=== PATIENT | female | born 1940 | race Caucasian/White ===

== ENCOUNTER → 2018-07-03 | Outpatient (CLI) | payer MEDICARE ==
[2018-07-03 08:38] LABS: HCT 33.9 % (34.0-46.0); MCH 31.8 pg (25.0-35.0); MCHC 32.6 g/dL (31.0-37.0); MCV 97.7 fL (80.0-100.0); Mean Platelet Volume 8.4; Platelet Count 304 k/uL (150-450); RBC 3.47 m/uL (3.80-5.40); RDW 14.6 % (11.5-15.5)
[2018-07-03 08:48] LABS: Appearance,Urine Clear (Clear); Bilirubin,Urine Negative (Negative); Blood,Urine Negative (Negative); Color,Urine Light Yellow; Glucose,Urine (UA) Negative (Negative); Ketones,Urine Negative (Negative); Leukocyte Esterase,Urine Negative (Negative); Nitrite,Urine Negative (Negative); Protein,Urine Negative (Negative); Specific Gravity,Urine 1.011 (1.001-1.035); Urobilinogen,Urine <2.0 mg/dL (<2.0)
[2018-07-03 15:46] LABS: Albumin 4.5 g/dL (3.80-4.90); Albumin/Globulin Ratio 2.25 (1.20-2.10); Anion Gap 5.6 mmol/L (4.00-12.00); Calcium 9.6 mg/dL (8.7-10.3); Carbon Dioxide 30.4 mmol/L (21.6-31.8); LDL Cholesterol,Calculated 103.6 mg/dL (0.0-131.0); Potassium 5.3 mmol/L (3.5-5.5); Total Bilirubin 0.7 mg/dL (0.3-1.2); Total Protein 6.5 g/dL (6.2-8.2); VLDL Calculation 14.4 mg/dL (5.00-40.00)
== END | disposition home or self-care (01) ==
LOC: LABWHC1 07:13
PROVIDERS: ATTEND Family Medicine
DX: R73.09 Other abnormal glucose (principal); M54.2 Cervicalgia; R31.9 Hematuria, unspecified; E78.5 Hyperlipidemia, unspecified; G47.33 Obstructive sleep apnea (adult) (pediatric)
CPT/HCPCS: 36415; 80053; 80061; 81003; 85027

== ENCOUNTER 2018-12-27 09:06 | Inpatient (IN) | payer MEDICARE ==
[2018-12-27] MEDS ORDERED: ASPIRIN 81 MG PO STA (09:27)
--- NOTE | 2018-12-27 09:36 | ED ---
Chest Pain HPI - General Chief Complaint: Chest Pain Stated Complaint: chest pain Time Seen by Provider: 12/27/18 09:12 Source: patient, RN notes reviewed Mode of arrival: wheelchair Limitations: no limitations - History of Present Illness Initial Comments: This is a 78-year-old female who was a former smoker who quit about 10 years ago who states she's been having chest pain. She states she's had retrosternal chest pain and pressure as severe as 5/10 severity feels like an elephant sitting on her chest and she also describes it as achy. Currently she is pain- free she states she's been noticing more more last 2 days it was very bad this morning but is now resolved. She states she normally does a lot of walking and she has noticed lately that she does not have the energy that she used to have she is fatigued easier short of breath. No personal history of heart disease or is a family history of heart disease however. She denies any history of and diagnosed with lung disease. MD Complaint: chest pain - Related Data Home Medications Medication Instructions Recorded Confirmed Atorvastatin [Lipitor] 40 mg PO DAILY 12/27/18 12/27/18 Calcium Carbonate/Vitamin D3 1 tab PO BID 12/27/18 12/27/18 [Calcium 500-Vit D3 600 Tablet] Cholecalciferol (Vitamin D3) 4,000 unit PO DAILY 12/27/18 12/27/18 [Vitamin D3] Ferrous Sulfate [Iron (65 MG 325 mg PO Q48H 12/27/18 12/27/18 Elemental)] Fluorometholone 0.1% Ophth Amy 1 drop PO HS 12/27/18 12/27/18 [Fml] Folic Acid 1 mg PO DAILY 12/27/18 12/27/18 Gabapentin [Neurontin] 300 mg PO TID 12/27/18 12/27/18 Latanoprost [Xalatan 0.005%] 1 drop BOTH EYES HS 12/27/18 12/27/18 Magnesium Oxide [Mag-Ox] 250 mg PO DAILY 12/27/18 12/27/18 Meloxicam 15 mg PO DAILY 12/27/18 12/27/18 Omeprazole 40 mg PO DAILY 12/27/18 12/27/18 Vit C/E/Zn/Coppr/Lutein/Zeaxan 2 cap PO BID 12/27/18 12/27/18 [Preservision Areds 2 Softgel] Allergies Allergy/AdvReac Type Severity Reaction Status Date / Time pregabalin [From Lyrica] AdvReac Unknown Verified 12/27/18 10:02 Review of Systems ROS Statement: Those systems with pertinent positive or pertinent negative responses have been documented in the HPI. ROS Other: All systems not noted in ROS Statement are negative. EKG Findings - EKG Results: EKG: interpreted by ERICKA, sinus rhythm (Normal sinus rhythm a 76. Interval 182 QRS duration 74 QT since QTC 404/[address]-T wave changes.) Past Medical History Past Medical History: Hyperlipidemia History of Any Multi-Drug Resistant Organisms: None Reported Past Surgical History: Back Surgery Additional Past Surgical History / Comment(s): Bleeding ulcer, splenectomy Past Psychological History: No Psychological Hx Reported Smoking Status: Former smoker Past Alcohol Use History: Occasional Past Drug Use History: None Reported General Exam - General Exam Comments Initial Comments: This is a well-developed well-nourished awake alert oriented 3 female Limitations: no limitations General appearance: alert, in no apparent distress Head exam: Present: atraumatic, normocephalic, normal inspection Eye exam: Present: normal appearance, PERRL, EOMI. Absent: scleral icterus, conjunctival injection, periorbital swelling ENT exam: Present: normal exam, mucous membranes moist Neck exam: Present: normal inspection, full ROM, other. Absent: tenderness, meningismus, lymphadenopathy Respiratory exam: Present: normal lung sounds bilaterally. Absent: respiratory distress, wheezes, rales, rhonchi, stridor Cardiovascular Exam: Present: regular rate, normal rhythm, normal heart sounds. Absent: systolic murmur, diastolic murmur, rubs, gallop, clicks GI/Abdominal exam: Present: soft, normal bowel sounds. Absent: distended, tenderness, guarding, rebound, rigid, bruit, pulsatile mass Extremities exam: Present: normal inspection, full ROM, normal capillary refill. Absent: tenderness, pedal edema, joint swelling, calf tenderness Back exam: Present: normal inspection Neurological exam: Present: alert, oriented X3, CN II-XII intact Psychiatric exam: Present: normal affect, normal mood Skin exam: Present: warm, dry, intact, normal color. Absent: rash Course Vital Signs 04/20/19 04/20/19 09:09 10:17 Temperature 98.4 F Pulse Rate 92 66 Respiratory 18 16 Rate Blood Pressure 150/76 116/78 O2 Sat by Pulse 96 95 Oximetry - Reevaluation(s) Reevaluation #1: 12/27/18 11:16 I did reevaluate patient during her stay she did have recurrence of chest heaviness. During my recurrent examination had resolved Reevaluation #2: 12/27/18 11:18 patient monitor was performed on the patient rule out dysrhythmia. The EKG demonstrated no PACs or PVCs. Heart rate was 63 my evaluation Chest Pain MDM - MDM I did review the imaging and reports no acute findings. Patient will be admitted she does demonstrate evidence of acute coronary syndrome/unstable angina. Critical Care Time Critical Care Time: Yes Critical Care Time: 31 minutes of critical care time which includes initial presentation with history physical labs x-rays several reevaluation the patient response to therapy and for monitoring the patient discussed with the admitting physician admission orders and documentation of the above. Dr. Saldana is being covered this week and by [facility]. Disposition Clinical Impression: Acute coronary syndrome, Unstable angina pectoris Disposition: ADMITTED IP TO THIS [facility] Condition: Stable Referrals: Ramses Saldana MD [Primary Care Provider] - 1-2 days
[2018-12-27 09:50] LABS: HCT 34.3 % (34.0-46.0); HGB 11.3 gm/dL (11.4-16.0); MCH 30.9 pg (25.0-35.0); MCHC 32.9 g/dL (31.0-37.0); MCV 93.7 fL (80.0-100.0); Mean Platelet Volume 8.9; Platelet Count 299 k/uL (150-450); RBC 3.66 m/uL (3.80-5.40); RDW 14.7 % (11.5-15.5); WBC 8.1 k/uL (3.8-10.6)
[2018-12-27 09:58] LABS: D-Dimer 0.41 mg/L FEU (<0.60); Partial Thromboplastin Time 24.2 sec (22.0-30.0); Prothrombin Time 11.1 sec (9.0-12.0)
--- NOTE | 2018-12-27 09:58 | XR ---
EXAMINATION TYPE: XR chest 2V DATE OF EXAM: 12/27/2018 COMPARISON: NONE HISTORY: Shortness of breath TECHNIQUE: Frontal and lateral views of the chest are obtained. FINDINGS: Scattered senescent parenchymal changes noted. Hyperinflation compatible with COPD. No evidence for infiltrate. No evidence for atelectasis. Heart size is stable. Mediastinal structures are stable and grossly unremarkable. No evidence for hilar prominence. Degenerative changes dorsal spine. IMPRESSION: 1. No evidence for acute pulmonary disease.
[2018-12-27 10:01] LABS: Albumin 4.7 g/dL (3.5-5.0); Calcium 10.2 mg/dL (8.4-10.2); Magnesium 1.7 mg/dL (1.6-2.3); Potassium 4.2 mmol/L (3.5-5.1); Total Bilirubin 0.7 mg/dL (0.2-1.3); Total Protein 7.3 g/dL (6.3-8.2)
[2018-12-27] MEDS ORDERED: NITROGLYCERIN OINT 1 INCH/GM PACKET TOPICAL STA (10:18)
[2018-12-27] MEDS ORDERED: HEPARIN SODIUM,PORCINE 5,000 UNIT/ML 1 ML VIAL IV PRN (10:19)
[2018-12-27] MEDS ORDERED: HEPARIN SODIUM,PORCINE 5,000 UNIT/ML 1 ML VIAL IV ONE (10:19)
[2018-12-27 10:31] LABS: Band Neutrophils % 1 %; Eosinophils # (M) 0.49 k/uL (0-0.7); Lymphocytes # (M) 2.51 k/uL (1.0-4.8); Monocytes # (M) 0.57 k/uL (0-1.0); Neutrophils % (M) 55 %; Nucleated Red Blood Cells 0 /100 WBC (0-0); Total Cells Counted 100
[2018-12-27 10:32] LABS: Poikilocytosis (M) Present
[2018-12-27] MEDS: HEPARIN SOD,PORK IN 0.45% NACL 25,000 UNIT in 0.45% NACL 1 250ML.BAG IV SCH (10:50)
[2018-12-27] MEDS: GABAPENTIN 300 MG CAP PO SCH ×2 (16:24→22:31)
[2018-12-27] MEDS: NITROGLYCERIN OINT 1 INCH/GM PACKET TOPICAL SCH (17:28)
[2018-12-27] MEDS: MAGNESIUM OXIDE 400 MG TAB PO SCH (22:28)
[2018-12-27] MEDS: CALCIUM CARB-VIT D 500MG-200UN 1 EACH TAB PO SCH (22:31)
--- NOTE | 2018-12-27 23:02 | P.HPIM ---
History of Present Illness H&P Date: 12/27/18 Chief Complaint: Chest pain Patient is a 78-year-old female with a known history of hyperlipidemia, obstructive sleep apnea and previous history of smoking came to ER with com plaints of intermittent chest pains for the past few weeks. Patient says that she isn't having heaviness in the chest. Today patient did have left retrosternal chest pressure/heaviness and felt like an elephant sitting on her chest and tightness. Patient has been having this chest tightness for the past 2 days and more severe this morning which made her to come to the hospital.. Patient did have sweating and mild shortness of breath. No associated nausea vomiting. No radiation of the pain. Patient also complaining of shortness of breath with walking recently and is also complaining of fatigue. Denied any previous history of NM. Patient says that she has significant family history of coronary artery disease. Troponin 0.017, 0.111 and 0.078 EKG showed normal sinus rhythm Review of Systems Constitutional: Patient denies any fever or chills . No generalized weakness or weight loss. Abdomen: Patient denied nausea vomiting and diarrhea and abdominal pain. Cardiovascular: Chest pain with diaphoresis and mild shortness of breath. No palpitations. No leg swelling.. Respiratory: patient denied any cough is from production. No shortness of breath Neurologic: Patient denied any numbness or tingling headache. Musculoskeletal: Patient denies any complaints of joint swelling or deformity. Skin: Negative Psychiatric: Negative Endocrine: No heat or cold intolerance. No recent weight gain. Genitourinary: No dysuria or hematuria. All other 14 point ROS negative except the above Past Medical History Past Medical History: Hyperlipidemia, Sleep Apnea/CPAP/BIPAP Additional Past Medical History / Comment(s): pt states she has bleeding issues in the past after surgery. History of Any Multi-Drug Resistant Organisms: None Reported Past Surgical History: Back Surgery Additional Past Surgical History / Comment(s): Bleeding ulcer-took 1/4 of stomach, splenectomy, cornea replacement right eye Past Anesthesia/Blood Transfusion Reactions: No Reported Reaction Past Psychological History: No Psychological Hx Reported Smoking Status: Former smoker Past Alcohol Use History: Occasional Past Drug Use History: None Reported Medications and Allergies Home Medications Medication Instructions Recorded Confirmed Type Atorvastatin [Lipitor] 40 mg PO DAILY 12/27/18 12/27/18 History Calcium Carbonate/Vitamin D3 1 tab PO BID 12/27/18 12/27/18 History [Calcium 500-Vit D3 600 Tablet] Cholecalciferol (Vitamin D3) 4,000 unit PO DAILY 12/27/18 12/27/18 History [Vitamin D3] Ferrous Sulfate [Iron (65 MG 325 mg PO Q48H 12/27/18 12/27/18 History Elemental)] Fluorometholone 0.1% Ophth Amy 1 drop PO HS 12/27/18 12/27/18 History [Fml] Folic Acid 1 mg PO DAILY 12/27/18 12/27/18 History Gabapentin [Neurontin] 300 mg PO TID 12/27/18 12/27/18 History Latanoprost [Xalatan 0.005%] 1 drop BOTH EYES HS 12/27/18 12/27/18 History Magnesium Oxide [Mag-Ox] 250 mg PO DAILY 12/27/18 12/27/18 History Meloxicam 15 mg PO DAILY 12/27/18 12/27/18 History Omeprazole 40 mg PO DAILY 12/27/18 12/27/18 History Vit C/E/Zn/Coppr/Lutein/Zeaxan 2 cap PO BID 12/27/18 12/27/18 History [Preservision Areds 2 Softgel] Allergies Allergy/AdvReac Type Severity Reaction Status Date / Time pregabalin [From Lyrica] AdvReac Unknown Verified 12/27/18 10:02 Physical Exam Vitals: Vital Signs Temp Pulse Pulse Resp BP BP Pulse Ox 12/27/18 15:10 64 16 12/27/18 14:34 97.9 F 64 16 157/74 94 L 12/27/18 14:16 65 16 138/73 98 12/27/18 11:49 61 16 147/62 98 12/27/18 10:17 66 16 116/78 95 12/27/18 09:09 98.4 F 92 18 150/76 96 Intake and Output 12/27/18 12/27/18 12/27/18 06:59 14:59 22:59 Other: Voiding Method Toilet Weight 68.039 kg PHYSICAL EXAMINATION: Patient is lying in the bed comfortably, no acute distress, awake alert and oriented.. HEENT: Normocephalic. Neck is supple. Pupils reactive. Nostrils clear. Oral cavity is moist. Ears reveal no drainage. Neck reveals no JVD, carotid bruits, or thyromegaly. CHEST EXAMINATION: Trachea is central. Symmetrical expansion. Lung diallo clear to auscultation and percussion. CARDIAC: Normal S1, S2 with no gallops. No murmurs ABDOMEN: Soft. Bowel sounds normal. No organomegaly. No abdominal bruits. Extremities: reveal no edema. No clubbing or cyanosis Neurologically awake, alert, oriented x3 with well-coordinated movements. No focal deficits noted Skin: No rash or skin lesions. Psychiatric: Coperative. Nonsuicidal Musculoskeletal: No joint swelling or deformity. Normal range of motion. Results CBC & Chem 7: 12/27/18 09:25 12/27/18 09:25 Labs: Abnormal Lab Results - Last 24 Hours (Table) 12/27/18 12/27/18 Range/Units 09:25 09:25 RBC 3.66 L (3.80-5.40) m/uL Hgb 11.3 L (11.4-16.0) gm/dL Glucose 169 H (74-99) mg/dL Thrombosis Risk Factor Assmnt - DVT/VTE Prophylaxis DVT/VTE Prophylaxis: Pharmacologic Prophylaxis ordered - Choose All That Apply Any of the Below Risk Factors Present?: Yes Each Factor Represents 1 point: Obesity (BMI >25) Other Risk Factors: No Thrombosis Risk Factor Assessment Total Risk Factor Score: 1 Thrombosis Risk Factor Assessment Level: Low Risk Assessment and Plan Assessment: Acute non-ST elevated NM with elevated troponin level Anginal chest pain. Hyperlipidemia Obstructive sleep apnea on CPAP at home Family history of coronary disease Previous history of smoking Peripheral neuropathy nondiabetic Plan: Patient will be continued on heparin drip. Serial EKG and troponins. Continue with telemetry monitoring. Cardiology was consulted. We'll continue with aspirin statins and follow up closely. Further recommendations based on the clinical course. Time with Patient: Greater than 30
[2018-12-28] MEDS: LATANOPROST 0.005% OPHTH DROPS 2.5 ML BTL BOTH EYES SCH ×2 (00:43→21:53)
[2018-12-28] MEDS: FLUOROMETHOLONE 0.1% OPHTH DROPS 5 ML BTL BOTH EYES SCH ×2 (00:44→21:53)
[2018-12-28] MEDS: NITROGLYCERIN OINT 1 INCH/GM PACKET TOPICAL SCH ×5 (00:47→23:22)
[2018-12-28 06:49] LABS: Basophils # (A) 0.1 k/uL (0-0.2); Basophils % (A) 1 %; Eosinophils # (A) 0.3 k/uL (0-0.7); Eosinophils % (A) 5 %; HCT 32.1 % (34.0-46.0); HGB 10.7 gm/dL (11.4-16.0); Lymphocytes # (A) 2.2 k/uL (1.0-4.8); Lymphocytes % (A) 32 %; MCH 31.1 pg (25.0-35.0); MCHC 33.2 g/dL (31.0-37.0); MCV 93.7 fL (80.0-100.0); Mean Platelet Volume 9.3; Monocytes # (A) 0.5 k/uL (0-1.0); Monocytes % (A) 7 %; Neutrophils # (A) 3.5 k/uL (1.3-7.7); Neutrophils % (A) 51 %; Platelet Count 282 k/uL (150-450); RBC 3.43 m/uL (3.80-5.40); RDW 14.7 % (11.5-15.5); WBC 6.8 k/uL (3.8-10.6)
[2018-12-28 06:53] LABS: Cholesterol 167 mg/dL (<200); HDL Cholesterol 70 mg/dL (40-60); LDL Cholesterol,Calculated 81 mg/dL (0-99); Triglycerides 82 mg/dL (<150)
[2018-12-28] MEDS: CALCIUM CARB-VIT D 500MG-200UN 1 EACH TAB PO SCH ×2 (08:28→21:54)
[2018-12-28] MEDS: PANTOPRAZOLE 40 MG TABLET PO SCH (08:29)
[2018-12-28] MEDS: FERROUS SULFATE 325 MG TAB PO SCH (08:29)
[2018-12-28] MEDS: GABAPENTIN 300 MG CAP PO SCH ×3 (08:29→21:54)
[2018-12-28] MEDS: VIT A,C & E-LUTEIN-MINERALS 1 EACH TAB PO SCH (08:29)
[2018-12-28] MEDS: CHOLECALCIFEROL 1,000 UNIT TAB PO SCH (08:31)
[2018-12-28] MEDS ORDERED: ATORVASTATIN 40 MG TAB PO SCH (09:00)
[2018-12-28] MEDS ORDERED: ASPIRIN 325 MG TAB PO SCH (09:00)
[2018-12-28] MEDS ORDERED: MELOXICAM 7.5 MG TAB PO SCH (09:00)
[2018-12-28] MEDS ORDERED: SODIUM CHLORIDE 0.9% 1,000 ML in EMPTY BAG 1 BAG IV ONE (09:34)
[2018-12-28] MEDS ORDERED: NITROGLYCERIN SL TABS 0.4 MG TAB SUBLINGUAL PRN (09:34)
[2018-12-28] MEDS ORDERED: ALPRAZolam 0.25 MG TAB PO PRN (09:34)
[2018-12-28] MEDS ORDERED: ALPRAZolam 0.5 MG TAB PO PRN (09:34)
[2018-12-28] MEDS: FOLIC ACID 1 MG TAB PO SCH (12:02)
[2018-12-28] MEDS: HEPARIN SOD,PORK IN 0.45% NACL 25,000 UNIT in 0.45% NACL 1 250ML.BAG IV SCH (12:02)
--- NOTE | 2018-12-28 12:47 | CONS ---
CONSULTATION CHIEF COMPLAINT: Chest pain. HISTORY OF PRESENT ILLNESS: The patient is a 78-year-old lady with history of dyslipidemia, sleep apnea on CPAP, who presented to the hospital with an episode of precordial chest pressure. It came on at rest, moderate intensity, associated with some mild diaphoresis and shortness of breath. She became pain free by the time she came to hospital and has remained pain- free since. An EKG does not reveal acute ischemic changes. She has had 3 sets of troponins that are slightly elevated at 0.1, 0.07 and 0.07. Her LDL cholesterol is normal at 80. She had 1 other episode of chest discomfort last night, but that happened in the context of not having the O2 on. Patient had a non ST-segment elevation WI and I advised her to undergo cardiac catheterization for further evaluation. I will also obtain cardiac catheterization for further evaluation. We will schedule this and do it tomorrow. I have explained risks, benefits and alternatives, understood and accepted. PAST MEDICAL HISTORY: Significant for dyslipidemia. CURRENT MEDICATIONS: Include omeprazole, meloxicam, magnesium, Neurontin, folic acid, iron, and Lipitor. ALLERGIC: LYRICA. FAMILY HISTORY: Negative for premature coronary artery disease. SOCIAL HISTORY: Negative for current smoking, EtOH abuse, or drug abuse. REVIEW OF SYSTEMS: HEENT is unremarkable. Cardiac as described above. Respiratory as described above. GI negative. Genitourinary: Negative. Allergy/Immunology: None. Skin negative. Musculoskeletal significant for arthritis. Psychosocial negative. Endocrine negative. Derm negative. Constitutional negative. Oncological negative. Rest of the system review is not relevant. EXAM: Comfortable at rest. Heart rate is 66 beats per minute. Blood pressure is 130/70, respirations 16. There is no jugular venous distention. Carotid upstroke is normal. There is no bruit. Chest exam reveals good air entry bilaterally. Heart exam reveals first and second heart sounds. No gallop. No murmur. No rub. Abdomen is soft, nontender. Exam of extremities did not reveal any edema. Peripheral pulses are palpable. ASSESSMENT: Non ST-segment elevation myocardial infarction. PLAN: Patient will undergo cardiac catheterization tomorrow. She had been explained of risks, benefits and alternatives, understood and accepted. Will obtain a 2D echo in the morning. MMODL / IJN: [id number] /
[2018-12-28] MEDS: ACETAMINOPHEN TAB 325 MG TAB PO PRN (13:04)
[2018-12-28] MEDS ORDERED: POLYETHYLENE GLYCOL 3350 17 GM POWD.PACK PO STA (15:34)
[2018-12-28] MEDS: NITROGLYCERIN SL TABS 0.4 MG TAB SUBLINGUAL PRN ×2 (20:19→20:24)
[2018-12-28] MEDS: MAGNESIUM OXIDE 400 MG TAB PO SCH (21:54)
[2018-12-28] MEDS ORDERED: NITROGLYCERIN-D5W PMX 50 MG in DEXTROSE/WATER 1 250ML.BAG IV SCH (22:00)
--- NOTE | 2018-12-29 00:10 | P.PN ---
Subjective Progress Note Date: 12/28/18 Principal diagnosis: Chest pressure Patient is a 78-year-old female with a known history of hyperlipidemia, obstructive sleep apnea and previous history of smoking came to ER with complaints of intermittent chest pains for the past few weeks. Patient says that she isn't having heaviness in the chest. Today patient did have left retrosternal chest pressure/heaviness and felt like an elephant sitting on her chest and tightness. Patient has been having this chest tightness for the past 2 days and more severe this morning which made her to come to the hospital.. Patient did have sweating and mild shortness of breath. No associated nausea vomiting. No radiation of the pain. Patient also complaining of shortness of breath with walking recently and is also complaining of fatigue. Denied any previous history of OR. Patient says that she has significant family history of coronary artery disease. Troponin 0.017, 0.111 and 0.078 EKG showed normal sinus rhythm 12/28/2018 Patient denied any complaints of chest pain or pressure today. Patient did have an episode of irregular rhythm. Currently maintaining sinus rhythm. Currently of headache otherwise no complaints of shortness of breath. Cardiology is planning for catheterization tomorrow. LDL 81. Current medications reviewed. Objective - Vital Signs Vital signs: Vital Signs Temp 98 F 12/28/18 15:15 Pulse 69 12/28/18 15:15 Resp 18 12/28/18 15:15 BP 125/64 12/28/18 15:15 Pulse Ox 90 L 12/28/18 15:15 Intake & Output 12/28/18 12/28/18 12/29/18 06:59 18:59 06:59 Intake Total 100 719.758 Balance 100 719.758 Weight 70.1 kg Intake: Intake, IV Titration 100 275.758 Amount Heparin Sod,Pork in 0.45% 100 205.758 NaCl 25,000 unit In 0.45 % NaCl 1 250ml.bag @ 12 UNITS/KG/HR 8.165 mls/hr IV .Q24H [facility] Rx#: [id number] Sodium Chloride 0.9% 1, 70 000 ml In Empty Bag 1 bag @ 1 ML/KG/HR 70.1 mls/hr IV .[id number] ONE Rx#: [id number] Oral 444 Other: # Voids 2 2 - Exam PHYSICAL EXAMINATION: Patient is lying in the bed comfortably, no acute distress, awake alert and oriented.. HEENT: Normocephalic. Neck is supple. Pupils reactive. Nostrils clear. Oral ca vity is moist. Ears reveal no drainage. Neck reveals no JVD, carotid bruits, or thyromegaly. CHEST EXAMINATION: Trachea is central. Symmetrical expansion. Lung diallo clear to auscultation and percussion. CARDIAC: Normal S1, S2 with no gallops. No murmurs ABDOMEN: Soft. Bowel sounds normal. No organomegaly. No abdominal bruits. Extremities: reveal no edema. No clubbing or cyanosis Neurologically awake, alert, oriented x3 with well-coordinated movements. No focal deficits noted Skin: No rash or skin lesions. Psychiatric: Coperative. Nonsuicidal Musculoskeletal: No joint swelling or deformity. Normal range of motion. - Labs CBC & Chem 7: 12/28/18 06:05 12/27/18 09:25 Labs: Abnormal Lab Results - Last 24 Hours (Table) 12/28/18 12/28/18 12/28/18 Range/Units 06:05 06:05 06:05 RBC 3.43 L (3.80-5.40) m/uL Hgb 10.7 L (11.4-16.0) gm/dL Hct 32.1 L (34.0-46.0) % APTT 51.7 H (22.0-30.0) sec Troponin I (0.000-0.034) ng/mL HDL Cholesterol 70 H (40-60) mg/dL 12/28/18 Range/Units 06:05 RBC (3.80-5.40) m/uL Hgb (11.4-16.0) gm/dL Hct (34.0-46.0) % APTT (22.0-30.0) sec Troponin I 0.072 H* (0.000-0.034) ng/mL HDL Cholesterol (40-60) mg/dL Assessment and Plan Assessment: Acute non-ST elevated OR with elevated troponin level Anginal chest pain. Hyperlipidemia Obstructive sleep apnea on CPAP at home Family history of coronary disease Previous history of smoking Peripheral neuropathy nondiabetic Plan: Patient will be continued on heparin drip. Serial EKG and troponins trending down. Continue with telemetry monitoring. Cardiology is planning for catheterization tomorrow.. Will continue with aspirin statins and follow up closely. Further recommendations based on the clinical course. Time with Patient: Greater than 30
[2018-12-29] MEDS: NITROGLYCERIN OINT 1 INCH/GM PACKET TOPICAL SCH (05:24)
[2018-12-29] MEDS ORDERED: ASPIRIN 325 MG TAB PO ONE (06:00)
[2018-12-29] MEDS ORDERED: ATORVASTATIN 80 MG TAB PO ONE (06:00)
[2018-12-29] MEDS: PANTOPRAZOLE 40 MG TABLET PO SCH (06:15)
[2018-12-29] MEDS: GABAPENTIN 300 MG CAP PO SCH ×3 (06:15→20:25)
[2018-12-29] MEDS: VIT A,C & E-LUTEIN-MINERALS 1 EACH TAB PO SCH (06:15)
[2018-12-29] MEDS: CHOLECALCIFEROL 1,000 UNIT TAB PO SCH (06:15)
[2018-12-29] MEDS: CALCIUM CARB-VIT D 500MG-200UN 1 EACH TAB PO SCH ×2 (06:15→20:24)
[2018-12-29 06:38] LABS: Basophils # (A) 0.1 k/uL (0-0.2); Basophils % (A) 1 %; Eosinophils # (A) 0.5 k/uL (0-0.7); Eosinophils % (A) 5 %; HCT 31.2 % (34.0-46.0); HGB 10.3 gm/dL (11.4-16.0); Lymphocytes # (A) 2.8 k/uL (1.0-4.8); Lymphocytes % (A) 30 %; Mean Platelet Volume 9.4; Monocytes # (A) 0.6 k/uL (0-1.0); Monocytes % (A) 7 %; Neutrophils % (A) 53 %; Platelet Count 262 k/uL (150-450); RBC 3.32 m/uL (3.80-5.40); RDW 14.6 % (11.5-15.5); WBC 9.4 k/uL (3.8-10.6)
[2018-12-29] MEDS: ACETAMINOPHEN TAB 325 MG TAB PO PRN ×2 (07:34→23:57)
[2018-12-29] MEDS ORDERED: LIDOCAINE 1% INJ 10MG/ML (20 ML MDV) SQ ONE (08:12)
[2018-12-29] MEDS ORDERED: fentaNYL (PF) 50 MCG/ML 2 ML AMP IV ONE (08:15)
[2018-12-29] MEDS ORDERED: MIDAZOLAM (PF) 2 MG/2 ML VIAL IV ONE (08:16)
[2018-12-29] MEDS ORDERED: IV FLUID CONTINUATION 700 ML IV ONE (08:16)
[2018-12-29] MEDS ORDERED: IOPAMIDOL-370 100ML BTL INJ ONE (08:24)
[2018-12-29] MEDS ORDERED: IOPAMIDOL-370 50ML BTL INJ ONE (08:25)
[2018-12-29] MEDS ORDERED: RX INFO: IV CONTRAST WAS GIVEN 1 EACH MISC MISCELLANE PRN (08:47)
[2018-12-29] MEDS ORDERED: HEPARIN SODIUM,PORCINE 5,000 UNIT/ML 1 ML VIAL IV PRN (08:51)
[2018-12-29] MEDS ORDERED: MD COMMUNICATION TO PHARMACY 1 EACH MISC PO ONE (08:55)
--- NOTE | 2018-12-29 08:58 | CC ---
CARDIAC CATHETERIZATION REPORT INDICATION: [id number] elevation [place]. PROCEDURE NOTE: After obtaining informed consent, left heart catheterization and coronary angiogram were performed via the right femoral artery using standard Nellie catheters. The patient tolerated the procedure well without any obvious immediate complications. A femoral angiogram was performed and Angio-Seal was deployed for hemostasis. The patient received moderate conscious sedation and total sedation time was 19 minutes. FINDINGS: 1. HEMODYNAMICS: Left ventricular end-diastolic pressure is 24 mm. There is no significant gradient across the aortic valve. 2. LEFT VENTRICULOGRAM: Left ventriculogram was performed in REGALADO position and shows normal left ventricular size with mild LV dysfunction with an ejection fraction of 45%. There is mild apical hypokinesis. There is 2+ mitral regurgitation, which seems to be catheter-induced. 3. ANGIOGRAPHIC DATA: Left main coronary artery appears calcified. Distal left main shows an 80% stenosis. It divides into left anterior descending coronary artery and circumflex coronary artery. LAD itself appears heavily calcified, gives off 2 large caliber diagonal branches that are free of significant stenosis. The left main stenosis extends into the proximal LAD where it is stenosed almost 95%. The circumflex coronary artery shows a 40% to 50% stenosis in the proximal part. The right coronary artery is a large dominant vessel, which shows a moderate area of narrowing in its midportion and the ostial portion of the PDA has an 80% to 90% stenosis. The ostial portion of the PLV also has a 40% to 50% stenosis. 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 PLAN: I am going to ask cardiothoracic surgeon to evaluate the patient for bypass surgery. I think we need to do the surgery soon as the patient has had symptoms, twice had episodes of chest pain since admission. I am going to resume heparin 2 hours after the Angio-Seal. I will obtain a 2-D echo. MMODL / IJN: [id number] /
[2018-12-29 09:49] LABS: Partial Thromboplastin Time 32.1 sec (22.0-30.0)
[2018-12-29 09:51] LABS: ALT 28 U/L (9-52); AST 25 U/L (14-36); Alkaline Phosphatase 60 U/L (38-126); Anion Gap 6 mmol/L; Blood Urea Nitrogen 19 mg/dL (7-17); Calcium 9.7 mg/dL (8.4-10.2); Carbon Dioxide 29 mmol/L (22-30); Chloride 105 mmol/L (98-107); Glucose 94 mg/dL (74-99); Magnesium 1.8 mg/dL (1.6-2.3); Potassium 4.4 mmol/L (3.5-5.1); Sodium 140 mmol/L (137-145); Total Bilirubin 0.5 mg/dL (0.2-1.3); Total Protein 6.4 g/dL (6.3-8.2)
[2018-12-29] MEDS ORDERED: SENNOSIDES-DOCUSATE SODIUM 1 EACH TAB PO STA (10:06)
[2018-12-29] MEDS ORDERED: BISACODYL 10 MG SUPP RECTAL PRN (10:06)
--- NOTE | 2018-12-29 10:52 | P.PN ---
Subjective Patient in room back from a cardiac cath. Has severe of left main 3 vessel disease will be scheduled tomorrow for bypass. LAD 95% right coronary 80-90%. Patient resting in bed family at bedside denies any chest pain at this time Objective - Vital Signs Vital signs: Vital Signs Temp 98 F 12/29/18 10:32 Pulse 61 12/29/18 10:32 Resp 18 12/29/18 10:32 BP 142/72 12/29/18 10:32 Pulse Ox 96 12/29/18 10:32 Intake & Output 12/28/18 12/29/18 12/29/18 18:59 06:59 18:59 Intake Total 719.758 560 260.17 Output Total 400 Balance 719.758 560 -139.83 Weight 71.5 kg Intake: IV 100 Intake, IV Titration 275.758 560 160.17 Amount Heparin Sod,Pork in 0.45% 205.758 160.17 NaCl 25,000 unit In 0.45 % NaCl 1 250ml.bag @ 12 UNITS/KG/HR 8.165 mls/hr IV .Q24H [facility] Rx#: [id number] Sodium Chloride 0.9% 1, 70 560 000 ml In Empty Bag 1 bag @ 1 ML/KG/HR 70.1 mls/hr IV .[id number] ONE Rx#: [id number] Oral 444 Output: Urine 400 Other: Voiding Method Bedpan # Voids 2 1 - Constitutional General appearance: Present: mild distress - EENT Eyes: Present: PERRLA Ears: bilateral: normal - Neck Neck: Present: normal ROM - Respiratory Respiratory: bilateral: CTA - Cardiovascular Rhythm: regular - Gastrointestinal General gastrointestinal: Present: soft - Integumentary Integumentary: Present: normal - Neurologic Neurologic: Present: CNII-XII intact - Musculoskeletal Musculoskeletal: Present: gait normal - Psychiatric Psychiatric: Present: A&O x's 3, appropriate affect, intact judgment & insight - Labs CBC & Chem 7: 12/29/18 05:53 12/29/18 05:53 Labs: Abnormal Lab Results - Last 24 Hours (Table) 12/29/18 12/29/18 12/29/18 Range/Units 05:53 05:53 05:53 RBC 3.32 L (3.80-5.40) m/uL Hgb 10.3 L (11.4-16.0) gm/dL Hct 31.2 L (34.0-46.0) % APTT 50.8 H (22.0-30.0) sec BUN 19 H (7-17) mg/dL 12/29/18 Range/Units 09:20 RBC (3.80-5.40) m/uL Hgb (11.4-16.0) gm/dL Hct (34.0-46.0) % APTT 32.1 H (22.0-30.0) sec BUN (7-17) mg/dL - Imaging and Cardiology Chest x-ray: report reviewed Assessment and Plan Plan: Assessment Acute non-ST elevated NV with elevated troponins Angina chest pain Hyperlipidemia Sleep apnea on CPAP Family history of coronary disease Remote smoking history Peripheral neuropathy nondiabetic Plan Continue consultation with cardiology and cardiac surgeon Plans are for bypass surgery in the morning three-vessel
[2018-12-29] MEDS: FOLIC ACID 1 MG TAB PO SCH (10:59)
[2018-12-29] MEDS: METOPROLOL TARTRATE 12.5 MG TAB PO SCH ×2 (10:59→20:24)
[2018-12-29] MEDS ORDERED: HEPARIN SODIUM,PORCINE 5,000 UNIT/ML 1 ML VIAL IV ONE (11:00)
[2018-12-29] MEDS: HEPARIN SOD,PORK IN 0.45% NACL 25,000 UNIT in 0.45% NACL 1 250ML.BAG IV SCH (11:00)
[2018-12-29] MEDS: MUPIROCIN 2% OINT 22 GM TUBE NASAL SCH ×2 (11:00→20:25)
[2018-12-29 11:39] LABS: Appearance,Urine Clear (Clear); Bilirubin,Urine Negative (Negative); Blood,Urine Moderate (Negative); Color,Urine Light Yellow; Glucose,Urine (UA) Negative (Negative); Ketones,Urine Negative (Negative); Leukocyte Esterase,Urine Negative (Negative); Nitrite,Urine Negative (Negative); PH, Urine 6.5 (5.0-8.0); Protein,Urine Negative (Negative); Specific Gravity,Urine 1.027 (1.001-1.035); Squamous Epithelial Cell,Urine <1 /hpf (0-4); Urobilinogen,Urine <2.0 mg/dL (<2.0); WBC,Urine 1 /hpf (0-5)
[2018-12-29] MEDS: SODIUM CHLORIDE 0.9% 1,000 ML IV SCH ×2 (11:52→23:59)
--- NOTE | 2018-12-29 12:16 | ECHOF ---
Referral Reason:chest pain MEASUREMENTS -------- HEIGHT: 152.4 cm WEIGHT: 71.2 kg BP: 123/71 RVIDd: 3.0 cm (< 3.3) IVSd: 1.1 cm (0.6 - 1.1) LVIDd: 3.9 cm (3.9 - 5.3) LVPWd: 1.0 cm (0.6 - 1.1) IVSs: 1.4 cm LVIDs: 3.0 cm LVPWs: 1.4 cm Ao Diam: 3.4 cm (2.0 - 3.7) AV Cusp: 2.0 cm (1.5 - 2.6) LA Diam: 3.9 cm (2.7 - 3.8) MV EXCURSION: 15.965 mm (> 18.000) MV EF SLOPE: 44 mm/s (70 - 150) EPSS: 0.5 cm MV E Faraz: 0.64 m/s MV DecT: 222 ms MV A Faraz: 0.85 m/s MV E/A Ratio: 0.75 AR PHT: 441 ms RAP: 5.00 mmHg RVSP: 23.93 mmHg FINDINGS -------- Sinus rhythm. This was a technically good study. LV size, wall thickness and systolic function are normal, with an EF greater than 55%. The left renetta tricular size is normal. The right ventricle is normal in size. The left atrial size is normal. The right atrial size is normal. There is mild aortic valve sclerosis. There is mcjm-me-uldxdhab aortic regurgitation. Mild mitral annular calcification present. Mild mitral regurgitation is present. Mild tricuspid regurgitation present. There is no evidence of pulmonary hypertension. The right v entricular systolic pressure, as measured by Doppler, is 23.93mmHg. There is no pulmonic regurgitation present. The aortic root size is normal. There is no pericardial effusion. CONCLUSIONS -------- 1. LV size, wall thickness and systolic function are normal, with an EF greater than 55%. 2. The left ventricular size is normal. 3. The right ventricle is normal in size. 4. The left atrial size is normal. 5. The right atrial size is normal. 6. There is mild aortic valve sclerosis. 7. There is obeu-ih-aszamopd aortic regurgitation. 8. Mild mitral annular calcification present. 9. Mild mitral regurgitation is present. 10. Mild tricuspid regurgitation present. 11. There is no evidence of pulmonary hypertension. 12. The right ventricular systolic pressure, as measured by Doppler, is 23.93mmHg. 13. There is no pulmonic regurgitation present. 14. The aortic root size is normal. 15. There is no pericardial effusion. SENIOR CAREGIVER: Terri Howard RDCS
[2018-12-29 13:05] LABS: Glucose,Whole Blood 124 mg/dL (75-99)
--- NOTE | 2018-12-29 13:46 | P.GSCN ---
History of Present Illness Consult date: 12/29/18 Reason for Consult: Triple vessel coronary artery disease with significant left main disease, non- STEMI. Requesting physician: Car Jeff History of present illness: This is a 78-year-old active female patient who recently began following with Dr. Ramses Saldana on an outpatient basis. She has a previous medical history of hyperlipidemia, previous tobacco dependence as she quit 10 years ago but used to smoke approximately half a pack a day for 20 years, obstructive sleep apnea with home CPAP use, gastric ulcer with gastrectomy, splenectomy, and family history of heart disease as all brothers have had heart attacks and one of her brothers of myocardial infarction at 53 years old. She presented to [facility] emergency room on December 27 with complaints of chest pain for the prior 2 weeks. She stated that her symptoms were progressively worse over the previous 2 days prompting her to report to the emergency room. She describes her pain as if an elephant this setting on her chest, associated symptoms include diaphoresis and shortness of breath. Her pain would increase with physical acti vity, and be partially relieved with rest. EMS had applied oxygen and given her nitro and she said this relieved her pain. She does state that she has occasional lower extremity edema, she denies paroxysmal nocturnal dyspnea, dizziness, cough, sick contacts, or any strokelike symptoms. Her initial troponin was negative. Her initial EKG demonstrated no acute ischemic changes. She was admitted for evaluation and treatment. Once she was admitted to the floor, she had 2 episodes of the same type of chest pain with ambulation to the bathroom. Troponins were mildly elevated with Max troponin 0.111. The patient was recommended to undergo heart catheterization which was completed at this [facility] by Dr. Jeff and which demonstrated calcific distal left main stenosis of 80%, heavily calcified left anterior descending artery with proximal LAD stenosis 95%, proximal circumflex stenosis 40-50%, ostial PDA stenosis 80-90%, and ostial PLV stenosis 40-50%. Due to the nature of her coronary artery disease, an urgent consultation was placed for cardiothoracic surgery for revascularization. Review of Systems Review of systems was completed and was negative except as noted. - Cardiovascular Reports as per HPI, Reports chest pain, Reports decreased exercise tolerance, Reports dyspnea on exertion Past Medical History Past Medical History: Hyperlipidemia, Sleep Apnea/CPAP/BIPAP Additional Past Medical History / Comment(s): pt states she has bleeding issues in the past after surgery. History of Any Multi-Drug Resistant Organisms: None Reported Past Surgical History: Back Surgery Additional Past Surgical History / Comment(s): Bleeding ulcer-took 1/4 of stomach, splenectomy, cornea replacement right eye Past Anesthesia/Blood Transfusion Reactions: No Reported Reaction Past Psychological History: No Psychological Hx Reported Smoking Status: Former smoker Past Alcohol Use History: Rare Past Drug Use History: None Reported - Past Family History Brother(s) Family Medical History: Coronary Artery Disease (CAD), Myocardial Infarction (MD) Additional Family Medical History / Comment(s): all brothers with heart disease, one who of MD @ 53 years old Medications and Allergies Home Medications Medication Instructions Recorded Confirmed Type Atorvastatin [Lipitor] 40 mg PO DAILY 12/27/18 12/27/18 History Calcium Carbonate/Vitamin D3 1 tab PO BID 12/27/18 12/27/18 History [Calcium 500-Vit D3 600 Tablet] Cholecalciferol (Vitamin D3) 4,000 unit PO DAILY 12/27/18 12/27/18 History [Vitamin D3] Ferrous Sulfate [Iron (65 MG 325 mg PO Q48H 12/27/18 12/27/18 History Elemental)] Fluorometholone 0.1% Ophth Amy 1 drop PO HS 12/27/18 12/27/18 History [Fml] Folic Acid 1 mg PO DAILY 12/27/18 12/27/18 History Gabapentin [Neurontin] 300 mg PO TID 12/27/18 12/27/18 History Latanoprost [Xalatan 0.005%] 1 drop BOTH EYES HS 12/27/18 12/27/18 History Magnesium Oxide [Mag-Ox] 250 mg PO DAILY 12/27/18 12/27/18 History Meloxicam 15 mg PO DAILY 12/27/18 12/27/18 History Omeprazole 40 mg PO DAILY 12/27/18 12/27/18 History Vit C/E/Zn/Coppr/Lutein/Zeaxan 2 cap PO BID 12/27/18 12/27/18 History [Preservision Areds 2 Softgel] Allergies Allergy/AdvReac Type Severity Reaction Status Date / Time pregabalin [From Lyrica] AdvReac Unknown Verified 12/27/18 10:02 Surgical - Exam Vital Signs Temp Pulse Resp BP Pulse Ox 98.4 F 92 18 150/76 96 12/27/18 09:09 12/27/18 09:09 12/27/18 09:09 12/27/18 09:09 12/27/18 09:09 - General well developed, well nourished, no distress, no pain, obese - Eyes Right eye corneal implant normal ocular movement - ENT no hearing loss - Neck no masses, no bruits, trachea midline - Respiratory Lungs sounds clear bilaterally. Respirations even, nonlabored. Currently on 2 L nasal cannula with oxygen saturation 96%. No chest wall deformities. - Cardiovascular S1, S2 present. Regular rate and rhythm, sinus rhythm on telemetry. Palpable peripheral pulses bilaterally. No edema present. No calf pain or tenderness noted. Positive varicosities to bilateral lower extremities. - Abdomen Abdomen: soft, non tender, bowel sounds - Genitourinary Deferred - Rectum Deferred - Integumentary no rash, no growths - Neurologic normal coordination, normal sensation - Musculoskeletal normal posture - Psychiatric oriented to time, oriented to person, oriented to place, speech is normal, memory intact Results - Labs 12/29/18 05:53 12/29/18 05:53 Abnormal Lab Results - Last 24 Hours (Table) 12/29/18 12/29/18 12/29/18 Range/Units 05:53 05:53 05:53 RBC 3.32 L (3.80-5.40) m/uL Hgb 10.3 L (11.4-16.0) gm/dL Hct 31.2 L (34.0-46.0) % APTT 50.8 H (22.0-30.0) sec BUN 19 H (7-17) mg/dL 12/29/18 Range/Units 09:20 RBC (3.80-5.40) m/uL Hgb (11.4-16.0) gm/dL Hct (34.0-46.0) % APTT 32.1 H (22.0-30.0) sec BUN (7-17) mg/dL Diabetes panel 12/29/18 Range/Units 05:53 Sodium 140 (137-145) mmol/L Potassium 4.4 (3.5-5.1) mmol/L Chloride 105 (98-107) mmol/L Carbon Dioxide 29 (22-30) mmol/L BUN 19 H (7-17) mg/dL Creatinine 0.74 (0.52-1.04) mg/dL Glucose 94 (74-99) mg/dL Calcium 9.7 (8.4-10.2) mg/dL AST 25 (14-36) U/L ALT 28 (9-52) U/L Alkaline Phosphatase 60 (38-126) U/L Total Protein 6.4 (6.3-8.2) g/dL Albumin 4.0 (3.5-5.0) g/dL Thyroid panel 12/29/18 Range/Units 05:53 TSH 1.990 (0.465-4.680) mIU/L Calcium panel 12/29/18 Range/Units 05:53 Calcium 9.7 (8.4-10.2) mg/dL Albumin 4.0 (3.5-5.0) g/dL Pituitary panel 12/29/18 Range/Units 05:53 Sodium 140 (137-145) mmol/L Potassium 4.4 (3.5-5.1) mmol/L Chloride 105 (98-107) mmol/L Carbon Dioxide 29 (22-30) mmol/L BUN 19 H (7-17) mg/dL Creatinine 0.74 (0.52-1.04) mg/dL Glucose 94 (74-99) mg/dL Calcium 9.7 (8.4-10.2) mg/dL TSH 1.990 (0.465-4.680) mIU/L Adrenal panel 12/29/18 Range/Units 05:53 Sodium 140 (137-145) mmol/L Potassium 4.4 (3.5-5.1) mmol/L Chloride 105 (98-107) mmol/L Carbon Dioxide 29 (22-30) mmol/L BUN 19 H (7-17) mg/dL Creatinine 0.74 (0.52-1.04) mg/dL Glucose 94 (74-99) mg/dL Calcium 9.7 (8.4-10.2) mg/dL Total Bilirubin 0.5 (0.2-1.3) mg/dL AST 25 (14-36) U/L ALT 28 (9-52) U/L Alkaline Phosphatase 60 (38-126) U/L Total Protein 6.4 (6.3-8.2) g/dL Albumin 4.0 (3.5-5.0) g/dL - Imaging Chest x-ray: report reviewed, image reviewed EKG: image reviewed Additional studies: Heart catheterization films reviewed Assessment and Plan Assessment: 1. Triple-vessel coronary artery disease with left main stenosis 2. Non-STEMI 3. Hyperlipidemia 4. Previous tobacco dependence, preoperative FEV1 98% of predicted 5. Obstructive sleep apnea with home CPAP use 6. History of gastric ulcer with partial gastrectomy 7. History of splenectomy 8. Family history of premature coronary artery disease Plan: The patient was seen and examined on the cardiac stepdown unit. Chart/diagnostics were reviewed. The patient is currently in no distress, she denies any pain or shortness of breath as she is currently laying in bed. The usual perioperative course for coronary artery bypass graft surgery was discussed in detail with the patient and her son, all risks and benefits were reviewed, and all questions are answered. Preoperative testing was initiated, transthoracic echocardiogram was completed demonstrating normal LV function with EF 55%, mild to moderate aortic insufficiency, mild mitral regurgitation, and mild tricuspid regurgitation with no pulmonary hypertension. We recommend continuing to maximize medical therapy with aspirin and statin, beta bettye was added. Continue IV heparin and nitro. The case was discussed with Dr. Pham. Cardiothoracic surgery will see and evaluate the patient later this afternoon to make recommendations for surgery. If the patient continues to have chest pain we would recommend intra-aortic balloon pump insertion while waiting for mayes rgery. Otherwise, continue medical management per primary care service and cardiology. Thank you Dr. Jeff for this consult. We look forward to working with you in the care of your patient. Time with Patient: Greater than 30
--- NOTE | 2018-12-29 14:50 | US ---
EXAMINATION TYPE: US carotid duplex BILAT DATE OF EXAM: 12/29/2018 COMPARISON: NONE CLINICAL HISTORY: cabg. pre CABG. Previous smoker. EXAM MEASUREMENTS: RIGHT: Peak Systolic Velocity (PSV) cm/sec ----- Right CCA: 84.0 ----- Right ICA: 81.2 ----- Right ECA: 164.7 ICA/CCA ratio: 1.0 RIGHT: End Diastole cm/sec ----- Right CCA: 14.1 ----- Right ICA: 24.1 ----- Right ECA: 0.0 LEFT: Peak Systolic Velocity (PSV) cm/sec ----- Left CCA: 73.2 ----- Left ICA: 71.2 ----- Left ECA: 101.8 ICA/CCA ratio: 1.0 LEFT: End Diastole cm/sec ----- Left CCA: 12.8 ----- Left ICA: 20.6 ----- Left ECA: 1.8 VERTEBRALS (direction of flow): Right Vertebral: Antegrade Left Vertebral: Antegrade Rhythm: Normal Grayscale, color Doppler, spectral Doppler imaging performed of the carotid arteries. Waveform analys is does not show significant stenosis of the proximal internal carotid arteries. Atherosclerotic changes seen bilaterally are mild. Hyperechoic plaque seen left bifurcation. No signi ficant stenosis seen. Elevated ECA velocity obtained with wall changes. IMPRESSION: No hemodynamic significant stenosis of the proximal internal carotid arteries bilaterall y by Doppler criteria, an indirect measurement of carotid stenosis
[2018-12-29] MEDS ORDERED: MAGNESIUM HYDROXIDE 2,400 MG/10 ML CUP PO PRN (17:52)
[2018-12-29 18:02] LABS: Hepatitis A Antibody IgM Non-Reactive (Non-Reactive); Hepatitis B Core IgM Non-Reactive (Non-Reactive)
--- NOTE | 2018-12-29 18:31 | CONS ---
CONSULTATION DATE OF SERVICE: 12/29/2018 This is a consultation December 29, 2018 This is a 78-year-old female who we were asked to see in preop evaluation for potential bypass grafting. The patient apparently had retrosternal chest pain rated at 5/10. She states that the pain felt like an elephant sitting on her chest. She also described it as being achy. It apparently had been going on for a couple days prior to admission. She states that her energy levels are reduced and she fatigues much easier and has some mild shortness of breath. Apparently there is no family history or personal history of heart disease. She apparently was seen in the emergency room for this chest discomfort. She is apparently scheduled to have a bypass grafting tomorrow. We are asked to see the patient in advance. The patient does not appear to have any intrinsic pulmonary disease. She did have a cardiac catheterization which revealed evidence of severe left main stenosis with 3 vessel coronary artery disease. For that reason, she is having bypass grafting tomorrow. Again, the patient denies any pre-existing pulmonary disease. Her smoking history was primarily remote and minimal at best. She denies home use of oxygen or any breathing medications. HOME MEDICATIONS: Included Lipitor, vitamin D3, ferrous sulfate, eye drops, folic acid, Neurontin, Xalatan eyedrops, magnesium oxide, meloxicam, omeprazole, and I vitamins. ALLERGIES: ALLERGIES INCLUDE LYRICA. MEDICAL HISTORY: Positive for hyperlipidemia, arthritis, gastroesophageal reflux disease, and vitamin D deficiency. SURGICAL HISTORY: Includes splenectomy bleeding ulcer and back surgery. SOCIAL HISTORY: Positive for remote tobacco use. Denies any illicit drug use. Occasional alcohol use. FAMILY HISTORY: Noncontributory. REVIEW OF SYSTEMS: CONSTITUTIONAL: Lack of energy, fatigue, decreased exercise capacity. NEUROLOGIC negative. HEENT negative. CARDIOVASCULAR chest discomfort, chest heaviness and PULMONARY: Mild shortness of breath on exertion. GI negative. negative. Rheumatologic negative. Immunologic negative. ENDOCRINOLOGIC negative and dermatologic negative. PHYSICAL EXAMINATION: Current vital signs include a temperature 98, heart rate 56, respiratory rate 18, blood pressure 118/60 with mean is 79. 2 L saturation 96%. Appears in no acute distress. HEENT examination is grossly unremarkable. Mucous membranes are moist. Nasal O2 in place. The patient denies being short of breath. NECK: Supple. Full range of motion. No adenopathy or thyromegaly. Neck veins are flat. Cardiovascular examination reveals regular rhythm rate. S1, S2 normal. No S3, S4, or murmur. LUNGS: Clear breath sounds. No wheezes, rhonchi, crackles. ABDOMEN: Soft. Bowel sounds are heard. No masses or tenderness. Extremities are intact. No cyanosis, clubbing, or edema. Skin without rash. Neurologic examination is brief but nonfocal. LAB DATA: Reviewed. White count 9.4, hemoglobin 10.3, hematocrit 31.2, platelet count normal. PT/INR normal. PTT 32.1. Sodium, potassium, chloride, CO2 all normal. Nion gap normal. BUN and creatinine were 19 and 0.74. Troponin was 0.072. TSH was normal. Total cholesterol is 167. Urine was negative. EKG showed normal sinus rhythm without acute abnormality. ASSESSMENT: 1. Severe coronary artery disease with left main involvement and anticipated bypass grafting in the morning. 2. History of hyperlipidemia. 3. History of sleep apnea syndrome. 4. No history of intrinsic pulmonary disease. 5. Vitamin D deficiency. 6. Gastroesophageal reflux disease. 7. Degenerative joint disease. PLAN: The patient appears to be in good shape for bypass grafting. We mentioned to the patient that we would be attempting to get her off life support as quickly as possible. We will shoot for the less than 6 hour window. We told her that we would recommend that she use her incentive spirometer post extubation every hour while awake. We will also recommend deep breathing coughing and clearing of secretions as well as use of bronchodilators. Additional recommendations and suggestions are forthcoming. Prognosis is thought to be good. MMODL / IJN: [id number] / ALEX
[2018-12-29 19:27] LABS: Hemoglobin A1C 5.7 % (4.0-6.0)
[2018-12-29] MEDS: MAGNESIUM OXIDE 400 MG TAB PO SCH (20:24)
[2018-12-29] MEDS: LATANOPROST 0.005% OPHTH DROPS 2.5 ML BTL BOTH EYES SCH (21:19)
[2018-12-29] MEDS: FLUOROMETHOLONE 0.1% OPHTH DROPS 5 ML BTL BOTH EYES SCH (21:19)
[2018-12-30] MEDS ORDERED: HYDROmorphone 0.5 MG/0.5 ML SYRINGE IVP STA (04:08)
[2018-12-30 04:51] LABS: Basophils # (A) 0.1 k/uL (0-0.2); Basophils % (A) 1 %; Eosinophils # (A) 0.5 k/uL (0-0.7); Eosinophils % (A) 5 %; Lymphocytes # (A) 3.3 k/uL (1.0-4.8); Lymphocytes % (A) 30 %; MCH 30.6 pg (25.0-35.0); MCHC 32.3 g/dL (31.0-37.0); MCV 94.6 fL (80.0-100.0); Mean Platelet Volume 9.4; Monocytes # (A) 0.7 k/uL (0-1.0); Monocytes % (A) 7 %; Neutrophils # (A) 5.9 k/uL (1.3-7.7); Neutrophils % (A) 54 %; Platelet Count 235 k/uL (150-450); RBC 3.28 m/uL (3.80-5.40); RDW 15.1 % (11.5-15.5); WBC 10.9 k/uL (3.8-10.6)
[2018-12-30] MEDS ORDERED: PROTAMINE SULFATE 250 MG in EMPTY BAG 1 BAG IV ONE (05:00)
[2018-12-30] MEDS ORDERED: SODIUM BICARB 8.4% 50 ML SYR (1 MEQ/ML) IV ONE (05:00)
[2018-12-30] MEDS ORDERED: DEXTROSE 5% IN WATER 1,000 ML with POTASSIUM CHLORIDE 110 MEQ, MAGNESIUM SULFATE 16 MEQ... IV SCH ×5 (05:00)
[2018-12-30] MEDS ORDERED: ALBUMIN HUMAN 5% 500 ML in EMPTY BAG 1 BAG IVPB ONE ×6 (05:00)
[2018-12-30] MEDS ORDERED: LACTATED RINGERS 1,000 ML IV SCH (05:00)
[2018-12-30] MEDS ORDERED: TRANEXAMIC ACID 2,000 MG in SODIUM CHLORIDE 0.9% 80 ML IV ONE ×2 (05:00→08:45)
[2018-12-30] MEDS ORDERED: MAGNESIUM SULFATE SYG 4.06 MEQ/ML SYRINGE IV ONE (05:00)
[2018-12-30] MEDS ORDERED: HEPARIN SODIUM 1,000 UN/ML (10ML VL) IV ONE (05:00)
[2018-12-30] MEDS ORDERED: DEXTROSE 5% IN WATER 1,000 ML with POTASSIUM CHLORIDE 25 MEQ, SODIUM CHLORIDE 2.5MEQ/ML... IV SCH ×6 (05:00)
[2018-12-30] MEDS ORDERED: ceFAZolin 2,000 MG in SODIUM CHLORIDE 0.9% 30 ML IVPB ONE (05:00)
[2018-12-30] MEDS ORDERED: ceFAZolin 2 GM in SODIUM CHLORIDE 0.9% 30 ML IVPB ONE (05:00)
[2018-12-30] MEDS ORDERED: PHENYLEPHRINE 40 MG in SODIUM CHLORIDE 0.9% 250 ML IV ONE (05:00)
[2018-12-30] MEDS ORDERED: PROTAMINE SULFATE 10 MG/ML 25 ML VIAL IV ONE ×2 (05:00→07:52)
[2018-12-30] MEDS ORDERED: ASPIRIN 325 MG TAB PO ONE (05:00)
[2018-12-30] MEDS ORDERED: MANNITOL 25% 12.5 GM/50 ML VIAL IV ONE ×2 (05:00)
[2018-12-30] MEDS ORDERED: PAPAVERINE 360 MG in SODIUM CHLORIDE 0.9% 90 ML IV ONE (05:00)
[2018-12-30] MEDS ORDERED: HEPARIN SODIUM,PORCINE 5,000 UNIT in SODIUM CHLORIDE 0.9% 500 ML 500 ML IV ONE (05:00)
[2018-12-30] MEDS ORDERED: CLEVIDIPINE BUTYRATE 25 MG in EMPTY BAG 1 BAG IV SCH (05:00)
[2018-12-30] MEDS ORDERED: ceFAZolin 1,000 MG in SODIUM CHLORIDE 0.9% IRRIGATIO 1,000 ML IRRIGATION ONE (05:00)
[2018-12-30] MEDS ORDERED: CHLORHEXIDINE GLUCONATE 15 ML CUP MUCOUS MEM ONE (05:00)
[2018-12-30] MEDS ORDERED: NITROGLYCERIN-D5W PMX 25 MG/250 ML BTL IV ONE (05:00)
[2018-12-30] MEDS ORDERED: CALCIUM CHLORIDE 100 MG/ML 10 ML SYRINGE IVP ONE (05:00)
[2018-12-30] MEDS ORDERED: PROPOFOL 1,000 MG in EMPTY BAG 1 BAG IV PRN (05:00)
[2018-12-30] MEDS ORDERED: ALBUMIN HUMAN 25% 50 ML in EMPTY BAG 1 BAG IVPB ONE (05:00)
[2018-12-30] MEDS ORDERED: NOREPINEPHRINE 4 MG in SODIUM CHLORIDE 0.9% 250 ML IV SCH (05:00)
[2018-12-30 05:35] LABS: ALT 22 U/L (9-52); AST 23 U/L (14-36); Albumin 3.8 g/dL (3.5-5.0); Alkaline Phosphatase 56 U/L (38-126); Anion Gap 6 mmol/L; Blood Urea Nitrogen 20 mg/dL (7-17); Calcium 8.9 mg/dL (8.4-10.2); Carbon Dioxide 28 mmol/L (22-30); Chloride 105 mmol/L (98-107); Glucose 98 mg/dL (74-99); Magnesium 2.3 mg/dL (1.6-2.3); Sodium 139 mmol/L (137-145); Total Bilirubin 0.5 mg/dL (0.2-1.3); Total Protein 6.2 g/dL (6.3-8.2)
[2018-12-30] MEDS: METOPROLOL TARTRATE 12.5 MG TAB PO ONE ×2 (06:09→06:10)
[2018-12-30] MEDS ORDERED: ceFAZolin 1,000 MG VIAL ONE (07:52)
[2018-12-30] MEDS ORDERED: CALCIUM CHLORIDE 100 MG/ML 10 ML SYRINGE ONE (07:52)
[2018-12-30] MEDS ORDERED: HEPARIN SODIUM,PORCINE 10,000 UNIT/ML 1 ML VIAL ONE (07:52)
[2018-12-30] MEDS ORDERED: SODIUM CHLORIDE 0.9% 250 ML BAG ONE (07:52)
[2018-12-30] MEDS ORDERED: POTASSIUM CHLORIDE OPEN HEART 20 MEQ/50 ML BAG IVPB ONE (07:52)
[2018-12-30] MEDS ORDERED: AMIODARONE 50 MG/ML 9 ML VIAL IV ONE (07:52)
[2018-12-30] MEDS ORDERED: VECURONIUM 10 MG VIAL IV ONE (07:52)
[2018-12-30] MEDS ORDERED: fentaNYL (PF) 50 MCG/ML 50 ML VIAL ONE (07:52)
[2018-12-30] MEDS ORDERED: LIDOCAINE 2% SYG (PF) 100 MG/5 ML ONE (07:52)
[2018-12-30] MEDS ORDERED: TRANEXAMIC ACID 1,000 MG/10 ML VIAL ONE (07:52)
[2018-12-30] MEDS ORDERED: MIDAZOLAM 2 MG/2 ML VIAL ONE (07:52)
[2018-12-30] MEDS ORDERED: PROPOFOL 10 MG/ML 20 ML VIAL IV ONE (07:52)
--- NOTE | 2018-12-30 08:11 | XR ---
EXAMINATION TYPE: XR chest 1V portable DATE OF EXAM: 12/30/2018 COMPARISON: Prior chest x-ray 12/27/2018 HISTORY: Shortness of breath with exertion TECHNIQUE: Single frontal view of the chest is obtained. FINDINGS: Patient is rotated. The aorta is dense. Surgical clips present at the gastroesophageal stefanie ction. Cardiac mediastinal silhouette, pulmonary vascularity and dawson are stable. The aorta is dense. There are overlying cardiac leads. No evident airspace disease, pneumothorax, or pleural effusion. IMPRESSION: No acute process.
[2018-12-30 08:42] LABS: ABG Base Excess 2.6 mmol/L; ABG HCO3 27 mmol/L (21-25); ABG Oxygen Saturation 98.3 % (94-97); ABG PCO2 41 mmHg (35-45); ABG PH 7.43 (7.35-7.45); ABG PO2 229 mmHg (83-108); ABG Sodium Whole Blood 140 mmol/L (135-146); ABG TCO2 29 mmol/L (19-24)
[2018-12-30] MEDS ORDERED: ASPIRIN 325 MG TAB PO SCH (09:00)
[2018-12-30] MEDS ORDERED: ATORVASTATIN 40 MG TAB PO SCH (09:00)
--- NOTE | 2018-12-30 09:32 | PN ---
PROGRESS NOTE DATE OF SERVICE: 12/30/2018 This is a 78-year-old female who I evaluated yesterday in consultation. She is going to the operating room today for a bypass grafting. She has significant coronary artery disease involving the left main coronary artery as well as other coronary arteries. She also has a history of hyperlipidemia, some sleep apnea syndrome, vitamin D deficiency, GERD, and degenerative joint disease. The patient appears not to have any significant intrinsic pulmonary disease. Anyway, the patient should do well. We discussed the situation with her yesterday. We did tell her that she would be coming out of the operating room on the mechanical ventilator and still under the effects of general anesthesia. We will try to get her extubated within the 6 hour window, if possible. We did tell her that it was vital that she do deep breathing, coughing, clearing of secretions and hourly use of incentive spirometer once extubated. Current vital signs good temperature which is normal. Heart rate 62, respiratory rate 15, blood pressure 136/59, mean 84 and 4 L saturation 97%. Appears in no acute distress. Looks comfortable. HEENT PHYSICAL EXAMINATION: HEENT: Grossly unremarkable. Nasal O2 in place. NECK: Supple. Full range of motion. No adenopathy, thyromegaly or neck vein distention. Cardiovascular examination reveals regular rhythm rate. S1, S2 normal. No murmur. LUNGS: Clear breath sounds. ABDOMEN: Soft bowel sounds are heard. Extremities are intact. No cyanosis, clubbing, or edema. Skin without rash. Neurologic examination is brief but nonfocal. LABS: Reviewed. White count 10.9, hemoglobin 10, hematocrit 31, platelet count normal. PTT is 59.5. Sodium 139, potassium 4, chloride 105, CO2 28 anger, anion gap is normal at 6, BUN and creatinine were 20 and 0.71. ASSESSMENT: 1. Severe multivessel coronary artery disease, with anticipated bypass grafting today. 2. History of hyperlipidemia. 3. History of sleep apnea syndrome. 4. No history of intrinsic pulmonary disease. 5. Vitamin D deficiency. 6. Gastroesophageal reflux disease. 7. Degenerative joint disease. PLAN: The patient will be seen again after the operation. Again, our goal will be to get her extubated within 6 hours post leaving the operating room. She will be on updrafts q.4 initially. Once extubated today to be cut back to q.i.d. and p.r.n. Will recommend deep breathing, coughing and clearing of secretions as well as use of the incentive spirometer hourly. Additional recommendations and suggestions are forthcoming. MMODL / IJN: [id number] /
[2018-12-30 10:50] LABS: ABG Base Excess 0.4 mmol/L; ABG HCO3 28 mmol/L (21-25); ABG Oxygen Saturation 99.1 % (94-97); ABG PCO2 58 mmHg (35-45); ABG PH 7.29 (7.35-7.45); ABG PO2 178 mmHg (83-108); ABG Potassium Whole Blood 3.5 mmol/L (3.4-4.5); ABG Sodium Whole Blood 140 mmol/L (135-146); ABG TCO2 29 mmol/L (19-24)
[2018-12-30 11:15] LABS: ABG Base Excess -0.4 mmol/L; ABG HCO3 25 mmol/L (21-25); ABG PCO2 46 mmHg (35-45); ABG PH 7.35 (7.35-7.45); ABG Potassium Whole Blood 3.6 mmol/L (3.4-4.5); ABG Sodium Whole Blood 136 mmol/L (135-146); ABG TCO2 27 mmol/L (19-24)
[2018-12-30 11:21] LABS: Glucose,Whole Blood 123 mg/dL (75-99)
[2018-12-30 11:46] LABS: ABG Base Excess 1.3 mmol/L; ABG HCO3 25 mmol/L (21-25); ABG PCO2 37 mmHg (35-45); ABG PH 7.45 (7.35-7.45); ABG PO2 396 mmHg (83-108); ABG Potassium Whole Blood 4.3 mmol/L (3.4-4.5); ABG Sodium Whole Blood 135 mmol/L (135-146); ABG TCO2 27 mmol/L (19-24)
[2018-12-30 12:14] LABS: ABG Base Excess 0.8 mmol/L; ABG HCO3 25 mmol/L (21-25); ABG PCO2 35 mmHg (35-45); ABG PH 7.46 (7.35-7.45); ABG PO2 323 mmHg (83-108); ABG Potassium Whole Blood 4.9 mmol/L (3.4-4.5); ABG Sodium Whole Blood 135 mmol/L (135-146); ABG TCO2 26 mmol/L (19-24)
[2018-12-30 12:45] LABS: ABG Base Excess -0.7 mmol/L; ABG HCO3 24 mmol/L (21-25); ABG PCO2 37 mmHg (35-45); ABG PH 7.41 (7.35-7.45); ABG PO2 371 mmHg (83-108); ABG Potassium Whole Blood 5.2 mmol/L (3.4-4.5); ABG Sodium Whole Blood 134 mmol/L (135-146); ABG TCO2 25 mmol/L (19-24)
[2018-12-30 13:23] LABS: ABG Base Excess -2.5 mmol/L; ABG HCO3 22 mmol/L (21-25); ABG PCO2 38 mmHg (35-45); ABG PH 7.38 (7.35-7.45); ABG PO2 385 mmHg (83-108); ABG Potassium Whole Blood 4.7 mmol/L (3.4-4.5); ABG Sodium Whole Blood 136 mmol/L (135-146); ABG TCO2 24 mmol/L (19-24)
[2018-12-30 14:57] LABS: ABG HCO3 22 mmol/L (21-25); ABG Oxygen Saturation 94.1 % (94-97); ABG PCO2 41 mmHg (35-45); ABG PH 7.33 (7.35-7.45); ABG PO2 71 mmHg (83-108); ABG Potassium Whole Blood 3.6 mmol/L (3.4-4.5); ABG Sodium Whole Blood 140 mmol/L (135-146); ABG TCO2 23 mmol/L (19-24)
[2018-12-30 15:00] LABS: ABG PO2 >420 mmHg (83-108)
[2018-12-30] MEDS ORDERED: Potassium Replacement Protocol 1 EACH MISC MISCELLANE PRN (15:02)
[2018-12-30] MEDS ORDERED: METOCLOPRAMIDE 5 MG/ML 2 ML VIAL IVP PRN (15:02)
[2018-12-30] MEDS ORDERED: PROPOFOL 1,000 MG in EMPTY BAG 1 BAG IV SCH (15:02)
[2018-12-30] MEDS ORDERED: MORPHINE SULFATE 2 MG/ML SYRINGE IVP PRN (15:02)
[2018-12-30] MEDS ORDERED: BENZOCAINE/MENTHOL LOZENG 1 EACH LOZENGE MUCOUS MEM PRN (15:02)
[2018-12-30] MEDS ORDERED: CALCIUM GLUCONATE 2 GM in SODIUM CHLORIDE 0.9% 100 ML IVPB PRN (15:02)
[2018-12-30] MEDS ORDERED: DEXTROSE 5% IN WATER 100 ML with AMIODARONE 150 MG IV PRN (15:02)
[2018-12-30] MEDS ORDERED: Phosphorus Replacement Protoco 1 EACH MISC MISCELLANE PRN (15:02)
[2018-12-30] MEDS ORDERED: Magnesium Replacement Protocol 1 EACH MISC MISCELLANE PRN (15:02)
[2018-12-30] MEDS ORDERED: IPRATROPIUM-ALBUTEROL 3 ML NEB INHALATION PRN (15:02)
[2018-12-30] MEDS ORDERED: AMIODARONE 300 MG in DEXTROSE 5% IN WATER 250 ML IV PRN ×2 (15:02)
[2018-12-30] MEDS ORDERED: AMIODARONE 360 MG in DEXTROSE 5% IN WATER 200 ML IV PRN ×2 (15:02)
[2018-12-30] MEDS: ALBUMIN HUMAN 5% 250 ML in EMPTY BAG 1 BAG IVPB PRN ×5 (15:35→23:18)
[2018-12-30 15:54] LABS: Glucose,Whole Blood 113 mg/dL (75-99)
[2018-12-30 16:05] LABS: Basophils # (A) 0.1 k/uL (0-0.2); Basophils % (A) 0 %; Eosinophils # (A) 0.1 k/uL (0-0.7); Eosinophils % (A) 1 %; HCT 23.6 % (34.0-46.0); Ionized Calcium 4.8 mg/dL (4.5-5.3); Lymphocytes # (A) 2.3 k/uL (1.0-4.8); Lymphocytes % (A) 11 %; MCH 30.8 pg (25.0-35.0); MCHC 33.5 g/dL (31.0-37.0); Monocytes % (A) 5 %; Neutrophils # (A) 17.3 k/uL (1.3-7.7); Neutrophils % (A) 82 %; RBC 2.57 m/uL (3.80-5.40); RDW 15.8 % (11.5-15.5)
[2018-12-30] MEDS: NITROGLYCERIN-D5W PMX 50 MG in DEXTROSE/WATER 1 250ML.BAG IV SCH (16:07)
[2018-12-30] MEDS: SODIUM CHLORIDE 0.9% 1,000 ML IV SCH (16:08)
[2018-12-30] MEDS: CLEVIDIPINE BUTYRATE 25 MG in EMPTY BAG 1 BAG IV SCH (16:09)
[2018-12-30] MEDS: FOLIC ACID 1 MG TAB PO SCH (16:09)
[2018-12-30] MEDS: LACTATED RINGERS 1,000 ML IV SCH (16:10)
[2018-12-30] MEDS: ceFAZolin IN SWFI 2 GM/20 ML SYRINGE IVP SCH (16:11)
[2018-12-30 16:15] LABS: ALT 18 U/L (9-52); AST 33 U/L (14-36); Albumin 2.7 g/dL (3.5-5.0); Alkaline Phosphatase 23 U/L (38-126); Anion Gap 3 mmol/L; Blood Urea Nitrogen 14 mg/dL (7-17); Calcium 7.3 mg/dL (8.4-10.2); Carbon Dioxide 22 mmol/L (22-30); Chloride 112 mmol/L (98-107); Glucose 100 mg/dL (74-99); INR 1.5 (<1.2); Magnesium 2.7 mg/dL (1.6-2.3); Partial Thromboplastin Time 37.5 sec (22.0-30.0); Potassium 5.8 mmol/L (3.5-5.1); Prothrombin Time 15.1 sec (9.0-12.0); Sodium 137 mmol/L (137-145); Total Bilirubin 0.9 mg/dL (0.2-1.3); Total Protein 4.1 g/dL (6.3-8.2)
--- NOTE | 2018-12-30 16:21 | XR ---
EXAMINATION TYPE: XR chest 1V portable DATE OF EXAM: 12/30/2018 COMPARISON: Prior chest x-ray same dated earlier time HISTORY: Postop cardiac surgery TECHNIQUE: Single frontal view of the chest is obtained. FINDINGS: There is interval median sternotomy. Patient is again rotated. Endotracheal tube is overly ing appropriate position. NG tube is in place. Left-sided chest tube and right jugular central venous catheter are noted, distal tip of the pulmonary artery catheter is overlying the right pulmonary art josee. Median sternal drains are in place. Right lung apex is not included on the exam. No evident pneu mothorax. Retrocardiac density is present. Perihilar vascular indistinctness is noted. Subcutaneous e mphysema is present on the left. Surgical clips noted in the abdomen. IMPRESSION: There may be a component of volume overload, left lower lobe atelectasis and possible as sociated effusion. Limitations as described.
[2018-12-30] MEDS: GABAPENTIN 300 MG CAP PO SCH ×2 (16:22→16:31)
[2018-12-30 16:25] LABS: ABG Base Excess -5.8 mmol/L; ABG HCO3 22 mmol/L (21-25); ABG PCO2 56 mmHg (35-45); ABG PH 7.21 (7.35-7.45); ABG PO2 231 mmHg (83-108); ABG TCO2 24 mmol/L (19-24)
--- NOTE | 2018-12-30 16:28 | P.PN ---
Subjective Patient is postoperative for three-vessel bypass. Patient remains on the ventilator. [place] chest tubes Jacobson catheter. Patient sedated patient on Levophed Objective - Vital Signs Vital signs: Vital Signs Temp 97.8 F 12/30/18 04:00 Pulse 56 L 12/30/18 06:00 Resp 10 L 12/30/18 06:00 BP 89/59 12/30/18 15:00 Pulse Ox 96 12/30/18 06:00 Intake & Output 12/29/18 12/30/18 12/30/18 18:59 06:59 18:59 Intake Total 710.17 965.45 653 Output Total 8531 836 7737 Balance -489.83 765.45 -1447 Weight 74.1 kg Intake: IV 550 825 33 Normal Saline 450 825 Intake, IV Titration 160.17 90.45 Amount Heparin Sod,Pork in 0.45% 160.17 NaCl 25,000 unit In 0.45 % NaCl 1 250ml.bag @ 12 UNITS/KG/HR 8.165 mls/hr IV .Q24H MAR Rx#: [id number] Nitroglycerin-D5w Pmx 50 90.45 mg In Dextrose/Water 1 250ml.bag @ 10 MCG/MIN 3 mls/hr IV .Q24H MAR Rx#: [id number] Oral 50 Blood Product 620 Rc As-3 Unit 310 [id number] Rc Pheresis 2 As3 Unit 310 [id number] Output: Urine 1200 200 700 Estimated Blood Loss 1400 Other: Voiding Method Bedpan # Voids 2 0 # Bowel Movements 1 1 - Constitutional General appearance: Present: no acute distress - EENT Ears: bilateral: normal - Respiratory Details: Patient intubated bilateral chest tubes Respiratory: bilateral: CTA - Cardiovascular Rhythm: regular - Gastrointestinal General gastrointestinal: Present: soft - Genitourinary Genitourinary Comment(s): Jacobson catheter - Integumentary Integumentary: Present: normal - Psychiatric Psychiatric Comment(s): Patient sedated - Labs CBC & Chem 7: 12/30/18 04:29 12/30/18 15:30 Labs: Abnormal Lab Results - Last 24 Hours (Table) 12/29/18 12/29/18 12/30/18 Range/Units 09:20 16:10 04:29 WBC 10.9 H (3.8-10.6) k/uL RBC 3.28 L (3.80-5.40) m/uL Hgb 10.0 L (11.4-16.0) gm/dL Hct 31.0 L (34.0-46.0) % PT (9.0-12.0) sec INR (<1.2) APTT 71.6 H (22.0-30.0) sec ABG pH (7.35-7.45) ABG pCO2 (35-45) mmHg ABG pO2 (83-108) mmHg ABG HCO3 (21-25) mmol/L ABG Total CO2 (19-24) mmol/L ABG O2 Saturation (94-97) % ABG Hematocrit (34.0-46.0) % ABG Sodium (135-146) mmol/L ABG Potassium (3.4-4.5) mmol/L ABG Ionized Calcium (4.5-5.3) mg/dL ABG Glucose (75-99) mg/dL ABG Lactic Acid (0.5-1.6) mmol/L Hemoglobin (11.4-16.0) gm/dL Potassium (3.5-5.1) mmol/L Chloride (98-107) mmol/L BUN (7-17) mg/dL Glucose (74-99) mg/dL POC Glucose (mg/dL) (75-99) mg/dL Calcium (8.4-10.2) mg/dL Magnesium (1.6-2.3) mg/dL Alkaline Phosphatase (38-126) U/L Total Protein (6.3-8.2) g/dL Albumin (3.5-5.0) g/dL Arterial Blood Potassium (3.4-4.5) mmol/L Arterial Blood Glucose (75-99) mg/dL Crossmatch See Detail 12/30/18 12/30/18 12/30/18 Range/Units 04:29 04:29 08:42 WBC (3.8-10.6) k/uL RBC (3.80-5.40) m/uL Hgb (11.4-16.0) gm/dL Hct (34.0-46.0) % PT (9.0-12.0) sec INR (<1.2) APTT 59.5 H (22.0-30.0) sec ABG pH (7.35-7.45) ABG pCO2 (35-45) mmHg ABG pO2 229 H (83-108) mmHg ABG HCO3 27 H (21-25) mmol/L ABG Total CO2 29 H (19-24) mmol/L ABG O2 Saturation 98.3 H (94-97) % ABG Hematocrit 27 L (34.0-46.0) % ABG Sodium (135-146) mmol/L ABG Potassium (3.4-4.5) mmol/L ABG Ionized Calcium (4.5-5.3) mg/dL ABG Glucose (75-99) mg/dL ABG Lactic Acid (0.5-1.6) mmol/L Hemoglobin 8.9 L (11.4-16.0) gm/dL Potassium (3.5-5.1) mmol/L Chloride (98-107) mmol/L BUN 20 H (7-17) mg/dL Glucose (74-99) mg/dL POC Glucose (mg/dL) (75-99) mg/dL Calcium (8.4-10.2) mg/dL Magnesium (1.6-2.3) mg/dL Alkaline Phosphatase (38-126) U/L Total Protein 6.2 L (6.3-8.2) g/dL Albumin (3.5-5.0) g/dL Arterial Blood Potassium (3.4-4.5) mmol/L Arterial Blood Glucose (75-99) mg/dL Crossmatch 12/30/18 12/30/18 12/30/18 Range/Units 10:49 11:15 11:18 WBC (3.8-10.6) k/uL RBC (3.80-5.40) m/uL Hgb (11.4-16.0) gm/dL Hct (34.0-46.0) % PT (9.0-12.0) sec INR (<1.2) APTT (22.0-30.0) sec ABG pH 7.29 L (7.35-7.45) ABG pCO2 58 H 46 H (35-45) mmHg ABG pO2 178 H >420 H (83-108) mmHg ABG HCO3 28 H (21-25) mmol/L ABG Total CO2 29 H 27 H (19-24) mmol/L ABG O2 Saturation 99.1 H 100.0 H (94-97) % ABG Hematocrit 26 L 19 L* (34.0-46.0) % ABG Sodium (135-146) mmol/L ABG Potassium (3.4-4.5) mmol/L ABG Ionized Calcium 4.0 L (4.5-5.3) mg/dL ABG Glucose 119 H 113 H (75-99) mg/dL ABG Lactic Acid 0.4 L (0.5-1.6) mmol/L Hemoglobin 8.5 L 6.3 L* (11.4-16.0) gm/dL Potassium (3.5-5.1) mmol/L Chloride (98-107) mmol/L BUN (7-17) mg/dL Glucose (74-99) mg/dL POC Glucose (mg/dL) 123 H (75-99) mg/dL Calcium (8.4-10.2) mg/dL Magnesium (1.6-2.3) mg/dL Alkaline Phosphatase (38-126) U/L Total Protein (6.3-8.2) g/dL Albumin (3.5-5.0) g/dL Arterial Blood Potassium (3.4-4.5) mmol/L Arterial Blood Glucose 119 H 113 H (75-99) mg/dL Crossmatch 12/30/18 12/30/18 12/30/18 Range/Units 11:46 12:14 12:45 WBC (3.8-10.6) k/uL RBC (3.80-5.40) m/uL Hgb (11.4-16.0) gm/dL Hct (34.0-46.0) % PT (9.0-12.0) sec INR (<1.2) APTT (22.0-30.0) sec ABG pH 7.46 H (7.35-7.45) ABG pCO2 (35-45) mmHg ABG pO2 396 H 323 H 371 H (83-108) mmHg ABG HCO3 (21-25) mmol/L ABG Total CO2 27 H 26 H 25 H (19-24) mmol/L ABG O2 Saturation 100.0 H 100.0 H 100.0 H (94-97) % ABG Hematocrit 18 L* 17 L* 19 L* (34.0-46.0) % ABG Sodium 134 L (135-146) mmol/L ABG Potassium 4.9 H 5.2 H (3.4-4.5) mmol/L ABG Ionized Calcium 3.9 L 3.8 L 3.4 L* (4.5-5.3) mg/dL ABG Glucose 175 H 200 H 223 H (75-99) mg/dL ABG Lactic Acid 1.8 H (0.5-1.6) mmol/L Hemoglobin 5.9 L* 5.4 L* 6.3 L* (11.4-16.0) gm/dL Potassium (3.5-5.1) mmol/L Chloride (98-107) mmol/L BUN (7-17) mg/dL Glucose (74-99) mg/dL POC Glucose (mg/dL) (75-99) mg/dL Calcium (8.4-10.2) mg/dL Magnesium (1.6-2.3) mg/dL Alkaline Phosphatase (38-126) U/L Total Protein (6.3-8.2) g/dL Albumin (3.5-5.0) g/dL Arterial Blood Potassium 4.9 H 5.2 H (3.4-4.5) mmol/L Arterial Blood Glucose 175 H 200 H 223 H (75-99) mg/dL Crossmatch 12/30/18 12/30/18 12/30/18 Range/Units 13:23 14:57 15:30 WBC (3.8-10.6) k/uL RBC (3.80-5.40) m/uL Hgb (11.4-16.0) gm/dL Hct (34.0-46.0) % PT (9.0-12.0) sec INR (<1.2) APTT (22.0-30.0) sec ABG pH 7.33 L (7.35-7.45) ABG pCO2 (35-45) mmHg ABG pO2 385 H 71 L (83-108) mmHg ABG HCO3 (21-25) mmol/L ABG Total CO2 (19-24) mmol/L ABG O2 Saturation 100.0 H (94-97) % ABG Hematocrit 22 L 24 L (34.0-46.0) % ABG Sodium (135-146) mmol/L ABG Potassium 4.7 H (3.4-4.5) mmol/L ABG Ionized Calcium 3.8 L (4.5-5.3) mg/dL ABG Glucose 196 H 103 H (75-99) mg/dL ABG Lactic Acid 3.3 H* 2.5 H* (0.5-1.6) mmol/L Hemoglobin 7.0 L* 7.8 L (11.4-16.0) gm/dL Potassium 5.8 H (3.5-5.1) mmol/L Chloride 112 H (98-107) mmol/L BUN (7-17) mg/dL Glucose 100 H (74-99) mg/dL POC Glucose (mg/dL) (75-99) mg/dL Calcium 7.3 L (8.4-10.2) mg/dL Magnesium 2.7 H (1.6-2.3) mg/dL Alkaline Phosphatase 23 L (38-126) U/L Total Protein 4.1 L (6.3-8.2) g/dL Albumin 2.7 L (3.5-5.0) g/dL Arterial Blood Potassium 4.7 H (3.4-4.5) mmol/L Arterial Blood Glucose 196 H 103 H (75-99) mg/dL Crossmatch 12/30/18 12/30/18 Range/Units 15:30 15:52 WBC (3.8-10.6) k/uL RBC (3.80-5.40) m/uL Hgb (11.4-16.0) gm/dL Hct (34.0-46.0) % PT 15.1 H (9.0-12.0) sec INR 1.5 H (<1.2) APTT 37.5 H (22.0-30.0) sec ABG pH (7.35-7.45) ABG pCO2 (35-45) mmHg ABG pO2 (83-108) mmHg ABG HCO3 (21-25) mmol/L ABG Total CO2 (19-24) mmol/L ABG O2 Saturation (94-97) % ABG Hematocrit (34.0-46.0) % ABG Sodium (135-146) mmol/L ABG Potassium (3.4-4.5) mmol/L ABG Ionized Calcium (4.5-5.3) mg/dL ABG Glucose (75-99) mg/dL ABG Lactic Acid (0.5-1.6) mmol/L Hemoglobin (11.4-16.0) gm/dL Potassium (3.5-5.1) mmol/L Chloride (98-107) mmol/L BUN (7-17) mg/dL Glucose (74-99) mg/dL POC Glucose (mg/dL) 113 H (75-99) mg/dL Calcium (8.4-10.2) mg/dL Magnesium (1.6-2.3) mg/dL Alkaline Phosphatase (38-126) U/L Total Protein (6.3-8.2) g/dL Albumin (3.5-5.0) g/dL Arterial Blood Potassium (3.4-4.5) mmol/L Arterial Blood Glucose (75-99) mg/dL Crossmatch Microbiology - Last 24 Hours (Table) 12/29/18 10:50 Urine Culture - Final Urine,Voided 12/29/18 10:00 Nasal Screen MRSA/MSSA - Preliminary Nasal Swab Assessment and Plan Plan: Assessment Postoperative bypass 3 vessel Ventilatory support Acute non-ST elevated PR with elevated troponins Angina chest pain Hyperlipidemia Sleep apnea CPAP at home Family history of coronary disease Remote history of smoking Peripheral neuropathy nondiabetic Plan Continue support intensive care with commercial insurance underwriter and cardiology Hopeful extubation today
[2018-12-30 16:41] LABS: HGB 7.9 gm/dL (11.4-16.0); Platelet Count 69 k/uL (150-450)
[2018-12-30] MEDS: MILRINONE-D5W PMX 20 MG in DEXTROSE/WATER 1 100ML.BAG IV SCH (16:45)
[2018-12-30 17:13] LABS: Glucose,Whole Blood 138 mg/dL (75-99)
[2018-12-30] MEDS: INSULIN REGULAR 100 UNIT in SODIUM CHLORIDE 0.9% 100 ML IV SCH (17:14)
[2018-12-30] MEDS: NOREPINEPHRINE 4 MG in SODIUM CHLORIDE 0.9% 250 ML IV SCH (17:30)
[2018-12-30 17:44] LABS: ABG Base Excess -4.7 mmol/L; ABG HCO3 22 mmol/L (21-25); ABG Oxygen Saturation 95.2 % (94-97); ABG PCO2 52 mmHg (35-45); ABG PH 7.25 (7.35-7.45); ABG PO2 80 mmHg (83-108)
[2018-12-30 17:59] LABS: Basophils # (A) 0.1 k/uL (0-0.2); Basophils % (A) 0 %; Eosinophils # (A) 0.1 k/uL (0-0.7); Eosinophils % (A) 0 %; Lymphocytes # (A) 1.6 k/uL (1.0-4.8); Lymphocytes % (A) 13 %; MCH 30.6 pg (25.0-35.0); MCHC 33.2 g/dL (31.0-37.0); MCV 92.2 fL (80.0-100.0); Mean Platelet Volume 12.2; Monocytes # (A) 0.6 k/uL (0-1.0); Monocytes % (A) 4 %; Neutrophils # (A) 10.6 k/uL (1.3-7.7); Neutrophils % (A) 81 %; Platelet Count 51 k/uL (150-450); RBC 1.91 m/uL (3.80-5.40); RDW 15.9 % (11.5-15.5); WBC 13.1 k/uL (3.8-10.6)
[2018-12-30 18:01] LABS: Glucose,Whole Blood 136 mg/dL (75-99)
[2018-12-30] MEDS: IPRATROPIUM-ALBUTEROL 3 ML NEB INHALATION SCH ×3 (18:01→19:30)
[2018-12-30 18:07] LABS: ALT 22 U/L (9-52); AST 29 U/L (14-36); Albumin 3.6 g/dL (3.5-5.0); Alkaline Phosphatase <20 U/L (38-126); Anion Gap 10 mmol/L; Blood Urea Nitrogen 14 mg/dL (7-17); Calcium 7.2 mg/dL (8.4-10.2); Carbon Dioxide 19 mmol/L (22-30); Chloride 111 mmol/L (98-107); Glucose 120 mg/dL (74-99); Sodium 140 mmol/L (137-145); Total Bilirubin 0.7 mg/dL (0.2-1.3); Total Protein 4.8 g/dL (6.3-8.2)
[2018-12-30 18:09] LABS: HCT 17.6 % (34.0-46.0); HGB 5.8 gm/dL (11.4-16.0)
[2018-12-30] MEDS ORDERED: SODIUM BICARB 8.4% 50 ML SYR (1 MEQ/ML) ONE (18:19)
[2018-12-30] MEDS: ACETAMINOPHEN IV (For NPO) 1,000 MG in EMPTY BAG 1 BAG IVPB SCH (18:32)
[2018-12-30 19:10] LABS: Glucose,Whole Blood 125 mg/dL (75-99)
[2018-12-30 19:41] LABS: ABG HCO3 23 mmol/L (21-25); ABG PCO2 41 mmHg (35-45); ABG PH 7.36 (7.35-7.45); ABG PO2 84 mmHg (83-108); ABG TCO2 25 mmol/L (19-24)
[2018-12-30 19:42] LABS: ABG Base Excess -2.1 mmol/L
--- NOTE | 2018-12-30 19:56 | OP ---
OPERATIVE REPORT DATE OF THE SURGERY: 12/30/2018. SURGEON: Dr. Leilani Pham. PERSON INVESTIGATOR: Brock Faust, and Camilo Kumari NP. 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 POSTOPERATIVE DIAGNOSES: Triple-vessel coronary artery disease with left main disease and non ST elevation myocardial infarction, mild to moderate aortic valve regurgitation, preserved left ventricular function, hyperlipidemia. PROCEDURE PERFORMED: 1. Triple coronary artery bypass grafting using the left internal mammary artery to the left anterior descending artery across a plaque as a patch angioplasty, reverse saphenous vein graft from the aorta to the 2nd obtuse marginal artery, reverse saphenous vein graft from the aorta to the posterior descending artery. 2. Endoscopic harvesting of bilateral greater saphenous vein. 3. Intraoperative transesophageal echocardiogram and epiaortic scanning. 4. Intraoperative graft flow measurements using the [employer] system. INDICATION FOR SURGERY: The patient is a 78-year-old lady presented with worsening of her recent onset angina. She had positive cardiac enzymes, but no ST elevation. Cardiac catheterization showed severe left main along with significant right coronary artery and diffuse coronary artery disease. The left ventricular function on echo is overall preserved. However, she has [id number] aortic valve regurgitation. The patient is being taken today for an urgent coronary artery revascularization. The SDS risk was discussed with her and her family. They understood it and agreed to proceed. DESCRIPTION OF THE PROCEDURE: The patient in supine position. Right internal jugular [place] catheter and a right radial arterial line were placed. PA pressure was 40/20 and cardiac index was 2.4. Subsequently, she was brought to the operating room where general endotracheal anesthesia was induced uneventfully. Patient received 2 g of cefazolin intravenously. A Jacobson catheter was inserted. The chest, abdomen and both lower extremities as well as the left upper extremity were prepped and draped using ChloraPrep. Ioban was used to cover the skin. Transesophageal echocardiogram confirmed the preoperative finding of overall preserved left ventricular function with some anterior hypokinesia and mild to moderate aortic valve regurgitation. A midline sternotomy was performed and the bone was moderately osteoporotic. The left hemisternum was elevated and the left internal mammary artery was harvested in a somewhat skeletonized fashion. The left pleura was intentionally opened in this process and was drained with a 19-[place] Jose drain. The right pleura remained grossly intact. In the same setting initially, the left greater saphenous vein was harvested endoscopically after administration of 2500 units of heparin from groin to just below knee level where it branched out. We also harvested the right thigh greater saphenous vein and that appeared to be non usable. Both leg incisions were closed over a drain. The vein was prepared and we had a reasonable length with a good quality in a diameter around 4 mm. Mediastinal fat was transected between 2 ties and epiaortic scanning revealed concentric intimal thickening but no protruding atheroma in the ascending aorta. Pericardium was opened in an inverted T-fashion. Pericardial cradle was created. Findings included a short soft aorta and slightly enlarged heart, which was fatty with friable tissues. After systemic heparinization, after placement of respective pledgeted pursestring, aortic cannulation with a 21-[place] soft flow cannula and venous cannulation with a 3- stage 29-[place] cannula was performed. Antegrade cardioplegia catheter were placed. Retrograde cardioplegia catheter also passed easily. However, we realized that it had actually perforated the coronary sinus and we left it in situ. The vein was prepared and the mammary artery was double clipped distally and transected had an excellent pulsatile flow in it and was around 1.5 mm in diameter. Aorta was clamped and myocardial protection was achieved with initial dose of around 800 mL of antegrade cold blood cardioplegia with adequate arrest at around 300 mL. All subsequent doses were given evidently antegrade in view of the coronary sinus injury. I harvested a piece of autologous pericardium for potential use. However, when I looked at the coronary sinus, which was very thin-walled, I decided to put a pledgeted 4-0 around the catheter that was defining the holes. I then pulled the catheter and tied that and that appeared to be hemostatic. I reinforced that with a tachy seal patch. Attention was moved at this point at performing the distal anastomosis. The 1st distal anastomosis was seen a segment of vein and the posterior descending artery which was around 1.5 mm in diameter, thin-walled and I inserted a 1.25 mm shunt using Prolene 7-0 in continuous fashion. The shunt was removed before completing the anastomosis which was well tolerated, which was hemostatic. The 2nd distal anastomosis was between another segment of vein and the lower obtuse marginal branching which was around 1.5 mm in diameter with some wall disease using Prolene 7-0 in continuous fashion. The third and last distal anastomosis was seen. The left internal mammary artery and the left anterior descending artery before it gave the last diagonal artery across a plaque there and able to perfuse proximally and distally using Prolene 7-0 in continuous fashion, so the mammary artery anastomosis was kind of a patch angioplasty to that area. The mammary pedicle was affixed to the epicardium with one 6-0 silk. Rewarming was started as we performed the 2 proximal anastomosis by punching out 2 buttons of 4 mm each from the ascending aorta and the anastomosis was completed using Prolene 6-0 in a continuous fashion. De-airing maneuvers were followed. Hemostasis was reasonable and we gave the patient lidocaine and magnesium and unclamped the aorta. The patient required around 3 defibrillation along with a 300 mg of amiodarone to be able to establish initially a very slow junctional rhythm. She eventually regained spontaneous sinus rhythm. Meanwhile, we placed 2 monopolar atrial pacing wires affixed to the right atrial appendage pursestring as the tissues were very friable and I would not want to anchor them to the free wall of the right atrium. I intentionally did not put a ventricular wire in view of the friability of tissue also. After a period of reperfusion and after loading the patient with Primacor, we were able to wean off cardiac bypass on moderate dose Primacor and low-dose Levophed. The echo showed reasonable function with again anterior hypokinesia. The aortic regurgitation was mild to moderate. With that, test dose and then full dose protamine was given. Decannulation followed. The aortic cannulation site required several reinforcement pledgeted sutures to control it as the tissues again were very friable. A groove was made in the left pleura pericardial fat to accommodate the mammary artery medial to the lung and away from the posterior sternal table. Two Jose drains were placed substernally. After ensuring adequate hemostasis and hemodynamic and after correct sponge, instrument, and needle count, the sternum was closed using 4 [id number] stainless steel wires after interposing fibular between the sternal edges. Thorough irrigation with cefazolin followed. The rest of the closure proceeded in layers. Skin glue was applied. The patient received 2 units of packed red blood cells as well as 500 mL of Cell Saver blood. She was transferred to the ICU with a cardiac index of 2.4, mean artery pressure of 58, PA pressure of 26/9, normal sinus rhythm at 65. MMODL / IJN: [id number] /
[2018-12-30 20:07] LABS: Glucose,Whole Blood 133 mg/dL (75-99)
[2018-12-30 21:12] LABS: Glucose,Whole Blood 147 mg/dL (75-99)
[2018-12-30 21:30] LABS: ABG Base Excess -3.4 mmol/L; ABG HCO3 23 mmol/L (21-25); ABG PCO2 50 mmHg (35-45); ABG PH 7.28 (7.35-7.45); ABG PO2 86 mmHg (83-108); ABG TCO2 25 mmol/L (19-24)
[2018-12-30] MEDS: HEPARIN SODIUM,PORCINE 5,000 UNIT/ML 1 ML VIAL SQ SCH (21:31)
[2018-12-30 21:33] LABS: Anisocytosis Slight; Basophils % (A) 0 %; Eosinophils % (A) 0 %; HCT 24.8 % (34.0-46.0); Lymphocytes # (A) 1.3 k/uL (1.0-4.8); Lymphocytes % (A) 12 %; MCH 28.7 pg (25.0-35.0); MCHC 33.5 g/dL (31.0-37.0); Mean Platelet Volume 10.9; Monocytes # (A) 0.7 k/uL (0-1.0); Monocytes % (A) 6 %; Neutrophils # (A) 8.8 k/uL (1.3-7.7); Neutrophils % (A) 80 %; RBC 2.89 m/uL (3.80-5.40); RDW 17.5 % (11.5-15.5); WBC 11.1 k/uL (3.8-10.6)
[2018-12-30 21:39] LABS: HGB 8.3 gm/dL (11.4-16.0); MCV 85.8 fL (80.0-100.0); Platelet Count 48 k/uL (150-450)
[2018-12-30] MEDS: MUPIROCIN 2% OINT 22 GM TUBE NASAL SCH (21:39)
[2018-12-30 22:36] LABS: Glucose,Whole Blood 139 mg/dL (75-99)
[2018-12-30 23:24] LABS: Glucose,Whole Blood 134 mg/dL (75-99)
[2018-12-31 00:27] LABS: Glucose,Whole Blood 124 mg/dL (75-99)
[2018-12-31] MEDS: ACETAMINOPHEN IV (For NPO) 1,000 MG in EMPTY BAG 1 BAG IVPB SCH (00:30)
[2018-12-31] MEDS: ceFAZolin IN SWFI 2 GM/20 ML SYRINGE IVP SCH ×2 (00:31→09:51)
[2018-12-31] MEDS: GABAPENTIN 300 MG CAP PO SCH ×5 (00:34→21:29)
[2018-12-31] MEDS: ALBUMIN HUMAN 5% 250 ML in EMPTY BAG 1 BAG IVPB PRN ×2 (01:34→23:08)
[2018-12-31 01:42] LABS: Glucose,Whole Blood 129 mg/dL (75-99)
[2018-12-31] MEDS: HYDROcodone/APAP 5-325MG 1 EACH TAB PO PRN ×2 (03:00→09:14)
[2018-12-31 03:09] LABS: Glucose,Whole Blood 134 mg/dL (75-99)
[2018-12-31 05:40] LABS: Glucose,Whole Blood 117 mg/dL (75-99)
[2018-12-31] MEDS: MILRINONE-D5W PMX 20 MG in DEXTROSE/WATER 1 100ML.BAG IV SCH ×2 (05:45→20:14)
[2018-12-31] MEDS: NITROGLYCERIN-D5W PMX 50 MG in DEXTROSE/WATER 1 250ML.BAG IV SCH (05:46)
[2018-12-31] MEDS ORDERED: HYDROcodone/APAP 5-325MG 1 EACH TAB PO PRN (06:00)
[2018-12-31 06:08] LABS: Anisocytosis Slight; MCH 29.2 pg (25.0-35.0); MCHC 34.5 g/dL (31.0-37.0); MCV 84.6 fL (80.0-100.0); Mean Platelet Volume 12.8; Poikilocytosis Slight; RBC 2.11 m/uL (3.80-5.40); RDW 18.4 % (11.5-15.5)
[2018-12-31 06:40] LABS: Ionized Calcium 4.2 mg/dL (4.5-5.3)
[2018-12-31 06:41] LABS: HGB 6.2 gm/dL (11.4-16.0)
[2018-12-31 06:42] LABS: HCT 17.9 % (34.0-46.0); Platelet Count 50 k/uL (150-450)
[2018-12-31 06:49] LABS: ALT 35 U/L (9-52); AST 168 U/L (14-36); Albumin 3.3 g/dL (3.5-5.0); Alkaline Phosphatase <20 U/L (38-126); Anion Gap 6 mmol/L; Blood Urea Nitrogen 17 mg/dL (7-17); Calcium 7.1 mg/dL (8.4-10.2); Carbon Dioxide 24 mmol/L (22-30); Chloride 110 mmol/L (98-107); Glucose 105 mg/dL (74-99); Magnesium 2.3 mg/dL (1.6-2.3); Potassium 4.5 mmol/L (3.5-5.1); Sodium 140 mmol/L (137-145); Total Bilirubin 0.7 mg/dL (0.2-1.3); Total Protein 4.5 g/dL (6.3-8.2)
[2018-12-31] MEDS ORDERED: CALCIUM GLUCONATE 1 GM in SODIUM CHLORIDE 0.9% 100 ML IVPB STA (07:02)
[2018-12-31 07:23] LABS: Glucose,Whole Blood 158 mg/dL (75-99)
[2018-12-31 07:28] LABS: Band Neutrophils % 19 %; Lymphocytes # (M) 0.93 k/uL (1.0-4.8); Monocytes # (M) 0.43 k/uL (0-1.0); Neutrophils % (M) 60 %; Nucleated Red Blood Cells 5 /100 WBC (0-0); Total Cells Counted 200; WBC 6.2 k/uL (3.8-10.6)
[2018-12-31 07:30] LABS: Basophilic Stippling Present; Large Platelets Present
[2018-12-31] MEDS: IPRATROPIUM-ALBUTEROL 3 ML NEB INHALATION SCH ×4 (07:30→20:25)
[2018-12-31] MEDS: HEPARIN SODIUM,PORCINE 5,000 UNIT/ML 1 ML VIAL SQ SCH ×2 (08:00→16:43)
[2018-12-31 08:03] LABS: INR 1.3 (<1.2); Partial Thromboplastin Time 37.6 sec (22.0-30.0); Prothrombin Time 13.6 sec (9.0-12.0)
[2018-12-31 08:36] LABS: Glucose,Whole Blood 136 mg/dL (75-99)
[2018-12-31] MEDS ORDERED: PANTOPRAZOLE 40 MG/10 ML VIAL IVP SCH (09:00)
[2018-12-31] MEDS ORDERED: ASPIRIN 325 MG TAB PO SCH ×2 (09:00)
[2018-12-31] MEDS ORDERED: CLOPIDOGREL 75 MG TAB PO SCH (09:00)
--- NOTE | 2018-12-31 09:14 | XR ---
EXAMINATION TYPE: XR chest 1V portable DATE OF EXAM: 12/31/2018 COMPARISON: Prior chest x-ray 12/30/2018 HISTORY: Postop cardiac surgery TECHNIQUE: Single frontal view of the chest is obtained. FINDINGS: Endotracheal tube and NG tube have been removed. Patient is rotated and left chest tube an d median sternal drains are in place. Lung volumes are low. There are overlying artifacts. Right jugu lar central venous catheter is again noted, distal tip over the pulmonary artery. Patchy bibasilar de nsity is present, the left hemidiaphragm is obscured. Left chest tube remains in place, there is subc utaneous emphysema. No sizable pneumothorax. Heart size likely stable. Aorta is dense. IMPRESSION: Interval extubation. Expiratory rotated exam. Probable basilar atelectasis, possible min imal effusions. Follow-up recommended.
[2018-12-31 09:18] LABS: Glucose,Whole Blood 125 mg/dL (75-99)
--- NOTE | 2018-12-31 09:39 | P.PN ---
Subjective Progress Note Date: 12/31/18 Principal diagnosis: Triple-vessel coronary artery disease, status post port coronary artery bypass grafting 3 utilizing a RIDDLE to the LAD, reverse saphenous vein grafts to the se cond obtuse marginal artery and posterior descending artery. The patient is seen today 12/31/2018 in follow-up in the intensive care unit. She is status post non-ST segment elevation myocardial infarction followed by coronary artery bypass grafting utilizing a RIDDLE to the LAD, reverse saphenous vein grafts to the second obtuse marginal artery and posterior descending artery. This is postoperative day #1. She was successfully extubated within 5 hours and 59 minutes. She is currently sitting up at the bedside. She did have some issues with hypotension upon standing. She is status post total 5 units of packed red blood cells. She will be receiving a unit of platelets as well. Current hemoglobin 6.2. Platelet count 50,000. White count 6.2. AST 168. Creatinine 0.70. Potassium 4.5. Magnesium 2.3. She currently has lactated Ringer's at 50 MLS per hour. Insulin at 1 unit per hour. Primacor at 0.2 mg/kg/m. Maintaining O2 saturations in the 90s on 3 L/m per nasal cannula. Ximena st x-ray reveals minimal basilar atelectasis. She is working with the incentive spirometer. Blood pressure 117/46, PA pressure 39/19, mean 2, CVP 11. Cardiac output 4.2. Cardiac index 2.5. Split mediastinal chest tube output 40 mls, left chest tube 290 ML's. Objective - Vital Signs Vital signs: Vital Signs Temp 99.9 F H 12/31/18 08:16 Pulse 97 12/31/18 08:10 Resp 30 H 12/31/18 08:10 BP 85/31 12/31/18 07:00 Pulse Ox 93 L 12/31/18 08:10 Intake & Output 12/30/18 12/31/18 12/31/18 18:59 06:59 18:59 Intake Total 1914 2509.274 1216.954 Output Total 3102 1678 395 Balance -1188 831.274 821.954 Intake: IV 1294 1356 579 Albumin Human 5% 250 ml 1000 500 500 In Empty Bag 1 bag @ 250 mls/hr IVPB Q1HR PRN Rx#: [id number] CO/CI 60 140 20 Lactated Ringers 1,000 ml 150 600 50 @ 50 mls/hr IV .Q20H [facility] Rx#:[id number] Milrinone-D5w Pmx 20 mg 24 8 In Dextrose/Water 1 100ml .bag @ 0.2 MCG/KG/MIN 4. 446 mls/hr IV .[id number] [facility] Rx#:[id number] Pressure bags 27 108 9 Intake, IV Titration 223.274 17.954 Amount Insulin Regular 100 unit 11.818 2.708 In Sodium Chloride 0.9% 100 ml @ Titrate IV .Q0M [facility] Rx#:[id number] Milrinone-D5w Pmx 20 mg 91.934 In Dextrose/Water 1 100ml .bag @ 0.2 MCG/KG/MIN 4. 446 mls/hr IV .[id number] [facility] Rx#:[id number] Nitroglycerin-D5w Pmx 50 20.475 mg In Dextrose/Water 1 250ml.bag @ 5 MCG/MIN 1.5 mls/hr IV .Q24H [facility] Rx#: [id number] Norepinephrine 4 mg In 99.047 15.246 Sodium Chloride 0.9% 250 ml @ 0.05 MCG/KG/MIN 14. 116 mls/hr IV .Q18H [facility] Rx#:[id number] Blood Product 620 930 620 Rc As-1 Unit 310 [id number] Rc As-1 Unit 0 310 [id number] Rc As-3 Unit 310 [id number] Rc Pheresis 2 As3 Unit 310 [id number] Rc Pheresis 2 As3 Unit 310 [id number] Output: Chest Tube Drainage 830 870 330 Left Pleural 630 720 290 Mediastinal 200 150 40 Drainage 110 30 Left Calf 50 10 Right Calf 60 20 Urine 762 778 65 Estimated Blood Loss 1400 Other: Voiding Method Indwelling Catheter Indwelling Catheter ABP, PAP, CO, CI - Last Documented Arterial Blood Pressure 117/46 Pulmonary Artery Pressure 39/19 Cardiac Output 4.2 Cardiac Index 2.5 - Exam GENERAL EXAM: Pleasant 78-year-old female patient, pale, currently comfortable in no apparent distress. On 3 L nasal cannula. HEAD: Normocephalic. EYES: Normal reaction of pupils, equal size. NOSE: Clear with pink turbinates. THROAT: No erythema or exudates. NECK: No masses, no JVD. Leroy-Mary catheter in place. CHEST: Heart hugger in place. Sternum stable. Dressing intact. LUNGS: Equal air entry with crackles in the bilateral posterior bases. Medias tinal and left chest tubes in place. CVS: S1 and S2 normal with no audible murmur, regular rhythm. ABDOMEN: No hepatosplenomegaly, normal bowel sounds, no guarding or rigidity. SPINE: No scoliosis or deformity SKIN: No rashes CENTRAL NERVOUS SYSTEM: No focal deficits, tone is normal in all 4 extremities. EXTREMITIES: Bilateral HARLEY drains of the lower extremities. There is peripheral edema. No clubbing, no cyanosis. Peripheral pulses are intact. - Labs CBC & Chem 7: 12/31/18 05:52 12/31/18 05:52 Labs: Abnormal Lab Results - Last 24 Hours (Table) 12/29/18 12/30/18 12/30/18 Range/Units 09:20 08:42 10:49 WBC (3.8-10.6) k/uL RBC (3.80-5.40) m/uL Hgb (11.4-16.0) gm/dL Hct (34.0-46.0) % RDW (11.5-15.5) % Plt Count (150-450) k/uL Neutrophils # (1.3-7.7) k/uL Lymphocytes # (Manual) (1.0-4.8) k/uL Nucleated RBCs (0-0) /100 WBC PT (9.0-12.0) sec INR (<1.2) APTT (22.0-30.0) sec ABG pH 7.29 L (7.35-7.45) ABG pCO2 58 H (35-45) mmHg ABG pO2 229 H 178 H (83-108) mmHg ABG HCO3 27 H 28 H (21-25) mmol/L ABG Total CO2 29 H 29 H (19-24) mmol/L ABG O2 Saturation 98.3 H 99.1 H (94-97) % ABG Hematocrit 27 L 26 L (34.0-46.0) % ABG Sodium (135-146) mmol/L ABG Potassium (3.4-4.5) mmol/L ABG Ionized Calcium (4.5-5.3) mg/dL ABG Glucose 119 H (75-99) mg/dL ABG Lactic Acid (0.5-1.6) mmol/L Hemoglobin 8.9 L 8.5 L (11.4-16.0) gm/dL Potassium (3.5-5.1) mmol/L Chloride (98-107) mmol/L Carbon Dioxide (22-30) mmol/L Glucose (74-99) mg/dL POC Glucose (mg/dL) (75-99) mg/dL Calcium (8.4-10.2) mg/dL Ionized Calcium Ever (4.5-5.3) mg/dL Magnesium (1.6-2.3) mg/dL AST (14-36) U/L Alkaline Phosphatase (38-126) U/L Total Protein (6.3-8.2) g/dL Albumin (3.5-5.0) g/dL Arterial Blood Potassium (3.4-4.5) mmol/L Arterial Blood Glucose 119 H (75-99) mg/dL Crossmatch See Detail 12/30/18 12/30/18 12/30/18 Range/Units 11:15 11:18 11:46 WBC (3.8-10.6) k/uL RBC (3.80-5.40) m/uL Hgb (11.4-16.0) gm/dL Hct (34.0-46.0) % RDW (11.5-15.5) % Plt Count (150-450) k/uL Neutrophils # (1.3-7.7) k/uL Lymphocytes # (Manual) (1.0-4.8) k/uL Nucleated RBCs (0-0) /100 WBC PT (9.0-12.0) sec INR (<1.2) APTT (22.0-30.0) sec ABG pH (7.35-7.45) ABG pCO2 46 H (35-45) mmHg ABG pO2 >420 H 396 H (83-108) mmHg ABG HCO3 (21-25) mmol/L ABG Total CO2 27 H 27 H (19-24) mmol/L ABG O2 Saturation 100.0 H 100.0 H (94-97) % ABG Hematocrit 19 L* 18 L* (34.0-46.0) % ABG Sodium (135-146) mmol/L ABG Potassium (3.4-4.5) mmol/L ABG Ionized Calcium 4.0 L 3.9 L (4.5-5.3) mg/dL ABG Glucose 113 H 175 H (75-99) mg/dL ABG Lactic Acid 0.4 L (0.5-1.6) mmol/L Hemoglobin 6.3 L* 5.9 L* (11.4-16.0) gm/dL Potassium (3.5-5.1) mmol/L Chloride (98-107) mmol/L Carbon Dioxide (22-30) mmol/L Glucose (74-99) mg/dL POC Glucose (mg/dL) 123 H (75-99) mg/dL Calcium (8.4-10.2) mg/dL Ionized Calcium Ever (4.5-5.3) mg/dL Magnesium (1.6-2.3) mg/dL AST (14-36) U/L Alkaline Phosphatase (38-126) U/L Total Protein (6.3-8.2) g/dL Albumin (3.5-5.0) g/dL Arterial Blood Potassium (3.4-4.5) mmol/L Arterial Blood Glucose 113 H 175 H (75-99) mg/dL Crossmatch 12/30/18 12/30/18 12/30/18 Range/Units 12:14 12:45 13:23 WBC (3.8-10.6) k/uL RBC (3.80-5.40) m/uL Hgb (11.4-16.0) gm/dL Hct (34.0-46.0) % RDW (11.5-15.5) % Plt Count (150-450) k/uL Neutrophils # (1.3-7.7) k/uL Lymphocytes # (Manual) (1.0-4.8) k/uL Nucleated RBCs (0-0) /100 WBC PT (9.0-12.0) sec INR (<1.2) APTT (22.0-30.0) sec ABG pH 7.46 H (7.35-7.45) ABG pCO2 (35-45) mmHg ABG pO2 323 H 371 H 385 H (83-108) mmHg ABG HCO3 (21-25) mmol/L ABG Total CO2 26 H 25 H (19-24) mmol/L ABG O2 Saturation 100.0 H 100.0 H 100.0 H (94-97) % ABG Hematocrit 17 L* 19 L* 22 L (34.0-46.0) % ABG Sodium 134 L (135-146) mmol/L ABG Potassium 4.9 H 5.2 H 4.7 H (3.4-4.5) mmol/L ABG Ionized Calcium 3.8 L 3.4 L* 3.8 L (4.5-5.3) mg/dL ABG Glucose 200 H 223 H 196 H (75-99) mg/dL ABG Lactic Acid 1.8 H 3.3 H* (0.5-1.6) mmol/L Hemoglobin 5.4 L* 6.3 L* 7.0 L* (11.4-16.0) gm/dL Potassium (3.5-5.1) mmol/L Chloride (98-107) mmol/L Carbon Dioxide (22-30) mmol/L Glucose (74-99) mg/dL POC Glucose (mg/dL) (75-99) mg/dL Calcium (8.4-10.2) mg/dL Ionized Calcium Ever (4.5-5.3) mg/dL Magnesium (1.6-2.3) mg/dL AST (14-36) U/L Alkaline Phosphatase (38-126) U/L Total Protein (6.3-8.2) g/dL Albumin (3.5-5.0) g/dL Arterial Blood Potassium 4.9 H 5.2 H 4.7 H (3.4-4.5) mmol/L Arterial Blood Glucose 200 H 223 H 196 H (75-99) mg/dL Crossmatch 12/30/18 12/30/18 12/30/18 Range/Units 14:57 15:30 15:30 WBC 21.0 H (3.8-10.6) k/uL RBC 2.57 L (3.80-5.40) m/uL Hgb 7.9 L D (11.4-16.0) gm/dL Hct 23.6 L (34.0-46.0) % RDW 15.8 H (11.5-15.5) % Plt Count 69 L D (150-450) k/uL Neutrophils # 17.3 H (1.3-7.7) k/uL Lymphocytes # (Manual) (1.0-4.8) k/uL Nucleated RBCs (0-0) /100 WBC PT (9.0-12.0) sec INR (<1.2) APTT (22.0-30.0) sec ABG pH 7.33 L (7.35-7.45) ABG pCO2 (35-45) mmHg ABG pO2 71 L (83-108) mmHg ABG HCO3 (21-25) mmol/L ABG Total CO2 (19-24) mmol/L ABG O2 Saturation (94-97) % ABG Hematocrit 24 L (34.0-46.0) % ABG Sodium (135-146) mmol/L ABG Potassium (3.4-4.5) mmol/L ABG Ionized Calcium (4.5-5.3) mg/dL ABG Glucose 103 H (75-99) mg/dL ABG Lactic Acid 2.5 H* (0.5-1.6) mmol/L Hemoglobin 7.8 L (11.4-16.0) gm/dL Potassium 5.8 H (3.5-5.1) mmol/L Chloride 112 H (98-107) mmol/L Carbon Dioxide (22-30) mmol/L Glucose 100 H (74-99) mg/dL POC Glucose (mg/dL) (75-99) mg/dL Calcium 7.3 L (8.4-10.2) mg/dL Ionized Calcium Ever (4.5-5.3) mg/dL Magnesium 2.7 H (1.6-2.3) mg/dL AST (14-36) U/L Alkaline Phosphatase 23 L (38-126) U/L Total Protein 4.1 L (6.3-8.2) g/dL Albumin 2.7 L (3.5-5.0) g/dL Arterial Blood Potassium (3.4-4.5) mmol/L Arterial Blood Glucose 103 H (75-99) mg/dL Crossmatch 12/30/18 12/30/18 12/30/18 Range/Units 15:30 15:50 15:52 WBC (3.8-10.6) k/uL RBC (3.80-5.40) m/uL Hgb (11.4-16.0) gm/dL Hct (34.0-46.0) % RDW (11.5-15.5) % Plt Count (150-450) k/uL Neutrophils # (1.3-7.7) k/uL Lymphocytes # (Manual) (1.0-4.8) k/uL Nucleated RBCs (0-0) /100 WBC PT 15.1 H (9.0-12.0) sec INR 1.5 H (<1.2) APTT 37.5 H (22.0-30.0) sec ABG pH 7.21 L (7.35-7.45) ABG pCO2 56 H (35-45) mmHg ABG pO2 231 H (83-108) mmHg ABG HCO3 (21-25) mmol/L ABG Total CO2 (19-24) mmol/L ABG O2 Saturation 99.0 H (94-97) % ABG Hematocrit (34.0-46.0) % ABG Sodium (135-146) mmol/L ABG Potassium (3.4-4.5) mmol/L ABG Ionized Calcium (4.5-5.3) mg/dL ABG Glucose (75-99) mg/dL ABG Lactic Acid (0.5-1.6) mmol/L Hemoglobin (11.4-16.0) gm/dL Potassium (3.5-5.1) mmol/L Chloride (98-107) mmol/L Carbon Dioxide (22-30) mmol/L Glucose (74-99) mg/dL POC Glucose (mg/dL) 113 H (75-99) mg/dL Calcium (8.4-10.2) mg/dL Ionized Calcium Ever (4.5-5.3) mg/dL Magnesium (1.6-2.3) mg/dL AST (14-36) U/L Alkaline Phosphatase (38-126) U/L Total Protein (6.3-8.2) g/dL Albumin (3.5-5.0) g/dL Arterial Blood Potassium (3.4-4.5) mmol/L Arterial Blood Glucose (75-99) mg/dL Crossmatch 12/30/18 12/30/18 12/30/18 Range/Units 17:12 17:33 17:50 WBC 13.1 H (3.8-10.6) k/uL RBC 1.91 L (3.80-5.40) m/uL Hgb 5.8 L* D (11.4-16.0) gm/dL Hct 17.6 L* (34.0-46.0) % RDW 15.9 H (11.5-15.5) % Plt Count 51 L (150-450) k/uL Neutrophils # 10.6 H (1.3-7.7) k/uL Lymphocytes # (Manual) (1.0-4.8) k/uL Nucleated RBCs (0-0) /100 WBC PT (9.0-12.0) sec INR (<1.2) APTT (22.0-30.0) sec ABG pH 7.25 L (7.35-7.45) ABG pCO2 52 H (35-45) mmHg ABG pO2 80 L (83-108) mmHg ABG HCO3 (21-25) mmol/L ABG Total CO2 (19-24) mmol/L ABG O2 Saturation (94-97) % ABG Hematocrit (34.0-46.0) % ABG Sodium (135-146) mmol/L ABG Potassium (3.4-4.5) mmol/L ABG Ionized Calcium (4.5-5.3) mg/dL ABG Glucose (75-99) mg/dL ABG Lactic Acid (0.5-1.6) mmol/L Hemoglobin (11.4-16.0) gm/dL Potassium (3.5-5.1) mmol/L Chloride (98-107) mmol/L Carbon Dioxide (22-30) mmol/L Glucose (74-99) mg/dL POC Glucose (mg/dL) 138 H (75-99) mg/dL Calcium (8.4-10.2) mg/dL Ionized Calcium Ever (4.5-5.3) mg/dL Magnesium (1.6-2.3) mg/dL AST (14-36) U/L Alkaline Phosphatase (38-126) U/L Total Protein (6.3-8.2) g/dL Albumin (3.5-5.0) g/dL Arterial Blood Potassium (3.4-4.5) mmol/L Arterial Blood Glucose (75-99) mg/dL Crossmatch 12/30/18 12/30/18 12/30/18 Range/Units 17:50 18:01 19:04 WBC (3.8-10.6) k/uL RBC (3.80-5.40) m/uL Hgb (11.4-16.0) gm/dL Hct (34.0-46.0) % RDW (11.5-15.5) % Plt Count (150-450) k/uL Neutrophils # (1.3-7.7) k/uL Lymphocytes # (Manual) (1.0-4.8) k/uL Nucleated RBCs (0-0) /100 WBC PT (9.0-12.0) sec INR (<1.2) APTT (22.0-30.0) sec ABG pH (7.35-7.45) ABG pCO2 (35-45) mmHg ABG pO2 (83-108) mmHg ABG HCO3 (21-25) mmol/L ABG Total CO2 (19-24) mmol/L ABG O2 Saturation (94-97) % ABG Hematocrit (34.0-46.0) % ABG Sodium (135-146) mmol/L ABG Potassium (3.4-4.5) mmol/L ABG Ionized Calcium (4.5-5.3) mg/dL ABG Glucose (75-99) mg/dL ABG Lactic Acid (0.5-1.6) mmol/L Hemoglobin (11.4-16.0) gm/dL Potassium (3.5-5.1) mmol/L Chloride 111 H (98-107) mmol/L Carbon Dioxide 19 L (22-30) mmol/L Glucose 120 H (74-99) mg/dL POC Glucose (mg/dL) 136 H 125 H (75-99) mg/dL Calcium 7.2 L (8.4-10.2) mg/dL Ionized Calcium Ever (4.5-5.3) mg/dL Magnesium (1.6-2.3) mg/dL AST (14-36) U/L Alkaline Phosphatase <20 L (38-126) U/L Total Protein 4.8 L (6.3-8.2) g/dL Albumin (3.5-5.0) g/dL Arterial Blood Potassium (3.4-4.5) mmol/L Arterial Blood Glucose (75-99) mg/dL Crossmatch 12/30/18 12/30/18 12/30/18 Range/Units 19:34 20:06 21:11 WBC (3.8-10.6) k/uL RBC (3.80-5.40) m/uL Hgb (11.4-16.0) gm/dL Hct (34.0-46.0) % RDW (11.5-15.5) % Plt Count (150-450) k/uL Neutrophils # (1.3-7.7) k/uL Lymphocytes # (Manual) (1.0-4.8) k/uL Nucleated RBCs (0-0) /100 WBC PT (9.0-12.0) sec INR (<1.2) APTT (22.0-30.0) sec ABG pH (7.35-7.45) ABG pCO2 (35-45) mmHg ABG pO2 (83-108) mmHg ABG HCO3 (21-25) mmol/L ABG Total CO2 25 H (19-24) mmol/L ABG O2 Saturation (94-97) % ABG Hematocrit (34.0-46.0) % ABG Sodium (135-146) mmol/L ABG Potassium (3.4-4.5) mmol/L ABG Ionized Calcium (4.5-5.3) mg/dL ABG Glucose (75-99) mg/dL ABG Lactic Acid (0.5-1.6) mmol/L Hemoglobin (11.4-16.0) gm/dL Potassium (3.5-5.1) mmol/L Chloride (98-107) mmol/L Carbon Dioxide (22-30) mmol/L Glucose (74-99) mg/dL POC Glucose (mg/dL) 133 H 147 H (75-99) mg/dL Calcium (8.4-10.2) mg/dL Ionized Calcium Ever (4.5-5.3) mg/dL Magnesium (1.6-2.3) mg/dL AST (14-36) U/L Alkaline Phosphatase (38-126) U/L Total Protein (6.3-8.2) g/dL Albumin (3.5-5.0) g/dL Arterial Blood Potassium (3.4-4.5) mmol/L Arterial Blood Glucose (75-99) mg/dL Crossmatch 12/30/18 12/30/18 12/30/18 Range/Units 21:25 21:27 22:34 WBC 11.1 H (3.8-10.6) k/uL RBC 2.89 L (3.80-5.40) m/uL Hgb 8.3 L D (11.4-16.0) gm/dL Hct 24.8 L (34.0-46.0) % RDW 17.5 H (11.5-15.5) % Plt Count 48 L (150-450) k/uL Neutrophils # 8.8 H (1.3-7.7) k/uL Lymphocytes # (Manual) (1.0-4.8) k/uL Nucleated RBCs (0-0) /100 WBC PT (9.0-12.0) sec INR (<1.2) APTT (22.0-30.0) sec ABG pH 7.28 L (7.35-7.45) ABG pCO2 50 H (35-45) mmHg ABG pO2 (83-108) mmHg ABG HCO3 (21-25) mmol/L ABG Total CO2 25 H (19-24) mmol/L ABG O2 Saturation (94-97) % ABG Hematocrit (34.0-46.0) % ABG Sodium (135-146) mmol/L ABG Potassium (3.4-4.5) mmol/L ABG Ionized Calcium (4.5-5.3) mg/dL ABG Glucose (75-99) mg/dL ABG Lactic Acid (0.5-1.6) mmol/L Hemoglobin (11.4-16.0) gm/dL Potassium (3.5-5.1) mmol/L Chloride (98-107) mmol/L Carbon Dioxide (22-30) mmol/L Glucose (74-99) mg/dL POC Glucose (mg/dL) 139 H (75-99) mg/dL Calcium (8.4-10.2) mg/dL Ionized Calcium Ever (4.5-5.3) mg/dL Magnesium (1.6-2.3) mg/dL AST (14-36) U/L Alkaline Phosphatase (38-126) U/L Total Protein (6.3-8.2) g/dL Albumin (3.5-5.0) g/dL Arterial Blood Potassium (3.4-4.5) mmol/L Arterial Blood Glucose (75-99) mg/dL Crossmatch 12/30/18 12/31/18 12/31/18 Range/Units 23:22 00:24 01:40 WBC (3.8-10.6) k/uL RBC (3.80-5.40) m/uL Hgb (11.4-16.0) gm/dL Hct (34.0-46.0) % RDW (11.5-15.5) % Plt Count (150-450) k/uL Neutrophils # (1.3-7.7) k/uL Lymphocytes # (Manual) (1.0-4.8) k/uL Nucleated RBCs (0-0) /100 WBC PT (9.0-12.0) sec INR (<1.2) APTT (22.0-30.0) sec ABG pH (7.35-7.45) ABG pCO2 (35-45) mmHg ABG pO2 (83-108) mmHg ABG HCO3 (21-25) mmol/L ABG Total CO2 (19-24) mmol/L ABG O2 Saturation (94-97) % ABG Hematocrit (34.0-46.0) % ABG Sodium (135-146) mmol/L ABG Potassium (3.4-4.5) mmol/L ABG Ionized Calcium (4.5-5.3) mg/dL ABG Glucose (75-99) mg/dL ABG Lactic Acid (0.5-1.6) mmol/L Hemoglobin (11.4-16.0) gm/dL Potassium (3.5-5.1) mmol/L Chloride (98-107) mmol/L Carbon Dioxide (22-30) mmol/L Glucose (74-99) mg/dL POC Glucose (mg/dL) 134 H 124 H 129 H (75-99) mg/dL Calcium (8.4-10.2) mg/dL Ionized Calcium Ever (4.5-5.3) mg/dL Magnesium (1.6-2.3) mg/dL AST (14-36) U/L Alkaline Phosphatase (38-126) U/L Total Protein (6.3-8.2) g/dL Albumin (3.5-5.0) g/dL Arterial Blood Potassium (3.4-4.5) mmol/L Arterial Blood Glucose (75-99) mg/dL Crossmatch 12/31/18 12/31/18 12/31/18 Range/Units 03:07 05:39 05:52 WBC (3.8-10.6) k/uL RBC 2.11 L (3.80-5.40) m/uL Hgb 6.2 L* D (11.4-16.0) gm/dL Hct 17.9 L* (34.0-46.0) % RDW 18.4 H (11.5-15.5) % Plt Count 50 L (150-450) k/uL Neutrophils # (1.3-7.7) k/uL Lymphocytes # (Manual) 0.93 L (1.0-4.8) k/uL Nucleated RBCs 5 H (0-0) /100 WBC PT (9.0-12.0) sec INR (<1.2) APTT (22.0-30.0) sec ABG pH (7.35-7.45) ABG pCO2 (35-45) mmHg ABG pO2 (83-108) mmHg ABG HCO3 (21-25) mmol/L ABG Total CO2 (19-24) mmol/L ABG O2 Saturation (94-97) % ABG Hematocrit (34.0-46.0) % ABG Sodium (135-146) mmol/L ABG Potassium (3.4-4.5) mmol/L ABG Ionized Calcium (4.5-5.3) mg/dL ABG Glucose (75-99) mg/dL ABG Lactic Acid (0.5-1.6) mmol/L Hemoglobin (11.4-16.0) gm/dL Potassium (3.5-5.1) mmol/L Chloride (98-107) mmol/L Carbon Dioxide (22-30) mmol/L Glucose (74-99) mg/dL POC Glucose (mg/dL) 134 H 117 H (75-99) mg/dL Calcium (8.4-10.2) mg/dL Ionized Calcium Ever (4.5-5.3) mg/dL Magnesium (1.6-2.3) mg/dL AST (14-36) U/L Alkaline Phosphatase (38-126) U/L Total Protein (6.3-8.2) g/dL Albumin (3.5-5.0) g/dL Arterial Blood Potassium (3.4-4.5) mmol/L Arterial Blood Glucose (75-99) mg/dL Crossmatch 12/31/18 12/31/18 12/31/18 Range/Units 05:52 05:52 07:21 WBC (3.8-10.6) k/uL RBC (3.80-5.40) m/uL Hgb (11.4-16.0) gm/dL Hct (34.0-46.0) % RDW (11.5-15.5) % Plt Count (150-450) k/uL Neutrophils # (1.3-7.7) k/uL Lymphocytes # (Manual) (1.0-4.8) k/uL Nucleated RBCs (0-0) /100 WBC PT 13.6 H (9.0-12.0) sec INR 1.3 H (<1.2) APTT 37.6 H (22.0-30.0) sec ABG pH (7.35-7.45) ABG pCO2 (35-45) mmHg ABG pO2 (83-108) mmHg ABG HCO3 (21-25) mmol/L ABG Total CO2 (19-24) mmol/L ABG O2 Saturation (94-97) % ABG Hematocrit (34.0-46.0) % ABG Sodium (135-146) mmol/L ABG Potassium (3.4-4.5) mmol/L ABG Ionized Calcium (4.5-5.3) mg/dL ABG Glucose (75-99) mg/dL ABG Lactic Acid (0.5-1.6) mmol/L Hemoglobin (11.4-16.0) gm/dL Potassium (3.5-5.1) mmol/L Chloride 110 H (98-107) mmol/L Carbon Dioxide (22-30) mmol/L Glucose 105 H (74-99) mg/dL POC Glucose (mg/dL) 158 H (75-99) mg/dL Calcium 7.1 L (8.4-10.2) mg/dL Ionized Calcium Ever 4.2 L (4.5-5.3) mg/dL Magnesium (1.6-2.3) mg/dL AST 168 H (14-36) U/L Alkaline Phosphatase <20 L (38-126) U/L Total Protein 4.5 L (6.3-8.2) g/dL Albumin 3.3 L (3.5-5.0) g/dL Arterial Blood Potassium (3.4-4.5) mmol/L Arterial Blood Glucose (75-99) mg/dL Crossmatch 12/31/18 12/31/18 Range/Units 08:35 09:16 WBC (3.8-10.6) k/uL RBC (3.80-5.40) m/uL Hgb (11.4-16.0) gm/dL Hct (34.0-46.0) % RDW (11.5-15.5) % Plt Count (150-450) k/uL Neutrophils # (1.3-7.7) k/uL Lymphocytes # (Manual) (1.0-4.8) k/uL Nucleated RBCs (0-0) /100 WBC PT (9.0-12.0) sec INR (<1.2) APTT (22.0-30.0) sec ABG pH (7.35-7.45) ABG pCO2 (35-45) mmHg ABG pO2 (83-108) mmHg ABG HCO3 (21-25) mmol/L ABG Total CO2 (19-24) mmol/L ABG O2 Saturation (94-97) % ABG Hematocrit (34.0-46.0) % ABG Sodium (135-146) mmol/L ABG Potassium (3.4-4.5) mmol/L ABG Ionized Calcium (4.5-5.3) mg/dL ABG Glucose (75-99) mg/dL ABG Lactic Acid (0.5-1.6) mmol/L Hemoglobin (11.4-16.0) gm/dL Potassium (3.5-5.1) mmol/L Chloride (98-107) mmol/L Carbon Dioxide (22-30) mmol/L Glucose (74-99) mg/dL POC Glucose (mg/dL) 136 H 125 H (75-99) mg/dL Calcium (8.4-10.2) mg/dL Ionized Calcium Ever (4.5-5.3) mg/dL Magnesium (1.6-2.3) mg/dL AST (14-36) U/L Alkaline Phosphatase (38-126) U/L Total Protein (6.3-8.2) g/dL Albumin (3.5-5.0) g/dL Arterial Blood Potassium (3.4-4.5) mmol/L Arterial Blood Glucose (75-99) mg/dL Crossmatch Microbiology - Last 24 Hours (Table) 12/29/18 10:00 Nasal Screen MRSA/MSSA - Final Nasal Swab 12/29/18 10:50 Urine Culture - Final Urine,Voided Assessment and Plan Assessment: Impression: #1 Non-ST segment elevation myocardial infarction with significant triple-vessel disease. Status post coronary artery bypass grafting 3 with a RIDDLE to the LAD, reverse saphenous vein grafts to the OM 2 and PDA. #2 Intubation and mechanical ventilatory support as an expected outcome of surgery, successfully extubated within 6 hours. #3 Hyperlipidemia. #4 Obstructive sleep apnea. #5 Vitamin D deficiency. #6 Gastroesophageal reflux disease. #7 Degenerative joint disease. Plan: The patient was seen and evaluated by Dr. Love. Chest x-ray and labs were reviewed. PRBCs and platelets being replaced. Currently maintaining good O2 saturation on 3 L nasal cannula. Encouraged regarding the increased use the incentive spirometer and cough and deep breathing exercises. Continue with bronchodilators. We'll increase her activity as tolerated. We'll continue to follow make further recommendations based on her clinical status. I, the cosigning physician, performed a history & physical examination of the patient. Lungs sounds with crackles in the bilateral posterior bases. Maintaining good O2 saturations in the 90s on 2 L/m per nasal cannula. I discussed the assessment and plan of care with my nurse practitioner, Cherie Zuniga. I attest to the above note as dictated by her.
[2018-12-31] MEDS: FERROUS SULFATE 325 MG TAB PO SCH ×2 (09:51→16:43)
[2018-12-31] MEDS: ASCORBIC ACID 500 MG TAB PO SCH ×2 (09:51→16:43)
[2018-12-31] MEDS: METOPROLOL TARTRATE 12.5 MG TAB PO SCH ×2 (09:52→21:28)
[2018-12-31] MEDS: ATORVASTATIN 40 MG TAB PO SCH (09:52)
[2018-12-31] MEDS: MUPIROCIN 2% OINT 22 GM TUBE NASAL SCH ×2 (09:52→21:29)
[2018-12-31] MEDS: ASPIRIN 81 MG PO SCH (10:19)
--- NOTE | 2018-12-31 11:00 | P.PN ---
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 Preoperative chronic normocytic, normochromic anemia. POD #1 urgent triple coronary artery bypass grafting using the left internal mammary artery to the left anterior descending artery across a plaque as a patch angioplasty, reverse saphenous vein graft from the aorta to the second obtuse marginal artery, reverse saphenous vein graft from the aorta to the posterior descending artery. Endoscopic harvesting of the bilateral greater saphenous veins, both greater saphenous veins from the groin to just below the knee level. Intraoperative transesophageal echocardiogram and epi-aortic scanning. Intraoperative graft flow measurements using the [employer] system. Intraoperative and postoperative acute blood loss anemia, expected given hemodilution, cardiopulmonary bypass pump, and patient's preoperative anemia. Postoperative thrombocytopenia, expected given cardiopulmonary bypass pump. The patient is currently sitting up in a recliner in no acute distress. She was successfully extubated last night at 21:21 PM. She did vacillate last night with her blood pressure, being mostly hypotensive with anemia requiring blood transfusion, and titration of levo. Currently her hemodynamics are stable on 0.2 mcg/kg/min of Primacor and no levo. She does complain of surgical incisional type soreness, slight shortness of breath. In addition, she does complain of being very tired. She did receive 2 units of packed red blood cells intraoperatively, 2 units of packed red blood cells last night, and 1 unit of packed red blood cells first thing this morning with 1 unit of platelets currently infusing. Family was updated this morning at the bedside. Objective - Vital Signs Vital signs: Vital Signs Temp 99.9 F H 12/31/18 08:16 Pulse 97 12/31/18 08:10 Resp 30 H 12/31/18 08:10 BP 85/31 12/31/18 07:00 Pulse Ox 93 L 12/31/18 08:10 Intake & Output 12/30/18 12/31/18 12/31/18 18:59 06:59 18:59 Intake Total 1914 2509.274 1216.954 Output Total 3102 1678 395 Balance -1188 831.274 821.954 Intake: IV 1294 1356 579 Albumin Human 5% 250 ml 1000 500 500 In Empty Bag 1 bag @ 250 mls/hr IVPB Q1HR PRN Rx#: [id number] CO/CI 60 140 20 Lactated Ringers 1,000 ml 150 600 50 @ 50 mls/hr IV .Q20H MAR Rx#:[id number] Milrinone-D5w Pmx 20 mg 24 8 In Dextrose/Water 1 100ml .bag @ 0.2 MCG/KG/MIN 4. 446 mls/hr IV .[id number] MAR Rx#:[id number] Pressure bags 27 108 9 Intake, IV Titration 223.274 17.954 Amount Insulin Regular 100 unit 11.818 2.708 In Sodium Chloride 0.9% 100 ml @ Titrate IV .Q0M MAR Rx#:[id number] Milrinone-D5w Pmx 20 mg 91.934 In Dextrose/Water 1 100ml .bag @ 0.2 MCG/KG/MIN 4. 446 mls/hr IV .[id number] MAR Rx#:[id number] Nitroglycerin-D5w Pmx 50 20.475 mg In Dextrose/Water 1 250ml.bag @ 5 MCG/MIN 1.5 mls/hr IV .Q24H MAR Rx#: [id number] Norepinephrine 4 mg In 99.047 15.246 Sodium Chloride 0.9% 250 ml @ 0.05 MCG/KG/MIN 14. 116 mls/hr IV .Q18H MAR Rx#:[id number] Blood Product 620 930 620 Rc As-1 Unit 310 [id number] Rc As-1 Unit 0 310 [id number] Rc As-3 Unit 310 [id number] Rc Pheresis 2 As3 Unit 310 [id number] Rc Pheresis 2 As3 Unit 310 [id number] Output: Chest Tube Drainage 830 870 330 Left Pleural 630 720 290 Mediastinal 200 150 40 Drainage 110 30 Left Calf 50 10 Right Calf 60 20 Urine 762 778 65 Estimated Blood Loss 1400 Other: Voiding Method Indwelling Catheter Indwelling Catheter ABP, PAP, CO, CI - Last Documented Arterial Blood Pressure 117/46 Pulmonary Artery Pressure 39/19 Cardiac Output 4.2 Cardiac Index 2.5 - Constitutional General appearance: Present: cooperative, no acute distress, obese - Respiratory Details: Lungs sounds diminished bilaterally. Respirations even, nonlabored. Currently on 3 L nasal cannula with oxygen saturation 98%. Able to achieve 500 mL on her incentive spirometry. Strong cough. Mediastinal chest tube to continuous wall suction, 90 mL serosanguineous drainage overnight, 400 mL since surgery. Left pleural chest tube to continuous wall suction, 500 mL serosanguineous drainage overnight, 1700 mL since surgery. No air leak present. - Cardiovascular Details: S1, S2 present. Regular rate and rhythm, sinus rhythm on telemetry. Sternum stable. Atrial epicardial pacemaker wires present, connected to generator, AAI mode with backup rate 50 bpm. Palpable peripheral pulses bilaterally. No edema present. No calf pain or tenderness noted. Right internal jugular [place], right radial arterial line present. Last CO/CI 4.6/2.7 on 0.2 mcg/kg/min of Primacor. Heart hugger in place with patient attempting appropriate use, surgical bra in place, anti-embolism stockings/SCDs present. - Gastrointestinal Gastrointestinal Comment(s): Abdomen soft, nontender, nondistended. Hypoactive bowel sounds present 4 quadrants. Tolerating clear liquids. Negative flatus. - Genitourinary Genitourinary Comment(s): [place] present draining clear, yellow urine. Output overnight 35-95 mL/h - Integumentary Integumentary Comment(s): Skin is warm and dry with evidence of good perfusion. Anterior chest incision well approximated and covered with dry intact dressing. Bilateral lower extremity EVH sites well approximated, HARLEY drains present with minimal serosanguineous drainage. - Neurologic Neurologic: Present: CNII-XII intact - Musculoskeletal Musculoskeletal: Present: generalized weakness, strength equal bilaterally - Psychiatric Psychiatric: Present: A&O x's 3, appropriate affect, intact judgment & insight - Allied health notes Allied health notes reviewed: nursing - Labs CBC & Chem 7: 12/31/18 05:52 12/31/18 05:52 Labs: Abnormal Lab Results - Last 24 Hours (Table) 12/29/18 12/30/18 12/30/18 Range/Units 09:20 08:42 10:49 WBC (3.8-10.6) k/uL RBC (3.80-5.40) m/uL Hgb (11.4-16.0) gm/dL Hct (34.0-46.0) % RDW (11.5-15.5) % Plt Count (150-450) k/uL Neutrophils # (1.3-7.7) k/uL Lymphocytes # (Manual) (1.0-4.8) k/uL Nucleated RBCs (0-0) /100 WBC PT (9.0-12.0) sec INR (<1.2) APTT (22.0-30.0) sec ABG pH 7.29 L (7.35-7.45) ABG pCO2 58 H (35-45) mmHg ABG pO2 229 H 178 H (83-108) mmHg ABG HCO3 27 H 28 H (21-25) mmol/L ABG Total CO2 29 H 29 H (19-24) mmol/L ABG O2 Saturation 98.3 H 99.1 H (94-97) % ABG Hematocrit 27 L 26 L (34.0-46.0) % ABG Sodium (135-146) mmol/L ABG Potassium (3.4-4.5) mmol/L ABG Ionized Calcium (4.5-5.3) mg/dL ABG Glucose 119 H (75-99) mg/dL ABG Lactic Acid (0.5-1.6) mmol/L Hemoglobin 8.9 L 8.5 L (11.4-16.0) gm/dL Potassium (3.5-5.1) mmol/L Chloride (98-107) mmol/L Carbon Dioxide (22-30) mmol/L Glucose (74-99) mg/dL POC Glucose (mg/dL) (75-99) mg/dL Calcium (8.4-10.2) mg/dL Ionized Calcium Ever (4.5-5.3) mg/dL Magnesium (1.6-2.3) mg/dL AST (14-36) U/L Alkaline Phosphatase (38-126) U/L Total Protein (6.3-8.2) g/dL Albumin (3.5-5.0) g/dL Arterial Blood Potassium (3.4-4.5) mmol/L Arterial Blood Glucose 119 H (75-99) mg/dL Crossmatch See Detail 12/30/18 12/30/18 12/30/18 Range/Units 11:15 11:18 11:46 WBC (3.8-10.6) k/uL RBC (3.80-5.40) m/uL Hgb (11.4-16.0) gm/dL Hct (34.0-46.0) % RDW (11.5-15.5) % Plt Count (150-450) k/uL Neutrophils # (1.3-7.7) k/uL Lymphocytes # (Manual) (1.0-4.8) k/uL Nucleated RBCs (0-0) /100 WBC PT (9.0-12.0) sec INR (<1.2) APTT (22.0-30.0) sec ABG pH (7.35-7.45) ABG pCO2 46 H (35-45) mmHg ABG pO2 >420 H 396 H (83-108) mmHg ABG HCO3 (21-25) mmol/L ABG Total CO2 27 H 27 H (19-24) mmol/L ABG O2 Saturation 100.0 H 100.0 H (94-97) % ABG Hematocrit 19 L* 18 L* (34.0-46.0) % ABG Sodium (135-146) mmol/L ABG Potassium (3.4-4.5) mmol/L ABG Ionized Calcium 4.0 L 3.9 L (4.5-5.3) mg/dL ABG Glucose 113 H 175 H (75-99) mg/dL ABG Lactic Acid 0.4 L (0.5-1.6) mmol/L Hemoglobin 6.3 L* 5.9 L* (11.4-16.0) gm/dL Potassium (3.5-5.1) mmol/L Chloride (98-107) mmol/L Carbon Dioxide (22-30) mmol/L Glucose (74-99) mg/dL POC Glucose (mg/dL) 123 H (75-99) mg/dL Calcium (8.4-10.2) mg/dL Ionized Calcium Ever (4.5-5.3) mg/dL Magnesium (1.6-2.3) mg/dL AST (14-36) U/L Alkaline Phosphatase (38-126) U/L Total Protein (6.3-8.2) g/dL Albumin (3.5-5.0) g/dL Arterial Blood Potassium (3.4-4.5) mmol/L Arterial Blood Glucose 113 H 175 H (75-99) mg/dL Crossmatch 12/30/18 12/30/18 12/30/18 Range/Units 12:14 12:45 13:23 WBC (3.8-10.6) k/uL RBC (3.80-5.40) m/uL Hgb (11.4-16.0) gm/dL Hct (34.0-46.0) % RDW (11.5-15.5) % Plt Count (150-450) k/uL Neutrophils # (1.3-7.7) k/uL Lymphocytes # (Manual) (1.0-4.8) k/uL Nucleated RBCs (0-0) /100 WBC PT (9.0-12.0) sec INR (<1.2) APTT (22.0-30.0) sec ABG pH 7.46 H (7.35-7.45) ABG pCO2 (35-45) mmHg ABG pO2 323 H 371 H 385 H (83-108) mmHg ABG HCO3 (21-25) mmol/L ABG Total CO2 26 H 25 H (19-24) mmol/L ABG O2 Saturation 100.0 H 100.0 H 100.0 H (94-97) % ABG Hematocrit 17 L* 19 L* 22 L (34.0-46.0) % ABG Sodium 134 L (135-146) mmol/L ABG Potassium 4.9 H 5.2 H 4.7 H (3.4-4.5) mmol/L ABG Ionized Calcium 3.8 L 3.4 L* 3.8 L (4.5-5.3) mg/dL ABG Glucose 200 H 223 H 196 H (75-99) mg/dL ABG Lactic Acid 1.8 H 3.3 H* (0.5-1.6) mmol/L Hemoglobin 5.4 L* 6.3 L* 7.0 L* (11.4-16.0) gm/dL Potassium (3.5-5.1) mmol/L Chloride (98-107) mmol/L Carbon Dioxide (22-30) mmol/L Glucose (74-99) mg/dL POC Glucose (mg/dL) (75-99) mg/dL Calcium (8.4-10.2) mg/dL Ionized Calcium Ever (4.5-5.3) mg/dL Magnesium (1.6-2.3) mg/dL AST (14-36) U/L Alkaline Phosphatase (38-126) U/L Total Protein (6.3-8.2) g/dL Albumin (3.5-5.0) g/dL Arterial Blood Potassium 4.9 H 5.2 H 4.7 H (3.4-4.5) mmol/L Arterial Blood Glucose 200 H 223 H 196 H (75-99) mg/dL Crossmatch 12/30/18 12/30/18 12/30/18 Range/Units 14:57 15:30 15:30 WBC 21.0 H (3.8-10.6) k/uL RBC 2.57 L (3.80-5.40) m/uL Hgb 7.9 L D (11.4-16.0) gm/dL Hct 23.6 L (34.0-46.0) % RDW 15.8 H (11.5-15.5) % Plt Count 69 L D (150-450) k/uL Neutrophils # 17.3 H (1.3-7.7) k/uL Lymphocytes # (Manual) (1.0-4.8) k/uL Nucleated RBCs (0-0) /100 WBC PT (9.0-12.0) sec INR (<1.2) APTT (22.0-30.0) sec ABG pH 7.33 L (7.35-7.45) ABG pCO2 (35-45) mmHg ABG pO2 71 L (83-108) mmHg ABG HCO3 (21-25) mmol/L ABG Total CO2 (19-24) mmol/L ABG O2 Saturation (94-97) % ABG Hematocrit 24 L (34.0-46.0) % ABG Sodium (135-146) mmol/L ABG Potassium (3.4-4.5) mmol/L ABG Ionized Calcium (4.5-5.3) mg/dL ABG Glucose 103 H (75-99) mg/dL ABG Lactic Acid 2.5 H* (0.5-1.6) mmol/L Hemoglobin 7.8 L (11.4-16.0) gm/dL Potassium 5.8 H (3.5-5.1) mmol/L Chloride 112 H (98-107) mmol/L Carbon Dioxide (22-30) mmol/L Glucose 100 H (74-99) mg/dL POC Glucose (mg/dL) (75-99) mg/dL Calcium 7.3 L (8.4-10.2) mg/dL Ionized Calcium Ever (4.5-5.3) mg/dL Magnesium 2.7 H (1.6-2.3) mg/dL AST (14-36) U/L Alkaline Phosphatase 23 L (38-126) U/L Total Protein 4.1 L (6.3-8.2) g/dL Albumin 2.7 L (3.5-5.0) g/dL Arterial Blood Potassium (3.4-4.5) mmol/L Arterial Blood Glucose 103 H (75-99) mg/dL Crossmatch 12/30/18 12/30/18 12/30/18 Range/Units 15:30 15:50 15:52 WBC (3.8-10.6) k/uL RBC (3.80-5.40) m/uL Hgb (11.4-16.0) gm/dL Hct (34.0-46.0) % RDW (11.5-15.5) % Plt Count (150-450) k/uL Neutrophils # (1.3-7.7) k/uL Lymphocytes # (Manual) (1.0-4.8) k/uL Nucleated RBCs (0-0) /100 WBC PT 15.1 H (9.0-12.0) sec INR 1.5 H (<1.2) APTT 37.5 H (22.0-30.0) sec ABG pH 7.21 L (7.35-7.45) ABG pCO2 56 H (35-45) mmHg ABG pO2 231 H (83-108) mmHg ABG HCO3 (21-25) mmol/L ABG Total CO2 (19-24) mmol/L ABG O2 Saturation 99.0 H (94-97) % ABG Hematocrit (34.0-46.0) % ABG Sodium (135-146) mmol/L ABG Potassium (3.4-4.5) mmol/L ABG Ionized Calcium (4.5-5.3) mg/dL ABG Glucose (75-99) mg/dL ABG Lactic Acid (0.5-1.6) mmol/L Hemoglobin (11.4-16.0) gm/dL Potassium (3.5-5.1) mmol/L Chloride (98-107) mmol/L Carbon Dioxide (22-30) mmol/L Glucose (74-99) mg/dL POC Glucose (mg/dL) 113 H (75-99) mg/dL Calcium (8.4-10.2) mg/dL Ionized Calcium Ever (4.5-5.3) mg/dL Magnesium (1.6-2.3) mg/dL AST (14-36) U/L Alkaline Phosphatase (38-126) U/L Total Protein (6.3-8.2) g/dL Albumin (3.5-5.0) g/dL Arterial Blood Potassium (3.4-4.5) mmol/L Arterial Blood Glucose (75-99) mg/dL Crossmatch 12/30/18 12/30/18 12/30/18 Range/Units 17:12 17:33 17:50 WBC 13.1 H (3.8-10.6) k/uL RBC 1.91 L (3.80-5.40) m/uL Hgb 5.8 L* D (11.4-16.0) gm/dL Hct 17.6 L* (34.0-46.0) % RDW 15.9 H (11.5-15.5) % Plt Count 51 L (150-450) k/uL Neutrophils # 10.6 H (1.3-7.7) k/uL Lymphocytes # (Manual) (1.0-4.8) k/uL Nucleated RBCs (0-0) /100 WBC PT (9.0-12.0) sec INR (<1.2) APTT (22.0-30.0) sec ABG pH 7.25 L (7.35-7.45) ABG pCO2 52 H (35-45) mmHg ABG pO2 80 L (83-108) mmHg ABG HCO3 (21-25) mmol/L ABG Total CO2 (19-24) mmol/L ABG O2 Saturation (94-97) % ABG Hematocrit (34.0-46.0) % ABG Sodium (135-146) mmol/L ABG Potassium (3.4-4.5) mmol/L ABG Ionized Calcium (4.5-5.3) mg/dL ABG Glucose (75-99) mg/dL ABG Lactic Acid (0.5-1.6) mmol/L Hemoglobin (11.4-16.0) gm/dL Potassium (3.5-5.1) mmol/L Chloride (98-107) mmol/L Carbon Dioxide (22-30) mmol/L Glucose (74-99) mg/dL POC Glucose (mg/dL) 138 H (75-99) mg/dL Calcium (8.4-10.2) mg/dL Ionized Calcium Ever (4.5-5.3) mg/dL Magnesium (1.6-2.3) mg/dL AST (14-36) U/L Alkaline Phosphatase (38-126) U/L Total Protein (6.3-8.2) g/dL Albumin (3.5-5.0) g/dL Arterial Blood Potassium (3.4-4.5) mmol/L Arterial Blood Glucose (75-99) mg/dL Crossmatch 12/30/18 12/30/18 12/30/18 Range/Units 17:50 18:01 19:04 WBC (3.8-10.6) k/uL RBC (3.80-5.40) m/uL Hgb (11.4-16.0) gm/dL Hct (34.0-46.0) % RDW (11.5-15.5) % Plt Count (150-450) k/uL Neutrophils # (1.3-7.7) k/uL Lymphocytes # (Manual) (1.0-4.8) k/uL Nucleated RBCs (0-0) /100 WBC PT (9.0-12.0) sec INR (<1.2) APTT (22.0-30.0) sec ABG pH (7.35-7.45) ABG pCO2 (35-45) mmHg ABG pO2 (83-108) mmHg ABG HCO3 (21-25) mmol/L ABG Total CO2 (19-24) mmol/L ABG O2 Saturation (94-97) % ABG Hematocrit (34.0-46.0) % ABG Sodium (135-146) mmol/L ABG Potassium (3.4-4.5) mmol/L ABG Ionized Calcium (4.5-5.3) mg/dL ABG Glucose (75-99) mg/dL ABG Lactic Acid (0.5-1.6) mmol/L Hemoglobin (11.4-16.0) gm/dL Potassium (3.5-5.1) mmol/L Chloride 111 H (98-107) mmol/L Carbon Dioxide 19 L (22-30) mmol/L Glucose 120 H (74-99) mg/dL POC Glucose (mg/dL) 136 H 125 H (75-99) mg/dL Calcium 7.2 L (8.4-10.2) mg/dL Ionized Calcium Ever (4.5-5.3) mg/dL Magnesium (1.6-2.3) mg/dL AST (14-36) U/L Alkaline Phosphatase <20 L (38-126) U/L Total Protein 4.8 L (6.3-8.2) g/dL Albumin (3.5-5.0) g/dL Arterial Blood Potassium (3.4-4.5) mmol/L Arterial Blood Glucose (75-99) mg/dL Crossmatch 12/30/18 12/30/18 12/30/18 Range/Units 19:34 20:06 21:11 WBC (3.8-10.6) k/uL RBC (3.80-5.40) m/uL Hgb (11.4-16.0) gm/dL Hct (34.0-46.0) % RDW (11.5-15.5) % Plt Count (150-450) k/uL Neutrophils # (1.3-7.7) k/uL Lymphocytes # (Manual) (1.0-4.8) k/uL Nucleated RBCs (0-0) /100 WBC PT (9.0-12.0) sec INR (<1.2) APTT (22.0-30.0) sec ABG pH (7.35-7.45) ABG pCO2 (35-45) mmHg ABG pO2 (83-108) mmHg ABG HCO3 (21-25) mmol/L ABG Total CO2 25 H (19-24) mmol/L ABG O2 Saturation (94-97) % ABG Hematocrit (34.0-46.0) % ABG Sodium (135-146) mmol/L ABG Potassium (3.4-4.5) mmol/L ABG Ionized Calcium (4.5-5.3) mg/dL ABG Glucose (75-99) mg/dL ABG Lactic Acid (0.5-1.6) mmol/L Hemoglobin (11.4-16.0) gm/dL Potassium (3.5-5.1) mmol/L Chloride (98-107) mmol/L Carbon Dioxide (22-30) mmol/L Glucose (74-99) mg/dL POC Glucose (mg/dL) 133 H 147 H (75-99) mg/dL Calcium (8.4-10.2) mg/dL Ionized Calcium Ever (4.5-5.3) mg/dL Magnesium (1.6-2.3) mg/dL AST (14-36) U/L Alkaline Phosphatase (38-126) U/L Total Protein (6.3-8.2) g/dL Albumin (3.5-5.0) g/dL Arterial Blood Potassium (3.4-4.5) mmol/L Arterial Blood Glucose (75-99) mg/dL Crossmatch 12/30/18 12/30/18 12/30/18 Range/Units 21:25 21:27 22:34 WBC 11.1 H (3.8-10.6) k/uL RBC 2.89 L (3.80-5.40) m/uL Hgb 8.3 L D (11.4-16.0) gm/dL Hct 24.8 L (34.0-46.0) % RDW 17.5 H (11.5-15.5) % Plt Count 48 L (150-450) k/uL Neutrophils # 8.8 H (1.3-7.7) k/uL Lymphocytes # (Manual) (1.0-4.8) k/uL Nucleated RBCs (0-0) /100 WBC PT (9.0-12.0) sec INR (<1.2) APTT (22.0-30.0) sec ABG pH 7.28 L (7.35-7.45) ABG pCO2 50 H (35-45) mmHg ABG pO2 (83-108) mmHg ABG HCO3 (21-25) mmol/L ABG Total CO2 25 H (19-24) mmol/L ABG O2 Saturation (94-97) % ABG Hematocrit (34.0-46.0) % ABG Sodium (135-146) mmol/L ABG Potassium (3.4-4.5) mmol/L ABG Ionized Calcium (4.5-5.3) mg/dL ABG Glucose (75-99) mg/dL ABG Lactic Acid (0.5-1.6) mmol/L Hemoglobin (11.4-16.0) gm/dL Potassium (3.5-5.1) mmol/L Chloride (98-107) mmol/L Carbon Dioxide (22-30) mmol/L Glucose (74-99) mg/dL POC Glucose (mg/dL) 139 H (75-99) mg/dL Calcium (8.4-10.2) mg/dL Ionized Calcium Ever (4.5-5.3) mg/dL Magnesium (1.6-2.3) mg/dL AST (14-36) U/L Alkaline Phosphatase (38-126) U/L Total Protein (6.3-8.2) g/dL Albumin (3.5-5.0) g/dL Arterial Blood Potassium (3.4-4.5) mmol/L Arterial Blood Glucose (75-99) mg/dL Crossmatch 12/30/18 12/31/18 12/31/18 Range/Units 23:22 00:24 01:40 WBC (3.8-10.6) k/uL RBC (3.80-5.40) m/uL Hgb (11.4-16.0) gm/dL Hct (34.0-46.0) % RDW (11.5-15.5) % Plt Count (150-450) k/uL Neutrophils # (1.3-7.7) k/uL Lymphocytes # (Manual) (1.0-4.8) k/uL Nucleated RBCs (0-0) /100 WBC PT (9.0-12.0) sec INR (<1.2) APTT (22.0-30.0) sec ABG pH (7.35-7.45) ABG pCO2 (35-45) mmHg ABG pO2 (83-108) mmHg ABG HCO3 (21-25) mmol/L ABG Total CO2 (19-24) mmol/L ABG O2 Saturation (94-97) % ABG Hematocrit (34.0-46.0) % ABG Sodium (135-146) mmol/L ABG Potassium (3.4-4.5) mmol/L ABG Ionized Calcium (4.5-5.3) mg/dL ABG Glucose (75-99) mg/dL ABG Lactic Acid (0.5-1.6) mmol/L Hemoglobin (11.4-16.0) gm/dL Potassium (3.5-5.1) mmol/L Chloride (98-107) mmol/L Carbon Dioxide (22-30) mmol/L Glucose (74-99) mg/dL POC Glucose (mg/dL) 134 H 124 H 129 H (75-99) mg/dL Calcium (8.4-10.2) mg/dL Ionized Calcium Ever (4.5-5.3) mg/dL Magnesium (1.6-2.3) mg/dL AST (14-36) U/L Alkaline Phosphatase (38-126) U/L Total Protein (6.3-8.2) g/dL Albumin (3.5-5.0) g/dL Arterial Blood Potassium (3.4-4.5) mmol/L Arterial Blood Glucose (75-99) mg/dL Crossmatch 12/31/18 12/31/18 12/31/18 Range/Units 03:07 05:39 05:52 WBC (3.8-10.6) k/uL RBC 2.11 L (3.80-5.40) m/uL Hgb 6.2 L* D (11.4-16.0) gm/dL Hct 17.9 L* (34.0-46.0) % RDW 18.4 H (11.5-15.5) % Plt Count 50 L (150-450) k/uL Neutrophils # (1.3-7.7) k/uL Lymphocytes # (Manual) 0.93 L (1.0-4.8) k/uL Nucleated RBCs 5 H (0-0) /100 WBC PT (9.0-12.0) sec INR (<1.2) APTT (22.0-30.0) sec ABG pH (7.35-7.45) ABG pCO2 (35-45) mmHg ABG pO2 (83-108) mmHg ABG HCO3 (21-25) mmol/L ABG Total CO2 (19-24) mmol/L ABG O2 Saturation (94-97) % ABG Hematocrit (34.0-46.0) % ABG Sodium (135-146) mmol/L ABG Potassium (3.4-4.5) mmol/L ABG Ionized Calcium (4.5-5.3) mg/dL ABG Glucose (75-99) mg/dL ABG Lactic Acid (0.5-1.6) mmol/L Hemoglobin (11.4-16.0) gm/dL Potassium (3.5-5.1) mmol/L Chloride (98-107) mmol/L Carbon Dioxide (22-30) mmol/L Glucose (74-99) mg/dL POC Glucose (mg/dL) 134 H 117 H (75-99) mg/dL Calcium (8.4-10.2) mg/dL Ionized Calcium Ever (4.5-5.3) mg/dL Magnesium (1.6-2.3) mg/dL AST (14-36) U/L Alkaline Phosphatase (38-126) U/L Total Protein (6.3-8.2) g/dL Albumin (3.5-5.0) g/dL Arterial Blood Potassium (3.4-4.5) mmol/L Arterial Blood Glucose (75-99) mg/dL Crossmatch 12/31/18 12/31/18 12/31/18 Range/Units 05:52 05:52 07:21 WBC (3.8-10.6) k/uL RBC (3.80-5.40) m/uL Hgb (11.4-16.0) gm/dL Hct (34.0-46.0) % RDW (11.5-15.5) % Plt Count (150-450) k/uL Neutrophils # (1.3-7.7) k/uL Lymphocytes # (Manual) (1.0-4.8) k/uL Nucleated RBCs (0-0) /100 WBC PT 13.6 H (9.0-12.0) sec INR 1.3 H (<1.2) APTT 37.6 H (22.0-30.0) sec ABG pH (7.35-7.45) ABG pCO2 (35-45) mmHg ABG pO2 (83-108) mmHg ABG HCO3 (21-25) mmol/L ABG Total CO2 (19-24) mmol/L ABG O2 Saturation (94-97) % ABG Hematocrit (34.0-46.0) % ABG Sodium (135-146) mmol/L ABG Potassium (3.4-4.5) mmol/L ABG Ionized Calcium (4.5-5.3) mg/dL ABG Glucose (75-99) mg/dL ABG Lactic Acid (0.5-1.6) mmol/L Hemoglobin (11.4-16.0) gm/dL Potassium (3.5-5.1) mmol/L Chloride 110 H (98-107) mmol/L Carbon Dioxide (22-30) mmol/L Glucose 105 H (74-99) mg/dL POC Glucose (mg/dL) 158 H (75-99) mg/dL Calcium 7.1 L (8.4-10.2) mg/dL Ionized Calcium Ever 4.2 L (4.5-5.3) mg/dL Magnesium (1.6-2.3) mg/dL AST 168 H (14-36) U/L Alkaline Phosphatase <20 L (38-126) U/L Total Protein 4.5 L (6.3-8.2) g/dL Albumin 3.3 L (3.5-5.0) g/dL Arterial Blood Potassium (3.4-4.5) mmol/L Arterial Blood Glucose (75-99) mg/dL Crossmatch 12/31/18 12/31/18 Range/Units 08:35 09:16 WBC (3.8-10.6) k/uL RBC (3.80-5.40) m/uL Hgb (11.4-16.0) gm/dL Hct (34.0-46.0) % RDW (11.5-15.5) % Plt Count (150-450) k/uL Neutrophils # (1.3-7.7) k/uL Lymphocytes # (Manual) (1.0-4.8) k/uL Nucleated RBCs (0-0) /100 WBC PT (9.0-12.0) sec INR (<1.2) APTT (22.0-30.0) sec ABG pH (7.35-7.45) ABG pCO2 (35-45) mmHg ABG pO2 (83-108) mmHg ABG HCO3 (21-25) mmol/L ABG Total CO2 (19-24) mmol/L ABG O2 Saturation (94-97) % ABG Hematocrit (34.0-46.0) % ABG Sodium (135-146) mmol/L ABG Potassium (3.4-4.5) mmol/L ABG Ionized Calcium (4.5-5.3) mg/dL ABG Glucose (75-99) mg/dL ABG Lactic Acid (0.5-1.6) mmol/L Hemoglobin (11.4-16.0) gm/dL Potassium (3.5-5.1) mmol/L Chloride (98-107) mmol/L Carbon Dioxide (22-30) mmol/L Glucose (74-99) mg/dL POC Glucose (mg/dL) 136 H 125 H (75-99) mg/dL Calcium (8.4-10.2) mg/dL Ionized Calcium Ever (4.5-5.3) mg/dL Magnesium (1.6-2.3) mg/dL AST (14-36) U/L Alkaline Phosphatase (38-126) U/L Total Protein (6.3-8.2) g/dL Albumin (3.5-5.0) g/dL Arterial Blood Potassium (3.4-4.5) mmol/L Arterial Blood Glucose (75-99) mg/dL Crossmatch Microbiology - Last 24 Hours (Table) 12/29/18 10:00 Nasal Screen MRSA/MSSA - Final Nasal Swab 12/29/18 10:50 Urine Culture - Final Urine,Voided - Imaging and Cardiology Chest x-ray: report reviewed, image reviewed Assessment and Plan Assessment: 1. Triple-vessel coronary artery disease with left main stenosis, status post coronary artery bypass surgery 2. Non-STEMI 3. Mild to moderate aortic valve regurgitation 4. Preserved left ventricular function 5. Hyperlipidemia 6. Previous tobacco dependence, preoperative FEV1 98% of predicted 7. Obstructive sleep apnea with home CPAP use 8. History of gastric ulcer with partial gastrectomy 9. History of splenectomy 10. Arthritis 11. Family history of premature coronary artery disease 12. Preoperative chronic normocytic, normochromic anemia 13. Intraoperative and postoperative acute blood loss anemia, expected 14. Postoperative thrombocytopenia Plan: 1. Continue low-dose aspirin, statin, beta bettye therapy. Will hold statin Plavix for now secondary to thrombocytopenia. Will increase beta bettye therapy as tolerated. 2. Will wean Primacor as able. 3. Wean O2 as tolerated. Encourage incentive spirometry use 10 times every hour while awake. 4. Increase activity, ambulate when able. PT/OT/cardiac rehab following. 5. Will monitor daily labs and chest x-rays. Electrolyte replacement per protocol. Will monitor for further transfusion needs. 6. Bronchodilators, CPAP per pulmonology. 7. Pain control with current medication regimen. No Toradol secondary to thrombocytopenia. 8. Insulin management per primary care service. 9. Will keep chest tubes, [place], arterial line, [place] catheter for now. 10. GI/DVT prophylaxis. 11. More recommendations to follow based on patient's clinical course. Time with Patient: Greater than 30
[2018-12-31 11:02] LABS: Glucose,Whole Blood 115 mg/dL (75-99)
--- NOTE | 2018-12-31 11:32 | PN ---
PROGRESS NOTE Oanh is a 78-year-old lady who underwent bypass surgery yesterday. This morning, she is doing better, remains in sinus rhythm, extubated. Blood pressures have been normal. She lost quite a bit of blood and required blood transfusion. Her preop hemoglobin was around 11. She dropped all the way to 5.8, transfused, and again she dropped to 6.2 and has received blood transfusion. Currently on aspirin, Lipitor. On exam, comfortable at rest. Vital signs are stable. Chest exam reveals diminished air entry at the bases. Heart exam reveals first and second heart sounds. No gallop. Examination of extremities did not reveal any edema. Peripheral pulses are felt. Labs show a potassium of 4.5, creatinine of 0.7, hemoglobin is 6.2. ASSESSMENT: 1. Coronary artery disease, status post coronary artery bypass grafting, postoperative day #1. 2. Postoperative anemia secondary to blood loss. PLAN: We will continue with blood transfusion. Continue with the current medications. MMODL / IJN: [id number] /
--- NOTE | 2018-12-31 11:40 | P.PN ---
Subjective Patient is postop day 1 from three-vessel bypass. Patient sitting in chair at bedside Levophed has been weaned off. Patient has been transfuse for postop anemia Objective - Vital Signs Vital signs: Vital Signs Temp 98.6 F 12/31/18 11:00 Pulse 80 12/31/18 11:15 Resp 20 12/31/18 11:15 BP 85/41 12/31/18 11:15 Pulse Ox 96 12/31/18 11:15 Intake & Output 12/30/18 12/31/18 12/31/18 18:59 06:59 18:59 Intake Total 1914 2509.274 1813.114 Output Total 3102 1678 839 Balance -1188 831.274 974.114 Weight 74.1 kg Intake: IV 1294 1356 855 Albumin Human 5% 250 ml 1000 500 500 In Empty Bag 1 bag @ 250 mls/hr IVPB Q1HR PRN Rx#: [id number] CO/CI 60 140 60 Lactated Ringers 1,000 ml 150 600 250 @ 50 mls/hr IV .Q20H MAR Rx#:[id number] Milrinone-D5w Pmx 20 mg 24 8 In Dextrose/Water 1 100ml .bag @ 0.2 MCG/KG/MIN 4. 446 mls/hr IV .[id number] MAR Rx#:[id number] Pressure bags 27 108 45 Intake, IV Titration 223.274 38.114 Amount Insulin Regular 100 unit 11.818 5.108 In Sodium Chloride 0.9% 100 ml @ Titrate IV .Q0M MAR Rx#:[id number] Milrinone-D5w Pmx 20 mg 91.934 17.76 In Dextrose/Water 1 100ml .bag @ 0.2 MCG/KG/MIN 4. 446 mls/hr IV .[id number] MAR Rx#:[id number] Nitroglycerin-D5w Pmx 50 20.475 mg In Dextrose/Water 1 250ml.bag @ 5 MCG/MIN 1.5 mls/hr IV .Q24H MAR Rx#: [id number] Norepinephrine 4 mg In 99.047 15.246 Sodium Chloride 0.9% 250 ml @ 0.05 MCG/KG/MIN 14. 116 mls/hr IV .Q18H MAR Rx#:[id number] Oral 300 Blood Product 620 930 620 Platelet Irr Pheresis 0 Acda1 Unit [id number] Rc As-1 Unit 310 [id number] Rc As-1 Unit 0 310 [id number] Rc As-3 Unit 310 [id number] Rc Pheresis 2 As3 Unit 310 [id number] Rc Pheresis 2 As3 Unit 310 [id number] Output: Chest Tube Drainage 830 870 600 Left Pleural 630 720 500 Mediastinal 200 150 100 Drainage 110 30 15 Left Calf 50 10 0 Right Calf 60 20 15 Urine 762 778 224 Estimated Blood Loss 1400 Other: Voiding Method Indwelling Catheter Indwelling Catheter ABP, PAP, CO, CI - Last Documented Arterial Blood Pressure 103/38 Pulmonary Artery Pressure 31/15 Cardiac Output 3.9 Cardiac Index 2.3 - Constitutional General appearance: Present: mild distress - EENT Eyes: Present: PERRLA Ears: bilateral: normal - Neck Neck: Present: normal ROM - Respiratory Respiratory: bilateral: CTA - Cardiovascular Rhythm: regular - Gastrointestinal General gastrointestinal: Present: soft - Integumentary Integumentary: Present: normal - Neurologic Neurologic: Present: CNII-XII intact - Musculoskeletal Musculoskeletal: Present: generalized weakness - Psychiatric Psychiatric: Present: A&O x's 3, appropriate affect, intact judgment & insight - Labs CBC & Chem 7: 12/31/18 05:52 12/31/18 05:52 Labs: Abnormal Lab Results - Last 24 Hours (Table) 12/29/18 12/30/18 12/30/18 Range/Units 09:20 08:42 10:49 WBC (3.8-10.6) k/uL RBC (3.80-5.40) m/uL Hgb (11.4-16.0) gm/dL Hct (34.0-46.0) % RDW (11.5-15.5) % Plt Count (150-450) k/uL Neutrophils # (1.3-7.7) k/uL Lymphocytes # (Manual) (1.0-4.8) k/uL Nucleated RBCs (0-0) /100 WBC PT (9.0-12.0) sec INR (<1.2) APTT (22.0-30.0) sec ABG pH 7.29 L (7.35-7.45) ABG pCO2 58 H (35-45) mmHg ABG pO2 229 H 178 H (83-108) mmHg ABG HCO3 27 H 28 H (21-25) mmol/L ABG Total CO2 29 H 29 H (19-24) mmol/L ABG O2 Saturation 98.3 H 99.1 H (94-97) % ABG Hematocrit 27 L 26 L (34.0-46.0) % ABG Sodium (135-146) mmol/L ABG Potassium (3.4-4.5) mmol/L ABG Ionized Calcium (4.5-5.3) mg/dL ABG Glucose 119 H (75-99) mg/dL ABG Lactic Acid (0.5-1.6) mmol/L Hemoglobin 8.9 L 8.5 L (11.4-16.0) gm/dL Potassium (3.5-5.1) mmol/L Chloride (98-107) mmol/L Carbon Dioxide (22-30) mmol/L Glucose (74-99) mg/dL POC Glucose (mg/dL) (75-99) mg/dL Calcium (8.4-10.2) mg/dL Ionized Calcium Ever (4.5-5.3) mg/dL Magnesium (1.6-2.3) mg/dL AST (14-36) U/L Alkaline Phosphatase (38-126) U/L Total Protein (6.3-8.2) g/dL Albumin (3.5-5.0) g/dL Arterial Blood Potassium (3.4-4.5) mmol/L Arterial Blood Glucose 119 H (75-99) mg/dL Crossmatch See Detail 12/30/18 12/30/18 12/30/18 Range/Units 11:15 11:46 12:14 WBC (3.8-10.6) k/uL RBC (3.80-5.40) m/uL Hgb (11.4-16.0) gm/dL Hct (34.0-46.0) % RDW (11.5-15.5) % Plt Count (150-450) k/uL Neutrophils # (1.3-7.7) k/uL Lymphocytes # (Manual) (1.0-4.8) k/uL Nucleated RBCs (0-0) /100 WBC PT (9.0-12.0) sec INR (<1.2) APTT (22.0-30.0) sec ABG pH 7.46 H (7.35-7.45) ABG pCO2 46 H (35-45) mmHg ABG pO2 >420 H 396 H 323 H (83-108) mmHg ABG HCO3 (21-25) mmol/L ABG Total CO2 27 H 27 H 26 H (19-24) mmol/L ABG O2 Saturation 100.0 H 100.0 H 100.0 H (94-97) % ABG Hematocrit 19 L* 18 L* 17 L* (34.0-46.0) % ABG Sodium (135-146) mmol/L ABG Potassium 4.9 H (3.4-4.5) mmol/L ABG Ionized Calcium 4.0 L 3.9 L 3.8 L (4.5-5.3) mg/dL ABG Glucose 113 H 175 H 200 H (75-99) mg/dL ABG Lactic Acid 0.4 L (0.5-1.6) mmol/L Hemoglobin 6.3 L* 5.9 L* 5.4 L* (11.4-16.0) gm/dL Potassium (3.5-5.1) mmol/L Chloride (98-107) mmol/L Carbon Dioxide (22-30) mmol/L Glucose (74-99) mg/dL POC Glucose (mg/dL) (75-99) mg/dL Calcium (8.4-10.2) mg/dL Ionized Calcium Ever (4.5-5.3) mg/dL Magnesium (1.6-2.3) mg/dL AST (14-36) U/L Alkaline Phosphatase (38-126) U/L Total Protein (6.3-8.2) g/dL Albumin (3.5-5.0) g/dL Arterial Blood Potassium 4.9 H (3.4-4.5) mmol/L Arterial Blood Glucose 113 H 175 H 200 H (75-99) mg/dL Crossmatch 12/30/18 12/30/18 12/30/18 Range/Units 12:45 13:23 14:57 WBC (3.8-10.6) k/uL RBC (3.80-5.40) m/uL Hgb (11.4-16.0) gm/dL Hct (34.0-46.0) % RDW (11.5-15.5) % Plt Count (150-450) k/uL Neutrophils # (1.3-7.7) k/uL Lymphocytes # (Manual) (1.0-4.8) k/uL Nucleated RBCs (0-0) /100 WBC PT (9.0-12.0) sec INR (<1.2) APTT (22.0-30.0) sec ABG pH 7.33 L (7.35-7.45) ABG pCO2 (35-45) mmHg ABG pO2 371 H 385 H 71 L (83-108) mmHg ABG HCO3 (21-25) mmol/L ABG Total CO2 25 H (19-24) mmol/L ABG O2 Saturation 100.0 H 100.0 H (94-97) % ABG Hematocrit 19 L* 22 L 24 L (34.0-46.0) % ABG Sodium 134 L (135-146) mmol/L ABG Potassium 5.2 H 4.7 H (3.4-4.5) mmol/L ABG Ionized Calcium 3.4 L* 3.8 L (4.5-5.3) mg/dL ABG Glucose 223 H 196 H 103 H (75-99) mg/dL ABG Lactic Acid 1.8 H 3.3 H* 2.5 H* (0.5-1.6) mmol/L Hemoglobin 6.3 L* 7.0 L* 7.8 L (11.4-16.0) gm/dL Potassium (3.5-5.1) mmol/L Chloride (98-107) mmol/L Carbon Dioxide (22-30) mmol/L Glucose (74-99) mg/dL POC Glucose (mg/dL) (75-99) mg/dL Calcium (8.4-10.2) mg/dL Ionized Calcium Ever (4.5-5.3) mg/dL Magnesium (1.6-2.3) mg/dL AST (14-36) U/L Alkaline Phosphatase (38-126) U/L Total Protein (6.3-8.2) g/dL Albumin (3.5-5.0) g/dL Arterial Blood Potassium 5.2 H 4.7 H (3.4-4.5) mmol/L Arterial Blood Glucose 223 H 196 H 103 H (75-99) mg/dL Crossmatch 12/30/18 12/30/18 12/30/18 Range/Units 15:30 15:30 15:30 WBC 21.0 H (3.8-10.6) k/uL RBC 2.57 L (3.80-5.40) m/uL Hgb 7.9 L D (11.4-16.0) gm/dL Hct 23.6 L (34.0-46.0) % RDW 15.8 H (11.5-15.5) % Plt Count 69 L D (150-450) k/uL Neutrophils # 17.3 H (1.3-7.7) k/uL Lymphocytes # (Manual) (1.0-4.8) k/uL Nucleated RBCs (0-0) /100 WBC PT 15.1 H (9.0-12.0) sec INR 1.5 H (<1.2) APTT 37.5 H (22.0-30.0) sec ABG pH (7.35-7.45) ABG pCO2 (35-45) mmHg ABG pO2 (83-108) mmHg ABG HCO3 (21-25) mmol/L ABG Total CO2 (19-24) mmol/L ABG O2 Saturation (94-97) % ABG Hematocrit (34.0-46.0) % ABG Sodium (135-146) mmol/L ABG Potassium (3.4-4.5) mmol/L ABG Ionized Calcium (4.5-5.3) mg/dL ABG Glucose (75-99) mg/dL ABG Lactic Acid (0.5-1.6) mmol/L Hemoglobin (11.4-16.0) gm/dL Potassium 5.8 H (3.5-5.1) mmol/L Chloride 112 H (98-107) mmol/L Carbon Dioxide (22-30) mmol/L Glucose 100 H (74-99) mg/dL POC Glucose (mg/dL) (75-99) mg/dL Calcium 7.3 L (8.4-10.2) mg/dL Ionized Calcium Ever (4.5-5.3) mg/dL Magnesium 2.7 H (1.6-2.3) mg/dL AST (14-36) U/L Alkaline Phosphatase 23 L (38-126) U/L Total Protein 4.1 L (6.3-8.2) g/dL Albumin 2.7 L (3.5-5.0) g/dL Arterial Blood Potassium (3.4-4.5) mmol/L Arterial Blood Glucose (75-99) mg/dL Crossmatch 12/30/18 12/30/18 12/30/18 Range/Units 15:50 15:52 17:12 WBC (3.8-10.6) k/uL RBC (3.80-5.40) m/uL Hgb (11.4-16.0) gm/dL Hct (34.0-46.0) % RDW (11.5-15.5) % Plt Count (150-450) k/uL Neutrophils # (1.3-7.7) k/uL Lymphocytes # (Manual) (1.0-4.8) k/uL Nucleated RBCs (0-0) /100 WBC PT (9.0-12.0) sec INR (<1.2) APTT (22.0-30.0) sec ABG pH 7.21 L (7.35-7.45) ABG pCO2 56 H (35-45) mmHg ABG pO2 231 H (83-108) mmHg ABG HCO3 (21-25) mmol/L ABG Total CO2 (19-24) mmol/L ABG O2 Saturation 99.0 H (94-97) % ABG Hematocrit (34.0-46.0) % ABG Sodium (135-146) mmol/L ABG Potassium (3.4-4.5) mmol/L ABG Ionized Calcium (4.5-5.3) mg/dL ABG Glucose (75-99) mg/dL ABG Lactic Acid (0.5-1.6) mmol/L Hemoglobin (11.4-16.0) gm/dL Potassium (3.5-5.1) mmol/L Chloride (98-107) mmol/L Carbon Dioxide (22-30) mmol/L Glucose (74-99) mg/dL POC Glucose (mg/dL) 113 H 138 H (75-99) mg/dL Calcium (8.4-10.2) mg/dL Ionized Calcium Ever (4.5-5.3) mg/dL Magnesium (1.6-2.3) mg/dL AST (14-36) U/L Alkaline Phosphatase (38-126) U/L Total Protein (6.3-8.2) g/dL Albumin (3.5-5.0) g/dL Arterial Blood Potassium (3.4-4.5) mmol/L Arterial Blood Glucose (75-99) mg/dL Crossmatch 12/30/18 12/30/18 12/30/18 Range/Units 17:33 17:50 17:50 WBC 13.1 H (3.8-10.6) k/uL RBC 1.91 L (3.80-5.40) m/uL Hgb 5.8 L* D (11.4-16.0) gm/dL Hct 17.6 L* (34.0-46.0) % RDW 15.9 H (11.5-15.5) % Plt Count 51 L (150-450) k/uL Neutrophils # 10.6 H (1.3-7.7) k/uL Lymphocytes # (Manual) (1.0-4.8) k/uL Nucleated RBCs (0-0) /100 WBC PT (9.0-12.0) sec INR (<1.2) APTT (22.0-30.0) sec ABG pH 7.25 L (7.35-7.45) ABG pCO2 52 H (35-45) mmHg ABG pO2 80 L (83-108) mmHg ABG HCO3 (21-25) mmol/L ABG Total CO2 (19-24) mmol/L ABG O2 Saturation (94-97) % ABG Hematocrit (34.0-46.0) % ABG Sodium (135-146) mmol/L ABG Potassium (3.4-4.5) mmol/L ABG Ionized Calcium (4.5-5.3) mg/dL ABG Glucose (75-99) mg/dL ABG Lactic Acid (0.5-1.6) mmol/L Hemoglobin (11.4-16.0) gm/dL Potassium (3.5-5.1) mmol/L Chloride 111 H (98-107) mmol/L Carbon Dioxide 19 L (22-30) mmol/L Glucose 120 H (74-99) mg/dL POC Glucose (mg/dL) (75-99) mg/dL Calcium 7.2 L (8.4-10.2) mg/dL Ionized Calcium Ever (4.5-5.3) mg/dL Magnesium (1.6-2.3) mg/dL AST (14-36) U/L Alkaline Phosphatase <20 L (38-126) U/L Total Protein 4.8 L (6.3-8.2) g/dL Albumin (3.5-5.0) g/dL Arterial Blood Potassium (3.4-4.5) mmol/L Arterial Blood Glucose (75-99) mg/dL Crossmatch 12/30/18 12/30/18 12/30/18 Range/Units 18:01 19:04 19:34 WBC (3.8-10.6) k/uL RBC (3.80-5.40) m/uL Hgb (11.4-16.0) gm/dL Hct (34.0-46.0) % RDW (11.5-15.5) % Plt Count (150-450) k/uL Neutrophils # (1.3-7.7) k/uL Lymphocytes # (Manual) (1.0-4.8) k/uL Nucleated RBCs (0-0) /100 WBC PT (9.0-12.0) sec INR (<1.2) APTT (22.0-30.0) sec ABG pH (7.35-7.45) ABG pCO2 (35-45) mmHg ABG pO2 (83-108) mmHg ABG HCO3 (21-25) mmol/L ABG Total CO2 25 H (19-24) mmol/L ABG O2 Saturation (94-97) % ABG Hematocrit (34.0-46.0) % ABG Sodium (135-146) mmol/L ABG Potassium (3.4-4.5) mmol/L ABG Ionized Calcium (4.5-5.3) mg/dL ABG Glucose (75-99) mg/dL ABG Lactic Acid (0.5-1.6) mmol/L Hemoglobin (11.4-16.0) gm/dL Potassium (3.5-5.1) mmol/L Chloride (98-107) mmol/L Carbon Dioxide (22-30) mmol/L Glucose (74-99) mg/dL POC Glucose (mg/dL) 136 H 125 H (75-99) mg/dL Calcium (8.4-10.2) mg/dL Ionized Calcium Ever (4.5-5.3) mg/dL Magnesium (1.6-2.3) mg/dL AST (14-36) U/L Alkaline Phosphatase (38-126) U/L Total Protein (6.3-8.2) g/dL Albumin (3.5-5.0) g/dL Arterial Blood Potassium (3.4-4.5) mmol/L Arterial Blood Glucose (75-99) mg/dL Crossmatch 12/30/18 12/30/18 12/30/18 Range/Units 20:06 21:11 21:25 WBC 11.1 H (3.8-10.6) k/uL RBC 2.89 L (3.80-5.40) m/uL Hgb 8.3 L D (11.4-16.0) gm/dL Hct 24.8 L (34.0-46.0) % RDW 17.5 H (11.5-15.5) % Plt Count 48 L (150-450) k/uL Neutrophils # 8.8 H (1.3-7.7) k/uL Lymphocytes # (Manual) (1.0-4.8) k/uL Nucleated RBCs (0-0) /100 WBC PT (9.0-12.0) sec INR (<1.2) APTT (22.0-30.0) sec ABG pH (7.35-7.45) ABG pCO2 (35-45) mmHg ABG pO2 (83-108) mmHg ABG HCO3 (21-25) mmol/L ABG Total CO2 (19-24) mmol/L ABG O2 Saturation (94-97) % ABG Hematocrit (34.0-46.0) % ABG Sodium (135-146) mmol/L ABG Potassium (3.4-4.5) mmol/L ABG Ionized Calcium (4.5-5.3) mg/dL ABG Glucose (75-99) mg/dL ABG Lactic Acid (0.5-1.6) mmol/L Hemoglobin (11.4-16.0) gm/dL Potassium (3.5-5.1) mmol/L Chloride (98-107) mmol/L Carbon Dioxide (22-30) mmol/L Glucose (74-99) mg/dL POC Glucose (mg/dL) 133 H 147 H (75-99) mg/dL Calcium (8.4-10.2) mg/dL Ionized Calcium Ever (4.5-5.3) mg/dL Magnesium (1.6-2.3) mg/dL AST (14-36) U/L Alkaline Phosphatase (38-126) U/L Total Protein (6.3-8.2) g/dL Albumin (3.5-5.0) g/dL Arterial Blood Potassium (3.4-4.5) mmol/L Arterial Blood Glucose (75-99) mg/dL Crossmatch 12/30/18 12/30/18 12/30/18 Range/Units 21:27 22:34 23:22 WBC (3.8-10.6) k/uL RBC (3.80-5.40) m/uL Hgb (11.4-16.0) gm/dL Hct (34.0-46.0) % RDW (11.5-15.5) % Plt Count (150-450) k/uL Neutrophils # (1.3-7.7) k/uL Lymphocytes # (Manual) (1.0-4.8) k/uL Nucleated RBCs (0-0) /100 WBC PT (9.0-12.0) sec INR (<1.2) APTT (22.0-30.0) sec ABG pH 7.28 L (7.35-7.45) ABG pCO2 50 H (35-45) mmHg ABG pO2 (83-108) mmHg ABG HCO3 (21-25) mmol/L ABG Total CO2 25 H (19-24) mmol/L ABG O2 Saturation (94-97) % ABG Hematocrit (34.0-46.0) % ABG Sodium (135-146) mmol/L ABG Potassium (3.4-4.5) mmol/L ABG Ionized Calcium (4.5-5.3) mg/dL ABG Glucose (75-99) mg/dL ABG Lactic Acid (0.5-1.6) mmol/L Hemoglobin (11.4-16.0) gm/dL Potassium (3.5-5.1) mmol/L Chloride (98-107) mmol/L Carbon Dioxide (22-30) mmol/L Glucose (74-99) mg/dL POC Glucose (mg/dL) 139 H 134 H (75-99) mg/dL Calcium (8.4-10.2) mg/dL Ionized Calcium Ever (4.5-5.3) mg/dL Magnesium (1.6-2.3) mg/dL AST (14-36) U/L Alkaline Phosphatase (38-126) U/L Total Protein (6.3-8.2) g/dL Albumin (3.5-5.0) g/dL Arterial Blood Potassium (3.4-4.5) mmol/L Arterial Blood Glucose (75-99) mg/dL Crossmatch 12/31/18 12/31/18 12/31/18 Range/Units 00:24 01:40 03:07 WBC (3.8-10.6) k/uL RBC (3.80-5.40) m/uL Hgb (11.4-16.0) gm/dL Hct (34.0-46.0) % RDW (11.5-15.5) % Plt Count (150-450) k/uL Neutrophils # (1.3-7.7) k/uL Lymphocytes # (Manual) (1.0-4.8) k/uL Nucleated RBCs (0-0) /100 WBC PT (9.0-12.0) sec INR (<1.2) APTT (22.0-30.0) sec ABG pH (7.35-7.45) ABG pCO2 (35-45) mmHg ABG pO2 (83-108) mmHg ABG HCO3 (21-25) mmol/L ABG Total CO2 (19-24) mmol/L ABG O2 Saturation (94-97) % ABG Hematocrit (34.0-46.0) % ABG Sodium (135-146) mmol/L ABG Potassium (3.4-4.5) mmol/L ABG Ionized Calcium (4.5-5.3) mg/dL ABG Glucose (75-99) mg/dL ABG Lactic Acid (0.5-1.6) mmol/L Hemoglobin (11.4-16.0) gm/dL Potassium (3.5-5.1) mmol/L Chloride (98-107) mmol/L Carbon Dioxide (22-30) mmol/L Glucose (74-99) mg/dL POC Glucose (mg/dL) 124 H 129 H 134 H (75-99) mg/dL Calcium (8.4-10.2) mg/dL Ionized Calcium Ever (4.5-5.3) mg/dL Magnesium (1.6-2.3) mg/dL AST (14-36) U/L Alkaline Phosphatase (38-126) U/L Total Protein (6.3-8.2) g/dL Albumin (3.5-5.0) g/dL Arterial Blood Potassium (3.4-4.5) mmol/L Arterial Blood Glucose (75-99) mg/dL Crossmatch 12/31/18 12/31/18 12/31/18 Range/Units 05:39 05:52 05:52 WBC (3.8-10.6) k/uL RBC 2.11 L (3.80-5.40) m/uL Hgb 6.2 L* D (11.4-16.0) gm/dL Hct 17.9 L* (34.0-46.0) % RDW 18.4 H (11.5-15.5) % Plt Count 50 L (150-450) k/uL Neutrophils # (1.3-7.7) k/uL Lymphocytes # (Manual) 0.93 L (1.0-4.8) k/uL Nucleated RBCs 5 H (0-0) /100 WBC PT (9.0-12.0) sec INR (<1.2) APTT (22.0-30.0) sec ABG pH (7.35-7.45) ABG pCO2 (35-45) mmHg ABG pO2 (83-108) mmHg ABG HCO3 (21-25) mmol/L ABG Total CO2 (19-24) mmol/L ABG O2 Saturation (94-97) % ABG Hematocrit (34.0-46.0) % ABG Sodium (135-146) mmol/L ABG Potassium (3.4-4.5) mmol/L ABG Ionized Calcium (4.5-5.3) mg/dL ABG Glucose (75-99) mg/dL ABG Lactic Acid (0.5-1.6) mmol/L Hemoglobin (11.4-16.0) gm/dL Potassium (3.5-5.1) mmol/L Chloride 110 H (98-107) mmol/L Carbon Dioxide (22-30) mmol/L Glucose 105 H (74-99) mg/dL POC Glucose (mg/dL) 117 H (75-99) mg/dL Calcium 7.1 L (8.4-10.2) mg/dL Ionized Calcium Ever 4.2 L (4.5-5.3) mg/dL Magnesium (1.6-2.3) mg/dL AST 168 H (14-36) U/L Alkaline Phosphatase <20 L (38-126) U/L Total Protein 4.5 L (6.3-8.2) g/dL Albumin 3.3 L (3.5-5.0) g/dL Arterial Blood Potassium (3.4-4.5) mmol/L Arterial Blood Glucose (75-99) mg/dL Crossmatch 12/31/18 12/31/18 12/31/18 Range/Units 05:52 07:21 08:35 WBC (3.8-10.6) k/uL RBC (3.80-5.40) m/uL Hgb (11.4-16.0) gm/dL Hct (34.0-46.0) % RDW (11.5-15.5) % Plt Count (150-450) k/uL Neutrophils # (1.3-7.7) k/uL Lymphocytes # (Manual) (1.0-4.8) k/uL Nucleated RBCs (0-0) /100 WBC PT 13.6 H (9.0-12.0) sec INR 1.3 H (<1.2) APTT 37.6 H (22.0-30.0) sec ABG pH (7.35-7.45) ABG pCO2 (35-45) mmHg ABG pO2 (83-108) mmHg ABG HCO3 (21-25) mmol/L ABG Total CO2 (19-24) mmol/L ABG O2 Saturation (94-97) % ABG Hematocrit (34.0-46.0) % ABG Sodium (135-146) mmol/L ABG Potassium (3.4-4.5) mmol/L ABG Ionized Calcium (4.5-5.3) mg/dL ABG Glucose (75-99) mg/dL ABG Lactic Acid (0.5-1.6) mmol/L Hemoglobin (11.4-16.0) gm/dL Potassium (3.5-5.1) mmol/L Chloride (98-107) mmol/L Carbon Dioxide (22-30) mmol/L Glucose (74-99) mg/dL POC Glucose (mg/dL) 158 H 136 H (75-99) mg/dL Calcium (8.4-10.2) mg/dL Ionized Calcium Ever (4.5-5.3) mg/dL Magnesium (1.6-2.3) mg/dL AST (14-36) U/L Alkaline Phosphatase (38-126) U/L Total Protein (6.3-8.2) g/dL Albumin (3.5-5.0) g/dL Arterial Blood Potassium (3.4-4.5) mmol/L Arterial Blood Glucose (75-99) mg/dL Crossmatch 12/31/18 12/31/18 Range/Units 09:16 11:00 WBC (3.8-10.6) k/uL RBC (3.80-5.40) m/uL Hgb (11.4-16.0) gm/dL Hct (34.0-46.0) % RDW (11.5-15.5) % Plt Count (150-450) k/uL Neutrophils # (1.3-7.7) k/uL Lymphocytes # (Manual) (1.0-4.8) k/uL Nucleated RBCs (0-0) /100 WBC PT (9.0-12.0) sec INR (<1.2) APTT (22.0-30.0) sec ABG pH (7.35-7.45) ABG pCO2 (35-45) mmHg ABG pO2 (83-108) mmHg ABG HCO3 (21-25) mmol/L ABG Total CO2 (19-24) mmol/L ABG O2 Saturation (94-97) % ABG Hematocrit (34.0-46.0) % ABG Sodium (135-146) mmol/L ABG Potassium (3.4-4.5) mmol/L ABG Ionized Calcium (4.5-5.3) mg/dL ABG Glucose (75-99) mg/dL ABG Lactic Acid (0.5-1.6) mmol/L Hemoglobin (11.4-16.0) gm/dL Potassium (3.5-5.1) mmol/L Chloride (98-107) mmol/L Carbon Dioxide (22-30) mmol/L Glucose (74-99) mg/dL POC Glucose (mg/dL) 125 H 115 H (75-99) mg/dL Calcium (8.4-10.2) mg/dL Ionized Calcium Ever (4.5-5.3) mg/dL Magnesium (1.6-2.3) mg/dL AST (14-36) U/L Alkaline Phosphatase (38-126) U/L Total Protein (6.3-8.2) g/dL Albumin (3.5-5.0) g/dL Arterial Blood Potassium (3.4-4.5) mmol/L Arterial Blood Glucose (75-99) mg/dL Crossmatch Microbiology - Last 24 Hours (Table) 12/29/18 10:00 Nasal Screen MRSA/MSSA - Final Nasal Swab 12/29/18 10:50 Urine Culture - Final Urine,Voided - Imaging and Cardiology Chest x-ray: report reviewed Assessment and Plan Plan: Assessment Postop coronary bypass 3 vessel Postop anemia blood loss Acute non-ST elevated [place] with elevated troponins Chest pain angina Hyperlipidemia Sleep apnea on CPAP at home Family history of coronary disease Remote smoking Peripheral neuropathy nondiabetic Plan Continue ICU Consultation with clay preparation supervisor Dr. Love and cardiology and cardiac surgeon
[2018-12-31 12:15] LABS: Glucose,Whole Blood 141 mg/dL (75-99)
[2018-12-31] MEDS: ONDANSETRON 4 MG/2 ML VIAL IVP PRN (12:38)
[2018-12-31 13:12] LABS: Glucose,Whole Blood 158 mg/dL (75-99)
[2018-12-31] MEDS: NOREPINEPHRINE 4 MG in SODIUM CHLORIDE 0.9% 250 ML IV SCH ×2 (14:00→20:37)
[2018-12-31 14:07] LABS: Glucose,Whole Blood 151 mg/dL (75-99)
[2018-12-31] MEDS: FOLIC ACID 1 MG TAB PO SCH (14:07)
[2018-12-31] MEDS: LACTATED RINGERS 1,000 ML IV SCH (14:08)
[2018-12-31] MEDS ORDERED: MAGNESIUM HYDROXIDE 2,400 MG/10 ML CUP PO PRN (14:17)
[2018-12-31] MEDS ORDERED: BISACODYL 10 MG SUPP RECTAL PRN (14:17)
[2018-12-31 14:19] LABS: Anisocytosis Slight; MCH 29.7 pg (25.0-35.0); MCHC 35.1 g/dL (31.0-37.0); MCV 84.6 fL (80.0-100.0); Mean Platelet Volume 10.5; Poikilocytosis Slight; RBC 2.22 m/uL (3.80-5.40); RDW 17.8 % (11.5-15.5); WBC 9.1 k/uL (3.8-10.6)
[2018-12-31 14:22] LABS: HCT 18.7 % (34.0-46.0); HGB 6.6 gm/dL (11.4-16.0)
[2018-12-31 14:23] LABS: Platelet Count 139 k/uL (150-450)
[2018-12-31 15:10] LABS: Glucose,Whole Blood 120 mg/dL (75-99)
[2018-12-31 16:28] LABS: Glucose,Whole Blood 115 mg/dL (75-99)
[2018-12-31] MEDS: CLEVIDIPINE BUTYRATE 25 MG in EMPTY BAG 1 BAG IV SCH (16:43)
[2018-12-31 18:13] LABS: Glucose,Whole Blood 129 mg/dL (75-99)
[2018-12-31 19:16] LABS: Glucose,Whole Blood 144 mg/dL (75-99)
[2018-12-31 20:23] LABS: Glucose,Whole Blood 127 mg/dL (75-99)
[2018-12-31] MEDS: SENNOSIDES-DOCUSATE SODIUM 1 EACH TAB PO SCH (21:28)
[2018-12-31 21:38] LABS: Glucose,Whole Blood 122 mg/dL (75-99)
[2018-12-31 22:18] LABS: Glucose,Whole Blood 121 mg/dL (75-99)
[2018-12-31 22:26] LABS: Anisocytosis Slight; HCT 23.4 % (34.0-46.0); MCH 29.8 pg (25.0-35.0); MCHC 34.9 g/dL (31.0-37.0); MCV 85.4 fL (80.0-100.0); Mean Platelet Volume 11.4; Platelet Count 117 k/uL (150-450); Poikilocytosis Slight; RBC 2.75 m/uL (3.80-5.40); WBC 9.4 k/uL (3.8-10.6)
[2018-12-31 22:32] LABS: HGB 8.2 gm/dL (11.4-16.0); Ionized Calcium 4.5 mg/dL (4.5-5.3)
[2018-12-31 22:41] LABS: Anion Gap 6 mmol/L; Blood Urea Nitrogen 20 mg/dL (7-17); Calcium 7.5 mg/dL (8.4-10.2); Carbon Dioxide 22 mmol/L (22-30); Chloride 108 mmol/L (98-107); Glucose 105 mg/dL (74-99); Potassium 4.3 mmol/L (3.5-5.1); Sodium 136 mmol/L (137-145)
[2018-12-31 23:28] LABS: Glucose,Whole Blood 112 mg/dL (75-99)
[2019-01-01] MEDS: HEPARIN SODIUM,PORCINE 5,000 UNIT/ML 1 ML VIAL SQ SCH ×4 (00:14→23:05)
[2019-01-01 01:11] LABS: Glucose,Whole Blood 137 mg/dL (75-99)
[2019-01-01 02:17] LABS: Glucose,Whole Blood 143 mg/dL (75-99)
[2019-01-01 05:01] LABS: Glucose,Whole Blood 118 mg/dL (75-99)
[2019-01-01 05:07] LABS: Anisocytosis Slight; Basophils % (A) 0 %; Eosinophils % (A) 0 %; HCT 24.1 % (34.0-46.0); Lymphocytes # (A) 1.9 k/uL (1.0-4.8); Lymphocytes % (A) 17 %; MCHC 33.3 g/dL (31.0-37.0); MCV 86.9 fL (80.0-100.0); Mean Platelet Volume 11.6; Monocytes # (A) 0.9 k/uL (0-1.0); Monocytes % (A) 8 %; Neutrophils # (A) 8.2 k/uL (1.3-7.7); Neutrophils % (A) 73 %; Platelet Count 113 k/uL (150-450); RBC 2.77 m/uL (3.80-5.40); RDW 16.8 % (11.5-15.5); WBC 11.2 k/uL (3.8-10.6)
[2019-01-01 05:13] LABS: Ionized Calcium 4.5 mg/dL (4.5-5.3)
[2019-01-01 05:19] LABS: ALT 192 U/L (9-52); AST 397 U/L (14-36); Albumin 3.4 g/dL (3.5-5.0); Alkaline Phosphatase 33 U/L (38-126); Anion Gap 7 mmol/L; Blood Urea Nitrogen 21 mg/dL (7-17); Calcium 7.6 mg/dL (8.4-10.2); Carbon Dioxide 22 mmol/L (22-30); Chloride 110 mmol/L (98-107); Glucose 108 mg/dL (74-99); Potassium 4.6 mmol/L (3.5-5.1); Sodium 139 mmol/L (137-145); Total Bilirubin 0.9 mg/dL (0.2-1.3); Total Protein 4.9 g/dL (6.3-8.2)
[2019-01-01] MEDS: ALBUMIN HUMAN 5% 250 ML in EMPTY BAG 1 BAG IVPB PRN ×4 (05:52→14:00)
[2019-01-01] MEDS: HYDROcodone/APAP 5-325MG 1 EACH TAB PO PRN (06:00)
[2019-01-01 06:11] LABS: Glucose,Whole Blood 118 mg/dL (75-99)
[2019-01-01] MEDS: MILRINONE-D5W PMX 20 MG in DEXTROSE/WATER 1 100ML.BAG IV SCH (06:12)
[2019-01-01] MEDS: INSULIN REGULAR 100 UNIT in SODIUM CHLORIDE 0.9% 100 ML IV SCH (06:13)
[2019-01-01] MEDS: IPRATROPIUM-ALBUTEROL 3 ML NEB INHALATION SCH ×4 (07:11→20:15)
[2019-01-01] MEDS: FERROUS SULFATE 325 MG TAB PO SCH ×2 (07:12→18:36)
[2019-01-01] MEDS: ASCORBIC ACID 500 MG TAB PO SCH ×2 (07:12→18:36)
[2019-01-01] MEDS: PANTOPRAZOLE 40 MG TABLET PO SCH (07:12)
[2019-01-01 07:13] LABS: Glucose,Whole Blood 131 mg/dL (75-99)
[2019-01-01] MEDS: LACTATED RINGERS 1,000 ML IV SCH (07:16)
--- NOTE | 2019-01-01 07:20 | XR ---
EXAMINATION TYPE: XR chest 1V portable DATE OF EXAM: 01/01/2019 COMPARISON: Prior chest x-ray 12/31/2018 HISTORY: Postop cardiac surgery, chest tube TECHNIQUE: Single frontal view of the chest is obtained. FINDINGS: Left chest tube remains in place. Central venous catheter is stable. No pneumothorax. Bila teral airspace disease is present. Patient is again rotated and there are overlying leads and artifac ts. Heart size is stable, patient is post median sternotomy. Interstitium may be increased, lung volu mes are low. Postop changes noted in the upper abdomen. Median sternal drains remain in place. IMPRESSION: Correlate for pulmonary edema, pneumonia, atelectasis and possible associated effusions.
[2019-01-01] MEDS ORDERED: CALCIUM GLUCONATE 1 GM in SODIUM CHLORIDE 0.9% 100 ML IVPB ONE (08:00)
[2019-01-01 08:16] LABS: Glucose,Whole Blood 129 mg/dL (75-99)
--- NOTE | 2019-01-01 08:46 | P.PN ---
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 Preoperative chronic normocytic, normochromic anemia. POD #2 urgent triple coronary artery bypass grafting using the left internal mammary artery to the left anterior descending artery across a plaque as a patch angioplasty, reverse saphenous vein graft from the aorta to the second obtuse marginal artery, reverse saphenous vein graft from the aorta to the posterior descending artery. Endoscopic harvesting of the bilateral greater saphenous veins, both greater saphenous veins from the groin to just below the knee level. Intraoperative transesophageal echocardiogram and epi-aortic scanning. Intraoperative graft flow measurements using the [employer] system. Intraoperative and postoperative acute blood loss anemia, expected given hemodilution, cardiopulmonary bypass pump, and patient's preoperative anemia. Postoperative thrombocytopenia, expected given cardiopulmonary bypass pump. The patient is currently sitting up in bed in the intensive care unit in no acute distress. She did vacillate last night with her blood pressure, she was off levo for a while but needed to have it put back on after metoprolol administration. She did receive 2 units packed red blood cells and 1 unit of platelets yesterday with improvement in her lab work. Her Primacor has been weaned down, levo was just turned off. Complains of incisional type soreness, slight shortness of breath. She is oriented this morning but a bit forgetful. Objective - Vital Signs Vital signs: Vital Signs Temp 97.5 F L 01/01/19 04:00 Pulse 87 01/01/19 07:45 Resp 15 01/01/19 07:45 BP 109/60 01/01/19 06:15 Pulse Ox 89 L 01/01/19 07:45 Intake & Output 12/31/18 01/01/19 01/01/19 18:59 06:59 18:59 Intake Total 3149.706 1715.118 47.281 Output Total 1200 519 50 Balance 0297.243 5320.118 -2.719 Weight 74.1 kg 78.7 kg Intake: IV 1288 798 29 Albumin Human 5% 250 ml 500 In Empty Bag 1 bag @ 250 mls/hr IVPB Q1HR PRN Rx#: [id number] CO/CI 80 90 Lactated Ringers 1,000 ml 600 600 20 @ 20 mls/hr IV .Q24H MAR Rx#:[id number] Pressure bags 108 108 9 Intake, IV Titration 82.706 257.118 18.281 Amount Insulin Regular 100 unit 9.475 14.275 0.542 In Sodium Chloride 0.9% 100 ml @ Titrate IV .Q0M MAR Rx#:[id number] Milrinone-D5w Pmx 20 mg 45.986 39.903 In Dextrose/Water 1 100ml .bag @ 0.2 MCG/KG/MIN 4. 446 mls/hr IV .[id number] MAR Rx#:[id number] Norepinephrine 4 mg In 27.245 202.940 17.739 Sodium Chloride 0.9% 250 ml @ 0.05 MCG/KG/MIN 14. 116 mls/hr IV .Q18H MAR Rx#:[id number] Oral 300 Tube Feeding 200 200 Blood Product 1239 310 Platelet Irr Pheresis 309 Acda1 Unit [id number] Rc As-1 Unit 310 [id number] Rc As-1 Unit 0 310 [id number] Other 40 150 Platelet Irr Pheresis 40 Acda1 Unit [id number] Rc As-1 Unit 150 [id number] Output: Chest Tube Drainage 820 218 30 Left Pleural 650 198 30 Mediastinal 170 20 0 Drainage 15 Left Calf 0 Right Calf 15 Urine 365 301 20 Other: Voiding Method Indwelling Catheter Indwelling Catheter ABP, PAP, CO, CI - Last Documented Arterial Blood Pressure 105/61 Pulmonary Artery Pressure 49/30 Cardiac Output 3.8 Cardiac Index 2.1 - Constitutional General appearance: Present: cooperative, no acute distress, obese - Respiratory Details: Lungs sounds diminished bilaterally. Respirations even, nonlabored. Currently on 3 L nasal cannula with oxygen saturation 93%. Able to achieve 500 mL on her incentive spirometry. Strong cough. Mediastinal chest tube to continuous wall suction, no drainage overnight, 150 mL serosanguineous drainage in the last 24 hours. Left pleural chest tube to continuous wall suction, 100 mL serosanguineous drainage overnight, 550 mL in the last 24 hours. No air leak present. - Cardiovascular Details: S1, S2 present. Regular rate and rhythm, sinus rhythm on telemetry. Sternum stable. Atrial epicardial pacemaker wires present, grounded Palpable peripheral pulses bilaterally. No edema present. No calf pain or tenderness noted. Right internal jugular [place]/Cordis, right radial arterial line present. Last CO/CI 4.6/2.6 on 0.1 mcg/kg/min of Primacor after levo turned off. Heart hugger in place with patient attempting appropriate use, surgical bra in place, anti- embolism stockings/SCDs present. - Gastrointestinal Gastrointestinal Comment(s): Abdomen soft, nontender, nondistended. Hypoactive bowel sounds present 4 quadrants. Tolerating clear liquids. Negative flatus. - Genitourinary Genitourinary Comment(s): Jacobson present draining clear, yellow urine. Output overnight 20-35 mL/h - Integumentary Integumentary Comment(s): Skin is warm and dry with evidence of good perfusion. Anterior chest incision well approximated and covered with dry intact dressing. Bilateral lower extremity EVH sites well approximated, HARLEY drains present with minimal serosanguineous drainage. - Neurologic Neurologic: Present: CNII-XII intact - Musculoskeletal Musculoskeletal: Present: generalized weakness, strength equal bilaterally - Psychiatric Psychiatric: Present: A&O x's 3, appropriate affect, intact judgment & insight - Allied health notes Allied health notes reviewed: nursing - Labs CBC & Chem 7: 01/01/19 04:58 01/01/19 04:58 Labs: Abnormal Lab Results - Last 24 Hours (Table) 12/29/18 12/31/18 12/31/18 Range/Units 09:20 05:52 08:35 WBC (3.8-10.6) k/uL RBC (3.80-5.40) m/uL Hgb (11.4-16.0) gm/dL Hct (34.0-46.0) % RDW (11.5-15.5) % Plt Count (150-450) k/uL Neutrophils # (1.3-7.7) k/uL PT 13.6 H (9.0-12.0) sec INR 1.3 H (<1.2) APTT 37.6 H (22.0-30.0) sec Sodium (137-145) mmol/L Chloride (98-107) mmol/L BUN (7-17) mg/dL Glucose (74-99) mg/dL POC Glucose (mg/dL) 136 H (75-99) mg/dL Calcium (8.4-10.2) mg/dL AST (14-36) U/L ALT (9-52) U/L Alkaline Phosphatase (38-126) U/L Total Protein (6.3-8.2) g/dL Albumin (3.5-5.0) g/dL Crossmatch See Detail 12/31/18 12/31/18 12/31/18 Range/Units 09:16 11:00 12:14 WBC (3.8-10.6) k/uL RBC (3.80-5.40) m/uL Hgb (11.4-16.0) gm/dL Hct (34.0-46.0) % RDW (11.5-15.5) % Plt Count (150-450) k/uL Neutrophils # (1.3-7.7) k/uL PT (9.0-12.0) sec INR (<1.2) APTT (22.0-30.0) sec Sodium (137-145) mmol/L Chloride (98-107) mmol/L BUN (7-17) mg/dL Glucose (74-99) mg/dL POC Glucose (mg/dL) 125 H 115 H 141 H (75-99) mg/dL Calcium (8.4-10.2) mg/dL AST (14-36) U/L ALT (9-52) U/L Alkaline Phosphatase (38-126) U/L Total Protein (6.3-8.2) g/dL Albumin (3.5-5.0) g/dL Crossmatch 12/31/18 12/31/18 12/31/18 Range/Units 13:10 14:00 14:04 WBC (3.8-10.6) k/uL RBC 2.22 L (3.80-5.40) m/uL Hgb 6.6 L* (11.4-16.0) gm/dL Hct 18.7 L* (34.0-46.0) % RDW 17.8 H (11.5-15.5) % Plt Count 139 L D (150-450) k/uL Neutrophils # (1.3-7.7) k/uL PT (9.0-12.0) sec INR (<1.2) APTT (22.0-30.0) sec Sodium (137-145) mmol/L Chloride (98-107) mmol/L BUN (7-17) mg/dL Glucose (74-99) mg/dL POC Glucose (mg/dL) 158 H 151 H (75-99) mg/dL Calcium (8.4-10.2) mg/dL AST (14-36) U/L ALT (9-52) U/L Alkaline Phosphatase (38-126) U/L Total Protein (6.3-8.2) g/dL Albumin (3.5-5.0) g/dL Crossmatch 12/31/18 12/31/18 12/31/18 Range/Units 15:08 16:25 18:10 WBC (3.8-10.6) k/uL RBC (3.80-5.40) m/uL Hgb (11.4-16.0) gm/dL Hct (34.0-46.0) % RDW (11.5-15.5) % Plt Count (150-450) k/uL Neutrophils # (1.3-7.7) k/uL PT (9.0-12.0) sec INR (<1.2) APTT (22.0-30.0) sec Sodium (137-145) mmol/L Chloride (98-107) mmol/L BUN (7-17) mg/dL Glucose (74-99) mg/dL POC Glucose (mg/dL) 120 H 115 H 129 H (75-99) mg/dL Calcium (8.4-10.2) mg/dL AST (14-36) U/L ALT (9-52) U/L Alkaline Phosphatase (38-126) U/L Total Protein (6.3-8.2) g/dL Albumin (3.5-5.0) g/dL Crossmatch 12/31/18 12/31/18 12/31/18 Range/Units 19:13 20:19 21:36 WBC (3.8-10.6) k/uL RBC (3.80-5.40) m/uL Hgb (11.4-16.0) gm/dL Hct (34.0-46.0) % RDW (11.5-15.5) % Plt Count (150-450) k/uL Neutrophils # (1.3-7.7) k/uL PT (9.0-12.0) sec INR (<1.2) APTT (22.0-30.0) sec Sodium (137-145) mmol/L Chloride (98-107) mmol/L BUN (7-17) mg/dL Glucose (74-99) mg/dL POC Glucose (mg/dL) 144 H 127 H 122 H (75-99) mg/dL Calcium (8.4-10.2) mg/dL AST (14-36) U/L ALT (9-52) U/L Alkaline Phosphatase (38-126) U/L Total Protein (6.3-8.2) g/dL Albumin (3.5-5.0) g/dL Crossmatch 12/31/18 12/31/18 12/31/18 Range/Units 22:00 22:00 22:14 WBC (3.8-10.6) k/uL RBC 2.75 L (3.80-5.40) m/uL Hgb 8.2 L D (11.4-16.0) gm/dL Hct 23.4 L (34.0-46.0) % RDW 17.0 H (11.5-15.5) % Plt Count 117 L (150-450) k/uL Neutrophils # (1.3-7.7) k/uL PT (9.0-12.0) sec INR (<1.2) APTT (22.0-30.0) sec Sodium 136 L (137-145) mmol/L Chloride 108 H (98-107) mmol/L BUN 20 H (7-17) mg/dL Glucose 105 H (74-99) mg/dL POC Glucose (mg/dL) 121 H (75-99) mg/dL Calcium 7.5 L (8.4-10.2) mg/dL AST (14-36) U/L ALT (9-52) U/L Alkaline Phosphatase (38-126) U/L Total Protein (6.3-8.2) g/dL Albumin (3.5-5.0) g/dL Crossmatch 12/31/18 01/01/19 01/01/19 Range/Units 23:27 01:09 02:15 WBC (3.8-10.6) k/uL RBC (3.80-5.40) m/uL Hgb (11.4-16.0) gm/dL Hct (34.0-46.0) % RDW (11.5-15.5) % Plt Count (150-450) k/uL Neutrophils # (1.3-7.7) k/uL PT (9.0-12.0) sec INR (<1.2) APTT (22.0-30.0) sec Sodium (137-145) mmol/L Chloride (98-107) mmol/L BUN (7-17) mg/dL Glucose (74-99) mg/dL POC Glucose (mg/dL) 112 H 137 H 143 H (75-99) mg/dL Calcium (8.4-10.2) mg/dL AST (14-36) U/L ALT (9-52) U/L Alkaline Phosphatase (38-126) U/L Total Protein (6.3-8.2) g/dL Albumin (3.5-5.0) g/dL Crossmatch 01/01/19 01/01/19 01/01/19 Range/Units 04:57 04:58 04:58 WBC 11.2 H (3.8-10.6) k/uL RBC 2.77 L (3.80-5.40) m/uL Hgb 8.0 L (11.4-16.0) gm/dL Hct 24.1 L (34.0-46.0) % RDW 16.8 H (11.5-15.5) % Plt Count 113 L (150-450) k/uL Neutrophils # 8.2 H (1.3-7.7) k/uL PT (9.0-12.0) sec INR (<1.2) APTT (22.0-30.0) sec Sodium (137-145) mmol/L Chloride 110 H (98-107) mmol/L BUN 21 H (7-17) mg/dL Glucose 108 H (74-99) mg/dL POC Glucose (mg/dL) 118 H (75-99) mg/dL Calcium 7.6 L (8.4-10.2) mg/dL AST 397 H (14-36) U/L ALT 192 H (9-52) U/L Alkaline Phosphatase 33 L (38-126) U/L Total Protein 4.9 L (6.3-8.2) g/dL Albumin 3.4 L (3.5-5.0) g/dL Crossmatch 01/01/19 01/01/19 Range/Units 06:10 07:11 WBC (3.8-10.6) k/uL RBC (3.80-5.40) m/uL Hgb (11.4-16.0) gm/dL Hct (34.0-46.0) % RDW (11.5-15.5) % Plt Count (150-450) k/uL Neutrophils # (1.3-7.7) k/uL PT (9.0-12.0) sec INR (<1.2) APTT (22.0-30.0) sec Sodium (137-145) mmol/L Chloride (98-107) mmol/L BUN (7-17) mg/dL Glucose (74-99) mg/dL POC Glucose (mg/dL) 118 H 131 H (75-99) mg/dL Calcium (8.4-10.2) mg/dL AST (14-36) U/L ALT (9-52) U/L Alkaline Phosphatase (38-126) U/L Total Protein (6.3-8.2) g/dL Albumin (3.5-5.0) g/dL Crossmatch - Imaging and Cardiology Chest x-ray: report reviewed, image reviewed Assessment and Plan Assessment: 1. Triple-vessel coronary artery disease with left main stenosis, status post coronary artery bypass surgery 2. Non-STEMI 3. Mild to moderate aortic valve regurgitation 4. Preserved left ventricular function 5. Hyperlipidemia 6. Previous tobacco dependence, preoperative FEV1 98% of predicted 7. Obstructive sleep apnea with home CPAP use 8. History of gastric ulcer with partial gastrectomy 9. History of splenectomy 10. Arthritis 11. Family history of premature coronary artery disease 12. Preoperative chronic normocytic, normochromic anemia 13. Intraoperative and postoperative acute blood loss anemia, expected 14. Postoperative thrombocytopenia Plan: 1. Continue low-dose aspirin, statin, beta bettye therapy. Plavix restarted. Will increase beta bettye therapy as tolerated. 2. Discontinue levo, Primacor. 3. Wean O2 as tolerated. Encourage incentive spirometry use 10 times every hour while awake. 4. Increase activity, ambulate when able. PT/OT/cardiac rehab following. 5. Will monitor daily labs and chest x-rays. Electrolyte replacement per protocol. No transfusion at this point in time. Continue iron/vitamin C. 6. Bronchodilators, CPAP per pulmonology. 7. Pain control with current medication regimen. Limit narcotics. Will add in Toradol. 8. Insulin management per primary care service. 9. Will discontinue mediastinal chest tube, keep left pleural chest tube, Cordis, arterial line. Likely will discontinue Altamont later today. Keep Jacobson for strict accurate intake and output. 10. GI/DVT prophylaxis. 11. More recommendations to follow based on patient's clinical course. Time with Patient: Greater than 30
[2019-01-01] MEDS: ATORVASTATIN 40 MG TAB PO SCH (08:50)
[2019-01-01] MEDS: ASPIRIN 81 MG PO SCH (08:50)
[2019-01-01] MEDS: CLOPIDOGREL 75 MG TAB PO SCH (08:51)
[2019-01-01] MEDS: KETOROLAC 30 MG/ML 1 ML VIAL IVP SCH ×3 (08:55→18:28)
--- NOTE | 2019-01-01 09:03 | P.PN ---
Subjective Progress Note Date: 01/01/19 Principal diagnosis: Triple-vessel coronary artery disease, status post coronary artery bypass grafting 3, with RIDDLE to LAD, reverse SVG to the OM 2 and PDA The patient is seen today 12/31/2018 in follow-up in the intensive care unit. She is status post non-ST segment elevation myocardial infarction followed by coronary artery bypass grafting utilizing a RIDDLE to the LAD, reverse saphenous vein grafts to the second obtuse marginal artery and posterior descending artery. This is postoperative day #1. She was successfully extubated within 5 hours and 59 minutes. She is currently sitting up at the bedside. She did have some issues with hypotension upon standing. She is status post total 5 units of packed red blood cells. She will be receiving a unit of platelets as well. Current hemoglobin 6.2. Platelet count 50,000. White count 6.2. AST 168. Creatinine 0.70. Potassium 4.5. Magnesium 2.3. She currently has lactated Ringer's at 50 MLS per hour. Insulin at 1 unit per hour. Primacor at 0.2 mg/kg/m. Maintaining O2 saturations in the 90s on 3 L/m per nasal cannula. Chest x-ray reveals minimal basilar atelectasis. She is working with the incentive spirometer. Blood pressure 117/46, PA pressure 39/19, mean 2, CVP 11. Cardiac output 4.2. Cardiac index 2.5. Split mediastinal chest tube output 40 mls, left chest tube 290 ML's. On 01/01/2019 patient seen in follow-up in the intensive care unit, she is resting comfortably in bed, remains complaint today is being very fatigued. Denies any dyspnea, she does have incisional pain. Incentive spirometer effort is 500 mL. Lung sounds are diminished. She is on 4 L of oxygen, pulse ox of 92%, blood pressure is 127/57, PA pressures 43/26, with a CVP of 22, CO/CRI is 3.8 and 2.1 respectively, sinus rhythm on the monitor with a controlled rate. IVs include lactated Ringer's at a rate of 20 ML per hour, Primacor is 0.1 mics per kilo per minute, insulin is at 1 unit per hour, and Levaquin that has been off. Today's chest x-ray has been reviewed, and shows bilateral airspace disease, increased interstitium, low lung volumes, changes most likely related to fluid volume overload, hypoventilatory lungs, bilateral pleural effusions, and associated atelectasis. Today's labs have been reviewed, and showed white blood cell count of 11.2, hemoglobin of 8.0, sodium is 139, potassium is 4.6, chloride is 110, B1 is 21, creatinine 0.67. LFT have trended up since yesterday, with AST up to 397, ALT is 192, and alkaline phosphatase is a 33. Patient is tolerating oral diet. Urine output is low, ranging from 20-25 ML per hour, mediastinal and left pleural chest tubes remain in place and there has been afebrile and a 40 mL out of the left pleural and 190 out of the mediastinal chest tube in last 24 hours of serosanguineous output. Objective - Vital Signs Vital signs: Vital Signs Temp 97.5 F L 01/01/19 04:00 Pulse 86 01/01/19 08:00 Resp 28 H 01/01/19 08:00 BP 109/60 01/01/19 08:00 Pulse Ox 92 L 01/01/19 08:00 Intake & Output 12/31/18 01/01/19 01/01/19 18:59 06:59 18:59 Intake Total 3149.706 1715.118 95.029 Output Total 1200 519 150 Balance 3076.190 9950.118 -54.971 Weight 74.1 kg 78.7 kg Intake: IV 1288 798 68 Albumin Human 5% 250 ml 500 In Empty Bag 1 bag @ 250 mls/hr IVPB Q1HR PRN Rx#: [id number] CO/CI 80 90 10 Lactated Ringers 1,000 ml 600 600 40 @ 20 mls/hr IV .Q24H MAR Rx#:[id number] Pressure bags 108 108 18 Intake, IV Titration 82.706 257.118 27.029 Amount Insulin Regular 100 unit 9.475 14.275 0.542 In Sodium Chloride 0.9% 100 ml @ Titrate IV .Q0M MAR Rx#:[id number] Milrinone-D5w Pmx 20 mg 45.986 39.903 4.372 In Dextrose/Water 1 100ml .bag @ 0.2 MCG/KG/MIN 4. 446 mls/hr IV .[id number] MAR Rx#:[id number] Norepinephrine 4 mg In 27.245 202.940 22.115 Sodium Chloride 0.9% 250 ml @ 0.05 MCG/KG/MIN 14. 116 mls/hr IV .Q18H MAR Rx#:[id number] Oral 300 Tube Feeding 200 200 Blood Product 1239 310 Platelet Irr Pheresis 309 Acda1 Unit [id number] Rc As-1 Unit 310 [id number] Rc As-1 Unit 0 310 [id number] Other 40 150 Platelet Irr Pheresis 40 Acda1 Unit [id number] Rc As-1 Unit 150 [id number] Output: Chest Tube Drainage 820 218 110 Left Pleural 650 198 80 Mediastinal 170 20 30 Drainage 15 Left Calf 0 Right Calf 15 Urine 365 301 40 Other: Voiding Method Indwelling Catheter Indwelling Catheter ABP, PAP, CO, CI - Last Documented Arterial Blood Pressure 127/57 Pulmonary Artery Pressure 43/26 Cardiac Output 4.6 Cardiac Index 2.6 - Exam GENERAL EXAM: Alert, pleasant, 78-year-old female, on 4 L of oxygen, fatigued but comfortable in no apparent distress. HEAD: Normocephalic/atraumatic. EYES: Normal reaction of pupils, equal size. Conjunctiva pink, sclera white. NOSE: Clear with pink turbinates. THROAT: No erythema or exudates. NECK: No masses, no JVD, no thyroid enlargement, no adenopathy. CHEST: No chest wall deformity. Symmetrical expansion. Mid sternal incision is clean dry and intact, covered with surgical dressing, mediastinal and left pleural chest tubes with serosanguineous output in the Pleur-evac, to wall suction. She complains of chest wall soreness LUNGS: Equal air entry with diminished breath sounds CVS: Regular rate and rhythm, normal S1 and S2, no gallops, no murmurs, no rubs ABDOMEN: Soft, nontender. No hepatosplenomegaly, normal bowel sounds, no guarding or rigidity. EXTREMITIES: No clubbing, no edema, no cyanosis, 2+ pulses and upper and lower extremities. MUSCULOSKELETAL: Muscle strength and tone normal. SPINE: No scoliosis or deformity SKIN: No rashes CENTRAL NERVOUS SYSTEM: Alert and oriented -3. No focal deficits, tone is normal in all 4 extremities. PSYCHIATRIC: Alert and oriented -3. Appropriate affect. Intact judgment and insight. - Labs CBC & Chem 7: 01/01/19 04:58 01/01/19 04:58 Labs: Abnormal Lab Results - Last 24 Hours (Table) 12/29/18 12/31/18 12/31/18 Range/Units 09:20 09:16 11:00 WBC (3.8-10.6) k/uL RBC (3.80-5.40) m/uL Hgb (11.4-16.0) gm/dL Hct (34.0-46.0) % RDW (11.5-15.5) % Plt Count (150-450) k/uL Neutrophils # (1.3-7.7) k/uL Sodium (137-145) mmol/L Chloride (98-107) mmol/L BUN (7-17) mg/dL Glucose (74-99) mg/dL POC Glucose (mg/dL) 125 H 115 H (75-99) mg/dL Calcium (8.4-10.2) mg/dL AST (14-36) U/L ALT (9-52) U/L Alkaline Phosphatase (38-126) U/L Total Protein (6.3-8.2) g/dL Albumin (3.5-5.0) g/dL Crossmatch See Detail 12/31/18 12/31/18 12/31/18 Range/Units 12:14 13:10 14:00 WBC (3.8-10.6) k/uL RBC 2.22 L (3.80-5.40) m/uL Hgb 6.6 L* (11.4-16.0) gm/dL Hct 18.7 L* (34.0-46.0) % RDW 17.8 H (11.5-15.5) % Plt Count 139 L D (150-450) k/uL Neutrophils # (1.3-7.7) k/uL Sodium (137-145) mmol/L Chloride (98-107) mmol/L BUN (7-17) mg/dL Glucose (74-99) mg/dL POC Glucose (mg/dL) 141 H 158 H (75-99) mg/dL Calcium (8.4-10.2) mg/dL AST (14-36) U/L ALT (9-52) U/L Alkaline Phosphatase (38-126) U/L Total Protein (6.3-8.2) g/dL Albumin (3.5-5.0) g/dL Crossmatch 12/31/18 12/31/18 12/31/18 Range/Units 14:04 15:08 16:25 WBC (3.8-10.6) k/uL RBC (3.80-5.40) m/uL Hgb (11.4-16.0) gm/dL Hct (34.0-46.0) % RDW (11.5-15.5) % Plt Count (150-450) k/uL Neutrophils # (1.3-7.7) k/uL Sodium (137-145) mmol/L Chloride (98-107) mmol/L BUN (7-17) mg/dL Glucose (74-99) mg/dL POC Glucose (mg/dL) 151 H 120 H 115 H (75-99) mg/dL Calcium (8.4-10.2) mg/dL AST (14-36) U/L ALT (9-52) U/L Alkaline Phosphatase (38-126) U/L Total Protein (6.3-8.2) g/dL Albumin (3.5-5.0) g/dL Crossmatch 12/31/18 12/31/18 12/31/18 Range/Units 18:10 19:13 20:19 WBC (3.8-10.6) k/uL RBC (3.80-5.40) m/uL Hgb (11.4-16.0) gm/dL Hct (34.0-46.0) % RDW (11.5-15.5) % Plt Count (150-450) k/uL Neutrophils # (1.3-7.7) k/uL Sodium (137-145) mmol/L Chloride (98-107) mmol/L BUN (7-17) mg/dL Glucose (74-99) mg/dL POC Glucose (mg/dL) 129 H 144 H 127 H (75-99) mg/dL Calcium (8.4-10.2) mg/dL AST (14-36) U/L ALT (9-52) U/L Alkaline Phosphatase (38-126) U/L Total Protein (6.3-8.2) g/dL Albumin (3.5-5.0) g/dL Crossmatch 12/31/18 12/31/18 12/31/18 Range/Units 21:36 22:00 22:00 WBC (3.8-10.6) k/uL RBC 2.75 L (3.80-5.40) m/uL Hgb 8.2 L D (11.4-16.0) gm/dL Hct 23.4 L (34.0-46.0) % RDW 17.0 H (11.5-15.5) % Plt Count 117 L (150-450) k/uL Neutrophils # (1.3-7.7) k/uL Sodium 136 L (137-145) mmol/L Chloride 108 H (98-107) mmol/L BUN 20 H (7-17) mg/dL Glucose 105 H (74-99) mg/dL POC Glucose (mg/dL) 122 H (75-99) mg/dL Calcium 7.5 L (8.4-10.2) mg/dL AST (14-36) U/L ALT (9-52) U/L Alkaline Phosphatase (38-126) U/L Total Protein (6.3-8.2) g/dL Albumin (3.5-5.0) g/dL Crossmatch 12/31/18 12/31/18 01/01/19 Range/Units 22:14 23:27 01:09 WBC (3.8-10.6) k/uL RBC (3.80-5.40) m/uL Hgb (11.4-16.0) gm/dL Hct (34.0-46.0) % RDW (11.5-15.5) % Plt Count (150-450) k/uL Neutrophils # (1.3-7.7) k/uL Sodium (137-145) mmol/L Chloride (98-107) mmol/L BUN (7-17) mg/dL Glucose (74-99) mg/dL POC Glucose (mg/dL) 121 H 112 H 137 H (75-99) mg/dL Calcium (8.4-10.2) mg/dL AST (14-36) U/L ALT (9-52) U/L Alkaline Phosphatase (38-126) U/L Total Protein (6.3-8.2) g/dL Albumin (3.5-5.0) g/dL Crossmatch 01/01/19 01/01/19 01/01/19 Range/Units 02:15 04:57 04:58 WBC 11.2 H (3.8-10.6) k/uL RBC 2.77 L (3.80-5.40) m/uL Hgb 8.0 L (11.4-16.0) gm/dL Hct 24.1 L (34.0-46.0) % RDW 16.8 H (11.5-15.5) % Plt Count 113 L (150-450) k/uL Neutrophils # 8.2 H (1.3-7.7) k/uL Sodium (137-145) mmol/L Chloride (98-107) mmol/L BUN (7-17) mg/dL Glucose (74-99) mg/dL POC Glucose (mg/dL) 143 H 118 H (75-99) mg/dL Calcium (8.4-10.2) mg/dL AST (14-36) U/L ALT (9-52) U/L Alkaline Phosphatase (38-126) U/L Total Protein (6.3-8.2) g/dL Albumin (3.5-5.0) g/dL Crossmatch 01/01/19 01/01/19 01/01/19 Range/Units 04:58 06:10 07:11 WBC (3.8-10.6) k/uL RBC (3.80-5.40) m/uL Hgb (11.4-16.0) gm/dL Hct (34.0-46.0) % RDW (11.5-15.5) % Plt Count (150-450) k/uL Neutrophils # (1.3-7.7) k/uL Sodium (137-145) mmol/L Chloride 110 H (98-107) mmol/L BUN 21 H (7-17) mg/dL Glucose 108 H (74-99) mg/dL POC Glucose (mg/dL) 118 H 131 H (75-99) mg/dL Calcium 7.6 L (8.4-10.2) mg/dL AST 397 H (14-36) U/L ALT 192 H (9-52) U/L Alkaline Phosphatase 33 L (38-126) U/L Total Protein 4.9 L (6.3-8.2) g/dL Albumin 3.4 L (3.5-5.0) g/dL Crossmatch 01/01/19 Range/Units 08:14 WBC (3.8-10.6) k/uL RBC (3.80-5.40) m/uL Hgb (11.4-16.0) gm/dL Hct (34.0-46.0) % RDW (11.5-15.5) % Plt Count (150-450) k/uL Neutrophils # (1.3-7.7) k/uL Sodium (137-145) mmol/L Chloride (98-107) mmol/L BUN (7-17) mg/dL Glucose (74-99) mg/dL POC Glucose (mg/dL) 129 H (75-99) mg/dL Calcium (8.4-10.2) mg/dL AST (14-36) U/L ALT (9-52) U/L Alkaline Phosphatase (38-126) U/L Total Protein (6.3-8.2) g/dL Albumin (3.5-5.0) g/dL Crossmatch Assessment and Plan Plan: Assessment: #1 Non-ST segment elevation myocardial infarction with significant triple-vessel disease. Status post coronary artery bypass grafting 3 with a RIDDLE to the LAD, reverse saphenous vein grafts to the OM 2 and PDA, post op day 2 #2 Intubation and mechanical ventilatory support as an expected outcome of surgery, successfully extubated within 6 hours. #3 Hyperlipidemia. #4 Obstructive sleep apnea. #5 Vitamin D deficiency. #6 Gastroesophageal reflux disease. #7 Degenerative joint disease. #8 postop blood loss anemia, an expected outcome of coronary bypass grafting surgery Plan: Continue encouraging deep breathing coughing, chest x-ray has been reviewed, and showed low lung volumes, changes consistent the fluid volume overload, pleural effusions and atelectasis. She remains on a small amount of Primacor, urine output is low, renal profile remains within normal limits. We'll defer to the CT surgery for decision on the diuretics. Encourage ambulation, maintain pain control. We'll continue to closely follow I performed a history & physical examination of the patient and discussed their management with my nurse practitioner, Margaret Miranda. I reviewed the nurse practitioner's note and agree with the documented findings and plan of care. Lung sounds are positive for diminished breath sounds. The findings and the impression was discussed with the patient. I attest to the documentation by the nurse practitioner. Time with Patient: Less than 30
[2019-01-01] MEDS: MUPIROCIN 2% OINT 22 GM TUBE NASAL SCH ×2 (09:04→23:04)
[2019-01-01 09:58] LABS: Glucose,Whole Blood 122 mg/dL (75-99)
[2019-01-01] MEDS: ACETAMINOPHEN TAB 325 MG TAB PO PRN (10:26)
[2019-01-01] MEDS: METOPROLOL TARTRATE 12.5 MG TAB PO SCH ×2 (10:28→23:05)
--- NOTE | 2019-01-01 11:47 | P.PN ---
Subjective Second postop day coronary bypass three-vessel. Patient up in chair progressing well pressers discontinued patient's been extubated hemoglobin 8.0 after transfusion. States pain controlled Objective - Vital Signs Vital signs: Vital Signs Temp 97.5 F L 01/01/19 04:00 Pulse 88 01/01/19 11:24 Resp 25 H 01/01/19 11:00 BP 109/60 01/01/19 08:00 Pulse Ox 92 L 01/01/19 11:00 Intake & Output 12/31/18 01/01/19 01/01/19 18:59 06:59 18:59 Intake Total 3149.706 1715.118 432.029 Output Total 1200 519 300 Balance 5654.719 3573.118 132.029 Weight 74.1 kg 78.7 kg Intake: IV 1288 798 405 Albumin Human 5% 250 ml 500 250 In Empty Bag 1 bag @ 250 mls/hr IVPB Q1HR PRN Rx#: [id number] CO/CI 80 90 10 Lactated Ringers 1,000 ml 600 600 100 @ 20 mls/hr IV .Q24H [facility] Rx#:[id number] Pressure bags 108 108 45 Intake, IV Titration 82.706 257.118 27.029 Amount Insulin Regular 100 unit 9.475 14.275 0.542 In Sodium Chloride 0.9% 100 ml @ Titrate IV .Q0M MAR Rx#:[id number] Milrinone-D5w Pmx 20 mg 45.986 39.903 4.372 In Dextrose/Water 1 100ml .bag @ 0.2 MCG/KG/MIN 4. 446 mls/hr IV .[id number] MAR Rx#:[id number] Norepinephrine 4 mg In 27.245 202.940 22.115 Sodium Chloride 0.9% 250 ml @ 0.05 MCG/KG/MIN 14. 116 mls/hr IV .Q18H MAR Rx#:[id number] Oral 300 Tube Feeding 200 200 Blood Product 1239 310 Platelet Irr Pheresis 309 Acda1 Unit [id number] Rc As-1 Unit 310 [id number] Rc As-1 Unit 0 310 [id number] Other 40 150 Platelet Irr Pheresis 40 Acda1 Unit [id number] Rc As-1 Unit 150 [id number] Output: Chest Tube Drainage 820 218 170 Left Pleural 650 198 140 Mediastinal 170 20 30 Drainage 15 Left Calf 0 Right Calf 15 Urine 365 301 130 Other: Voiding Method Indwelling Catheter Indwelling Catheter Indwelling Catheter ABP, PAP, CO, CI - Last Documented Arterial Blood Pressure 103/43 Pulmonary Artery Pressure 29/11 Cardiac Output 4.6 Cardiac Index 2.6 - Constitutional General appearance: Present: mild distress - EENT Eyes: Present: PERRLA Ears: bilateral: normal - Neck Neck: Present: normal ROM - Respiratory Respiratory: bilateral: CTA - Cardiovascular Rhythm: regular - Gastrointestinal General gastrointestinal: Present: soft - Integumentary Integumentary: Present: normal - Neurologic Neurologic: Present: CNII-XII intact - Musculoskeletal Musculoskeletal: Present: generalized weakness - Psychiatric Psychiatric: Present: A&O x's 3, appropriate affect, intact judgment & insight - Labs CBC & Chem 7: 01/01/19 04:58 01/01/19 04:58 Labs: Abnormal Lab Results - Last 24 Hours (Table) 12/29/18 12/31/18 12/31/18 Range/Units 09:20 12:14 13:10 WBC (3.8-10.6) k/uL RBC (3.80-5.40) m/uL Hgb (11.4-16.0) gm/dL Hct (34.0-46.0) % RDW (11.5-15.5) % Plt Count (150-450) k/uL Neutrophils # (1.3-7.7) k/uL Sodium (137-145) mmol/L Chloride (98-107) mmol/L BUN (7-17) mg/dL Glucose (74-99) mg/dL POC Glucose (mg/dL) 141 H 158 H (75-99) mg/dL Calcium (8.4-10.2) mg/dL AST (14-36) U/L ALT (9-52) U/L Alkaline Phosphatase (38-126) U/L Total Protein (6.3-8.2) g/dL Albumin (3.5-5.0) g/dL Crossmatch See Detail 12/31/18 12/31/18 12/31/18 Range/Units 14:00 14:04 15:08 WBC (3.8-10.6) k/uL RBC 2.22 L (3.80-5.40) m/uL Hgb 6.6 L* (11.4-16.0) gm/dL Hct 18.7 L* (34.0-46.0) % RDW 17.8 H (11.5-15.5) % Plt Count 139 L D (150-450) k/uL Neutrophils # (1.3-7.7) k/uL Sodium (137-145) mmol/L Chloride (98-107) mmol/L BUN (7-17) mg/dL Glucose (74-99) mg/dL POC Glucose (mg/dL) 151 H 120 H (75-99) mg/dL Calcium (8.4-10.2) mg/dL AST (14-36) U/L ALT (9-52) U/L Alkaline Phosphatase (38-126) U/L Total Protein (6.3-8.2) g/dL Albumin (3.5-5.0) g/dL Crossmatch 12/31/18 12/31/18 12/31/18 Range/Units 16:25 18:10 19:13 WBC (3.8-10.6) k/uL RBC (3.80-5.40) m/uL Hgb (11.4-16.0) gm/dL Hct (34.0-46.0) % RDW (11.5-15.5) % Plt Count (150-450) k/uL Neutrophils # (1.3-7.7) k/uL Sodium (137-145) mmol/L Chloride (98-107) mmol/L BUN (7-17) mg/dL Glucose (74-99) mg/dL POC Glucose (mg/dL) 115 H 129 H 144 H (75-99) mg/dL Calcium (8.4-10.2) mg/dL AST (14-36) U/L ALT (9-52) U/L Alkaline Phosphatase (38-126) U/L Total Protein (6.3-8.2) g/dL Albumin (3.5-5.0) g/dL Crossmatch 12/31/18 12/31/18 12/31/18 Range/Units 20:19 21:36 22:00 WBC (3.8-10.6) k/uL RBC (3.80-5.40) m/uL Hgb (11.4-16.0) gm/dL Hct (34.0-46.0) % RDW (11.5-15.5) % Plt Count (150-450) k/uL Neutrophils # (1.3-7.7) k/uL Sodium 136 L (137-145) mmol/L Chloride 108 H (98-107) mmol/L BUN 20 H (7-17) mg/dL Glucose 105 H (74-99) mg/dL POC Glucose (mg/dL) 127 H 122 H (75-99) mg/dL Calcium 7.5 L (8.4-10.2) mg/dL AST (14-36) U/L ALT (9-52) U/L Alkaline Phosphatase (38-126) U/L Total Protein (6.3-8.2) g/dL Albumin (3.5-5.0) g/dL Crossmatch 12/31/18 12/31/18 12/31/18 Range/Units 22:00 22:14 23:27 WBC (3.8-10.6) k/uL RBC 2.75 L (3.80-5.40) m/uL Hgb 8.2 L D (11.4-16.0) gm/dL Hct 23.4 L (34.0-46.0) % RDW 17.0 H (11.5-15.5) % Plt Count 117 L (150-450) k/uL Neutrophils # (1.3-7.7) k/uL Sodium (137-145) mmol/L Chloride (98-107) mmol/L BUN (7-17) mg/dL Glucose (74-99) mg/dL POC Glucose (mg/dL) 121 H 112 H (75-99) mg/dL Calcium (8.4-10.2) mg/dL AST (14-36) U/L ALT (9-52) U/L Alkaline Phosphatase (38-126) U/L Total Protein (6.3-8.2) g/dL Albumin (3.5-5.0) g/dL Crossmatch 01/01/19 01/01/19 01/01/19 Range/Units 01:09 02:15 04:57 WBC (3.8-10.6) k/uL RBC (3.80-5.40) m/uL Hgb (11.4-16.0) gm/dL Hct (34.0-46.0) % RDW (11.5-15.5) % Plt Count (150-450) k/uL Neutrophils # (1.3-7.7) k/uL Sodium (137-145) mmol/L Chloride (98-107) mmol/L BUN (7-17) mg/dL Glucose (74-99) mg/dL POC Glucose (mg/dL) 137 H 143 H 118 H (75-99) mg/dL Calcium (8.4-10.2) mg/dL AST (14-36) U/L ALT (9-52) U/L Alkaline Phosphatase (38-126) U/L Total Protein (6.3-8.2) g/dL Albumin (3.5-5.0) g/dL Crossmatch 01/01/19 01/01/19 01/01/19 Range/Units 04:58 04:58 06:10 WBC 11.2 H (3.8-10.6) k/uL RBC 2.77 L (3.80-5.40) m/uL Hgb 8.0 L (11.4-16.0) gm/dL Hct 24.1 L (34.0-46.0) % RDW 16.8 H (11.5-15.5) % Plt Count 113 L (150-450) k/uL Neutrophils # 8.2 H (1.3-7.7) k/uL Sodium (137-145) mmol/L Chloride 110 H (98-107) mmol/L BUN 21 H (7-17) mg/dL Glucose 108 H (74-99) mg/dL POC Glucose (mg/dL) 118 H (75-99) mg/dL Calcium 7.6 L (8.4-10.2) mg/dL AST 397 H (14-36) U/L ALT 192 H (9-52) U/L Alkaline Phosphatase 33 L (38-126) U/L Total Protein 4.9 L (6.3-8.2) g/dL Albumin 3.4 L (3.5-5.0) g/dL Crossmatch 01/01/19 01/01/19 01/01/19 Range/Units 07:11 08:14 09:56 WBC (3.8-10.6) k/uL RBC (3.80-5.40) m/uL Hgb (11.4-16.0) gm/dL Hct (34.0-46.0) % RDW (11.5-15.5) % Plt Count (150-450) k/uL Neutrophils # (1.3-7.7) k/uL Sodium (137-145) mmol/L Chloride (98-107) mmol/L BUN (7-17) mg/dL Glucose (74-99) mg/dL POC Glucose (mg/dL) 131 H 129 H 122 H (75-99) mg/dL Calcium (8.4-10.2) mg/dL AST (14-36) U/L ALT (9-52) U/L Alkaline Phosphatase (38-126) U/L Total Protein (6.3-8.2) g/dL Albumin (3.5-5.0) g/dL Crossmatch - Imaging and Cardiology Chest x-ray: report reviewed Assessment and Plan Plan: Assessment Acute non-ST elevated MS with elevated troponins Postop three-vessel bypass Postop anemia hemoglobin 8.0 Chest pain angina Hyperlipidemia Sleep apnea on CPAP at home Family history of coronary disease Peripheral neuropathy nondiabetic Plan Continue observation ICU with support from cardiology and extracorporeal circulation specialist
[2019-01-01 12:20] LABS: Glucose,Whole Blood 114 mg/dL (75-99)
[2019-01-01] MEDS: FOLIC ACID 1 MG TAB PO SCH (12:21)
[2019-01-01] MEDS: INSULIN ASPART (NovoLOG) 100 UNIT/ML VIAL SQ SCH ×3 (13:02→23:04)
[2019-01-01] MEDS: ONDANSETRON 4 MG/2 ML VIAL IVP PRN ×2 (13:18→18:28)
[2019-01-01] MEDS: NOREPINEPHRINE 4 MG in SODIUM CHLORIDE 0.9% 250 ML IV SCH (15:10)
[2019-01-01 17:22] LABS: Glucose,Whole Blood 135 mg/dL (75-99)
[2019-01-01] MEDS: GABAPENTIN 300 MG CAP PO SCH ×2 (17:39→23:05)
[2019-01-01 22:56] LABS: Glucose,Whole Blood 133 mg/dL (75-99)
[2019-01-01] MEDS: SENNOSIDES-DOCUSATE SODIUM 1 EACH TAB PO SCH (23:05)
[2019-01-02] MEDS: KETOROLAC 30 MG/ML 1 ML VIAL IVP SCH ×4 (00:12→20:43)
[2019-01-02] MEDS: HYDROcodone/APAP 5-325MG 1 EACH TAB PO PRN ×3 (02:05→22:10)
[2019-01-02 05:29] LABS: Albumin 3.7 g/dL (3.5-5.0); Calcium 7.8 mg/dL (8.4-10.2); Potassium 4.8 mmol/L (3.5-5.1); Total Bilirubin 1.2 mg/dL (0.2-1.3)
[2019-01-02] MEDS: LACTATED RINGERS 1,000 ML IV SCH (06:25)
[2019-01-02 06:34] LABS: Anisocytosis Slight; HGB 7.8 gm/dL (11.4-16.0); MCH 30.1 pg (25.0-35.0); MCV 88.4 fL (80.0-100.0); Platelet Count 95 k/uL (150-450); RDW 18.6 % (11.5-15.5)
[2019-01-02 06:52] LABS: Glucose,Whole Blood 129 mg/dL (75-99)
[2019-01-02] MEDS: FERROUS SULFATE 325 MG TAB PO SCH ×2 (06:58→20:42)
[2019-01-02] MEDS: PANTOPRAZOLE 40 MG TABLET PO SCH (06:58)
[2019-01-02] MEDS: INSULIN ASPART (NovoLOG) 100 UNIT/ML VIAL SQ SCH ×4 (06:59→20:55)
[2019-01-02] MEDS: ASCORBIC ACID 500 MG TAB PO SCH ×2 (06:59→20:42)
[2019-01-02 07:04] LABS: Band Neutrophils % 4 %; Lymphocytes # (M) 1.38 k/uL (1.0-4.8); Monocytes # (M) 1.13 k/uL (0-1.0); Neutrophils % (M) 78 %; Nucleated Red Blood Cells 9 /100 WBC (0-0); Total Cells Counted 200; WBC 12.5 k/uL (3.8-10.6)
[2019-01-02 07:05] LABS: Basophilic Stippling Present; Polychromasia Present
[2019-01-02] MEDS: IPRATROPIUM-ALBUTEROL 3 ML NEB INHALATION SCH ×4 (07:45→20:00)
--- NOTE | 2019-01-02 08:14 | XR ---
EXAMINATION TYPE: XR chest 1V portable DATE OF EXAM: 01/02/2019 COMPARISON: Prior chest x-ray 01/01/2019 HISTORY: Status post coronary artery bypass graft TECHNIQUE: Single frontal view of the chest is obtained. FINDINGS: Patient is post median sternotomy. Right jugular central venous sheath and coaxial [place] nz catheter are stable. There are overlying artifacts, cardiac leads. Patient is rotated and exam is expiratory. Heart remains enlarged. Perihilar and bibasilar increased density persists. Left-sided ch est tube is in place. No sizable pneumothorax is evident. Postop changes are noted in the upper abdom en. Epicardial pacing leads not seen with certainty. Median sternal drains no longer evident. IMPRESSION: Essentially stable findings, correlate for volume overload, basilar atelectasis versus e angelic, possible associated effusions.
[2019-01-02] MEDS: ASPIRIN 81 MG PO SCH (08:27)
[2019-01-02] MEDS: CLOPIDOGREL 75 MG TAB PO SCH (08:27)
[2019-01-02] MEDS: HEPARIN SODIUM,PORCINE 5,000 UNIT/ML 1 ML VIAL SQ SCH ×2 (08:27→16:20)
[2019-01-02] MEDS: GABAPENTIN 300 MG CAP PO SCH ×3 (08:27→20:42)
[2019-01-02] MEDS: ATORVASTATIN 40 MG TAB PO SCH ×2 (08:27→20:43)
[2019-01-02] MEDS: METOPROLOL TARTRATE 12.5 MG TAB PO SCH ×3 (08:29→20:42)
[2019-01-02] MEDS ORDERED: FUROSEMIDE 10 MG/ML 2 ML VIAL IV STA (08:51)
--- NOTE | 2019-01-02 09:02 | P.PN ---
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 POD #3 urgent triple vessel coronary artery bypass grafting using the left internal mammary artery to the left anterior descending artery across a plaque as a patch angioplasty, a reverse greater saphenous vein graft from the aorta to the second obtuse marginal artery, a reverse greater saphenous vein graft from the aorta to the posterior descending artery. Endoscopic harvesting of the bilateral greater saphenous veins, both greater saphenous veins from the groin to just below the knee level. Intraoperative transesophageal echocardiogram and epi-aortic scanning. Intraoperative graft flow measurements using the [employer]ist[employer] system. Intraoperative and postoperative acute blood loss anemia, an expected outcome given hemodilution, cardiopulmonary bypass pump and patient's preoperative anemia. Postoperative thrombocytopenia, an expected outcome given cardiopulmonary bypass pump. Postoperative elevation of her AST and ALT, an unexpected outcome. The patient is currently sitting up in bed chair in the intensive care unit. She is in no acute distress. Currently she is complaining of pain to her left shoulder rating her pain 5 out of 10 on the pain scale. Denies any complaints of shortness of breath and remains on 15 L high flow oxygen with oxygen saturations 96%. She is achieving 500 mL on her incentive spirometry with encouragement. Remains hemodynamically stable and is on no inotropic or pressor support. She did receive 750 mL of 5% albumin yesterday for some hypotension and decreased urine output. Objective - Vital Signs Vital signs: Vital Signs Temp 99.5 F 01/02/19 08:00 Pulse 75 01/02/19 08:00 Resp 24 01/02/19 08:00 BP 101/48 01/02/19 08:00 Pulse Ox 100 01/02/19 08:00 Intake & Output 01/01/19 01/02/19 01/02/19 18:59 06:59 18:59 Intake Total 1190.676 625 56 Output Total 560 405 10 Balance 630.676 220 46 Intake: IV 1155 535 56 Albumin Human 5% 250 ml 750 In Empty Bag 1 bag @ 250 mls/hr IVPB Q1HR PRN Rx#: [id number] CO/CI 70 70 20 Lactated Ringers 1,000 ml 230 360 30 @ 20 mls/hr IV .Q24H MAR Rx#:[id number] Pressure bags 105 105 6 Intake, IV Titration 35.676 Amount Insulin Regular 100 unit 0.542 In Sodium Chloride 0.9% 100 ml @ Titrate IV .Q0M MAR Rx#:[id number] Milrinone-D5w Pmx 20 mg 4.372 In Dextrose/Water 1 100ml .bag @ 0.2 MCG/KG/MIN 4. 446 mls/hr IV .[id number] MAR Rx#:[id number] Norepinephrine 4 mg In 8.647 Sodium Chloride 0.9% 250 ml @ 0.02 MCG/KG/MIN 5. 997 mls/hr IV .Q24H MAR Rx#:[id number] Norepinephrine 4 mg In 22.115 Sodium Chloride 0.9% 250 ml @ 0.05 MCG/KG/MIN 14. 116 mls/hr IV .Q18H MAR Rx#:[id number] Oral 90 Output: Chest Tube Drainage 280 170 Left Pleural 250 170 Mediastinal 30 Drainage 35 Left Calf 10 Right Calf 25 Urine 245 235 10 Other: Voiding Method Indwelling Catheter Indwelling Catheter ABP, PAP, CO, CI - Last Documented Arterial Blood Pressure 126/51 Pulmonary Artery Pressure 38/21 Cardiac Output 2.8 Cardiac Index 1.6 - Constitutional General appearance: Present: cooperative, no acute distress, obese - Respiratory Details: Lung sounds with few scattered crackles throughout, diminished bilateral bases. Respirations are symmetrical and nonlabored. Oxygen saturation are 96% on 15 L high flow nasal cannula. Achieving 500 mL on her incentive spirometry. Left pleural chest tube remains to low continuous wall suction at -20 cm H2O. No air leak is present. Draining thin serosanguineous drainage. 170 mL output last 8 hours, 350 mL output in the last 24 hours. - Cardiovascular Details: Regular rhythm and rate. S1 and S2 present, negative for S3, gallop or murmur. Bedside telemetry showing normal sinus rhythm heart rate 77. Sternum is stable. Atrial and ventricular epicardial pacemaker wires in place and grounded. No edema is present. Heart hugger is in place and she is demonstrating appropriate use. Surgical support bra in place. Right IJ Cordis with [place] catheter in place and functioning. Current cardiac output 2.7, cardiac index 1.5, PA pressures 39/22, CVP 16. Knee-high DENNY hose and sequential compression devices in place to her bilateral lower extremities. - Gastrointestinal Gastrointestinal Comment(s): Abdomen soft, nontender and nondistended. Hypoactive bowel sounds present in all 4 abdominal quadrants. No guarding or rigidity. No organomegaly. Tolerating oral intake. - Genitourinary Genitourinary Comment(s): Jacobson catheter for accurate I&O. Marginal urine output within the last 8 hours, 160 mL output. - Integumentary Integumentary Comment(s): Skin is warm and dry. No clear cyanosis is present. Midline sternal incision is clean, dry and approximated. No drainage or redness is present. Gauze dressing is clean, dry and intact. Bilateral lower extremity EVH site clean, dry and approximated. No drainage or redness is present. HARLEY drains in place to bilateral lower extremities. Draining thin serosanguineous drainage. 25 mL o utput from the left leg. HARLEY drain in the last 24 hours. 10 mL output from the right leg HARLEY drain in the last 24 hours. - Neurologic Neurologic: Present: CNII-XII intact - Musculoskeletal Musculoskeletal: Present: gait normal, generalized weakness, strength equal bilaterally - Psychiatric Psychiatric: Present: A&O x's 3, appropriate affect, intact judgment & insight - Allied health notes Allied health notes reviewed: nursing - Labs CBC & Chem 7: 01/02/19 06:10 01/02/19 05:10 Labs: Abnormal Lab Results - Last 24 Hours (Table) 01/01/19 01/01/19 01/01/19 Range/Units 09:56 12:06 17:17 WBC (3.8-10.6) k/uL RBC (3.80-5.40) m/uL Hgb (11.4-16.0) gm/dL Hct (34.0-46.0) % RDW (11.5-15.5) % Plt Count (150-450) k/uL Neutrophils # (Manual) (1.3-7.7) k/uL Monocytes # (Manual) (0-1.0) k/uL Nucleated RBCs (0-0) /100 WBC Chloride (98-107) mmol/L Carbon Dioxide (22-30) mmol/L BUN (7-17) mg/dL POC Glucose (mg/dL) 122 H 114 H 135 H (75-99) mg/dL Calcium (8.4-10.2) mg/dL AST (14-36) U/L ALT (9-52) U/L Total Protein (6.3-8.2) g/dL 01/01/19 01/02/19 01/02/19 Range/Units 22:55 05:10 06:10 WBC 12.5 H (3.8-10.6) k/uL RBC 2.60 L (3.80-5.40) m/uL Hgb 7.8 L (11.4-16.0) gm/dL Hct 23.0 L (34.0-46.0) % RDW 18.6 H (11.5-15.5) % Plt Count 95 L (150-450) k/uL Neutrophils # (Manual) 10.20 H (1.3-7.7) k/uL Monocytes # (Manual) 1.13 H (0-1.0) k/uL Nucleated RBCs 9 H (0-0) /100 WBC Chloride 108 H (98-107) mmol/L Carbon Dioxide 21 L (22-30) mmol/L BUN 25 H (7-17) mg/dL POC Glucose (mg/dL) 133 H (75-99) mg/dL Calcium 7.8 L (8.4-10.2) mg/dL AST 325 H (14-36) U/L ALT 207 H (9-52) U/L Total Protein 5.0 L (6.3-8.2) g/dL 01/02/19 Range/Units 06:51 WBC (3.8-10.6) k/uL RBC (3.80-5.40) m/uL Hgb (11.4-16.0) gm/dL Hct (34.0-46.0) % RDW (11.5-15.5) % Plt Count (150-450) k/uL Neutrophils # (Manual) (1.3-7.7) k/uL Monocytes # (Manual) (0-1.0) k/uL Nucleated RBCs (0-0) /100 WBC Chloride (98-107) mmol/L Carbon Dioxide (22-30) mmol/L BUN (7-17) mg/dL POC Glucose (mg/dL) 129 H (75-99) mg/dL Calcium (8.4-10.2) mg/dL AST (14-36) U/L ALT (9-52) U/L Total Protein (6.3-8.2) g/dL - Imaging and Cardiology Chest x-ray: report reviewed, image reviewed Assessment and Plan Assessment: 1. Triple-vessel coronary artery disease with left main stenosis, status post urgent triple-vessel coronary artery bypass surgery 2. Non-STEMI 3. Mild to moderate aortic valve regurgitation 4. Preserved left ventricular function with an ejection fraction of 55% 5. Hyperlipidemia 6. Previous tobacco dependence, preoperative FEV1 98% of predicted 7. Obstructive sleep apnea with home CPAP use 8. History of gastric ulcer with partial gastrectomy 9. History of splenectomy 10. Arthritis 11. Family history of premature coronary artery disease 12. Preoperative chronic normocytic, normochromic anemia 13. Intraoperative and postoperative acute blood loss anemia, expected 14. Postoperative thrombocytopenia 15. History of peripheral neuropathy Plan: 1. Continue low-dose aspirin, Plavix, and beta bettye. Will increase beta bettye therapy as tolerated. 2. Lasix 20 mg IV 1 now. 3. Wean O2 as tolerated. Encourage incentive spirometry use 10 times every hour while awake. 4. Increase activity as tolerated. Out of bed for all meals PT/OT/cardiac rehab following. 5. Will monitor daily labs and chest x-rays. Electrolyte replacement per protocol. Continue iron/vitamin C. 6. Bronchodilators, CPAP per pulmonology management. 7. Pain control with current medication regimen. Limit narcotics. Continue Toradol. 8. Insulin management per primary care service. 9. Keep left pleural chest tube, Cordis, arterial line. Likely will di woody [place] later today. Keep Jacobson for strict accurate intake and output. 10. GI/DVT prophylaxis in place. 11. Remove bilateral lower extremity HARLEY drains. 12. Hold Lipitor, will monitor liver enzymes. Recheck liver enzymes in the a.m. 13. We will start Primacor 0.2 mcg/kg/m for cardiac index of 1.5. 14. More recommendations to follow based on patient's clinical course. Time with Patient: Greater than 30
[2019-01-02] MEDS: MUPIROCIN 2% OINT 22 GM TUBE NASAL SCH ×2 (09:58→20:53)
--- NOTE | 2019-01-02 09:58 | P.PN ---
Subjective Progress Note Date: 01/02/19 Principal diagnosis: Triple-vessel coronary artery disease, status post coronary artery bypass grafting 3, with RIDDLE to LAD, reverse SVG to the OM 2 and PDA The patient is seen today 12/31/2018 in follow-up in the intensive care unit. She is status post non-ST segment elevation myocardial infarction followed by coronary artery bypass grafting utilizing a RIDDLE to the LAD, reverse saphenous vein grafts to the second obtuse marginal artery and posterior descending artery. This is postoperative day #1. She was successfully extubated within 5 hours and 59 minutes. She is currently sitting up at the bedside. She did have some issues with hypotension upon standing. She is status post total 5 units of packed red blood cells. She will be receiving a unit of platelets as well. Current hemoglobin 6.2. Platelet count 50,000. White count 6.2. AST 168. Creatinine 0.70. Potassium 4.5. Magnesium 2.3. She currently has lactated Ringer's at 50 MLS per hour. Insulin at 1 unit per hour. Primacor at 0.2 mg/kg/m. Maintaining O2 saturations in the 90s on 3 L/m per nasal cannula. Chest x-ray reveals minimal basilar atelectasis. She is working with the incentive spirometer. Blood pressure 117/46, PA pressure 39/19, mean 2, CVP 11. Cardiac output 4.2. Cardiac index 2.5. Split mediastinal chest tube output 40 mls, left chest tube 290 ML's. On 01/01/2019 patient seen in follow-up in the intensive care unit, she is resting comfortably in bed, remains complaint today is being very fatigued. Denies any dyspnea, she does have incisional pain. Incentive spirometer effort is 500 mL. Lung sounds are diminished. She is on 4 L of oxygen, pulse ox of 92%, blood pressure is 127/57, PA pressures 43/26, with a CVP of 22, CO/CRI is 3.8 and 2.1 respectively, sinus rhythm on the monitor with a controlled rate. IVs include lactated Ringer's at a rate of 20 ML per hour, Primacor is 0.1 mics per kilo per minute, insulin is at 1 unit per hour, and Levaquin that has been off. Today's chest x-ray has been reviewed, and shows bilateral airspace disease, increased interstitium, low lung volumes, changes most likely related to fluid volume overload, hypoventilatory lungs, bilateral pleural effusions, and associated atelectasis. Today's labs have been reviewed, and showed white blood cell count of 11.2, hemoglobin of 8.0, sodium is 139, potassium is 4.6, chloride is 110, B1 is 21, creatinine 0.67. LFT have trended up since yesterday, with AST up to 397, ALT is 192, and alkaline phosphatase is a 33. Patient is tolerating oral diet. Urine output is low, ranging from 20-25 ML per hour, mediastinal and left pleural chest tubes remain in place and there has been afebrile and a 40 mL out of the left pleural and 190 out of the mediastinal chest tube in last 24 hours of serosanguineous output. On 01/02/2090 patient seen in follow-up in the intensive care unit, she is resting in bed, she remains on high flow oxygen, currently at 9 L, her incentive spirometry effort is very suboptimal, she is pulling only 500 mL. Patient seems down, depressed. She is trying to keep up her oral intake, but appetite is poor, her pulse ox on 9 L is 96%, she is afebrile, she has been off Primacor and levofloxacin since yesterday, her PA pressures at 37/20, with CVP of 16, and cardiac output and index are 3.8 and 1.6 respectively. Urine output remains low, and patient has been in several liters positive fluid balance over the last 48 hours. She is up at least 10 kg since admission. Mediastinal chest tube has been discontinued, and left pleural chest tube remains in place, and there has been 420 mL of out of it in the last 24 hours of thin serosanguineous output. No IV fluids, no drips. Patient will be given a dose of IV Lasix today, her chest x-ray has been reviewed with Dr. Love and showed changes compatible with volume fluid overload, basilar atelectasis Objective - Vital Signs Vital signs: Vital Signs Temp 99.5 F 01/02/19 08:00 Pulse 74 01/02/19 09:00 Resp 16 01/02/19 09:00 BP 91/60 01/02/19 09:00 Pulse Ox 96 01/02/19 09:00 Intake & Output 01/01/19 01/02/19 01/02/19 18:59 06:59 18:59 Intake Total 1190.676 625 82 Output Total 560 405 60 Balance 630.676 220 22 Intake: IV 1155 535 82 Albumin Human 5% 250 ml 750 In Empty Bag 1 bag @ 250 mls/hr IVPB Q1HR PRN Rx#: [id number] CO/CI 70 70 40 Lactated Ringers 1,000 ml 230 360 30 @ 20 mls/hr IV .Q24H MAR Rx#:[id number] Pressure bags 105 105 12 Intake, IV Titration 35.676 Amount Insulin Regular 100 unit 0.542 In Sodium Chloride 0.9% 100 ml @ Titrate IV .Q0M MAR Rx#:[id number] Milrinone-D5w Pmx 20 mg 4.372 In Dextrose/Water 1 100ml .bag @ 0.2 MCG/KG/MIN 4. 446 mls/hr IV .[id number] MAR Rx#:[id number] Norepinephrine 4 mg In 8.647 Sodium Chloride 0.9% 250 ml @ 0.02 MCG/KG/MIN 5. 997 mls/hr IV .Q24H MAR Rx#:[id number] Norepinephrine 4 mg In 22.115 Sodium Chloride 0.9% 250 ml @ 0.05 MCG/KG/MIN 14. 116 mls/hr IV .Q18H MAR Rx#:[id number] Oral 90 Output: Chest Tube Drainage 280 170 40 Left Pleural 250 170 40 Mediastinal 30 Drainage 35 Left Calf 10 Right Calf 25 Urine 245 235 20 Other: Voiding Method Indwelling Catheter Indwelling Catheter ABP, PAP, CO, CI - Last Documented Arterial Blood Pressure 126/51 Pulmonary Artery Pressure 37/20 Cardiac Output 2.7 Cardiac Index 1.6 - Exam GENERAL EXAM: Alert, pleasant, 78-year-old female, on 9 L of oxygen, fatigued but comfortable in no apparent distress. HEAD: Normocephalic/atraumatic. EYES: Normal reaction of pupils, equal size. Conjunctiva pink, sclera white. NOSE: Clear with pink turbinates. THROAT: No erythema or exudates. NECK: No masses, no JVD, no thyroid enlargement, no adenopathy. CHEST: No chest wall deformity. Symmetrical expansion. Mid sternal incision is clean dry and intact, covered with surgical dressing, interval removal of the mediastinal chest tube, left pleural chest tube remains in place with thin serosanguineous output, no air leak. LUNGS: Equal air entry with diminished breath sounds CVS: Regular rate and rhythm, normal S1 and S2, no gallops, no murmurs, no rubs ABDOMEN: Soft, nontender. No hepatosplenomegaly, normal bowel sounds, no guarding or rigidity. EXTREMITIES: No clubbing, no edema, no cyanosis, 2+ pulses and upper and lower extremities. MUSCULOSKELETAL: Muscle strength and tone normal. SPINE: No scoliosis or deformity SKIN: No rashes CENTRAL NERVOUS SYSTEM: Alert and oriented -3. No focal deficits, tone is normal in all 4 extremities. PSYCHIATRIC: Alert and oriented -3. Appropriate affect. Intact judgment and insight. - Labs CBC & Chem 7: 01/02/19 06:10 01/02/19 05:10 Labs: Abnormal Lab Results - Last 24 Hours (Table) 01/01/19 01/01/19 01/01/19 Range/Units 09:56 12:06 17:17 WBC (3.8-10.6) k/uL RBC (3.80-5.40) m/uL Hgb (11.4-16.0) gm/dL Hct (34.0-46.0) % RDW (11.5-15.5) % Plt Count (150-450) k/uL Neutrophils # (Manual) (1.3-7.7) k/uL Monocytes # (Manual) (0-1.0) k/uL Nucleated RBCs (0-0) /100 WBC Chloride (98-107) mmol/L Carbon Dioxide (22-30) mmol/L BUN (7-17) mg/dL POC Glucose (mg/dL) 122 H 114 H 135 H (75-99) mg/dL Calcium (8.4-10.2) mg/dL AST (14-36) U/L ALT (9-52) U/L Total Protein (6.3-8.2) g/dL 01/01/19 01/02/19 01/02/19 Range/Units 22:55 05:10 06:10 WBC 12.5 H (3.8-10.6) k/uL RBC 2.60 L (3.80-5.40) m/uL Hgb 7.8 L (11.4-16.0) gm/dL Hct 23.0 L (34.0-46.0) % RDW 18.6 H (11.5-15.5) % Plt Count 95 L (150-450) k/uL Neutrophils # (Manual) 10.20 H (1.3-7.7) k/uL Monocytes # (Manual) 1.13 H (0-1.0) k/uL Nucleated RBCs 9 H (0-0) /100 WBC Chloride 108 H (98-107) mmol/L Carbon Dioxide 21 L (22-30) mmol/L BUN 25 H (7-17) mg/dL POC Glucose (mg/dL) 133 H (75-99) mg/dL Calcium 7.8 L (8.4-10.2) mg/dL AST 325 H (14-36) U/L ALT 207 H (9-52) U/L Total Protein 5.0 L (6.3-8.2) g/dL 01/02/19 Range/Units 06:51 WBC (3.8-10.6) k/uL RBC (3.80-5.40) m/uL Hgb (11.4-16.0) gm/dL Hct (34.0-46.0) % RDW (11.5-15.5) % Plt Count (150-450) k/uL Neutrophils # (Manual) (1.3-7.7) k/uL Monocytes # (Manual) (0-1.0) k/uL Nucleated RBCs (0-0) /100 WBC Chloride (98-107) mmol/L Carbon Dioxide (22-30) mmol/L BUN (7-17) mg/dL POC Glucose (mg/dL) 129 H (75-99) mg/dL Calcium (8.4-10.2) mg/dL AST (14-36) U/L ALT (9-52) U/L Total Protein (6.3-8.2) g/dL Assessment and Plan Plan: Assessment: #1 Non-ST segment elevation myocardial infarction with significant triple-vessel disease. Status post coronary artery bypass grafting 3 with a RIDDLE to the LAD, reverse saphenous vein grafts to the OM 2 and PDA, post op day 3 #2. Acute hypoxemic respiratory failure related to fluid volume overload, basilar atelectasis, and pleural effusions #3 Intubation and mechanical ventilatory support as an expected outcome of surgery, successfully extubated within 6 hours. #4 Hyperlipidemia. #5 Obstructive sleep apnea. #6 Vitamin D deficiency. #7 Gastroesophageal reflux disease. #8 Degenerative joint disease. #9 postop blood loss anemia, an expected outcome of coronary bypass grafting surgery Plan: Continue encouraging deep breathing and coughing, recommend a dose of IV Lasix, we'll leave that up to the CT. Chest x-ray has been reviewed with Dr. Barnett and is compatible with changes of fluid volume overload, patient has been in the several liters positive fluid balance over the last 2 days. Pain control, encourage sitting up in the chair, deep breathing and cough. We'll continue to follow with CT surgery. I performed a history & physical examination of the patient and discussed their management with my nurse practitioner, Margaret Miranda. I reviewed the nurse practitioner's note and agree with the documented findings and plan of care. Lung sounds are positive for diminished breath sounds. The findings and the impression was discussed with the patient. I attest to the documentation by the nurse practitioner. Time with Patient: Less than 30
[2019-01-02 10:52] LABS: ABG Base Excess -1.3 mmol/L; ABG HCO3 24 mmol/L (21-25); ABG Oxygen Saturation 40.7 % (94-97); ABG PCO2 41 mmHg (35-45); ABG PH 7.37 (7.35-7.45); ABG TCO2 25 mmol/L (19-24)
[2019-01-02 10:58] LABS: ABG PO2 25 mmHg (83-108)
[2019-01-02] MEDS: MILRINONE-D5W PMX 20 MG in DEXTROSE/WATER 1 100ML.BAG IV SCH (11:30)
[2019-01-02] MEDS: FOLIC ACID 1 MG TAB PO SCH (12:57)
[2019-01-02 13:28] LABS: Glucose,Whole Blood 114 mg/dL (75-99)
--- NOTE | 2019-01-02 13:41 | PN ---
PROGRESS NOTE This is a 78-year-old lady with history of coronary artery disease, status post CABG, postop day #3. Doing well and is free of symptoms. Remains in sinus rhythm. Had problems with postop anemia and required blood transfusion. Still has chest tubes in with significant amount of drainage. PHYSICAL EXAMINATION: On exam, heart rate is 80 beats per minute, blood pressure 96/50, respiratory rate is 18. Chest exam reveals diminished air entry at the bases. Heart exam reveals first and second heart sounds. No gallop. No murmur. No rub. Examination of extremities did not reveal any edema. ASSESSMENT: 1. Coronary artery disease, status post coronary artery bypass grafting. 2. Anemia secondary to blood loss. PLAN: Will continue the patient on aspirin, Plavix, metoprolol and the nebulizers along with statin. MMODL / IJN: [id number] /
[2019-01-02 15:32] LABS: ABG Base Excess -2.1 mmol/L; ABG HCO3 23 mmol/L (21-25); ABG PCO2 39 mmHg (35-45); ABG PH 7.38 (7.35-7.45); ABG TCO2 24 mmol/L (19-24)
[2019-01-02 15:40] LABS: ABG PO2 29 mmHg (83-108)
--- NOTE | 2019-01-02 16:58 | P.PN ---
Subjective On-call hospitalist covering Dr. Saldana over the weekend This is a pleasant 78 years old female with past medical history of hyperlipidemia and sleep apnea, she presents with acute non-ST elevation myocardial infarction with elevated troponins. Patient was found to have significant left main coronary artery disease, she underwent coronary artery bypass grafting by cardiothoracic surgery team. Patient is seen today in the intensive care unit, she was comfortable not in chest pain, no dyspnea. No change in urine or bowel habits. She is hemodynamically stable. Objective - Vital Signs Vital signs: Vital Signs Temp 99.3 F 01/02/19 16:00 Pulse 90 01/02/19 16:00 Resp 30 H 01/02/19 16:00 BP 109/55 01/02/19 16:00 Pulse Ox 90 L 01/02/19 16:00 Intake & Output 01/01/19 01/02/19 01/02/19 18:59 06:59 18:59 Intake Total 1190.676 625 500 Output Total 560 405 660 Balance 630.676 220 -160 Intake: IV 1155 535 500 Albumin Human 5% 250 ml 750 In Empty Bag 1 bag @ 250 mls/hr IVPB Q1HR PRN Rx#: [id number] CO/CI 70 70 200 Lactated Ringers 1,000 ml 230 360 240 @ 20 mls/hr IV .Q24H [facility] Rx#:[id number] Pressure bags 105 105 60 Intake, IV Titration 35.676 Amount Insulin Regular 100 unit 0.542 In Sodium Chloride 0.9% 100 ml @ Titrate IV .Q0M [facility] Rx#:[id number] Milrinone-D5w Pmx 20 mg 4.372 In Dextrose/Water 1 100ml .bag @ 0.2 MCG/KG/MIN 4. 446 mls/hr IV .[id number] [facility] Rx#:[id number] Norepinephrine 4 mg In 8.647 Sodium Chloride 0.9% 250 ml @ 0.02 MCG/KG/MIN 5. 997 mls/hr IV .Q24H [facility] Rx#:[id number] Norepinephrine 4 mg In 22.115 Sodium Chloride 0.9% 250 ml @ 0.05 MCG/KG/MIN 14. 116 mls/hr IV .Q18H [facility] Rx#:[id number] Oral 90 Output: Chest Tube Drainage 280 170 150 Left Pleural 250 170 150 Mediastinal 30 Drainage 35 Left Calf 10 Right Calf 25 Urine 245 235 510 Other: Voiding Method Indwelling Catheter Indwelling Catheter Indwelling Catheter ABP, PAP, CO, CI - Last Documented Arterial Blood Pressure 126/51 Pulmonary Artery Pressure 41/25 Cardiac Output 4.5 Cardiac Index 2.6 - Exam GENERAL: The patient is alert and oriented x3, not in any acute distress. Well developed, well nourished. HEENT: Pupils are round and equally reacting to light. EOMI. No scleral icterus. No conjunctival pallor. Normocephalic, atraumatic. No pharyngeal erythema. No thyromegaly. CARDIOVASCULAR: S1 and S2 present. No murmurs, rubs, or gallops. PULMONARY: Chest is clear to auscultation, no wheezing or crackles. ABDOMEN: Soft, nontender, nondistended, normoactive bowel sounds. No palpable organomegaly. MUSCULOSKELETAL: No joint swelling or deformity. EXTREMITIES: No cyanosis, clubbing, or pedal edema. NEUROLOGICAL: Gross neurological examination did not reveal any focal deficits. SKIN: No rashes. - Labs CBC & Chem 7: 01/02/19 06:10 01/02/19 05:10 Labs: Abnormal Lab Results - Last 24 Hours (Table) 01/01/19 01/01/19 01/02/19 Range/Units 17:17 22:55 05:10 WBC (3.8-10.6) k/uL RBC (3.80-5.40) m/uL Hgb (11.4-16.0) gm/dL Hct (34.0-46.0) % RDW (11.5-15.5) % Plt Count (150-450) k/uL Neutrophils # (Manual) (1.3-7.7) k/uL Monocytes # (Manual) (0-1.0) k/uL Nucleated RBCs (0-0) /100 WBC ABG pO2 (83-108) mmHg ABG Total CO2 (19-24) mmol/L ABG O2 Saturation (94-97) % Chloride 108 H (98-107) mmol/L Carbon Dioxide 21 L (22-30) mmol/L BUN 25 H (7-17) mg/dL POC Glucose (mg/dL) 135 H 133 H (75-99) mg/dL Calcium 7.8 L (8.4-10.2) mg/dL AST 325 H (14-36) U/L ALT 207 H (9-52) U/L Total Protein 5.0 L (6.3-8.2) g/dL 01/02/19 01/02/19 01/02/19 Range/Units 06:10 06:51 10:50 WBC 12.5 H (3.8-10.6) k/uL RBC 2.60 L (3.80-5.40) m/uL Hgb 7.8 L (11.4-16.0) gm/dL Hct 23.0 L (34.0-46.0) % RDW 18.6 H (11.5-15.5) % Plt Count 95 L (150-450) k/uL Neutrophils # (Manual) 10.20 H (1.3-7.7) k/uL Monocytes # (Manual) 1.13 H (0-1.0) k/uL Nucleated RBCs 9 H (0-0) /100 WBC ABG pO2 25 L* (83-108) mmHg ABG Total CO2 25 H (19-24) mmol/L ABG O2 Saturation 40.7 L (94-97) % Chloride (98-107) mmol/L Carbon Dioxide (22-30) mmol/L BUN (7-17) mg/dL POC Glucose (mg/dL) 129 H (75-99) mg/dL Calcium (8.4-10.2) mg/dL AST (14-36) U/L ALT (9-52) U/L Total Protein (6.3-8.2) g/dL 01/02/19 01/02/19 Range/Units 13:26 15:30 WBC (3.8-10.6) k/uL RBC (3.80-5.40) m/uL Hgb (11.4-16.0) gm/dL Hct (34.0-46.0) % RDW (11.5-15.5) % Plt Count (150-450) k/uL Neutrophils # (Manual) (1.3-7.7) k/uL Monocytes # (Manual) (0-1.0) k/uL Nucleated RBCs (0-0) /100 WBC ABG pO2 29 L* (83-108) mmHg ABG Total CO2 (19-24) mmol/L ABG O2 Saturation (94-97) % Chloride (98-107) mmol/L Carbon Dioxide (22-30) mmol/L BUN (7-17) mg/dL POC Glucose (mg/dL) 114 H (75-99) mg/dL Calcium (8.4-10.2) mg/dL AST (14-36) U/L ALT (9-52) U/L Total Protein (6.3-8.2) g/dL Assessment and Plan Assessment: Acute non-ST elevated AR with elevated troponin level. Status post CABG Hyperlipidemia Obstructive sleep apnea on CPAP at home Family history of coronary disease Previous history of smoking Peripheral neuropathy nondiabetic history of splenectomy Plan: This is a pleasant 78 years old female who presents for coronary artery disease, she status post CABG. She will continue with amiodarone as per recommendation, she is on aspirin and Plavix. Continue on heparin for DVT prophylaxis. Pain ma nagement. Several consultants R following the case including pulmonary, cardiology and cardiothoracic surgey.Labs and medication were reviewed.. Continue same treatment. Continue with symptomatic treatment. Resume home medication. Monitor lytes and vitals. DVT and GI prophylaxis. Further jax mmendations of the clinical course of the patient DVT prophylaxis: Subcutaneous heparin GI Prophylaxis: Ppi Prognosis is guarded
[2019-01-02 17:15] LABS: Glucose,Whole Blood 107 mg/dL (75-99)
[2019-01-02] MEDS: NOREPINEPHRINE 4 MG in SODIUM CHLORIDE 0.9% 250 ML IV SCH (20:41)
[2019-01-02] MEDS: SENNOSIDES-DOCUSATE SODIUM 1 EACH TAB PO SCH (20:42)
[2019-01-02 20:56] LABS: Glucose,Whole Blood 100 mg/dL (75-99)
[2019-01-03] MEDS: HEPARIN SODIUM,PORCINE 5,000 UNIT/ML 1 ML VIAL SQ SCH ×3 (03:08→16:54)
[2019-01-03] MEDS: KETOROLAC 30 MG/ML 1 ML VIAL IVP SCH ×4 (03:15→18:36)
[2019-01-03] MEDS: LACTATED RINGERS 1,000 ML IV SCH (04:07)
[2019-01-03 05:30] LABS: Anisocytosis Slight; HCT 23.6 % (34.0-46.0); HGB 7.8 gm/dL (11.4-16.0); Hypochromasia Slight; MCH 30.1 pg (25.0-35.0); MCV 91.3 fL (80.0-100.0); Mean Platelet Volume 12.4; Platelet Count 126 k/uL (150-450); RBC 2.59 m/uL (3.80-5.40); RDW 18.2 % (11.5-15.5); WBC 15.3 k/uL (3.8-10.6)
[2019-01-03 05:42] LABS: Albumin 3.3 g/dL (3.5-5.0); Calcium 8.1 mg/dL (8.4-10.2); Potassium 4.3 mmol/L (3.5-5.1); Total Protein 5.1 g/dL (6.3-8.2)
--- NOTE | 2019-01-03 06:31 | XR ---
EXAMINATION TYPE: XR chest 1V portable DATE OF EXAM: 01/03/2019 HISTORY: Postoperative cardiac surgery.. REFERENCE: Previous study dated 01/02/2019. FINDINGS: There has been a midline sternotomy. A left pleural drain remains in place. The heart is enlarged. There is bibasilar airspace disease. There are bilateral effusions. IMPRESSION: NO SIGNIFICANT INTERVAL CHANGE IN THE APPEARANCE OF THE CHEST.
[2019-01-03 07:05] LABS: Glucose,Whole Blood 92 mg/dL (75-99)
[2019-01-03] MEDS: IPRATROPIUM-ALBUTEROL 3 ML NEB INHALATION SCH ×4 (08:13→19:56)
[2019-01-03] MEDS: PANTOPRAZOLE 40 MG TABLET PO SCH (08:38)
[2019-01-03] MEDS: FERROUS SULFATE 325 MG TAB PO SCH ×2 (08:38→16:53)
[2019-01-03] MEDS: INSULIN ASPART (NovoLOG) 100 UNIT/ML VIAL SQ SCH ×4 (08:38→20:28)
[2019-01-03] MEDS: ASCORBIC ACID 500 MG TAB PO SCH ×2 (08:38→16:53)
[2019-01-03] MEDS: METOPROLOL TARTRATE 12.5 MG TAB PO SCH ×2 (08:39→20:27)
[2019-01-03] MEDS: ASPIRIN 81 MG PO SCH (08:39)
[2019-01-03] MEDS: GABAPENTIN 300 MG CAP PO SCH ×3 (08:39→20:28)
[2019-01-03] MEDS: CLOPIDOGREL 75 MG TAB PO SCH (08:39)
[2019-01-03] MEDS: MILRINONE-D5W PMX 20 MG in DEXTROSE/WATER 1 100ML.BAG IV SCH (08:39)
[2019-01-03] MEDS ORDERED: FUROSEMIDE 10 MG/ML 2 ML VIAL IV STA (08:57)
--- NOTE | 2019-01-03 09:29 | P.PN ---
Subjective Progress Note Date: 01/03/19 Principal diagnosis: Triple-vessel coronary artery disease with left main disease, non-ST elevation myocardial infarction, mild to moderate aortic valve regurgitation, preserved le ft ventricular function, hyperlipidemia, previous tobacco dependence with preoperative FEV1 98% of predicted, obstructive sleep apnea with home CPAP use, history of gastric ulcer with partial gastrectomy followed by splenectomy, arthritis, family history of premature coronary artery disease and preoperative chronic normocytic, normochromic anemia. POD #4 urgent triple vessel coronary artery bypass grafting using the left internal mammary artery to the left anterior descending artery across a plaque as a patch angioplasty, a reverse greater saphenous vein graft from the aorta to the second obtuse marginal artery, a reverse greater saphenous vein graft from the aorta to the posterior descending artery. Endoscopic harvesting of the bilateral greater saphenous veins, both greater saphenous veins from the groin to just below the knee level. Intraoperative transesophageal echocardiogram and epi-aortic scanning. Intraoperative graft flow measurements using the Medistim system. Intraoperative and postoperative acute blood loss anemia, an expected outcome given hemodilution, cardiopulmonary bypass pump and patient's preoperative anemia. Postoperative thrombocytopenia, an expected outcome given cardiopulmonary bypass pump. Postoperative elevation of her AST and ALT, an unexpected outcome. The patient is currently sitting up in bed chair in the intensive care unit. She is in no acute distress. Denies any complaints of pain or shortness of breath at this time. Remains on 10 L high flow oxygen with oxygen saturations 92%. Demonstrating a poor effort on her incentive spirometry and achieving 500 mL.. Remains hemodynamically stable and remains on Primacor at 0.2 mcg/kg/m. Lasix 20 mg IV 1 was given yesterday and she diuresed 450 mL. Objective - Vital Signs Vital signs: Vital Signs Temp 99.3 F 01/03/19 08:00 Pulse 83 01/03/19 09:00 Resp 17 01/03/19 09:00 BP 120/63 01/03/19 09:00 Pulse Ox 98 01/03/19 09:00 Intake & Output 01/02/19 01/03/19 01/03/19 18:59 06:59 18:59 Intake Total 492 522 452.57 Output Total 715 727 205 Balance -223 -205 247.57 Weight 81.4 kg Intake: IV 492 522 108 CO/CI 120 90 20 Lactated Ringers 1,000 ml 300 360 70 @ 20 mls/hr IV .Q24H [facility] Rx#:[id number] Pressure bags 72 72 18 Intake, IV Titration 104.57 Amount Milrinone-D5w Pmx 20 mg 104.57 In Dextrose/Water 1 100ml .bag @ 0.2 MCG/KG/MIN 4. 722 mls/hr IV .[id number] [facility] Rx#:[id number] Oral 240 Output: Chest Tube Drainage 160 250 60 Left Pleural 160 250 60 Drainage 70 Right Calf 70 Urine 555 407 145 Other: Voiding Method Indwelling Catheter Indwelling Catheter ABP, PAP, CO, CI - Last Documented Arterial Blood Pressure 126/51 Pulmonary Artery Pressure 30/13 Cardiac Output 3.7 Cardiac Index 2.3 - Constitutional General appearance: Present: cooperative, no acute distress, obese - Respiratory Details: Lung sounds with few scattered crackles throughout, diminished bilateral bases. Respirations are symmetrical and nonlabored. Oxygen saturation are 92% on 10 L high flow nasal cannula. Achieving 500 mL on her incentive spirometry. Left pleural chest tube remains in place to low continuous wall suction -20 cm H2O. No air leak is present. Draining thin serosanguineous drainage. 450 mL output in the last 24 hours, 240 mL output in the last 8 hours. - Cardiovascular Details: Regular rhythm and rate. S1 and S2 present, negative for S3, gallop or murmur. Sternum is stable. Bedside telemetry showing normal sinus rhythm heart rate 82. Primacor drip at 0.2 mcg/kg/m. Right IJ Cordis with [place]-Mary catheter in place and functioning. Cardiac output 4.1, cardiac index 2.3, PA pressures 34/12, CVP 7 mmHg. Heart hugger is in place with surgical support, and she is demonstrating appropriate use. Knee-high DENNY hose and sequential compression devices in place to bilateral lower extremities. Atrial and ventricular epicardial pacemaker wires in place and grounded. - Gastrointestinal Gastrointestinal Comment(s): Abdomen is soft, nontender and nondistended. Active bowel sounds all 4 abdominal quadrants. Passing flatus. No guarding or rigidity. Tolerating oral intake. - Genitourinary Genitourinary Comment(s): Jacobson catheter for accurate I&O. Draining clear yellow urine. 375 mL output in the last 8 hours. - Integumentary Integumentary Comment(s): Skin is warm and dry. No clubbing or cyanosis is present. Midline sternal incision is clean, dry and approximated. No drainage or redness is present. Exofin dressing is clean, dry and intact. Bilateral lower extremity EVH harvest sites clean, dry and approximated. No drainage or redness is present. - Neurologic Neurologic: Present: CNII-XII intact - Musculoskeletal Musculoskeletal: Present: gait normal, generalized weakness, strength equal bilaterally - Psychiatric Psychiatric: Present: A&O x's 3, appropriate affect, intact judgment & insight - Allied health notes Allied health notes reviewed: nursing - Labs CBC & Chem 7: 01/03/19 04:54 01/03/19 04:54 Labs: Abnormal Lab Results - Last 24 Hours (Table) 01/02/19 01/02/19 01/02/19 Range/Units 10:50 13:26 15:30 WBC (3.8-10.6) k/uL RBC (3.80-5.40) m/uL Hgb (11.4-16.0) gm/dL Hct (34.0-46.0) % RDW (11.5-15.5) % Plt Count (150-450) k/uL ABG pO2 25 L* 29 L* (83-108) mmHg ABG Total CO2 25 H (19-24) mmol/L ABG O2 Saturation 40.7 L (94-97) % Sodium (137-145) mmol/L BUN (7-17) mg/dL POC Glucose (mg/dL) 114 H (75-99) mg/dL Calcium (8.4-10.2) mg/dL AST (14-36) U/L ALT (9-52) U/L Total Protein (6.3-8.2) g/dL Albumin (3.5-5.0) g/dL 01/02/19 01/02/19 01/03/19 Range/Units 17:14 20:54 04:54 WBC 15.3 H (3.8-10.6) k/uL RBC 2.59 L (3.80-5.40) m/uL Hgb 7.8 L (11.4-16.0) gm/dL Hct 23.6 L (34.0-46.0) % RDW 18.2 H (11.5-15.5) % Plt Count 126 L (150-450) k/uL ABG pO2 (83-108) mmHg ABG Total CO2 (19-24) mmol/L ABG O2 Saturation (94-97) % Sodium (137-145) mmol/L BUN (7-17) mg/dL POC Glucose (mg/dL) 107 H 100 H (75-99) mg/dL Calcium (8.4-10.2) mg/dL AST (14-36) U/L ALT (9-52) U/L Total Protein (6.3-8.2) g/dL Albumin (3.5-5.0) g/dL 01/03/19 Range/Units 04:54 WBC (3.8-10.6) k/uL RBC (3.80-5.40) m/uL Hgb (11.4-16.0) gm/dL Hct (34.0-46.0) % RDW (11.5-15.5) % Plt Count (150-450) k/uL ABG pO2 (83-108) mmHg ABG Total CO2 (19-24) mmol/L ABG O2 Saturation (94-97) % Sodium 136 L (137-145) mmol/L BUN 28 H (7-17) mg/dL POC Glucose (mg/dL) (75-99) mg/dL Calcium 8.1 L (8.4-10.2) mg/dL AST 235 H (14-36) U/L ALT 275 H (9-52) U/L Total Protein 5.1 L (6.3-8.2) g/dL Albumin 3.3 L (3.5-5.0) g/dL - Imaging and Cardiology Chest x-ray: report reviewed, image reviewed Assessment and Plan Assessment: 1. Triple-vessel coronary artery disease with left main stenosis, status post urgent triple-vessel coronary artery bypass surgery 2. Non-STEMI 3. Mild to moderate aortic valve regurgitation 4. Preserved left ventricular function with an ejection fraction of 55% 5. Hyperlipidemia 6. Previous tobacco dependence, preoperative FEV1 98% of predicted 7. Obstructive sleep apnea with home CPAP use 8. History of gastric ulcer with partial gastrectomy 9. History of splenectomy 10. Arthritis 11. Family history of premature coronary artery disease 12. Preoperative chronic normocytic, normochromic anemia 13. Intraoperative and postoperative acute blood loss anemia, expected 14. Postoperative thrombocytopenia 15. History of peripheral neuropathy Plan: 1. Continue low-dose aspirin, Plavix, and beta bettye. Will increase beta bettye therapy as tolerated. 2. Lasix 20 mg IV 1 now. 3. Wean O2 as tolerated. Encourage incentive spirometry use 10 times every hour while awake. 4. Increase activity as tolerated. Out of bed for all meals PT/OT/cardiac rehab following. 5. Will monitor daily labs and chest x-rays. Electrolyte replacement per prot ocol. Continue iron/vitamin C. 6. Bronchodilators, CPAP per pulmonology management. 7. Pain control with current medication regimen. Limit narcotics. Continue Toradol. 8. Insulin management per primary care service. 9. Keep left pleural chest tube, Cordis, Scipio Mary catheter in place. Keep Fo adilia for strict accurate intake and output. 10. GI/DVT prophylaxis in place. 11. Keep atrial and ventricular epicardial pacemaker wires in place and grounded. 12. Continue to hold Lipitor, will monitor liver enzymes. Recheck liver enzymes in the a.m. 13. Continue Primacor 0.2 mcg/kg/m. 14. The importance of continued smoking cessation has been discussed with the patient. 15. More recommendations to follow based on patient's clinical course. Time with Patient: Greater than 30
--- NOTE | 2019-01-03 10:25 | PN ---
PROGRESS NOTE Mrs. Neal is a 78-year-old female who presented with a non ST-segment elevation myocardial infarction, underwent cardiac catheterization, subsequent coronary artery bypass grafting. She is doing well this morning. Her breathing is stable. She is denying any chest pain. She denies any dizziness or palpitation. She denies any nausea. She continues to be in sinus mechanism. She continues to be at this time on aspirin once a day, Lipitor 40 mg daily, Plavix 75 mg daily, Milrinone, metoprolol tartrate 12.5 mg twice a day. PHYSICAL EXAMINATION: Blood pressure running in the 100s with a heart rate in the 80s. LUNGS: A few crackles at the bases. HEART: Regular rate and rhythm. S1, S2. No S3. No rub appreciated. ABDOMEN: Soft, nontender. EXTREMITIES: No significant edema. LAB DATA: Revealed a hemoglobin of 7.8, which is similar to yesterday. BUN and creatinine 28 and 0.7. Her AST 235, ALT of 275. IMPRESSION: 1. Status post coronary artery bypass grafting. 2. Hyperlipidemia. 3. Anemia. 4. History of obstructive sleep apnea. RECOMMENDATION: From the cardiac standpoint, she is stable. Will continue present therapy, probably wean Milrinone to off, follow her hemoglobin. Increase her level of activity and depending on her progress, further recommendation will be made. MMODL / IJN: [id number] /
--- NOTE | 2019-01-03 10:27 | P.PN ---
Subjective Progress Note Date: 01/03/19 Principal diagnosis: Triple-vessel coronary artery disease, status post port coronary artery bypass grafting 3 utilizing a RIDDLE to the LAD, reverse saphenous vein grafts to the se cond obtuse marginal artery and posterior descending artery. The patient is seen today 01/03/2019 in follow-up on the intensive care unit. She is currently awake and alert in no acute distress. She is sitting up in a chair at the bedside. She is currently on 8 L high flow nasal cannula to mainta in O2 saturations in the 90s. PA pressure 36/12 CVP 5. Chest x-ray continues to show by basilar airspace disease and I lateral pleural effusions. Chest tubes remain in place. She will receive additional Lasix today. White count 15.3. Hemoglobin 7.8. Creatinine 0.75. AST 235. ALT 275. She remains on milrinone at 0.2 mcg/kg/m. Lactated Ringer's at 20 ML's per hour. Continued on DuoNeb's. Continues to work with the incentive spirometer. Pulling approximate 500 ML's. Objective - Vital Signs Vital signs: Vital Signs Temp 99.3 F 01/03/19 08:00 Pulse 87 01/03/19 10:00 Resp 20 01/03/19 10:00 BP 115/62 01/03/19 10:00 Pulse Ox 95 01/03/19 10:00 Intake & Output 01/02/19 01/03/19 01/03/19 18:59 06:59 18:59 Intake Total 492 522 478.57 Output Total 715 727 280 Balance -223 -205 198.57 Weight 81.4 kg Intake: IV 492 522 134 CO/CI 120 90 20 Lactated Ringers 1,000 ml 300 360 90 @ 20 mls/hr IV .Q24H [facility] Rx#:[id number] Pressure bags 72 72 24 Intake, IV Titration 104.57 Amount Milrinone-D5w Pmx 20 mg 104.57 In Dextrose/Water 1 100ml .bag @ 0.2 MCG/KG/MIN 4. 722 mls/hr IV .[id number] [facility] Rx#:[id number] Oral 240 Output: Chest Tube Drainage 160 250 60 Left Pleural 160 250 60 Drainage 70 Right Calf 70 Urine 555 407 220 Other: Voiding Method Indwelling Catheter Indwelling Catheter Indwelling Catheter ABP, PAP, CO, CI - Last Documented Arterial Blood Pressure 126/51 Pulmonary Artery Pressure 36/12 Cardiac Output 3.7 Cardiac Index 2.1 - Exam GENERAL EXAM: Pleasant 78-year-old female patient, pale, currently comfortable in no apparent distress. On 8 L high flow nasal cannula EYES: Normal reaction of pupils, equal size. NOSE: Clear with pink turbinates. THROAT: No erythema or exudates. NECK: No masses, no JVD. CHEST: Heart hugger in place. Sternum stable. Dressing intact. LUNGS: Equal air entry with crackles in the bilateral posterior bases. Mediastinal and left chest tubes in place. CVS: S1 and S2 normal with no audible murmur, regular rhythm. ABDOMEN: No hepatosplenomegaly, normal bowel sounds, no guarding or rigidity. SPINE: No scoliosis or deformity SKIN: No rashes CENTRAL NERVOUS SYSTEM: No focal deficits, tone is normal in all 4 extremities. EXTREMITIES: Left HARLEY drain remains in place. There is peripheral edema. No clubbing, no cyanosis. Peripheral pulses are intact. - Labs CBC & Chem 7: 01/03/19 04:54 01/03/19 04:54 Labs: Abnormal Lab Results - Last 24 Hours (Table) 01/02/19 01/02/19 01/02/19 Range/Units 10:50 13:26 15:30 WBC (3.8-10.6) k/uL RBC (3.80-5.40) m/uL Hgb (11.4-16.0) gm/dL Hct (34.0-46.0) % RDW (11.5-15.5) % Plt Count (150-450) k/uL ABG pO2 25 L* 29 L* (83-108) mmHg ABG Total CO2 25 H (19-24) mmol/L ABG O2 Saturation 40.7 L (94-97) % Sodium (137-145) mmol/L BUN (7-17) mg/dL POC Glucose (mg/dL) 114 H (75-99) mg/dL Calcium (8.4-10.2) mg/dL AST (14-36) U/L ALT (9-52) U/L Total Protein (6.3-8.2) g/dL Albumin (3.5-5.0) g/dL 0401/02/19 01/03/19 Range/Units 17:14 20:54 04:54 WBC 15.3 H (3.8-10.6) k/uL RBC 2.59 L (3.80-5.40) m/uL Hgb 7.8 L (11.4-16.0) gm/dL Hct 23.6 L (34.0-46.0) % RDW 18.2 H (11.5-15.5) % Plt Count 126 L (150-450) k/uL ABG pO2 (83-108) mmHg ABG Total CO2 (19-24) mmol/L ABG O2 Saturation (94-97) % Sodium (137-145) mmol/L BUN (7-17) mg/dL POC Glucose (mg/dL) 107 H 100 H (75-99) mg/dL Calcium (8.4-10.2) mg/dL AST (14-36) U/L ALT (9-52) U/L Total Protein (6.3-8.2) g/dL Albumin (3.5-5.0) g/dL 01/03/19 Range/Units 04:54 WBC (3.8-10.6) k/uL RBC (3.80-5.40) m/uL Hgb (11.4-16.0) gm/dL Hct (34.0-46.0) % RDW (11.5-15.5) % Plt Count (150-450) k/uL ABG pO2 (83-108) mmHg ABG Total CO2 (19-24) mmol/L ABG O2 Saturation (94-97) % Sodium 136 L (137-145) mmol/L BUN 28 H (7-17) mg/dL POC Glucose (mg/dL) (75-99) mg/dL Calcium 8.1 L (8.4-10.2) mg/dL AST 235 H (14-36) U/L ALT 275 H (9-52) U/L Total Protein 5.1 L (6.3-8.2) g/dL Albumin 3.3 L (3.5-5.0) g/dL Assessment and Plan Assessment: Impression: #1 Non-ST segment elevation myocardial infarction with significant triple-vessel disease. Status post coronary artery bypass grafting 3 with a RIDDLE to the LAD, reverse saphenous vein grafts to the OM 2 and PDA. #2 Intubation and mechanical ventilatory support as an expected outcome of surgery, successfully extubated within 6 hours. #3 Hyperlipidemia. #4 Obstructive sleep apnea. #5 Vitamin D deficiency. #6 Gastroesophageal reflux disease. #7 Degenerative joint disease. Plan: The patient was seen and evaluated by Dr. Love. Chest x-ray and labs were reviewed. Currently maintaining good O2 saturation on 8 L high flow nasal cannula. Encouraged regarding the increased use the incentive spirometer and cough and deep breathing exercises. Continue with bronchodilators. We'll increase her activity as tolerated. We'll continue to follow make further recommendations based on her clinical status. I, the cosigning physician, performed a history & physical examination of the patient. Lungs sounds with crackles in the bilateral posterior bases. Maintaining good O2 saturations in the 90s on 8 L/m per nasal cannula. I discussed the assessment and plan of care with my nurse practitioner, Cherie Zuniga. I attest to the above note as dictated by her.
[2019-01-03 11:48] LABS: Glucose,Whole Blood 114 mg/dL (75-99)
[2019-01-03] MEDS: LISINOPRIL 5 MG TAB PO SCH (12:19)
[2019-01-03] MEDS: FOLIC ACID 1 MG TAB PO SCH (12:20)
[2019-01-03 16:34] LABS: Glucose,Whole Blood 129 mg/dL (75-99)
--- NOTE | 2019-01-03 17:24 | P.PN ---
Subjective On-call hospitalist covering Dr. Saldana over the weekend This is a pleasant 78 years old female with past medical history of hyperlipidemia and sleep apnea, she presents with acute non-ST elevation myocardial infarction with elevated troponins. Patient was found to have significant left main coronary artery disease, she underwent coronary artery bypass grafting by cardiothoracic surgery team. Patient is seen today in the intensive care unit, she was comfortable not in chest pain, no dyspnea. No change in urine or bowel habits. She is hemodynamically stable. 01/03/2019 Patient remains in the ICU. She is with no chest pain or dyspnea. Vitals are stable. Patient has been afebrile over 48 hours. showing leukocytosis of 15.3. Hemoglobin 7.8. Platelets 126. INR 1.3 creatinine is normal. Liver enzymes mildly elevated. Patient is being followed by several consultants including pulmonary/critical care, cardiothoracic and cardiology team. Patient remains on aspirin and Plavix Objective - Vital Signs Vital signs: Vital Signs Temp 98.8 F 01/03/19 16:00 Pulse 92 01/03/19 17:00 Resp 20 01/03/19 17:00 BP 101/57 01/03/19 17:00 Pulse Ox 96 01/03/19 17:00 Intake & Output 01/02/19 01/03/19 01/03/19 18:59 06:59 18:59 Intake Total 084 210 9888.57 Output Total 104 067 8722 Balance -223 205 -960.43 Weight 81.4 kg Intake: IV 492 522 350 CO/CI 120 90 60 Lactated Ringers 1,000 ml 300 360 230 @ 20 mls/hr IV .Q24H [facility] Rx#:[id number] Pressure bags 72 72 60 Intake, IV Titration 104.57 Amount Milrinone-D5w Pmx 20 mg 104.57 In Dextrose/Water 1 100ml .bag @ 0.2 MCG/KG/MIN 4. 722 mls/hr IV .[id number] [facility] Rx#:[id number] Oral 720 Output: Chest Tube Drainage 160 250 190 Left Pleural 160 250 190 Drainage 70 Right Calf 70 Urine 058 318 6027 Other: Voiding Method Indwelling Catheter Indwelling Catheter Indwelling Catheter ABP, PAP, CO, CI - Last Documented Arterial Blood Pressure 126/51 Pulmonary Artery Pressure 40/20 Cardiac Output 4.1 Cardiac Index 2.3 - Exam GENERAL: The patient is alert and oriented x3, not in any acute distress. Well developed, well nourished. HEENT: Pupils are round and equally reacting to light. EOMI. No scleral icterus. No conjunctival pallor. Normocephalic, atraumatic. No pharyngeal erythema. No t hyromegaly. CARDIOVASCULAR: S1 and S2 present. No murmurs, rubs, or gallops. PULMONARY: Chest is clear to auscultation, no wheezing or crackles. ABDOMEN: Soft, nontender, nondistended, normoactive bowel sounds. No palpable organomegaly. MUSCULOSKELETAL: No joint swelling or deformity. EXTREMITIES: No cyanosis, clubbing, or pedal edema. NEUROLOGICAL: Gross neurological examination did not reveal any focal deficits. SKIN: No rashes. - Labs CBC & Chem 7: 01/03/19 04:54 01/03/19 04:54 Labs: Abnormal Lab Results - Last 24 Hours (Table) 01/02/19 01/03/19 01/03/19 Range/Units 20:54 04:54 04:54 WBC 15.3 H (3.8-10.6) k/uL RBC 2.59 L (3.80-5.40) m/uL Hgb 7.8 L (11.4-16.0) gm/dL Hct 23.6 L (34.0-46.0) % RDW 18.2 H (11.5-15.5) % Plt Count 126 L (150-450) k/uL Sodium 136 L (137-145) mmol/L BUN 28 H (7-17) mg/dL POC Glucose (mg/dL) 100 H (75-99) mg/dL Calcium 8.1 L (8.4-10.2) mg/dL AST 235 H (14-36) U/L ALT 275 H (9-52) U/L Total Protein 5.1 L (6.3-8.2) g/dL Albumin 3.3 L (3.5-5.0) g/dL 01/03/19 01/03/19 Range/Units 11:45 16:31 WBC (3.8-10.6) k/uL RBC (3.80-5.40) m/uL Hgb (11.4-16.0) gm/dL Hct (34.0-46.0) % RDW (11.5-15.5) % Plt Count (150-450) k/uL Sodium (137-145) mmol/L BUN (7-17) mg/dL POC Glucose (mg/dL) 114 H 129 H (75-99) mg/dL Calcium (8.4-10.2) mg/dL AST (14-36) U/L ALT (9-52) U/L Total Protein (6.3-8.2) g/dL Albumin (3.5-5.0) g/dL Assessment and Plan Assessment: Acute non-ST elevated [place] with elevated troponin level. Status post CABG Hyperlipidemia Obstructive sleep apnea on CPAP at home Family history of coronary disease Previous history of smoking Peripheral neuropathy nondiabetic history of splenectomy Plan: This is a pleasant 78 years old female who presents for coronary artery disease, she status post CABG. She will continue with amiodarone as per recommendation, she is on aspirin and Plavix. Continue on heparin for DVT prophylaxis. Pain management. Several consultants R following the case including pulmonary, cardiology and cardiothoracic surgey.Labs and medication were reviewed.. Continue same treatment. Continue with symptomatic treatment. Resume home medication. Monitor lytes and vitals. DVT and GI prophylaxis. Further recommendations of the clinical course of the patient DVT prophylaxis: Subcutaneous heparin GI Prophylaxis: Ppi Prognosis is guarded
[2019-01-03 20:02] LABS: Glucose,Whole Blood 142 mg/dL (75-99)
[2019-01-03] MEDS: SENNOSIDES-DOCUSATE SODIUM 1 EACH TAB PO SCH (20:27)
[2019-01-03] MEDS: ATORVASTATIN 40 MG TAB PO SCH (20:28)
[2019-01-04] MEDS: HEPARIN SODIUM,PORCINE 5,000 UNIT/ML 1 ML VIAL SQ SCH ×3 (01:47→16:55)
[2019-01-04] MEDS: KETOROLAC 30 MG/ML 1 ML VIAL IVP SCH ×4 (01:47→17:35)
[2019-01-04 05:43] LABS: Anisocytosis Slight; HCT 23.4 % (34.0-46.0); HGB 7.4 gm/dL (11.4-16.0); MCH 29.3 pg (25.0-35.0); MCHC 31.7 g/dL (31.0-37.0); MCV 92.2 fL (80.0-100.0); Mean Platelet Volume 11.5; Platelet Count 156 k/uL (150-450); RBC 2.54 m/uL (3.80-5.40); RDW 17.9 % (11.5-15.5); WBC 12.9 k/uL (3.8-10.6)
[2019-01-04 06:05] LABS: ALT 248 U/L (9-52); AST 164 U/L (14-36); Albumin 2.7 g/dL (3.5-5.0); Alkaline Phosphatase 79 U/L (38-126); Anion Gap 3 mmol/L; Blood Urea Nitrogen 22 mg/dL (7-17); Calcium 7.8 mg/dL (8.4-10.2); Carbon Dioxide 26 mmol/L (22-30); Chloride 109 mmol/L (98-107); Glucose 96 mg/dL (74-99); Potassium 4.1 mmol/L (3.5-5.1); Sodium 138 mmol/L (137-145); Total Bilirubin 0.9 mg/dL (0.2-1.3); Total Protein 4.5 g/dL (6.3-8.2)
--- NOTE | 2019-01-04 06:41 | XR ---
EXAMINATION TYPE: XR chest 1V portable DATE OF EXAM: 01/04/2019 HISTORY: Postoperative cardiac surgery.. REFERENCE: Previous study dated 01/03/2019. FINDINGS: There has been a midline sternotomy. There is a [place] catheter in place via a right int ernal jugular approach. Its tip is in the right interlobar artery. A left pleural drain is in place. The heart is mildly enlarged. Bibasilar airspace disease. There are bilateral effusions. There is mil d vascular congestion. IMPRESSION: CONTINUING POSTOPERATIVE CHANGE.
[2019-01-04 06:56] LABS: Glucose,Whole Blood 117 mg/dL (75-99)
[2019-01-04] MEDS: LACTATED RINGERS 1,000 ML IV SCH (06:56)
[2019-01-04] MEDS: INSULIN ASPART (NovoLOG) 100 UNIT/ML VIAL SQ SCH ×4 (06:56→21:08)
[2019-01-04] MEDS: MILRINONE-D5W PMX 20 MG in DEXTROSE/WATER 1 100ML.BAG IV SCH (06:57)
[2019-01-04] MEDS: FERROUS SULFATE 325 MG TAB PO SCH ×2 (07:11→17:30)
[2019-01-04] MEDS: PANTOPRAZOLE 40 MG TABLET PO SCH (07:11)
[2019-01-04] MEDS: ASCORBIC ACID 500 MG TAB PO SCH ×2 (07:11→17:30)
[2019-01-04] MEDS: IPRATROPIUM-ALBUTEROL 3 ML NEB INHALATION SCH ×4 (07:46→19:14)
--- NOTE | 2019-01-04 08:13 | P.PN ---
Subjective On-call hospitalist covering Dr. Saldana over the weekend This is a pleasant 78 years old female with past medical history of hyperlipidemia and sleep apnea, she presents with acute non-ST elevation myocardial infarction with elevated troponins. Patient was found to have significant left main coronary artery disease, she underwent coronary artery bypass grafting by cardiothoracic surgery team. Patient is seen today in the intensive care unit, she was comfortable not in chest pain, no dyspnea. No change in urine or bowel habits. She is hemodynamically stable. 01/03/2019 Patient remains in the ICU. She is with no chest pain or dyspnea. Vitals are stable. Patient has been afebrile over 48 hours. showing leukocytosis of 15.3. Hemoglobin 7.8. Platelets 126. INR 1.3 creatinine is normal. Liver enzymes mildly elevated. Patient is being followed by several consultants including pulmonary/critical care, cardiothoracic and cardiology team. Patient remains on aspirin and Plavix 01/04/2019. Patient remains in the ICU. She denies any complaint, denies chest pain or dyspnea. She still has chest tube in place. She is getting a breathing treatment. Her white cell count is improving down to 12.9 K. [place] is down elevated to 7.4., BMP is unremarkable. Still mildly elevated liver enzymes with normal bilirubin. Chest x-ray from this morning are reviewed showing postoperative changes. Dr. Saldana team will resume the care of the patient tomorrow Objective - Vital Signs Vital signs: Vital Signs Temp 99.0 F 01/04/19 04:00 Pulse 88 01/04/19 08:07 Resp 23 01/04/19 07:00 BP 115/60 01/04/19 07:00 Pulse Ox 96 01/04/19 07:50 Intake & Output 01/03/19 01/04/19 01/04/19 18:59 06:59 18:59 Intake Total 1200.57 508 Output Total 2225 600 Balance -1024.43 -92 Weight 81.7 kg Intake: IV 376 408 CO/CI 60 70 Lactated Ringers 1,000 ml 250 260 @ 20 mls/hr IV .Q24H [facility] Rx#:[id number] Pressure bags 66 78 Intake, IV Titration 104.57 100 Amount Milrinone-D5w Pmx 20 mg 104.57 100 In Dextrose/Water 1 100ml .bag @ 0.2 MCG/KG/MIN 4. 722 mls/hr IV .[id number] [facility] Rx#:[id number] Oral 720 Output: Chest Tube Drainage 230 100 Left Pleural 230 100 Urine 1995 500 Other: Voiding Method Indwelling Catheter Indwelling Catheter # Bowel Movements 1 ABP, PAP, CO, CI - Last Documented Arterial Blood Pressure 126/51 Pulmonary Artery Pressure 31/24 Cardiac Output 4.2 Cardiac Index 2.4 - Exam GENERAL: The patient is alert and oriented x3, not in any acute distress. Well developed, well nourished. HEENT: Pupils are round and equally reacting to light. EOMI. No scleral icterus. No conjunctival pallor. Normocephalic, atraumatic. No pharyngeal erythema. No thyromegaly. CARDIOVASCULAR: S1 and S2 present. No murmurs, rubs, or gallops. PULMONARY: Chest is clear to auscultation, no wheezing or crackles. ABDOMEN: Soft, nontender, nondistended, normoactive bowel sounds. No palpable organomegaly. MUSCULOSKELETAL: No joint swelling or deformity. EXTREMITIES: No cyanosis, clubbing, or pedal edema. NEUROLOGICAL: Gross neurological examination did not reveal any focal deficits. SKIN: No rashes. - Labs CBC & Chem 7: 01/04/19 04:51 01/04/19 04:51 Labs: Abnormal Lab Results - Last 24 Hours (Table) 01/03/19 01/03/19 01/03/19 Range/Units 11:45 16:31 20:00 WBC (3.8-10.6) k/uL RBC (3.80-5.40) m/uL Hgb (11.4-16.0) gm/dL Hct (34.0-46.0) % RDW (11.5-15.5) % Chloride (98-107) mmol/L BUN (7-17) mg/dL POC Glucose (mg/dL) 114 H 129 H 142 H (75-99) mg/dL Calcium (8.4-10.2) mg/dL AST (14-36) U/L ALT (9-52) U/L Total Protein (6.3-8.2) g/dL Albumin (3.5-5.0) g/dL 01/04/19 01/04/19 01/04/19 Range/Units 04:51 04:51 06:55 WBC 12.9 H (3.8-10.6) k/uL RBC 2.54 L (3.80-5.40) m/uL Hgb 7.4 L (11.4-16.0) gm/dL Hct 23.4 L (34.0-46.0) % RDW 17.9 H (11.5-15.5) % Chloride 109 H (98-107) mmol/L BUN 22 H (7-17) mg/dL POC Glucose (mg/dL) 117 H (75-99) mg/dL Calcium 7.8 L (8.4-10.2) mg/dL AST 164 H (14-36) U/L ALT 248 H (9-52) U/L Total Protein 4.5 L (6.3-8.2) g/dL Albumin 2.7 L (3.5-5.0) g/dL Assessment and Plan Assessment: Acute non-ST elevated CT with elevated troponin level. Status post CABG Hyperlipidemia Obstructive sleep apnea on CPAP at home Family history of coronary disease Previous history of smoking Peripheral neuropathy nondiabetic history of splenectomy Plan: This is a pleasant 78 years old female who presents for coronary artery disease, she status post CABG. She will continue with amiodarone as per recommendation, she is on aspirin and Plavix. Continue on heparin for DVT prophylaxis. Pain management. Several consultants R following the case including pulmonary, cardiology and cardiothoracic surgey.Labs and medication were reviewed.. Continue same treatment. Continue with symptomatic treatment. Resume home medication. Monitor lytes and vitals. DVT and GI prophylaxis. Further recommendations of the clinical course of the patient DVT prophylaxis: Subcutaneous heparin GI Prophylaxis: Ppi Prognosis is guarded
[2019-01-04] MEDS: METOPROLOL TARTRATE 12.5 MG TAB PO SCH ×2 (08:47→21:17)
[2019-01-04] MEDS: CLOPIDOGREL 75 MG TAB PO SCH (08:48)
[2019-01-04] MEDS: GABAPENTIN 300 MG CAP PO SCH ×3 (08:48→21:19)
[2019-01-04] MEDS: ASPIRIN 81 MG PO SCH (08:49)
--- NOTE | 2019-01-04 09:43 | P.PN ---
Subjective Progress Note Date: 01/04/19 Principal diagnosis: Triple-vessel coronary artery disease, status post coronary artery bypass grafting 3, with RIDDLE to LAD, reverse SVG to the OM 2 and PDA The patient is seen today 12/31/2018 in follow-up in the intensive care unit. She is status post non-ST segment elevation myocardial infarction followed by coronary artery bypass grafting utilizing a RIDDLE to the LAD, reverse saphenous vein grafts to the second obtuse marginal artery and posterior descending artery. This is postoperative day #1. She was successfully extubated within 5 hours and 59 minutes. She is currently sitting up at the bedside. She did have some issues with hypotension upon standing. She is status post total 5 units of packed red blood cells. She will be receiving a unit of platelets as well. Current hemoglobin 6.2. Platelet count 50,000. White count 6.2. AST 168. Creatinine 0.70. Potassium 4.5. Magnesium 2.3. She currently has lactated Ringer's at 50 MLS per hour. Insulin at 1 unit per hour. Primacor at 0.2 mg/kg/m. Maintaining O2 saturations in the 90s on 3 L/m per nasal cannula. Chest x-ray reveals minimal basilar atelectasis. She is working with the incentive spirometer. Blood pressure 117/46, PA pressure 39/19, mean 2, CVP 11. Cardiac output 4.2. Cardiac index 2.5. Split mediastinal chest tube output 40 mls, left chest tube 290 ML's. On 01/01/2019 patient seen in follow-up in the intensive care unit, she is resting comfortably in bed, remains complaint today is being very fatigued. Denies any dyspnea, she does have incisional pain. Incentive spirometer effort is 500 mL. Lung sounds are diminished. She is on 4 L of oxygen, pulse ox of 92%, blood pressure is 127/57, PA pressures 43/26, with a CVP of 22, CO/CRI is 3.8 and 2.1 respectively, sinus rhythm on the monitor with a controlled rate. IVs include lactated Ringer's at a rate of 20 ML per hour, Primacor is 0.1 mics per kilo per minute, insulin is at 1 unit per hour, and Levaquin that has been off. Today's chest x-ray has been reviewed, and shows bilateral airspace disease, increased interstitium, low lung volumes, changes most likely related to fluid volume overload, hypoventilatory lungs, bilateral pleural effusions, and associated atelectasis. Today's labs have been reviewed, and showed white blood cell count of 11.2, hemoglobin of 8.0, sodium is 139, potassium is 4.6, chloride is 110, B1 is 21, creatinine 0.67. LFT have trended up since yesterday, with AST up to 397, ALT is 192, and alkaline phosphatase is a 33. Patient is tolerating oral diet. Urine output is low, ranging from 20-25 ML per hour, mediastinal and left pleural chest tubes remain in place and there has been afebrile and a 40 mL out of the left pleural and 190 out of the mediastinal chest tube in last 24 hours of serosanguineous output. On 01/02/2090 patient seen in follow-up in the intensive care unit, she is resting in bed, she remains on high flow oxygen, currently at 9 L, her incentive spirometry effort is very suboptimal, she is pulling only 500 mL. Patient seems down, depressed. She is trying to keep up her oral intake, but appetite is poor, her pulse ox on 9 L is 96%, she is afebrile, she has been off Primacor and levofloxacin since yesterday, her PA pressures at 37/20, with CVP of 16, and cardiac output and index are 3.8 and 1.6 respectively. Urine output remains low, and patient has been in several liters positive fluid balance over the last 48 hours. She is up at least 10 kg since admission. Mediastinal chest tube has been discontinued, and left pleural chest tube remains in place, and there has been 420 mL of out of it in the last 24 hours of thin serosanguineous output. No IV fluids, no drips. Patient will be given a dose of IV Lasix today, her chest x-ray has been reviewed with Dr. Love and showed changes compatible with volume fluid overload, basilar atelectasis On 01/04/2019 patient seen in follow-up in the intensive care unit, she is much more awake and interactive today, in better spirits. FiO2 is on 3 L per nasal cannula with a pulse ox of 93%, IV LR and a rate of 30 ML per hour, and milrinone at 0.2 mics per kilo per minute. Blood pressure is 107/80, PA pressure of 26/18, with CVP of 9, and cardiac output and cardiac index 4.2 and 2.4 respectively. She is in sinus mechanism with a controlled rate, today's chest x-ray has been reviewed by Dr. Love, and still show some changes consistent with fluid volume overload and atelectasis. Clinically patient is feeling and sounding better. Diminished breath sounds at the bases, with scattered crackles. Working on her incentive spirometry. Left pleural chest tube remains in place, and there has been 160 mL of serosanguineous output in the last 24 hours, mediastinal chest tube has been discontinued at 48 hours ago. [place] catheter remains in place, and patient is nonoliguric. Already oral diet, today's labs have been reviewed, and showed a white blood cell, 12.9, hemoglobin of 7.4, sodium of 138, potassium is 4.1, chloride is 109, B1 is 22, creatinine 0.70, LFTs are improving, with AST down to 164, ALT is 248, and alkaline phosphatase is 79. Objective - Vital Signs Vital signs: Vital Signs Temp 99.1 F 01/04/19 08:00 Pulse 98 01/04/19 09:00 Resp 20 01/04/19 09:00 BP 107/80 01/04/19 09:00 Pulse Ox 93 L 01/04/19 09:00 Intake & Output 01/03/19 01/04/19 01/04/19 18:59 06:59 18:59 Intake Total 1200.57 508 312 Output Total 2225 600 220 Balance -1024.43 -92 92 Weight 81.7 kg Intake: IV 376 408 72 CO/CI 60 70 20 Lactated Ringers 1,000 ml 250 260 40 @ 20 mls/hr IV .Q24H [facility] Rx#:[id number] Pressure bags 66 78 12 Intake, IV Titration 104.57 100 Amount Milrinone-D5w Pmx 20 mg 104.57 100 In Dextrose/Water 1 100ml .bag @ 0.2 MCG/KG/MIN 4. 722 mls/hr IV .[id number] [facility] Rx#:[id number] Oral 720 240 Output: Chest Tube Drainage 230 100 160 Left Pleural 230 100 160 Urine 1995 500 60 Other: Voiding Method Indwelling Catheter Indwelling Catheter # Bowel Movements 1 ABP, PAP, CO, CI - Last Documented Arterial Blood Pressure 126/51 Pulmonary Artery Pressure 26/18 Cardiac Output 5.5 Cardiac Index 3.1 - Exam GENERAL EXAM: Alert, pleasant, 78-year-old female, on 3 L of oxygen, fatigued b ut comfortable in no apparent distress. HEAD: Normocephalic/atraumatic. EYES: Normal reaction of pupils, equal size. Conjunctiva pink, sclera white. NOSE: Clear with pink turbinates. THROAT: No erythema or exudates. NECK: No masses, no JVD, no thyroid enlargement, no adenopathy. CHEST: No chest wall deformity. Symmetrical expansion. Mid sternal incision is clean dry and intact, covered with surgical dressing, interval removal of the mediastinal chest tube, left pleural chest tube remains in place with thin serosanguineous output, no air leak. LUNGS: Equal air entry with diminished breath sounds CVS: Regular rate and rhythm, normal S1 and S2, no gallops, no murmurs, no rubs ABDOMEN: Soft, nontender. No hepatosplenomegaly, normal bowel sounds, no guarding or rigidity. EXTREMITIES: No clubbing, no edema, no cyanosis, 2+ pulses and upper and lower extremities. MUSCULOSKELETAL: Muscle strength and tone normal. SPINE: No scoliosis or deformity SKIN: No rashes CENTRAL NERVOUS SYSTEM: Alert and oriented -3. No focal deficits, tone is normal in all 4 extremities. PSYCHIATRIC: Alert and oriented -3. Appropriate affect. Intact judgment and insight. - Labs CBC & Chem 7: 01/04/19 04:51 01/04/19 04:51 Labs: Abnormal Lab Results - Last 24 Hours (Table) 01/03/19 01/03/19 01/03/19 Range/Units 11:45 16:31 20:00 WBC (3.8-10.6) k/uL RBC (3.80-5.40) m/uL Hgb (11.4-16.0) gm/dL Hct (34.0-46.0) % RDW (11.5-15.5) % Chloride (98-107) mmol/L BUN (7-17) mg/dL POC Glucose (mg/dL) 114 H 129 H 142 H (75-99) mg/dL Calcium (8.4-10.2) mg/dL Magnesium (1.6-2.3) mg/dL AST (14-36) U/L ALT (9-52) U/L Total Protein (6.3-8.2) g/dL Albumin (3.5-5.0) g/dL 01/04/19 01/04/19 01/04/19 Range/Units 04:51 04:51 04:51 WBC 12.9 H (3.8-10.6) k/uL RBC 2.54 L (3.80-5.40) m/uL Hgb 7.4 L (11.4-16.0) gm/dL Hct 23.4 L (34.0-46.0) % RDW 17.9 H (11.5-15.5) % Chloride 109 H (98-107) mmol/L BUN 22 H (7-17) mg/dL POC Glucose (mg/dL) (75-99) mg/dL Calcium 7.8 L (8.4-10.2) mg/dL Magnesium 2.4 H (1.6-2.3) mg/dL AST 164 H (14-36) U/L ALT 248 H (9-52) U/L Total Protein 4.5 L (6.3-8.2) g/dL Albumin 2.7 L (3.5-5.0) g/dL 01/04/19 Range/Units 06:55 WBC (3.8-10.6) k/uL RBC (3.80-5.40) m/uL Hgb (11.4-16.0) gm/dL Hct (34.0-46.0) % RDW (11.5-15.5) % Chloride (98-107) mmol/L BUN (7-17) mg/dL POC Glucose (mg/dL) 117 H (75-99) mg/dL Calcium (8.4-10.2) mg/dL Magnesium (1.6-2.3) mg/dL AST (14-36) U/L ALT (9-52) U/L Total Protein (6.3-8.2) g/dL Albumin (3.5-5.0) g/dL Assessment and Plan Plan: Assessment: #1 Non-ST segment elevation myocardial infarction with significant triple-vessel disease. Status post coronary artery bypass grafting 3 with a RIDDLE to the LAD, reverse saphenous vein grafts to the OM 2 and PDA, post op day 5 #2. Acute hypoxemic respiratory failure related to fluid volume overload, basil ar atelectasis, and pleural effusions #3 Intubation and mechanical ventilatory support as an expected outcome of surgery, successfully extubated within 6 hours. #4 Hyperlipidemia. #5 Obstructive sleep apnea. #6 Vitamin D deficiency. #7 Gastroesophageal reflux disease. #8 Degenerative joint disease. #9 postop blood loss anemia, an expected outcome of coronary bypass grafting surgery Plan: Continue with current medical treatment, chest x-ray still shows changes consistent with fluid volume overload, CT surgery has been dosing the diuretics. He received a dose yesterday, and diuresed. FiO2 is down to 3 L. encourage deep breathing and coughing, ambulation. Patient clinically is looking is sounding better. Continue to follow. I performed a history & physical examination of the patient and discussed their management with my nurse practitioner, Margaret Miranda. I reviewed the nurse practitioner's note and agree with the documented findings and plan of care. Lung sounds are positive for diminished breath sounds. The findings and the impression was discussed with the patient. I attest to the documentation by the nurse practitioner. Time with Patient: Less than 30
[2019-01-04] MEDS ORDERED: FUROSEMIDE 10 MG/ML 2 ML VIAL IV STA (09:50)
--- NOTE | 2019-01-04 09:55 | PN ---
PROGRESS NOTE Mrs. Neal is a 78-year-old female who has underwent coronary artery bypass grafting. She is doing well this morning, sitting up in the chair, denying any chest pain. She is in sinus mechanism. She is on low-dose Milrinone. She denies any dizziness or palpitations. She denies any nausea. She continues to be on aspirin once a day Plavix 75 mg daily, Lipitor 40 mg daily, lisinopril 5 mg daily and metoprolol tartrate 12.5 mg twice a day. PHYSICAL EXAMINATION: Blood pressure 111/70 with a heart rate in the 80s. LUNGS: No wheezes or rales. HEART: Regular rate and rhythm S1, S2. No S3. No rub. ABDOMEN: Soft, nontender. EXTREMITIES: Mild edema bilaterally. LAB DATA: Revealed BUN and creatinine of 22 and 0.7. AST of 164, ALT of 248, hemoglobin of 7.4. IMPRESSION: 1. Status post coronary artery bypass grafting stable, improving. 2. Hyperlipidemia. 3. Anemia. 4. History of obstructive sleep apnea. RECOMMENDATIONS: From the cardiac standpoint, I would expect we should be able to stop the Milrinone today. Continue rest of medical regimen. Increase her physical activity. Depending on her blood pressure and heart rate, the dose of her beta bettye will be further adjusted. MMODL / IJN: [id number] /
[2019-01-04] MEDS: LISINOPRIL 5 MG TAB PO SCH (09:58)
--- NOTE | 2019-01-04 10:15 | P.PN ---
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 POD #5 urgent triple vessel coronary artery bypass grafting using the left internal mammary artery to the left anterior descending artery across a plaque as a patch angioplasty, a reverse greater saphenous vein graft from the aorta to the second obtuse marginal artery, a reverse greater saphenous vein graft from the aorta to the posterior descending artery. Endoscopic harvesting of the bilateral greater saphenous veins, both greater saphenous veins from the groin to just below the knee level. Intraoperative transesophageal echocardiogram and epi-aortic scanning. Intraoperative graft flow measurements using the Medistim system. Intraoperative and postoperative acute blood loss anemia, an expected outcome given hemodilution, cardiopulmonary bypass pump and patient's preoperative anemia. Postoperative thrombocytopenia, an expected outcome given cardiopulmonary bypass pump. Postoperative elevation of her AST and ALT, an unexpected outcome. The patient is currently sitting up in bed chair in the intensive care unit. She is in no acute distress. Denies any complaints of pain or shortness of breath at this time. She is on 4 L oxygen with oxygen saturations 97%. Demonstrating 750 mL on her incentive spirometry. Remains hemodynamically stable and remains on Primacor at 0.2 mcg/kg/m. Lasix 20 mg IV 1 was given yesterday with good diuresis. Left pleural chest tube remains in place to low continuous wall suction -20 cm H2O. Draining thin serosanguineous drainage. No air leak is present. Objective - Vital Signs Vital signs: Vital Signs Temp 99.1 F 01/04/19 08:00 Pulse 98 01/04/19 09:00 Resp 20 01/04/19 09:00 BP 107/80 01/04/19 09:00 Pulse Ox 93 L 01/04/19 09:00 Intake & Output 01/03/19 01/04/19 01/04/19 18:59 06:59 18:59 Intake Total 1200.57 508 312 Output Total 2225 600 220 Balance -1024.43 -92 92 Weight 81.7 kg Intake: IV 376 408 72 CO/CI 60 70 20 Lactated Ringers 1,000 ml 250 260 40 @ 20 mls/hr IV .Q24H [facility] Rx#:[id number] Pressure bags 66 78 12 Intake, IV Titration 104.57 100 Amount Milrinone-D5w Pmx 20 mg 104.57 100 In Dextrose/Water 1 100ml .bag @ 0.2 MCG/KG/MIN 4. 722 mls/hr IV .[id number] [facility] Rx#:[id number] Oral 720 240 Output: Chest Tube Drainage 230 100 160 Left Pleural 230 100 160 Urine 1995 500 60 Other: Voiding Method Indwelling Catheter Indwelling Catheter # Bowel Movements 1 ABP, PAP, CO, CI - Last Documented Arterial Blood Pressure 126/51 Pulmonary Artery Pressure 26/18 Cardiac Output 5.5 Cardiac Index 3.1 - Constitutional General appearance: Present: cooperative, no acute distress, obese - Respiratory Details: Lung sounds with few scattered crackles to her bilateral bases. Respirations are symmetrical and nonlabored. Oxygen saturation are 97% on 4 L nasal cannula. Achieving 750 mL on her incentive spirometry. Left pleural chest tube remains in place to low continuous wall suction -20 cm H2O. No air leak is present. Draining thin serosanguineous drainage. 400 mL output in the last 24 hours, 280 mL output in the last 8 hours. - Cardiovascular Details: Regular rhythm and rate. S1 and S2 present, negative for S3, gallop or murmur. Sternum is stable. Bedside telemetry showing normal sinus rhythm heart rate 96. +1 edema to her bilateral lower extremities. Atrial and ventricular epicardial pacemaker wires in place and grounded. Heart hugger and surgical support bra and place and she is demonstrating straining appropriate use. Knee-high DENNY hose and sequential compression devices in place to her bilateral lower extremities. Right IJ Cordis with Morrison-Mary catheter in place and functioning. Current cardiac output 4.2, cardiac index 2.4, PA pressures 27/19, CVP 10 mmHg. - Gastrointestinal Gastrointestinal Comment(s): Abdomen is soft, nontender and nondistended. Active bowel sounds all 4 abdominal quadrants. Bowel movement this a.m. No guarding or rigidity. No organomegaly. - Genitourinary Genitourinary Comment(s): Jacobson catheter for accurate I&O. Draining clear yellow urine. 300 mL output in the last 8 hours. - Integumentary Integumentary Comment(s): Skin is warm and dry. No clubbing or cyanosis is present. Midline sternal incision is clean, dry and approximated. No drainage or redness is present. Exofin dressing is clean and intact. Bilateral lower extremity EVH harvest sites clean, dry and approximated. No drainage or redness present. - Neurologic Neurologic: Present: CNII-XII intact - Musculoskeletal Musculoskeletal: Present: gait normal, strength equal bilaterally - Psychiatric Psychiatric: Present: A&O x's 3, appropriate affect, intact judgment & insight - Allied health notes Allied health notes reviewed: nursing - Labs CBC & Chem 7: 01/04/19 04:51 01/04/19 04:51 Labs: Abnormal Lab Results - Last 24 Hours (Table) 01/03/19 01/03/19 01/03/19 Range/Units 11:45 16:31 20:00 WBC (3.8-10.6) k/uL RBC (3.80-5.40) m/uL Hgb (11.4-16.0) gm/dL Hct (34.0-46.0) % RDW (11.5-15.5) % Chloride (98-107) mmol/L BUN (7-17) mg/dL POC Glucose (mg/dL) 114 H 129 H 142 H (75-99) mg/dL Calcium (8.4-10.2) mg/dL Magnesium (1.6-2.3) mg/dL AST (14-36) U/L ALT (9-52) U/L Total Protein (6.3-8.2) g/dL Albumin (3.5-5.0) g/dL 01/04/19 01/04/19 01/04/19 Range/Units 04:51 04:51 04:51 WBC 12.9 H (3.8-10.6) k/uL RBC 2.54 L (3.80-5.40) m/uL Hgb 7.4 L (11.4-16.0) gm/dL Hct 23.4 L (34.0-46.0) % RDW 17.9 H (11.5-15.5) % Chloride 109 H (98-107) mmol/L BUN 22 H (7-17) mg/dL POC Glucose (mg/dL) (75-99) mg/dL Calcium 7.8 L (8.4-10.2) mg/dL Magnesium 2.4 H (1.6-2.3) mg/dL AST 164 H (14-36) U/L ALT 248 H (9-52) U/L Total Protein 4.5 L (6.3-8.2) g/dL Albumin 2.7 L (3.5-5.0) g/dL 01/04/19 Range/Units 06:55 WBC (3.8-10.6) k/uL RBC (3.80-5.40) m/uL Hgb (11.4-16.0) gm/dL Hct (34.0-46.0) % RDW (11.5-15.5) % Chloride (98-107) mmol/L BUN (7-17) mg/dL POC Glucose (mg/dL) 117 H (75-99) mg/dL Calcium (8.4-10.2) mg/dL Magnesium (1.6-2.3) mg/dL AST (14-36) U/L ALT (9-52) U/L Total Protein (6.3-8.2) g/dL Albumin (3.5-5.0) g/dL - Imaging and Cardiology Chest x-ray: report reviewed, image reviewed Assessment and Plan Assessment: 1. Triple-vessel coronary artery disease with left main stenosis, status post urgent triple-vessel coronary artery bypass surgery 2. Non-STEMI 3. Mild to moderate aortic valve regurgitation 4. Preserved left ventricular function with an ejection fraction of 55% 5. Hyperlipidemia 6. Previous tobacco dependence, preoperative FEV1 98% of predicted 7. Obstructive sleep apnea with home CPAP use 8. History of gastric ulcer with partial gastrectomy 9. History of splenectomy 10. Arthritis 11. Family history of premature coronary artery disease 12. Preoperative chronic normocytic, normochromic anemia 13. Intraoperative and postoperative acute blood loss anemia, expected 14. Postoperative thrombocytopenia 15. History of peripheral neuropathy Plan: 1. Continue low-dose aspirin, Plavix, and beta bettye. Will increase beta bettye therapy as tolerated. 2. Lasix 20 mg IV 1 now. 3. Wean O2 as tolerated. Encourage incentive spirometry use 10 times every hour while awake. 4. Increase activity as tolerated. Out of bed for all meals PT/OT/cardiac rehab following. 5. Will monitor daily labs and chest x-rays. Electrolyte replacement per protocol. Continue iron/vitamin C. 6. Bronchodilators, CPAP per pulmonology management. 7. Pain control with current medication regimen. Continue Toradol. 8. Insulin management per primary care service. 9. Keep left pleural chest tube, Cordis, Morrison Mary catheter in place. 10. GI/DVT prophylaxis in place. 11. Keep atrial and ventricular epicardial pacemaker wires in place and grounded. 12. Continue to hold Lipitor, will monitor liver enzymes. Recheck liver enzymes in the a.m. 13. Decrease Primacor to 0.1 mcg/kg/m. 14. The importance of continued smoking cessation has been discussed with the patient. 15. Discontinue Jacobson catheter today. 16. More recommendations to follow based on patient's clinical course. Time with Patient: Greater than 30
[2019-01-04 12:01] LABS: Glucose,Whole Blood 109 mg/dL (75-99)
[2019-01-04] MEDS: FOLIC ACID 1 MG TAB PO SCH (12:18)
[2019-01-04 17:00] LABS: Glucose,Whole Blood 106 mg/dL (75-99)
[2019-01-04 20:58] LABS: Glucose,Whole Blood 121 mg/dL (75-99)
[2019-01-04] MEDS: SENNOSIDES-DOCUSATE SODIUM 1 EACH TAB PO SCH (21:17)
[2019-01-04] MEDS: ATORVASTATIN 40 MG TAB PO SCH (21:17)
[2019-01-04] MEDS: ACETAMINOPHEN TAB 325 MG TAB PO PRN (21:17)
[2019-01-05] MEDS: HEPARIN SODIUM,PORCINE 5,000 UNIT/ML 1 ML VIAL SQ SCH ×3 (00:03→15:59)
[2019-01-05] MEDS: KETOROLAC 30 MG/ML 1 ML VIAL IVP SCH ×4 (00:03→18:05)
[2019-01-05 05:12] LABS: Anisocytosis Slight; HCT 23.8 % (34.0-46.0); HGB 7.7 gm/dL (11.4-16.0); MCH 29.3 pg (25.0-35.0); MCHC 32.2 g/dL (31.0-37.0); Mean Platelet Volume 11.3; Platelet Count 194 k/uL (150-450); RBC 2.62 m/uL (3.80-5.40); RDW 18.6 % (11.5-15.5); WBC 12.9 k/uL (3.8-10.6)
[2019-01-05 05:19] LABS: Anion Gap 6 mmol/L; Blood Urea Nitrogen 18 mg/dL (7-17); Calcium 8.2 mg/dL (8.4-10.2); Carbon Dioxide 27 mmol/L (22-30); Chloride 105 mmol/L (98-107); Glucose 95 mg/dL (74-99); Magnesium 2.2 mg/dL (1.6-2.3); Potassium 4.1 mmol/L (3.5-5.1); Sodium 138 mmol/L (137-145)
[2019-01-05] MEDS: INSULIN ASPART (NovoLOG) 100 UNIT/ML VIAL SQ SCH ×4 (05:53→20:33)
[2019-01-05] MEDS: LACTATED RINGERS 1,000 ML IV SCH (05:54)
[2019-01-05] MEDS: ACETAMINOPHEN TAB 325 MG TAB PO PRN (07:03)
[2019-01-05] MEDS: PANTOPRAZOLE 40 MG TABLET PO SCH (07:03)
[2019-01-05] MEDS: ASCORBIC ACID 500 MG TAB PO SCH ×2 (07:05→17:07)
[2019-01-05] MEDS: FERROUS SULFATE 325 MG TAB PO SCH ×2 (07:05→17:08)
--- NOTE | 2019-01-05 07:20 | P.PN ---
Subjective Progress Note Date: 01/05/19 Principal diagnosis: Coronary artery bypass grafting This is a pleasant 78-year-old female patient who is status post coronary arteriogram is grafting. On follow-up with her today, 01/05/2019, she is doing good overall. She is not on any drips at this point. She has been maintaining normal sinus mechanism. She seems to be asymptomatic. She is on dual antiplatelet therapy along with statin, lisinopril, and metoprolol. The expectation that the patient can be transferred out of the unit later on today. She still have the chest acute N. I will follow-up on the chest x-ray. Objective - Vital Signs Vital signs: Vital Signs Temp 98.1 F 01/05/19 04:00 Pulse 88 01/05/19 07:00 Resp 18 01/05/19 07:00 BP 104/62 01/05/19 07:00 Pulse Ox 92 L 01/05/19 07:00 Intake & Output 01/04/19 01/05/19 01/05/19 18:59 06:59 18:59 Intake Total 1054 240 20 Output Total 1994 470 0 Balance -941 -230 20 Weight 80.9 kg Intake: IV 334 240 20 CO/CI 60 Lactated Ringers 1,000 ml 220 240 20 @ 20 mls/hr IV .Q24H [facility] Rx#:[id number] Pressure bags 54 Oral 720 Output: Chest Tube Drainage 220 320 Left Pleural 220 320 Urine 1775 150 0 Other: Voiding Method Indwelling Catheter # Voids 0 0 # Bowel Movements 1 ABP, PAP, CO, CI - Last Documented Arterial Blood Pressure 126/51 Pulmonary Artery Pressure 26/19 Cardiac Output 4.6 Cardiac Index 2.6 - Constitutional General appearance: Present: no acute distress - Respiratory Respiratory: bilateral: CTA - Cardiovascular Rhythm: regular Heart sounds: normal: S1, S2 - Labs CBC & Chem 7: 01/05/19 05:00 01/05/19 05:00 Labs: Abnormal Lab Results - Last 24 Hours (Table) 01/04/19 01/04/19 01/04/19 Range/Units 04:51 11:59 16:58 WBC (3.8-10.6) k/uL RBC (3.80-5.40) m/uL Hgb (11.4-16.0) gm/dL Hct (34.0-46.0) % RDW (11.5-15.5) % BUN (7-17) mg/dL POC Glucose (mg/dL) 109 H 106 H (75-99) mg/dL Calcium (8.4-10.2) mg/dL Magnesium 2.4 H (1.6-2.3) mg/dL 01/04/19 01/05/19 01/05/19 Range/Units 20:56 05:00 05:00 WBC 12.9 H (3.8-10.6) k/uL RBC 2.62 L (3.80-5.40) m/uL Hgb 7.7 L (11.4-16.0) gm/dL Hct 23.8 L (34.0-46.0) % RDW 18.6 H (11.5-15.5) % BUN 18 H (7-17) mg/dL POC Glucose (mg/dL) 121 H (75-99) mg/dL Calcium 8.2 L (8.4-10.2) mg/dL Magnesium (1.6-2.3) mg/dL Assessment and Plan Assessment: Assessment #1 status post coronary artery bypass grafting #2 dyslipidemia #3 hypertension Plan #1 the patient can be transferred out of the unit #2 continue the current medical regimen #3 follow-up with the patient
[2019-01-05] MEDS: IPRATROPIUM-ALBUTEROL 3 ML NEB INHALATION SCH ×4 (07:43→19:48)
[2019-01-05] MEDS: METOPROLOL TARTRATE 12.5 MG TAB PO SCH ×2 (08:11→21:30)
[2019-01-05] MEDS: CLOPIDOGREL 75 MG TAB PO SCH (08:12)
[2019-01-05] MEDS: GABAPENTIN 300 MG CAP PO SCH ×3 (08:12→21:31)
[2019-01-05] MEDS: ASPIRIN 81 MG PO SCH (08:12)
[2019-01-05 08:22] LABS: ALT 238 U/L (9-52); AST 118 U/L (14-36)
--- NOTE | 2019-01-05 08:35 | XR ---
EXAMINATION TYPE: XR chest 1V portable DATE OF EXAM: 01/05/2019 COMPARISON: 01/04/2019 HISTORY: Postop TECHNIQUE: Single frontal view of the chest is obtained. FINDINGS: Left-sided chest tube seen and there is postsurgical changes. Bilateral consolidation and pleural effusion. No pneumothorax. Heart is enlarged. Atherosclerotic change aorta. Desha-Mary cathete r has been removed. IMPRESSION: Bilateral consolidation and pleural effusion correlate for CHF.
[2019-01-05] MEDS: HYDROcodone/APAP 5-325MG 1 EACH TAB PO PRN ×3 (09:19→22:46)
[2019-01-05] MEDS: LISINOPRIL 5 MG TAB PO SCH (09:23)
[2019-01-05] MEDS ORDERED: FUROSEMIDE 10 MG/ML 2 ML VIAL IV STA (09:32)
--- NOTE | 2019-01-05 10:02 | P.PN ---
Subjective Progress Note Date: 01/05/19 Principal diagnosis: Triple-vessel coronary artery disease with left main disease, non-ST elevation myocardial infarction, mild to moderate aortic valve regurgitation, preserved le ft ventricular function, hyperlipidemia, previous tobacco dependence with preoperative FEV1 98% of predicted, obstructive sleep apnea with home CPAP use, history of gastric ulcer with partial gastrectomy followed by splenectomy, arthritis, family history of premature coronary artery disease and preoperative chronic normocytic, normochromic anemia. POD #6 urgent triple vessel coronary artery bypass grafting using the left internal mammary artery to the left anterior descending artery across a plaque as a patch angioplasty, a reverse greater saphenous vein graft from the aorta to the second obtuse marginal artery, a reverse greater saphenous vein graft from the aorta to the posterior descending artery. Endoscopic harvesting of the bilateral greater saphenous veins, both greater saphenous veins from the groin to just below the knee level. Intraoperative transesophageal echocardiogram and epi-aortic scanning. Intraoperative graft flow measurements using the Medistim system. Intraoperative and postoperative acute blood loss anemia, an expected outcome given hemodilution, cardiopulmonary bypass pump and patient's preoperative anemia. Postoperative thrombocytopenia, an expected outcome given cardiopulmonary bypass pump. Postoperative elevation of her AST and ALT, an unexpected outcome. The patient is sitting up in bed chair in the intensive care unit. She is in no acute distress. She is complaining of pain to her chest tube insertion site 5 out of 10 on the pain scale and denies any complaints of shortness of breath. She reports that she ambulated in the intensive care unit following this morning but only ambulated around 50 feet due to some pain to her chest tube site. Demonstrating 750 mL on her incentive spirometry with encouragement. Remains hemodynamically stable and afebrile. Lasix 20 mg IV 1 was given yesterday with good diuresis. Left pleural chest tube remains in place to low continuous wall suction -20 cm H2O. Draining thin serosanguineous drainage. No air leak is present. Primacor drip has been discontinued. Objective - Vital Signs Vital signs: Vital Signs Temp 97.7 F 01/05/19 08:00 Pulse 85 01/05/19 09:00 Resp 18 01/05/19 09:00 BP 101/53 01/05/19 09:00 Pulse Ox 96 01/05/19 09:00 Intake & Output 04/28/19 04/29/19 04/29/19 18:59 06:59 18:59 Intake Total 1054 240 300 Output Total 1994 470 50 Balance -941 -230 250 Weight 80.9 kg Intake: IV 334 240 60 CO/CI 60 Lactated Ringers 1,000 ml 220 240 60 @ 20 mls/hr IV .Q24H [facility] Rx#:[id number] Pressure bags 54 Oral 720 240 Output: Chest Tube Drainage 220 320 50 Left Pleural 220 320 50 Urine 1775 150 0 Other: Voiding Method Indwelling Catheter Indwelling Catheter # Voids 0 0 # Bowel Movements 1 ABP, PAP, CO, CI - Last Documented Arterial Blood Pressure 126/51 Pulmonary Artery Pressure 26/19 Cardiac Output 4.6 Cardiac Index 2.6 - Constitutional General appearance: Present: cooperative, no acute distress, obese - Respiratory Details: Lungs sounds essentially clear to her bilateral upper lobes, few scattered crackles to bilateral bases. Respirations are symmetrical and nonlabored. Oxygen saturation are 95% on 2 L nasal cannula. Achieving 750 mL on her incentive spirometry. Left pleural chest tube remains in place to low continuous wall suction -20 cm H2O. No air leak is present. Draining thin serosanguineous drainage. 260 mL output in the last 8 hours, 400 mL output in the last 24 hours. - Cardiovascular Details: Regular rhythm and rate. S1 and S2 present, negative for S3, gallop or murmur. Sternum is stable. Bedside telemetry showing normal sinus rhythm heart rate 89. Right IJ Cordis in place to continue CVP monitoring. Current CVP pressure 10 mmHg. Atrial and ventricular epicardial pacemaker wires in place and rounded. Surgical support bra and heart hugger device in place and demonstrating appropriate use. Knee-high DENNY hose and sequential compression devices in place to bilateral lower extremities. +1 edema to her bilateral lower extremities. - Gastrointestinal Gastrointestinal Comment(s): Abdomen is soft, nontender and nondistended. Active bowel sounds all 4 abdominal quadrants. No guarding or rigidity. No organomegaly. Bowel movement yesterday 01/04/2019. Tolerating oral intake. - Genitourinary Genitourinary Comment(s): Voiding clear yellow urine. - Integumentary Integumentary Comment(s): Skin is warm and dry. No clubbing or cyanosis is present. Midline sternal incision is clean, dry and approximated. No drainage or redness is present. Exofin dressing is in place, dry and intact. Bilateral lower extremity EVH sites clean, dry and approximated. No drainage or redness is present. - Neurologic Neurologic: Present: CNII-XII intact - Musculoskeletal Musculoskeletal: Present: gait normal, generalized weakness, strength equal bilaterally - Psychiatric Psychiatric: Present: A&O x's 3, appropriate affect, intact judgment & insight - Allied health notes Allied health notes reviewed: nursing - Labs CBC & Chem 7: 01/05/19 05:00 01/05/19 05:00 Labs: Abnormal Lab Results - Last 24 Hours (Table) 01/04/19 01/04/19 01/04/19 Range/Units 11:59 16:58 20:56 WBC (3.8-10.6) k/uL RBC (3.80-5.40) m/uL Hgb (11.4-16.0) gm/dL Hct (34.0-46.0) % RDW (11.5-15.5) % BUN (7-17) mg/dL POC Glucose (mg/dL) 109 H 106 H 121 H (75-99) mg/dL Calcium (8.4-10.2) mg/dL AST (14-36) U/L ALT (9-52) U/L 01/05/19 01/05/19 01/05/19 Range/Units 05:00 05:00 07:21 WBC 12.9 H (3.8-10.6) k/uL RBC 2.62 L (3.80-5.40) m/uL Hgb 7.7 L (11.4-16.0) gm/dL Hct 23.8 L (34.0-46.0) % RDW 18.6 H (11.5-15.5) % BUN 18 H (7-17) mg/dL POC Glucose (mg/dL) (75-99) mg/dL Calcium 8.2 L (8.4-10.2) mg/dL AST 118 H (14-36) U/L ALT 238 H (9-52) U/L - Imaging and Cardiology Chest x-ray: report reviewed, image reviewed Assessment and Plan Assessment: 1. Triple-vessel coronary artery disease with left main stenosis, status post urgent triple-vessel coronary artery bypass surgery 2. Non-STEMI 3. Mild to moderate aortic valve regurgitation 4. Preserved left ventricular function with an ejection fraction of 55% 5. Hyperlipidemia 6. Previous tobacco dependence, preoperative FEV1 98% of predicted 7. Obstructive sleep apnea with home CPAP use 8. History of gastric ulcer with partial gastrectomy 9. History of splenectomy 10. Arthritis 11. Family history of premature coronary artery disease 12. Preoperative chronic normocytic, normochromic anemia 13. Intraoperative and postoperative acute blood loss anemia, expected 14. Postoperative thrombocytopenia 15. History of peripheral neuropathy Plan: 1. Continue low-dose aspirin, Plavix, KELVIN inhibitor and beta bettye. Will increase beta bettye therapy as tolerated. 2. Lasix 20 mg IV 1 now. 3. Wean O2 as tolerated. Encourage incentive spirometry use 10 times every hour while awake. 4. Increase activity as tolerated. Out of bed for all meals PT/OT/cardiac rehab following. 5. Will monitor daily labs and chest x-rays. Electrolyte replacement per protocol. 6. Bronchodilators, CPAP per pulmonology management. 7. Pain control with current medication regimen. Continue Toradol. 8. Insulin management per primary care service. 9. Keep left pleural chest tube in place. Continue to monitor left pleural chest tube drainage. 10. GI/DVT prophylaxis in place. 11. Keep atrial and ventricular epicardial pacemaker wires in place and grounded. 12. Continue to hold Lipitor, will monitor liver enzymes. Recheck liver enzymes in the a.m. 13. Continue iron/vitamin C. 14. The importance of continued smoking cessation has been discussed with the patient. 15. Discontinue right IJ Cordis. 16. Consult Dr. Veronica for inpatient rehab placement. The patient has generalized weakness postoperatively. 17. Transferred to 3 [facility] cardiac stepdown unit for further rehabilitation needs. 18. More recommendations to follow based on patient's clinical course. Time with Patient: Greater than 30
[2019-01-05 12:02] LABS: Glucose,Whole Blood 115 mg/dL (75-99)
[2019-01-05] MEDS: FOLIC ACID 1 MG TAB PO SCH (12:31)
--- NOTE | 2019-01-05 12:41 | P.PN ---
Subjective Principal diagnosis: Patient resting in bed without complaint. Noted elevated liver enzymes repeated in the morning. Patient stabilizing order given for transfer to stepdown per surgeon. Plans being made with Dr. Veronica for rehab Objective - Vital Signs Vital signs: Vital Signs Temp 98 F 01/05/19 12:00 Pulse 83 01/05/19 12:00 Resp 18 01/05/19 12:00 BP 115/68 01/05/19 12:00 Pulse Ox 96 01/05/19 12:00 Intake & Output 01/04/19 01/05/19 01/05/19 18:59 06:59 18:59 Intake Total 1054 240 320 Output Total 1105 532 9797 Balance -941 -230 -760 Weight 80.9 kg Intake: IV 334 240 80 CO/CI 60 Lactated Ringers 1,000 ml 220 240 80 @ 20 mls/hr IV .Q24H [facility] Rx#:[id number] Pressure bags 54 Oral 720 240 Output: Chest Tube Drainage 220 320 130 Left Pleural 220 320 130 Urine 1775 150 950 Other: Voiding Method Indwelling Catheter Indwelling Catheter # Voids 0 1 # Bowel Movements 1 1 ABP, PAP, CO, CI - Last Documented Arterial Blood Pressure 126/51 Pulmonary Artery Pressure 26/19 Cardiac Output 4.6 Cardiac Index 2.6 - Constitutional General appearance: Present: mild distress - EENT Eyes: Present: PERRLA Ears: bilateral: normal - Neck Neck: Present: normal ROM - Respiratory Respiratory: bilateral: CTA - Cardiovascular Rhythm: regular - Gastrointestinal General gastrointestinal: Present: soft - Neurologic Neurologic: Present: CNII-XII intact - Musculoskeletal Musculoskeletal: Present: generalized weakness - Psychiatric Psychiatric: Present: A&O x's 3, appropriate affect, intact judgment & insight - Labs CBC & Chem 7: 01/05/19 05:00 01/05/19 05:00 Labs: Abnormal Lab Results - Last 24 Hours (Table) 01/04/19 01/04/19 01/05/19 Range/Units 16:58 20:56 05:00 WBC 12.9 H (3.8-10.6) k/uL RBC 2.62 L (3.80-5.40) m/uL Hgb 7.7 L (11.4-16.0) gm/dL Hct 23.8 L (34.0-46.0) % RDW 18.6 H (11.5-15.5) % BUN (7-17) mg/dL POC Glucose (mg/dL) 106 H 121 H (75-99) mg/dL Calcium (8.4-10.2) mg/dL AST (14-36) U/L ALT (9-52) U/L 01/05/19 01/05/19 01/05/19 Range/Units 05:00 07:21 12:00 WBC (3.8-10.6) k/uL RBC (3.80-5.40) m/uL Hgb (11.4-16.0) gm/dL Hct (34.0-46.0) % RDW (11.5-15.5) % BUN 18 H (7-17) mg/dL POC Glucose (mg/dL) 115 H (75-99) mg/dL Calcium 8.2 L (8.4-10.2) mg/dL AST 118 H (14-36) U/L ALT 238 H (9-52) U/L Assessment and Plan Plan: Assessment Postop three-vessel bypass Acute non-ST elevated [place] with elevated troponins Postop anemia and thrombocytopenia expected Elevated liver enzymes Hyperlipidemia Sleep apnea on CPAP at home Family history coronary disease Peripheral neuropathy nondiabetic \ Plan Repeat liver studies in a.m. May be transferred to stepdown unit per cardiac surgeon Continue consultation with cardiology pulmonology Hopeful discharge plan to rehab with Dr. Veronica
--- NOTE | 2019-01-05 13:38 | P.CONS ---
History of Present Illness - Chief Complaint Cardiac debility - History of Present Illness I had the opportunity to see patient for inpatient rehab consultation with regard to cardiac debility. She was admitted to [facility] December 29 with chest pain. Workup revealed non-STEMI. On 424 underwent three-vessel coronary bypass. Seen in consultation by Drs. Pham and Ivan. Chest x-rays followed for consolidation and effusion. PT reports general strengthening exercises on January 04. OT reports maximal assistance for upper dressing and two-person assistance for lower dressing and bathing. Unable to assess toileting or transfer. Previous functional history as elicited from patient: 78-year-old right-handed white female who is lives in one floor home alone. Retired. Describes independent with own cooking, laundry, driving, standing shower and gait without device. History smoking but doesn't smoke currently. Rare drink. Dr. Dora Saldana is regular doctor. Family history both parents with cardiac disease. Review of Systems Review of systems: ENT: Denies sneezes or discharge. Eyes: Denies discharge or photophobia. Cardiac: Mild chest and sternal discomfort. Pulmonary: Mild shortness of breath. Breast: Denies discharge or lumps. Gastrointestinal: Denies nausea, emesis, constipation, diarrhea. Genitourinary: Denies discharge or frequency. Musculoskeletal: Denies muscle or bone aches. Neurologic: Denies motor or sensory change. Endocrine: Denies shakes or sweats. Oncology: Denies cancers. Dermatologic: Denies rash, itching, pruritus. ALLERGY/immunology: Denies sneezes, rashes. Past Medical History Past Medical History: Hyperlipidemia, Sleep Apnea/CPAP/BIPAP Additional Past Medical History / Comment(s): pt states she has bleeding issues in the past after surgery. History of Any Multi-Drug Resistant Organisms: None Reported Past Surgical History: Back Surgery Additional Past Surgical History / Comment(s): Bleeding ulcer-took 1/4 of stomach, splenectomy, cornea replacement right eye Past Anesthesia/Blood Transfusion Reactions: No Reported Reaction Past Psychological History: No Psychological Hx Reported Smoking Status: Former smoker Past Alcohol Use History: Rare Past Drug Use History: None Reported - Past Family History Brother(s) Family Medical History: Coronary Artery Disease (CAD), Myocardial Infarction (AK) Additional Family Medical History / Comment(s): all brothers with heart disease, one who of AK @ 53 years old Medications and Allergies Home Medications Medication Instructions Recorded Confirmed Type Atorvastatin [Lipitor] 40 mg PO DAILY 12/27/18 12/27/18 History Calcium Carbonate/Vitamin D3 1 tab PO BID 12/27/18 12/27/18 History [Calcium 500-Vit D3 600 Tablet] Cholecalciferol (Vitamin D3) 4,000 unit PO DAILY 12/27/18 12/27/18 History [Vitamin D3] Ferrous Sulfate [Iron (65 MG 325 mg PO Q48H 12/27/18 12/27/18 History Elemental)] Fluorometholone 0.1% Ophth Amy 1 drop PO HS 12/27/18 12/27/18 History [Fml] Folic Acid 1 mg PO DAILY 12/27/18 12/27/18 History Gabapentin [Neurontin] 300 mg PO TID 12/27/18 12/27/18 History Latanoprost [Xalatan 0.005%] 1 drop BOTH EYES HS 12/27/18 12/27/18 History Magnesium Oxide [Mag-Ox] 250 mg PO DAILY 12/27/18 12/27/18 History Meloxicam 15 mg PO DAILY 12/27/18 12/27/18 History Omeprazole 40 mg PO DAILY 12/27/18 12/27/18 History Vit C/E/Zn/Coppr/Lutein/Zeaxan 2 cap PO BID 12/27/18 12/27/18 History [Preservision Areds 2 Softgel] Allergies Allergy/AdvReac Type Severity Reaction Status Date / Time pregabalin [From Lyrica] AdvReac Unknown Verified 12/27/18 10:02 Physical Exam Vitals: Vital Signs Temp Pulse Resp BP Pulse Ox 01/05/19 12:00 98 F 83 18 115/68 96 01/05/19 11:33 89 01/05/19 11:22 87 01/05/19 11:00 82 18 111/73 97 01/05/19 10:00 85 16 113/63 96 01/05/19 09:00 85 18 101/53 96 01/05/19 08:00 97.7 F 89 20 104/70 95 01/05/19 07:56 86 01/05/19 07:43 95 01/05/19 07:00 88 18 104/62 92 L 01/05/19 06:00 91 18 104/62 94 L 04/29/19 05:00 83 26 H 108/67 94 L 01/05/19 04:00 98.1 F 79 26 H 102/63 94 L 01/05/19 03:00 80 18 93/62 93 L 01/05/19 02:00 80 18 104/63 93 L 01/05/19 01:00 80 19 98/67 93 L 01/05/19 00:00 98.1 F 80 20 91/65 93 L 01/04/19 23:00 89 23 102/65 92 L 01/04/19 22:00 98.1 F 90 21 125/73 95 01/04/19 21:00 90 18 100/78 96 01/04/19 20:00 98.6 F 86 23 107/73 94 L 01/04/19 19:49 20 01/04/19 19:30 84 01/04/19 19:15 82 01/04/19 19:00 87 23 104/57 96 01/04/19 18:00 89 12 116/80 95 01/04/19 17:00 91 20 116/66 94 L 01/04/19 16:00 99.7 F H 87 23 108/58 96 01/04/19 15:47 88 01/04/19 15:32 85 01/04/19 15:00 88 23 101/69 97 01/04/19 14:00 88 20 111/61 96 Intake and Output 01/04/19 01/05/19 01/05/19 22:59 06:59 14:59 Intake Total 432 160 320 Output Total 560 541 8699 Balance 47 200 -760 Intake: IV 192 160 80 CO/CI 20 Lactated Ringers 1,000 ml 160 160 80 @ 20 mls/hr IV .Q24H [facility] Rx#:[id number] Pressure bags 12 Oral 240 240 Output: Chest Tube Drainage 60 260 130 Left Pleural 60 260 130 Urine 325 100 950 Other: Voiding Method Indwelling Catheter Indwelling Catheter # Voids 1 0 1 # Bowel Movements 1 Weight 80.9 kg Skin: Good color, texture, turgor. General: Overweight build and comfortable appearance. Head: Normocephalic, atraumatic. Eyes: Symmetric. Pupils equal round. Ears: Symmetric. Hearing within normal limits. Mouth: Clear. Neck: Supple. Carotid without bruit. Cardiac: Regular rate and rhythm. Lungs: Clear anteriorly and posteriorly. Abdomen: Soft active nontender. Extremities: Normal tone. Neurological: Mental status: Alert, cooperative, pleasant. Cranial nerves: Symmetric facial tone and trapezius. Motor: Can actively elevate all 4 limbs. Distal movement noted as well. Sensation: Intact throughout. DTRs: Symmetric and equal throughout. Mobility: Requires assistance for bed mobility. Results CBC & Chem 7: 01/05/19 05:00 01/05/19 05:00 Labs: Abnormal Lab Results - Last 24 Hours (Table) 01/04/19 01/04/19 01/05/19 Range/Units 16:58 20:56 05:00 WBC 12.9 H (3.8-10.6) k/uL RBC 2.62 L (3.80-5.40) m/uL Hgb 7.7 L (11.4-16.0) gm/dL Hct 23.8 L (34.0-46.0) % RDW 18.6 H (11.5-15.5) % BUN (7-17) mg/dL POC Glucose (mg/dL) 106 H 121 H (75-99) mg/dL Calcium (8.4-10.2) mg/dL AST (14-36) U/L ALT (9-52) U/L 01/05/19 01/05/19 01/05/19 Range/Units 05:00 07:21 12:00 WBC (3.8-10.6) k/uL RBC (3.80-5.40) m/uL Hgb (11.4-16.0) gm/dL Hct (34.0-46.0) % RDW (11.5-15.5) % BUN 18 H (7-17) mg/dL POC Glucose (mg/dL) 115 H (75-99) mg/dL Calcium 8.2 L (8.4-10.2) mg/dL AST 118 H (14-36) U/L ALT 238 H (9-52) U/L Assessment and Plan (1) Acute coronary syndrome Current Visit: Yes Status: Acute Code(s): I24.9 - ACUTE ISCHEMIC HEART DISEASE, UNSPECIFIED SNOMED Code(s): 708996255 (2) Unstable angina pectoris Current Visit: Yes Status: Acute Code(s): I20.0 - UNSTABLE ANGINA SNOMED Code(s): 3357984 Plan: Impression: 1. Cardiac debility. 2. Coronary artery disease with non-STEMI and unstable angina and status post three-vessel coronary bypass. 3. Sleep apnea with CPAP. 4. Hyperlipidemia. Constant plan: At this time PT and OT are ongoing. We'll require functional therapy notes from PT prior to consideration of inpatient rehab. Patient informs me that that they are investigating available bed for, acute rehab or subacute rehab.
--- NOTE | 2019-01-05 15:50 | P.PN ---
Subjective Progress Note Date: 01/05/19 On today's evaluation of 01/05/2019, the patient is postop day #6. The patient is doing well. The patient is currently off inotropes. She is maintaining her on blood pressure. She is producing adequate amount of urine output. Her fluid balance is negative as the patient is producing good urine. They chest tube is still in place and this is a left pleural chest tube. Output remains considerably high in the order of the apices over the past 8 hours and with a stat chest tube in place for another 24 hours. There is no evidence of any air leak. A chest x-ray showing adequate expansion of both lungs. Note that the patient received another dose of Lasix 20 mg IV push earlier today. No nausea. No vomiting. No chest pain. Sternum stable clean and intact. No other significant events overnight. The cardiac rhythm is sinus. She underwent a three-vessel bypass surgery. Her surgical wound sites are all dry clean and intact. Hemoglobin today is at 7.7. Objective - Vital Signs Vital signs: Vital Signs Temp 98 F 01/05/19 12:00 Pulse 88 01/05/19 15:32 Resp 18 01/05/19 12:00 BP 115/68 01/05/19 12:00 Pulse Ox 96 01/05/19 12:00 Intake & Output 01/04/19 01/05/19 01/05/19 18:59 06:59 18:59 Intake Total 1054 240 560 Output Total 2159 416 5052 Balance -941 -230 -920 Weight 80.9 kg Intake: IV 334 240 80 CO/CI 60 Lactated Ringers 1,000 ml 220 240 80 @ 20 mls/hr IV .Q24H [facility] Rx#:[id number] Pressure bags 54 Oral 720 480 Output: Chest Tube Drainage 220 320 180 Left Pleural 220 320 180 Urine 6070 073 1724 Other: Voiding Method Indwelling Catheter Indwelling Catheter # Voids 0 1 # Bowel Movements 1 1 ABP, PAP, CO, CI - Last Documented Arterial Blood Pressure 126/51 Pulmonary Artery Pressure 26/19 Cardiac Output 4.6 Cardiac Index 2.6 - Exam - Constitutional General appearance: Present: cooperative, no acute distress, obese - Respiratory Details: Lungs sounds essentially clear to her bilateral upper lobes, few scattered crackles to bilateral bases. Respirations are symmetrical and nonlabored. Oxygen saturation are 95% on 2 L nasal cannula. Achieving 750 mL on her incentive spirometry. Left pleural chest tube remains in place to low ester nuous wall suction -20 cm H2O. No air leak is present. Draining thin serosanguineous drainage. 260 mL output in the last 8 hours, 400 mL output in the last 24 hours. - Cardiovascular Details: Regular rhythm and rate. S1 and S2 present, negative for S3, gallop or murmur. Sternum is stable. Bedside telemetry showing normal sinus rhythm heart rate 89. Right IJ Cordis in place to continue CVP monitoring. Current CVP pressure 10 mmHg. Atrial and ventricular epicardial pacemaker wires in place and rounded. Surgical support bra and heart hugger device in place and demonstrating appropriate use. Knee-high DENNY hose and sequential compression devices in place to bilateral lower extremities. +1 edema to her bilateral lower extremities. - Gastrointestinal Gastrointestinal Comment(s): Abdomen is soft, nontender and nondistended. Active bowel sounds all 4 abdominal quadrants. No guarding or rigidity. No organomegaly. Bowel movement yesterday 01/04/2019. Tolerating oral intake. - Genitourinary Genitourinary Comment(s): Voiding clear yellow urine. - Integumentary Integumentary Comment(s): Skin is warm and dry. No clubbing or cyanosis is present. Midline sternal incision is clean, dry and approximated. No drainage or redness is present. Exofin dressing is in place, dry and intact. Bilateral lower extremity EVH sites clean, dry and approximated. No drainage or redness is present. - Neurologic Neurologic: Present: CNII-XII intact - Musculoskeletal Musculoskeletal: Present: gait normal, generalized weakness, strength equal bilaterally - Psychiatric Psychiatric: Present: A&O x's 3, appropriate affect, intact judgment & insight - Labs CBC & Chem 7: 01/05/19 05:00 01/05/19 05:00 Labs: Abnormal Lab Results - Last 24 Hours (Table) 01/04/19 01/04/19 01/05/19 Range/Units 16:58 20:56 05:00 WBC 12.9 H (3.8-10.6) k/uL RBC 2.62 L (3.80-5.40) m/uL Hgb 7.7 L (11.4-16.0) gm/dL Hct 23.8 L (34.0-46.0) % RDW 18.6 H (11.5-15.5) % BUN (7-17) mg/dL POC Glucose (mg/dL) 106 H 121 H (75-99) mg/dL Calcium (8.4-10.2) mg/dL AST (14-36) U/L ALT (9-52) U/L 01/05/19 01/05/19 01/05/19 Range/Units 05:00 07:21 12:00 WBC (3.8-10.6) k/uL RBC (3.80-5.40) m/uL Hgb (11.4-16.0) gm/dL Hct (34.0-46.0) % RDW (11.5-15.5) % BUN 18 H (7-17) mg/dL POC Glucose (mg/dL) 115 H (75-99) mg/dL Calcium 8.2 L (8.4-10.2) mg/dL AST 118 H (14-36) U/L ALT 238 H (9-52) U/L Assessment and Plan Plan: 1 coronary artery disease post three-vessel bypass surgery and the patient is postop day #6 2 status post non-ST segment elevation myocardial infarction 3 preserved LV function preoperatively with an EF of around 55% 4 left pleural chest tube, kept in place. Due to increased output from the left pleural space without evidence of any air leak and pneumothorax on today's chest x-ray 5 obstructive sleep apnea maintained on CPAP therapy 6 previous history of peptic ulcer disease post partial gastrectomy 7 previous history of splenectomy Plan Continue aspirin and Plavix combination addition to a combination of horacio inhibitors and beta blockers. Monitor the urine output. Keep the left-sided chest tube in place and encourage using incentive spirometer. Continue the bronchodilators to therapy and CPAP therapy which she hasn't from home. Enco urage increasing level of activity as tolerated. The patient is in sinus rhythm and the patient is hemodynamically stable. She was receiving another dose of Lasix 20 mg IV push and the patient will be transferred to selective telemetry unit today. Her pain is under good control. She has no active issues for now.
[2019-01-05 17:01] LABS: Glucose,Whole Blood 108 mg/dL (75-99)
[2019-01-05 20:26] LABS: Glucose,Whole Blood 124 mg/dL (75-99)
[2019-01-05] MEDS: ATORVASTATIN 40 MG TAB PO SCH (21:30)
[2019-01-05] MEDS: SENNOSIDES-DOCUSATE SODIUM 1 EACH TAB PO SCH (21:31)
[2019-01-06] MEDS: HEPARIN SODIUM,PORCINE 5,000 UNIT/ML 1 ML VIAL SQ SCH ×3 (00:26→17:50)
[2019-01-06] MEDS: KETOROLAC 30 MG/ML 1 ML VIAL IVP SCH ×2 (00:26→05:59)
[2019-01-06] MEDS: HYDROcodone/APAP 5-325MG 1 EACH TAB PO PRN ×3 (03:28→17:49)
[2019-01-06 04:41] LABS: Anisocytosis Moderate; HCT 25.7 % (34.0-46.0); HGB 8.1 gm/dL (11.4-16.0); Hypochromasia Slight; MCH 29.3 pg (25.0-35.0); MCHC 31.4 g/dL (31.0-37.0); MCV 93.4 fL (80.0-100.0); Macrocytosis Slight; Mean Platelet Volume 10.4; Platelet Count 263 k/uL (150-450); Poikilocytosis Slight; RBC 2.76 m/uL (3.80-5.40); RDW 20.2 % (11.5-15.5); WBC 13.8 k/uL (3.8-10.6)
[2019-01-06 04:59] LABS: ALT 156 U/L (9-52); AST 82 U/L (14-36); Anion Gap 5 mmol/L; Blood Urea Nitrogen 18 mg/dL (7-17); Calcium 8.3 mg/dL (8.4-10.2); Carbon Dioxide 27 mmol/L (22-30); Chloride 103 mmol/L (98-107); Glucose 98 mg/dL (74-99); Potassium 4.2 mmol/L (3.5-5.1); Sodium 135 mmol/L (137-145)
[2019-01-06 06:48] LABS: Glucose,Whole Blood 106 mg/dL (75-99)
[2019-01-06] MEDS: INSULIN ASPART (NovoLOG) 100 UNIT/ML VIAL SQ SCH ×4 (06:54→21:02)
--- NOTE | 2019-01-06 07:22 | P.PN ---
Subjective Progress Note Date: 01/06/19 Principal diagnosis: Coronary artery bypass grafting This is a pleasant 78-year-old female patient who is status post CABG On follow-up with the patient today, she seems to be asymptomatic. She is hemodynamically stable. She has been maintaining normal sinus mechanism. She c ontinues to be on dual antiplatelet therapy as well as metoprolol, lisinopril, and statin. Possibly the patient can be discharged out of the unit later on today. Objective - Vital Signs Vital signs: Vital Signs Temp 97.9 F 01/06/19 04:00 Pulse 85 01/06/19 04:00 Resp 21 01/06/19 04:00 BP 106/61 01/06/19 04:00 Pulse Ox 95 01/06/19 04:00 Intake & Output 01/05/19 01/06/19 01/06/19 18:59 06:59 18:59 Intake Total 560 480 Output Total 1490 350 Balance -930 130 Weight 80.2 kg Intake: IV 80 Lactated Ringers 1,000 ml 80 @ 20 mls/hr IV .Q24H [facility] Rx#:[id number] Oral 480 480 Output: Chest Tube Drainage 190 100 Left Pleural 190 100 Urine 1300 250 Other: Voiding Method Indwelling Catheter Bedside Commode # Voids 1 # Bowel Movements 1 ABP, PAP, CO, CI - Last Documented Arterial Blood Pressure 126/51 Pulmonary Artery Pressure 26/19 Cardiac Output 4.6 Cardiac Index 2.6 - Constitutional General appearance: Present: no acute distress - Respiratory Respiratory: bilateral: CTA - Cardiovascular Rhythm: regular Heart sounds: normal: S1, S2 - Labs CBC & Chem 7: 01/06/19 04:30 01/06/19 04:30 Labs: Abnormal Lab Results - Last 24 Hours (Table) 01/05/19 01/05/19 01/05/19 Range/Units 07:21 12:00 17:00 WBC (3.8-10.6) k/uL RBC (3.80-5.40) m/uL Hgb (11.4-16.0) gm/dL Hct (34.0-46.0) % RDW (11.5-15.5) % Sodium (137-145) mmol/L BUN (7-17) mg/dL POC Glucose (mg/dL) 115 H 108 H (75-99) mg/dL Calcium (8.4-10.2) mg/dL AST 118 H (14-36) U/L ALT 238 H (9-52) U/L 01/05/19 01/06/19 01/06/19 Range/Units 20:23 04:30 04:30 WBC 13.8 H (3.8-10.6) k/uL RBC 2.76 L (3.80-5.40) m/uL Hgb 8.1 L (11.4-16.0) gm/dL Hct 25.7 L (34.0-46.0) % RDW 20.2 H (11.5-15.5) % Sodium 135 L (137-145) mmol/L BUN 18 H (7-17) mg/dL POC Glucose (mg/dL) 124 H (75-99) mg/dL Calcium 8.3 L (8.4-10.2) mg/dL AST 82 H (14-36) U/L ALT 156 H (9-52) U/L 01/06/19 Range/Units 06:46 WBC (3.8-10.6) k/uL RBC (3.80-5.40) m/uL Hgb (11.4-16.0) gm/dL Hct (34.0-46.0) % RDW (11.5-15.5) % Sodium (137-145) mmol/L BUN (7-17) mg/dL POC Glucose (mg/dL) 106 H (75-99) mg/dL Calcium (8.4-10.2) mg/dL AST (14-36) U/L ALT (9-52) U/L Assessment and Plan Assessment: Assessment #1 status post coronary artery bypass grafting #2 dyslipidemia #3 hypertension Plan #1 the patient can be transferred out of the unit #2 continue the current medical regimen #3 follow-up with the patient
[2019-01-06] MEDS: IPRATROPIUM-ALBUTEROL 3 ML NEB INHALATION SCH ×4 (08:07→20:12)
[2019-01-06] MEDS: CLOPIDOGREL 75 MG TAB PO SCH (08:36)
[2019-01-06] MEDS: METOPROLOL TARTRATE 12.5 MG TAB PO SCH ×2 (08:36→21:02)
[2019-01-06] MEDS: GABAPENTIN 300 MG CAP PO SCH ×3 (08:36→21:02)
[2019-01-06] MEDS: FERROUS SULFATE 325 MG TAB PO SCH ×2 (08:36→17:50)
[2019-01-06] MEDS: PANTOPRAZOLE 40 MG TABLET PO SCH (08:36)
[2019-01-06] MEDS: ASCORBIC ACID 500 MG TAB PO SCH ×2 (08:36→17:50)
[2019-01-06] MEDS: LISINOPRIL 5 MG TAB PO SCH (08:36)
[2019-01-06] MEDS: ASPIRIN 81 MG PO SCH (08:37)
--- NOTE | 2019-01-06 09:06 | XR ---
EXAMINATION TYPE: XR chest 1V portable DATE OF EXAM: 01/06/2019 COMPARISON: 01/05/2019 HISTORY: Postop CABG FINDINGS: There are bilateral pleural effusions with cardiomegaly and bibasilar infiltrate. There is a diffuse interstitial pattern. Postsurgical changes are seen. Curvature the spine with degenerative disc dise ase. Arthropathy of the shoulders. No pneumothorax. Left-sided chest tube noted. IMPRESSION: 1. Findings most suggestive of CHF with pulmonary edema. Underlying pneumonia not excluded. Findings are mildly progressed.
--- NOTE | 2019-01-06 11:24 | P.PN ---
Subjective Progress Note Date: 01/06/19 Principal diagnosis: Triple-vessel coronary artery disease with left main disease and non-ST elevation myocardial infarction, mild to moderate aortic valve regurgitation, preserved left ventricular function, hyperlipidemia, previous tobacco dependence with preoperative FEV1 98% of predicted, obstructive sleep apnea with home CPAP use, history of gastric ulcer with partial gastrectomy followed by splenectomy, arthritis, and family history of premature coronary artery disease. Preoperative chronic normocytic, normochromic anemia. POD #7 urgent triple coronary artery bypass grafting using the left internal mammary artery to the left anterior descending artery across a plaque as a patch angioplasty, reverse saphenous vein graft from the aorta to the second obtuse marginal artery, reverse saphenous vein graft from the aorta to the posterior descending artery. Endoscopic harvesting of the bilateral greater saphenous veins, both greater saphenous veins from the groin to just below the knee level. Intraoperative transesophageal echocardiogram and epi-aortic scanning. Intraoperative graft flow measurements using the [employer] system. Intraoperative and postoperative acute blood loss anemia, expected given hemodilution, cardiopulmonary bypass pump, and patient's preoperative anemia. Postoperative thrombocytopenia, expected given cardiopulmonary bypass pump. Postoperative transaminitis, unexpected, resolving. Patient's currently sitting up in bed in no acute distress. Was up in the chair this morning. Has ambulated twice in the hallway already. Does complain of incisional type pain, denies shortness of breath. States she is feeling somewhat better every day. Left chest tube remains in place, all other lines have been discontinued. Remains in normal sinus rhythm. Currently hemodynamically stable on no inotropes or pressors. No new complaints. Objective - Vital Signs Vital signs: Vital Signs Temp 97.5 F L 01/06/19 08:00 Pulse 85 01/06/19 08:25 Resp 20 01/06/19 08:00 BP 106/61 01/06/19 08:00 Pulse Ox 93 L 01/06/19 08:00 Intake & Output 01/05/19 01/06/19 01/06/19 18:59 06:59 18:59 Intake Total 560 480 Output Total 1490 350 20 Balance -930 130 -20 Weight 80.2 kg Intake: IV 80 Lactated Ringers 1,000 ml 80 @ 20 mls/hr IV .Q24H [facility] Rx#:[id number] Oral 480 480 Output: Chest Tube Drainage 190 100 20 Left Pleural 190 100 20 Urine 1300 250 Other: Voiding Method Indwelling Catheter Bedside Commode Bedside Commode # Voids 1 # Bowel Movements 1 ABP, PAP, CO, CI - Last Documented Arterial Blood Pressure 126/51 Pulmonary Artery Pressure 26/19 Cardiac Output 4.6 Cardiac Index 2.6 - Constitutional General appearance: Present: cooperative, no acute distress, obese - Respiratory Details: Lungs sounds diminished bilaterally. Respirations even, nonlabored. Currently on 2 L nasal cannula with oxygen saturation 95%. Able to achieve 500 mL on her incentive spirometry. Strong cough. Left pleural chest tube to continuous wall suction, no drainage overnight, 450 mL in the last 24 hours. No air leak present. - Cardiovascular Details: S1, S2 present. Regular rate and rhythm, sinus rhythm on telemetry. Sternum stable. Atrial epicardial pacemaker wires present, grounded. Palpable peripheral pulses bilaterally. No edema present. No calf pain or tenderness noted. Heart hugger in place with patient attempting appropriate use, surgical bra in place, anti-embolism stockings/SCDs present. - Gastrointestinal Gastrointestinal Comment(s): Abdomen soft, nontender, nondistended. Active bowel sounds present 4 quadrants. Tolerating diet. Positive bowel movement. - Genitourinary Genitourinary Comment(s): Continues to void clear, yellow urine. Output 250 mL last night. - Integumentary Integumentary Comment(s): Skin is warm and dry with evidence of good perfusion. Anterior chest incision well approximated and covered with dry intact dressing. Bilateral lower extremity EVH sites well approximated. - Neurologic Neurologic: Present: CNII-XII intact - Musculoskeletal Musculoskeletal: Present: gait normal, strength equal bilaterally - Psychiatric Psychiatric: Present: A&O x's 3, appropriate affect, intact judgment & insight - Allied health notes Allied health notes reviewed: nursing - Labs CBC & Chem 7: 01/06/19 04:30 01/06/19 04:30 Labs: Abnormal Lab Results - Last 24 Hours (Table) 01/05/19 01/05/19 01/05/19 Range/Units 12:00 17:00 20:23 WBC (3.8-10.6) k/uL RBC (3.80-5.40) m/uL Hgb (11.4-16.0) gm/dL Hct (34.0-46.0) % RDW (11.5-15.5) % Sodium (137-145) mmol/L BUN (7-17) mg/dL POC Glucose (mg/dL) 115 H 108 H 124 H (75-99) mg/dL Calcium (8.4-10.2) mg/dL AST (14-36) U/L ALT (9-52) U/L 01/06/19 01/06/19 01/06/19 Range/Units 04:30 04:30 06:46 WBC 13.8 H (3.8-10.6) k/uL RBC 2.76 L (3.80-5.40) m/uL Hgb 8.1 L (11.4-16.0) gm/dL Hct 25.7 L (34.0-46.0) % RDW 20.2 H (11.5-15.5) % Sodium 135 L (137-145) mmol/L BUN 18 H (7-17) mg/dL POC Glucose (mg/dL) 106 H (75-99) mg/dL Calcium 8.3 L (8.4-10.2) mg/dL AST 82 H (14-36) U/L ALT 156 H (9-52) U/L - Imaging and Cardiology Chest x-ray: report reviewed, image reviewed Assessment and Plan Assessment: 1. Triple-vessel coronary artery disease with left main stenosis, status post coronary artery bypass surgery 2. Non-STEMI 3. Mild to moderate aortic valve regurgitation 4. Preserved left ventricular function 5. Hyperlipidemia 6. Previous tobacco dependence, preoperative FEV1 98% of predicted 7. Obstructive sleep apnea with home CPAP use 8. History of gastric ulcer with partial gastrectomy 9. History of splenectomy 10. Arthritis 11. Family history of premature coronary artery disease 12. Preoperative chronic normocytic, normochromic anemia 13. Intraoperative and postoperative acute blood loss anemia 14. Postoperative thrombocytopenia 15. Postoperative transaminitis, resolving Plan: 1. Continue low-dose aspirin, Plavix, statin, KELVIN inhibitor, beta bettye therapy. Will increase beta bettye therapy as tolerated. Lisinopril increased today. 2. Will start Lasix 20 mg IV push twice daily. 3. Atrial epicardial wires discontinued without incident. Patient to remain on bedrest for 1 hour. 4. Wean O2 as tolerated. Encourage incentive spirometry use 10 times every hour while awake. 5. Increase activity, ambulate when able. PT/OT/cardiac rehab following. 6. Will monitor daily labs and chest x-rays. Electrolyte replacement per protocol. We'll continue to monitor liver enzymes. No further transfusion. Continue iron/vitamin C. 7. Bronchodilators, CPAP per pulmonology. 8. Pain control with current medication regimen. Limit narcotics. 9. Insulin management per primary care service. 10. Continue left pleural chest tube secondary to high output. 11. GI/DVT prophylaxis. 12. Transfer orders were placed yesterday for 3 S. cardiac stepdown. May transfer 1 bed available. 13. Discharge planning in progress. Anticipate discharge to inpatient rehab soon. Dr. Veronica was consulted. 14. More recommendations to follow based on patient's clinical course. Time with Patient: Greater than 30
[2019-01-06 11:44] LABS: Glucose,Whole Blood 115 mg/dL (75-99)
--- NOTE | 2019-01-06 11:48 | P.PN ---
Subjective Patient up ambulating in thorne today. Continues with left chest tube. Appears improved. Continues in sinus rhythm. Stable for transferred to selective care. Hopeful discharge soon to extended care facility with Dr. Veronica for rehab Objective - Vital Signs Vital signs: Vital Signs Temp 97.5 F L 01/06/19 08:00 Pulse 85 01/06/19 08:25 Resp 20 01/06/19 08:00 BP 106/61 01/06/19 08:00 Pulse Ox 93 L 01/06/19 08:00 Intake & Output 01/05/19 01/06/19 01/06/19 18:59 06:59 18:59 Intake Total 560 480 Output Total 1490 350 20 Balance -930 130 -20 Weight 80.2 kg Intake: IV 80 Lactated Ringers 1,000 ml 80 @ 20 mls/hr IV .Q24H [facility] Rx#:[id number] Oral 480 480 Output: Chest Tube Drainage 190 100 20 Left Pleural 190 100 20 Urine 1300 250 Other: Voiding Method Indwelling Catheter Bedside Commode Bedside Commode # Voids 1 # Bowel Movements 1 ABP, PAP, CO, CI - Last Documented Arterial Blood Pressure 126/51 Pulmonary Artery Pressure 26/19 Cardiac Output 4.6 Cardiac Index 2.6 - Constitutional General appearance: Present: mild distress - EENT Eyes: Present: PERRLA Ears: bilateral: normal - Neck Neck: Present: normal ROM - Respiratory Respiratory: bilateral: CTA - Cardiovascular Rhythm: regular - Gastrointestinal General gastrointestinal: Present: soft - Integumentary Integumentary: Present: normal - Neurologic Neurologic: Present: CNII-XII intact - Musculoskeletal Musculoskeletal: Present: generalized weakness - Psychiatric Psychiatric: Present: A&O x's 3, appropriate affect, intact judgment & insight - Labs CBC & Chem 7: 01/06/19 04:30 01/06/19 04:30 Labs: Abnormal Lab Results - Last 24 Hours (Table) 01/05/19 01/05/19 01/05/19 Range/Units 12:00 17:00 20:23 WBC (3.8-10.6) k/uL RBC (3.80-5.40) m/uL Hgb (11.4-16.0) gm/dL Hct (34.0-46.0) % RDW (11.5-15.5) % Sodium (137-145) mmol/L BUN (7-17) mg/dL POC Glucose (mg/dL) 115 H 108 H 124 H (75-99) mg/dL Calcium (8.4-10.2) mg/dL AST (14-36) U/L ALT (9-52) U/L 01/06/19 01/06/19 01/06/19 Range/Units 04:30 04:30 06:46 WBC 13.8 H (3.8-10.6) k/uL RBC 2.76 L (3.80-5.40) m/uL Hgb 8.1 L (11.4-16.0) gm/dL Hct 25.7 L (34.0-46.0) % RDW 20.2 H (11.5-15.5) % Sodium 135 L (137-145) mmol/L BUN 18 H (7-17) mg/dL POC Glucose (mg/dL) 106 H (75-99) mg/dL Calcium 8.3 L (8.4-10.2) mg/dL AST 82 H (14-36) U/L ALT 156 H (9-52) U/L - Imaging and Cardiology Chest x-ray: report reviewed Assessment and Plan Plan: Assessment Post coronary bypass 3 vessel Acute non-ST elevated ME with elevated troponins Postop anemia blood loss expected Hyperlipidemia Sleep apnea CPAP at home Family history of coronary disease Peripheral neuropathy nondiabetic Thrombocytopenia expected from surgery Elevated liver enzymes improving Plan Continue consultation with cardiology for rehab Transferred to [facility]
[2019-01-06] MEDS: LISINOPRIL 10 MG TAB PO SCH (12:06)
[2019-01-06] MEDS: FOLIC ACID 1 MG TAB PO SCH (12:06)
[2019-01-06] MEDS: FUROSEMIDE 10 MG/ML 2 ML VIAL IV SCH ×2 (12:06→21:02)
--- NOTE | 2019-01-06 12:33 | P.PN ---
Subjective Progress Note Date: 01/06/19 On today's evaluation of 01/05/2019, the patient is postop day #6. The patient is doing well. The patient is currently off inotropes. She is maintaining her on blood pressure. She is producing adequate amount of urine output. Her fluid balance is negative as the patient is producing good urine. They chest tube is still in place and this is a left pleural chest tube. Output remains considerably high in the order of the apices over the past 8 hours and with a stat chest tube in place for another 24 hours. There is no evidence of any air leak. A chest x-ray showing adequate expansion of both lungs. Note that the patient received another dose of Lasix 20 mg IV push earlier today. No nausea. No vomiting. No chest pain. Sternum stable clean and intact. No other significant events overnight. The cardiac rhythm is sinus. She underwent a three-vessel bypass surgery. Her surgical wound sites are all dry clean and intact. Hemoglobin today is at 7.7. On today's evaluation of 01/06/2019 the patient is postop day #7. The chest x- ray from today still showing pulmonary vessel congestion/edema and the patient is currently on Lasix 20 mg IV push every 12 hours. Her edema is improving. She is less swollen and her upper and lower extremity. She is producing adequate amount of urine output. No cardiac arrhythmias pH is having occasional PVCs of her cardiac rhythm is essentially sinus. The patient is afebrile. Hemodynamics is also stable with a pulse ox of 90% while being on 3 L of oxygen by nasal cannula. No nausea. No vomiting. No abdominal pain. Left-sided chest tube remains in place and the rest of the lines of been all discontinued and the patient using incentive spirometer and she is pulling approximately a thousand on that IS. She is undergone a vessel bypass surgery. Objective - Vital Signs Vital signs: Vital Signs Temp 97.5 F L 01/06/19 08:00 Pulse 85 01/06/19 08:25 Resp 20 01/06/19 08:00 BP 106/61 01/06/19 08:00 Pulse Ox 93 L 01/06/19 08:00 Intake & Output 01/05/19 01/06/19 01/06/19 18:59 06:59 18:59 Intake Total 560 480 Output Total 1490 350 20 Balance -930 130 -20 Weight 80.2 kg Intake: IV 80 Lactated Ringers 1,000 ml 80 @ 20 mls/hr IV .Q24H [facility] Rx#:[id number] Oral 480 480 Output: Chest Tube Drainage 190 100 20 Left Pleural 190 100 20 Urine 1300 250 Other: Voiding Method Indwelling Catheter Bedside Commode Bedside Commode # Voids 1 # Bowel Movements 1 ABP, PAP, CO, CI - Last Documented Arterial Blood Pressure 126/51 Pulmonary Artery Pressure 26/19 Cardiac Output 4.6 Cardiac Index 2.6 - Exam Constitutional General appearance: Present: cooperative, no acute distress, obese - Respiratory Details: Lungs sounds diminished bilaterally. Respirations even, nonlabored. Currently on 2 L nasal cannula with oxygen saturation 95%. Able to achieve 500 mL on her incentive spirometry. Strong cough. Left pleural chest tube to continuous wall suction, no drainage overnight, 450 mL in the last 24 hours. No air leak present. - Cardiovascular Details: S1, S2 present. Regular rate and rhythm, sinus rhythm on telemetry. Sternum stable. Atrial epicardial pacemaker wires present, grounded. Palpable peripheral pulses bilaterally. No edema present. No calf pain or tenderness noted. Heart hugger in place with patient attempting appropriate use, surgical bra in place, anti-embolism stockings/SCDs present. - Gastrointestinal Gastrointestinal Comment(s): Abdomen soft, nontender, nondistended. Active bowel sounds present 4 shagufta drants. Tolerating diet. Positive bowel movement. - Genitourinary Genitourinary Comment(s): Continues to void clear, yellow urine. Output 250 mL last night. - Integumentary Integumentary Comment(s): Skin is warm and dry with evidence of good perfusion. Anterior chest incision well approximated and covered with dry intact dressing. Bilateral lower extremity EVH sites well approximated. - Neurologic Neurologic: Present: CNII-XII intact - Musculoskeletal Musculoskeletal: Present: gait normal, strength equal bilaterally - Psychiatric Psychiatric: Present: A&O x's 3, appropriate affect, intact judgment & insight - Allied health notes Allied health notes reviewed: nursing - Labs CBC & Chem 7: 01/06/19 04:30 01/06/19 04:30 Labs: Abnormal Lab Results - Last 24 Hours (Table) 01/05/19 01/05/19 01/06/19 Range/Units 17:00 20:23 04:30 WBC 13.8 H (3.8-10.6) k/uL RBC 2.76 L (3.80-5.40) m/uL Hgb 8.1 L (11.4-16.0) gm/dL Hct 25.7 L (34.0-46.0) % RDW 20.2 H (11.5-15.5) % Sodium (137-145) mmol/L BUN (7-17) mg/dL POC Glucose (mg/dL) 108 H 124 H (75-99) mg/dL Calcium (8.4-10.2) mg/dL AST (14-36) U/L ALT (9-52) U/L 01/06/19 01/06/19 01/06/19 Range/Units 04:30 06:46 11:43 WBC (3.8-10.6) k/uL RBC (3.80-5.40) m/uL Hgb (11.4-16.0) gm/dL Hct (34.0-46.0) % RDW (11.5-15.5) % Sodium 135 L (137-145) mmol/L BUN 18 H (7-17) mg/dL POC Glucose (mg/dL) 106 H 115 H (75-99) mg/dL Calcium 8.3 L (8.4-10.2) mg/dL AST 82 H (14-36) U/L ALT 156 H (9-52) U/L Assessment and Plan Plan: 1 coronary artery disease post three-vessel bypass surgery and the patient is postop day #7, clinically the patient is doing well. Still using incentive spirometer. Left-sided chest tube still in place and output is 2 50 mL over the past 8 hours. 2 status post non-ST segment elevation myocardial infarction 3 preserved LV function preoperatively with an EF of around 55% 4 left pleural chest tube, kept in place. Due to increased output from the left pleural space without evidence of any air leak and pneumothorax on today's chest x-ray 5 obstructive sleep apnea maintained on CPAP therapy 6 previous history of peptic ulcer disease post partial gastrectomy 7 previous history of splenectomy 8 acute anemia, expected outcome of surgery, hemoglobin stable at 8.1 Plan Continue IV Lasix. Encouraged use of incentive spirometer. Keep the chest and placed on 24 hours. The doses of the metoprolol and lisinopril will be adjusted today. The patient will have the atrial epicardial wires discontinued. She'll be asked to ambulate. Continue using incentive spirometer. We'll continue to cheo crow make further recommendations based on her progress.
[2019-01-06 16:50] LABS: Glucose,Whole Blood 86 mg/dL (75-99)
[2019-01-06 20:34] LABS: Glucose,Whole Blood 94 mg/dL (75-99)
[2019-01-06] MEDS: SENNOSIDES-DOCUSATE SODIUM 1 EACH TAB PO SCH (21:01)
[2019-01-06] MEDS: ATORVASTATIN 40 MG TAB PO SCH (21:02)
[2019-01-07] MEDS: HEPARIN SODIUM,PORCINE 5,000 UNIT/ML 1 ML VIAL SQ SCH ×4 (01:18→23:40)
[2019-01-07] MEDS: HYDROcodone/APAP 5-325MG 1 EACH TAB PO PRN ×3 (05:30→16:15)
[2019-01-07 06:03] LABS: Anisocytosis Slight; HCT 28.9 % (34.0-46.0); Hypochromasia Slight; MCH 29.4 pg (25.0-35.0); MCHC 31.2 g/dL (31.0-37.0); MCV 94.3 fL (80.0-100.0); Macrocytosis Slight; Mean Platelet Volume 9.5; Platelet Count 350 k/uL (150-450); Poikilocytosis Slight; RBC 3.07 m/uL (3.80-5.40); WBC 12.7 k/uL (3.8-10.6)
[2019-01-07 06:25] LABS: Anion Gap 8 mmol/L; Blood Urea Nitrogen 15 mg/dL (7-17); Calcium 8.5 mg/dL (8.4-10.2); Carbon Dioxide 27 mmol/L (22-30); Chloride 99 mmol/L (98-107); Glucose 90 mg/dL (74-99); Magnesium 1.8 mg/dL (1.6-2.3); Sodium 134 mmol/L (137-145)
[2019-01-07] MEDS: INSULIN ASPART (NovoLOG) 100 UNIT/ML VIAL SQ SCH ×4 (06:49→21:41)
[2019-01-07 06:50] LABS: Glucose,Whole Blood 91 mg/dL (75-99)
[2019-01-07] MEDS: FERROUS SULFATE 325 MG TAB PO SCH ×2 (06:50→17:16)
[2019-01-07] MEDS: ASCORBIC ACID 500 MG TAB PO SCH ×2 (06:50→17:16)
[2019-01-07] MEDS: PANTOPRAZOLE 40 MG TABLET PO SCH (06:51)
[2019-01-07] MEDS: IPRATROPIUM-ALBUTEROL 3 ML NEB INHALATION SCH ×4 (07:03→19:57)
--- NOTE | 2019-01-07 08:41 | P.PN ---
Subjective Progress Note Date: 01/07/19 Principal diagnosis: Coronary artery bypass grafting This is a pleasant 78-year-old female patient who is status post CABG I did follow-up with the patient today, 01/07/2019, she is doing well from the cardiac standpoint overview. She has been maintaining normal sinus mechanism. She continues to be on dual antiplatelet therapy along with metoprolol as well as lisinopril. The hemoglobin this morning is 9.0. GFR is within normal limits. Objective - Vital Signs Vital signs: Vital Signs Temp 98.1 F 01/07/19 04:00 Pulse 93 01/07/19 07:17 Resp 16 01/07/19 04:00 BP 102/69 01/07/19 04:00 Pulse Ox 99 01/07/19 07:04 Intake & Output 01/06/19 01/07/19 01/07/19 18:59 06:59 18:59 Output Total 160 1989 Balance -160 -1989 Output: Chest Tube Drainage 160 90 Left Pleural 160 90 Urine 1900 Other: Voiding Method Bedside Commode Bedside Commode ABP, PAP, CO, CI - Last Documented Arterial Blood Pressure 126/51 Pulmonary Artery Pressure Cardiac Output 4.6 Cardiac Index 2.6 - Constitutional General appearance: Present: no acute distress - Respiratory Respiratory: bilateral: CTA - Cardiovascular Rhythm: regular - Labs CBC & Chem 7: 01/07/19 05:45 01/07/19 05:45 Labs: Abnormal Lab Results - Last 24 Hours (Table) 01/06/19 01/07/19 01/07/19 Range/Units 11:43 05:45 05:45 WBC 12.7 H (3.8-10.6) k/uL RBC 3.07 L (3.80-5.40) m/uL Hgb 9.0 L (11.4-16.0) gm/dL Hct 28.9 L (34.0-46.0) % RDW 19.0 H (11.5-15.5) % Sodium 134 L (137-145) mmol/L POC Glucose (mg/dL) 115 H (75-99) mg/dL Assessment and Plan Assessment: Assessment #1 status post coronary artery bypass grafting #2 dyslipidemia #3 hypertension Plan #1 the patient can be transferred out of the unit #2 continue the current medical regimen #3 follow-up with the patient
--- NOTE | 2019-01-07 08:45 | P.PN ---
Subjective Progress Note Date: 01/07/19 Principal diagnosis: Triple-vessel coronary artery disease with left main disease, non-ST elevation myocardial infarction, mild to moderate aortic valve regurgitation, preserved le ft ventricular function, hyperlipidemia, previous tobacco dependence with preoperative FEV1 98% of predicted, obstructive sleep apnea with home CPAP use, history of gastric ulcer with partial gastrectomy followed by splenectomy, arthritis, family history of premature coronary artery disease and preoperative chronic normocytic, normochromic anemia. POD #8 urgent triple vessel coronary artery bypass grafting using the left internal mammary artery to the left anterior descending artery across a plaque as a patch angioplasty, a reverse greater saphenous vein graft from the aorta to the second obtuse marginal artery, a reverse greater saphenous vein graft from the aorta to the posterior descending artery. Endoscopic harvesting of the bilateral greater saphenous veins, both greater saphenous veins from the groin to just below the knee level. Intraoperative transesophageal echocardiogram and epi-aortic scanning. Intraoperative graft flow measurements using the [employer] system. Intraoperative and postoperative acute blood loss anemia, an expected outcome given hemodilution, cardiopulmonary bypass pump and patient's preoperative anemia. Postoperative thrombocytopenia, an expected outcome given cardiopulmonary bypass pump. Postoperative elevation of her AST and ALT, an unexpected outcome, resolving. The patient is sitting up in bed chair in the intensive care unit. She is in no acute distress. She denies any complaints of pain or shortness of breath at this time. The patient continues to ambulate in the intensive care unit hallway with minimal assistance. Left pleural chest tube remains in place to low continuous wall suction -20 cm of H2O. Draining thin serosanguineous drainage. Demonstrating 750 mL on her incentive spirometry with encouragement. Remains hemodynamically stable and afebrile. Objective - Vital Signs Vital signs: Vital Signs Temp 98.1 F 01/07/19 04:00 Pulse 93 01/07/19 07:17 Resp 16 01/07/19 04:00 BP 102/69 01/07/19 04:00 Pulse Ox 99 01/07/19 07:04 Intake & Output 01/06/19 01/07/19 01/07/19 18:59 06:59 18:59 Output Total 160 1989 Balance -160 -1989 Output: Chest Tube Drainage 160 90 Left Pleural 160 90 Urine 1900 Other: Voiding Method Bedside Commode Bedside Commode ABP, PAP, CO, CI - Last Documented Arterial Blood Pressure 126/51 Pulmonary Artery Pressure 26/19 Cardiac Output 4.6 Cardiac Index 2.6 - Constitutional General appearance: Present: cooperative, no acute distress, obese - Respiratory Details: Respirations this essentially clear to her bilateral upper lobes, diminished bilateral bases. Respirations are symmetrical and nonlabored. Oxygen saturation are 99% on 2 L nasal cannula. Achieving 750 mL on her incentive spirometry. Left pleural chest tube remains to continuous low wall suction -20 cm H2O. No air leak is present. Draining thin serosanguineous drainage. 400 mL output in the last 24 hours. - Cardiovascular Details: Regular rhythm and rate. S1 and S2 present, negative for S3, gallop or murmur. Sternum is stable. Bedside telemetry showing normal sinus rhythm heart rate 90. No edema present. Heart hugger is in place demonstrating appropriate use. Surgical support bra in place. Knee-high DENNY hose and sequential compression devices in place to bilateral lower extremities. - Gastrointestinal Gastrointestinal Comment(s): Abdomen is soft, nontender and nondistended. Active bowel sounds all 4 abdominal quadrants. No guarding or rigidity. Tolerating oral intake. - Genitourinary Genitourinary Comment(s): Voiding clear yellow urine. 1.9 L output in the last 8 hours. - Neurologic Neurologic: Present: CNII-XII intact - Musculoskeletal Musculoskeletal: Present: gait normal - Psychiatric Psychiatric: Present: A&O x's 3, appropriate affect, intact judgment & insight - Allied health notes Allied health notes reviewed: nursing - Labs CBC & Chem 7: 01/07/19 05:45 01/07/19 05:45 Labs: Abnormal Lab Results - Last 24 Hours (Table) 01/06/19 01/07/19 01/07/19 Range/Units 11:43 05:45 05:45 WBC 12.7 H (3.8-10.6) k/uL RBC 3.07 L (3.80-5.40) m/uL Hgb 9.0 L (11.4-16.0) gm/dL Hct 28.9 L (34.0-46.0) % RDW 19.0 H (11.5-15.5) % Sodium 134 L (137-145) mmol/L POC Glucose (mg/dL) 115 H (75-99) mg/dL - Imaging and Cardiology Chest x-ray: report reviewed, image reviewed Assessment and Plan Assessment: 1. Triple-vessel coronary artery disease with left main stenosis, status post urgent triple-vessel coronary artery bypass surgery 2. Non-STEMI 3. Mild to moderate aortic valve regurgitation 4. Preserved left ventricular function with an ejection fraction of 55% 5. Hyperlipidemia 6. Previous tobacco dependence, preoperative FEV1 98% of predicted 7. Obstructive sleep apnea with home CPAP use 8. History of gastric ulcer with partial gastrectomy 9. History of splenectomy 10. Arthritis 11. Family history of premature coronary artery disease 12. Preoperative chronic normocytic, normochromic anemia 13. Intraoperative and postoperative acute blood loss anemia, expected 14. Postoperative thrombocytopenia 15. History of peripheral neuropathy 16. Postoperative elevation of her AST and ALT, resolving Plan: 1. Continue low-dose aspirin, Plavix, KELVIN inhibitor, statin and beta bettye. Will increase beta bettye therapy as tolerated. 2. Continue Lasix 20 mg IV every 12 hours. 3. Wean O2 as tolerated. Encourage incentive spirometry use 10 times every hour while awake. 4. Increase activity as tolerated. Out of bed for all meals PT/OT/cardiac rehab following. 5. Will monitor daily labs and chest x-rays. Electrolyte replacement per protocol. 6. Bronchodilators, CPAP per pulmonology management. 7. Pain control with current medication regimen. 8. Insulin management per primary care service. 9. Keep left pleural chest tube in place. Continue to monitor left pleural chest tube drainage. 10. GI/DVT prophylaxis in place. 11. The importance of continued smoking cessation has been discussed with the p atient. 12. Transfer orders were placed on 01/05/2019 for 3 S. cardiac stepdown. May transfer when bed available. 13. Discharge planning in progress. Anticipate discharge to inpatient rehab soon. Dr. Veronica was following. 14. More recommendations to follow based on patient's clinical course. Time with Patient: Greater than 30
[2019-01-07] MEDS: FUROSEMIDE 10 MG/ML 2 ML VIAL IV SCH ×2 (08:49→20:32)
[2019-01-07] MEDS: ASPIRIN 81 MG PO SCH (08:49)
[2019-01-07] MEDS: GABAPENTIN 300 MG CAP PO SCH ×3 (08:49→21:42)
[2019-01-07] MEDS: CLOPIDOGREL 75 MG TAB PO SCH (08:49)
[2019-01-07] MEDS: METOPROLOL TARTRATE 12.5 MG TAB PO SCH ×2 (08:49→20:29)
--- NOTE | 2019-01-07 08:55 | XR ---
EXAMINATION TYPE: XR chest 1V portable DATE OF EXAM: 01/07/2019 COMPARISON: 01/06/2019 HISTORY: Postop CABG TECHNIQUE: Single frontal view of the chest is obtained. FINDINGS: There are bilateral pleural effusions with cardiomegaly and bibasilar infiltrate. There is a diffuse interstitial pattern. Postsurgical changes are seen. Curvature the spine with degenerative disc disea se. Arthropathy of the shoulders. No pneumothorax. Left-sided chest tube noted. Chronic deformity of the left clavicle. IMPRESSION: 1. Findings most suggestive of CHF with pulmonary edema. Underlying pneumonia not excluded. Findings are mildly improved.
--- NOTE | 2019-01-07 10:05 | P.VSCSTY ---
Greater Saphenous Vein Mapping This is bilateral lower extremity greater saphenous vein mapping. Date of service 12/29/2018 Vein quality and ultrasound appearance no endoluminal thrombus or wall changes are seen. Lower leg on the left has some significant tortuosity and branching. There is a dual system on the right. The posterior branches to small to characterize.. Vein size groin right 5.9 x 4.9 groin left 5.9 x 6.7 High thigh right 4.0 x 4.0 high thigh left 4.1 x 4.3 Mid thigh right 5.0 x 3.5 mid thigh left 4.2 x 3.3 Above-knee right 3.7 x 3.3 above-knee left 3.2 x 3.8 Below knee right 2.3 x 2.1 below-knee left 2.6 x 2.1 Mid calf right 2.1 x 2.0 mid calf left 2.7 x 2.7 Ankle right 2.3 x 2.1 ankle left 2.0 x 2.2 Impression usable greater saphenous vein throughout the left leg but with some technical challenges in the lower leg with branching and tortuosity. Branching of the right greater saphenous in mid thigh with the anterior branch possibly usable.
--- NOTE | 2019-01-07 10:57 | P.PN ---
Subjective Patient sitting up in bed appears comfortable. Has been doing of physical therapy and walking the thorne. Plan for transfer soon to rehab with Dr. Veronica Objective - Vital Signs Vital signs: Vital Signs Temp 98.3 F 01/07/19 08:00 Pulse 90 01/07/19 08:00 Resp 16 01/07/19 08:00 BP 102/69 01/07/19 04:00 Pulse Ox 99 01/07/19 07:04 Intake & Output 01/06/19 01/07/19 01/07/19 18:59 06:59 18:59 Intake Total 480 Output Total 160 1989 650 Balance -160 -1989 Weight 80.2 kg Intake: Oral 480 Output: Chest Tube Drainage 160 90 50 Left Pleural 160 90 50 Urine 1900 600 Other: Voiding Method Bedside Commode Bedside Commode Bedside Commode # Voids 1 ABP, PAP, CO, CI - Last Documented Arterial Blood Pressure 126/51 Pulmonary Artery Pressure Cardiac Output 4.6 Cardiac Index 2.6 - Constitutional General appearance: Present: mild distress - EENT Eyes: Present: PERRLA Ears: bilateral: normal - Respiratory Respiratory: bilateral: CTA - Cardiovascular Rhythm: regular - Gastrointestinal General gastrointestinal: Present: soft - Neurologic Neurologic: Present: CNII-XII intact - Musculoskeletal Musculoskeletal: Present: generalized weakness - Psychiatric Psychiatric: Present: A&O x's 3, appropriate affect, intact judgment & insight - Labs CBC & Chem 7: 01/07/19 05:45 01/07/19 05:45 Labs: Abnormal Lab Results - Last 24 Hours (Table) 01/06/19 01/07/19 01/07/19 Range/Units 11:43 05:45 05:45 WBC 12.7 H (3.8-10.6) k/uL RBC 3.07 L (3.80-5.40) m/uL Hgb 9.0 L (11.4-16.0) gm/dL Hct 28.9 L (34.0-46.0) % RDW 19.0 H (11.5-15.5) % Sodium 134 L (137-145) mmol/L POC Glucose (mg/dL) 115 H (75-99) mg/dL - Imaging and Cardiology Chest x-ray: report reviewed Assessment and Plan Plan: Assessment Postoperative bypass 3 vessel Acute non-ST elevated ND with elevated troponins Postoperative anemia blood loss expected chest pain angina hyperlipidemia Sleep apnea with CPAP at home thrombocytopenia expected postop Elevated liver enzymes resolving Peripheral neuropathy nondiabetic Plan Continue cardiology consultation Expected transferred to rehab with Dr. Veronica
--- NOTE | 2019-01-07 11:25 | P.PN ---
Subjective Progress Note Date: 01/07/19 Principal diagnosis: Triple-vessel coronary artery disease, status post port coronary artery bypass grafting 3 utilizing a RIDDLE to the LAD, reverse saphenous vein grafts to the se cond obtuse marginal artery and posterior descending artery. The patient is seen today 01/07/2019 in follow-up in the intensive care unit. She is awake and alert in no acute distress. She is sitting up in a chair at the bedside. He is maintaining good O2 saturations in the high 90s on 2 L/m per nasal cannula. She's afebrile. Chest x-ray reveals evidence of fluid volume overload with congestive heart failure and pulmonary edema. Mildly improved today as compared to yesterday. Currently on Lasix 20 mg IV push every 12 hours. Left chest tube remains in place. 50 MLS output. White count 12.7. Hemoglobin 9.0. Creatinine 0.69. Objective - Vital Signs Vital signs: Vital Signs Temp 98.3 F 01/07/19 08:00 Pulse 90 01/07/19 08:00 Resp 16 01/07/19 08:00 BP 102/69 01/07/19 04:00 Pulse Ox 99 01/07/19 07:04 Intake & Output 01/06/19 01/07/19 01/07/19 18:59 06:59 18:59 Intake Total 480 Output Total 160 1989 1149 Balance -160 Weight 80.2 kg Intake: Oral 480 Output: Chest Tube Drainage 160 90 50 Left Pleural 160 90 50 Urine 1900 1100 Other: Voiding Method Bedside Commode Bedside Commode Bedside Commode # Voids 1 ABP, PAP, CO, CI - Last Documented Arterial Blood Pressure 126/51 Pulmonary Artery Pressure 26/19 Cardiac Output 4.6 Cardiac Index 2.6 - Exam GENERAL EXAM: Pleasant 78-year-old female patient, pale, currently comfortable in no apparent distress. On 2 L/m per nasal cannula. EYES: Normal reaction of pupils, equal size. NOSE: Clear with pink turbinates. THROAT: No erythema or exudates. NECK: No masses, no JVD. CHEST: Heart hugger in place. Sternum stable. Dressing intact. LUNGS: Equal air entry with crackles in the bilateral posterior bases. Left chest tubes in place. CVS: S1 and S2 normal with no audible murmur, regular rhythm. ABDOMEN: No hepatosplenomegaly, normal bowel sounds, no guarding or rigidity. SPINE: No scoliosis or deformity SKIN: No rashes CENTRAL NERVOUS SYSTEM: No focal deficits, tone is normal in all 4 extremities. EXTREMITIES: There is peripheral edema. No clubbing, no cyanosis. Peripheral pulses are intact. - Labs CBC & Chem 7: 01/07/19 05:45 01/07/19 05:45 Labs: Abnormal Lab Results - Last 24 Hours (Table) 01/06/19 01/07/19 01/07/19 Range/Units 11:43 05:45 05:45 WBC 12.7 H (3.8-10.6) k/uL RBC 3.07 L (3.80-5.40) m/uL Hgb 9.0 L (11.4-16.0) gm/dL Hct 28.9 L (34.0-46.0) % RDW 19.0 H (11.5-15.5) % Sodium 134 L (137-145) mmol/L POC Glucose (mg/dL) 115 H (75-99) mg/dL Assessment and Plan Assessment: Impression: #1 Non-ST segment elevation myocardial infarction with significant triple-vessel disease. Status post coronary artery bypass grafting 3 with a RIDDLE to the LAD, reverse saphenous vein grafts to the OM 2 and PDA. #2 Intubation and mechanical ventilatory support as an expected outcome of surgery, successfully extubated within 6 hours. #3 Hyperlipidemia. #4 Obstructive sleep apnea. #5 Vitamin D deficiency. #6 Gastroesophageal reflux disease. #7 Degenerative joint disease. Plan: The patient was seen and evaluated by Dr. Enriquez. Chest x-ray and labs were reviewed. Remains on Lasix 20 mg IV push every 12 hours. Currently maintaining good O2 saturation on 2 L/m per nasal cannula. Encouraged regarding the increased use the incentive spirometer and cough and deep breathing exercises. Continue with bronchodilators. We'll increase her activity as tolerated. We'll continue to follow make further recommendations based on her clinical status. I, the cosigning physician, performed a history & physical examination of the patient. Lungs sounds with crackles in the bilateral posterior bases. Maintaining good O2 saturations in the 90s on 2 L/m per nasal cannula. I discussed the assessment and plan of care with my nurse practitioner, Cherie Zuniga. I attest to the above note as dictated by her.
[2019-01-07 11:58] LABS: Glucose,Whole Blood 118 mg/dL (75-99)
[2019-01-07] MEDS: LISINOPRIL 10 MG TAB PO SCH (12:06)
[2019-01-07] MEDS: FOLIC ACID 1 MG TAB PO SCH (12:06)
[2019-01-07 16:29] LABS: Glucose,Whole Blood 211 mg/dL (75-99)
[2019-01-07 17:28] LABS: Glucose,Whole Blood 137 mg/dL (75-99)
[2019-01-07] MEDS: ATORVASTATIN 40 MG TAB PO SCH (20:29)
[2019-01-07] MEDS: SENNOSIDES-DOCUSATE SODIUM 1 EACH TAB PO SCH (20:31)
[2019-01-07 20:39] LABS: Glucose,Whole Blood 124 mg/dL (75-99)
[2019-01-08 06:05] LABS: Glucose,Whole Blood 103 mg/dL (75-99)
[2019-01-08] MEDS: INSULIN ASPART (NovoLOG) 100 UNIT/ML VIAL SQ SCH ×4 (06:09→20:49)
[2019-01-08] MEDS: FERROUS SULFATE 325 MG TAB PO SCH ×3 (06:37→16:55)
[2019-01-08] MEDS: PANTOPRAZOLE 40 MG TABLET PO SCH ×2 (06:37→07:38)
[2019-01-08] MEDS: ASCORBIC ACID 500 MG TAB PO SCH ×2 (06:37→16:55)
[2019-01-08] MEDS: IPRATROPIUM-ALBUTEROL 3 ML NEB INHALATION SCH ×4 (06:53→20:00)
[2019-01-08] MEDS: CALCIUM CARB-VIT D 500MG-200UN 1 EACH TAB PO SCH (07:37)
[2019-01-08] MEDS: HEPARIN SOD,PORK IN 0.45% NACL 25,000 UNIT in 0.45% NACL 1 250ML.BAG IV SCH (07:38)
[2019-01-08] MEDS: CHOLECALCIFEROL 1,000 UNIT TAB PO SCH (07:38)
[2019-01-08] MEDS: METOPROLOL TARTRATE 12.5 MG TAB PO SCH ×3 (07:38→20:44)
[2019-01-08] MEDS: VIT A,C & E-LUTEIN-MINERALS 1 EACH TAB PO SCH (07:38)
[2019-01-08] MEDS: MUPIROCIN 2% OINT 22 GM TUBE NASAL SCH (07:38)
[2019-01-08 07:43] LABS: Anisocytosis Slight; HCT 27.5 % (34.0-46.0); HGB 8.7 gm/dL (11.4-16.0); Hypochromasia Moderate; MCH 29.7 pg (25.0-35.0); MCHC 31.6 g/dL (31.0-37.0); MCV 93.9 fL (80.0-100.0); Macrocytosis Slight; Mean Platelet Volume 9.4; Platelet Count 396 k/uL (150-450); Poikilocytosis Slight; RBC 2.92 m/uL (3.80-5.40); RDW 19.5 % (11.5-15.5); WBC 15.2 k/uL (3.8-10.6)
[2019-01-08 08:11] LABS: Anion Gap 8 mmol/L; Blood Urea Nitrogen 16 mg/dL (7-17); Calcium 8.6 mg/dL (8.4-10.2); Carbon Dioxide 32 mmol/L (22-30); Chloride 96 mmol/L (98-107); Glucose 94 mg/dL (74-99); Magnesium 1.7 mg/dL (1.6-2.3); Potassium 4.2 mmol/L (3.5-5.1); Sodium 136 mmol/L (137-145)
[2019-01-08] MEDS: HEPARIN SODIUM,PORCINE 5,000 UNIT/ML 1 ML VIAL SQ SCH ×3 (08:27→23:31)
[2019-01-08] MEDS: ASPIRIN 81 MG PO SCH (08:27)
[2019-01-08] MEDS: GABAPENTIN 300 MG CAP PO SCH ×3 (08:27→22:02)
[2019-01-08] MEDS: FUROSEMIDE 10 MG/ML 2 ML VIAL IV SCH ×2 (08:27→20:44)
[2019-01-08] MEDS: CLOPIDOGREL 75 MG TAB PO SCH (08:27)
[2019-01-08] MEDS: HYDROcodone/APAP 5-325MG 1 EACH TAB PO PRN ×3 (08:28→23:59)
--- NOTE | 2019-01-08 09:04 | XR ---
EXAMINATION TYPE: XR chest 2V DATE OF EXAM: 01/08/2019 COMPARISON: Prior chest x-ray 01/07/2019 HISTORY: Post cardiac surgery, chest tube TECHNIQUE: Frontal and lateral views of the chest are obtained. FINDINGS: Left-sided chest tube remains in place. There may be minimal left apical pneumothorax, pat ient is rotated and there are overlying cardiac leads. Patchy basilar density persists. Suspect some improvement in aeration, lung volume. Patient is post median sternotomy. Postop changes are noted in the upper abdomen. Persistent elevation of the right hemidiaphragm. IMPRESSION: Some slight improvement in aeration is present.
[2019-01-08 12:04] LABS: Glucose,Whole Blood 117 mg/dL (75-99)
--- NOTE | 2019-01-08 12:05 | P.PN ---
Subjective Patient has been transferred to cardiac stepdown. Patient sitting in bed side chair. Patient states she's been up ambulating although noted to be weaker than prior to surgery. Plan is for rehab unit [facility] [place] with Dr. Veronica Objective - Vital Signs Vital signs: Vital Signs Temp 98.8 F 01/08/19 08:00 Pulse 88 01/08/19 11:47 Resp 16 01/08/19 11:32 BP 102/58 01/08/19 11:30 Pulse Ox 98 01/08/19 11:35 Intake & Output 01/07/19 01/08/19 01/08/19 18:59 06:59 18:59 Intake Total 720 500 480 Output Total 1230 40 253 Balance -510 460 227 Weight 80.2 kg 74.3 kg Intake: Oral 720 500 480 Output: Chest Tube Drainage 130 40 53 Left Pleural 130 40 53 Urine 1100 Stool 200 Other: Voiding Method Bedside Commode Bedside Commode # Voids 1 2 2 ABP, PAP, CO, CI - Last Documented Arterial Blood Pressure 126/51 Pulmonary Artery Pressure Cardiac Output 4.6 Cardiac Index 2.6 - Constitutional General appearance: Present: mild distress - EENT Eyes: Present: PERRLA Ears: bilateral: normal - Neck Neck: Present: normal ROM - Respiratory Respiratory: bilateral: CTA - Cardiovascular Rhythm: regular - Gastrointestinal General gastrointestinal: Present: soft - Integumentary Integumentary: Present: normal - Neurologic Neurologic: Present: CNII-XII intact - Musculoskeletal Musculoskeletal: Present: generalized weakness - Psychiatric Psychiatric: Present: A&O x's 3, appropriate affect, intact judgment & insight - Labs CBC & Chem 7: 01/08/19 07:21 01/08/19 07:21 Labs: Abnormal Lab Results - Last 24 Hours (Table) 01/07/19 01/07/19 01/07/19 Range/Units 16:27 17:17 20:37 WBC (3.8-10.6) k/uL RBC (3.80-5.40) m/uL Hgb (11.4-16.0) gm/dL Hct (34.0-46.0) % RDW (11.5-15.5) % Sodium (137-145) mmol/L Chloride (98-107) mmol/L Carbon Dioxide (22-30) mmol/L POC Glucose (mg/dL) 211 H 137 H 124 H (75-99) mg/dL 01/08/19 01/08/19 01/08/19 Range/Units 06:04 07:21 07:21 WBC 15.2 H (3.8-10.6) k/uL RBC 2.92 L (3.80-5.40) m/uL Hgb 8.7 L (11.4-16.0) gm/dL Hct 27.5 L (34.0-46.0) % RDW 19.5 H (11.5-15.5) % Sodium 136 L (137-145) mmol/L Chloride 96 L (98-107) mmol/L Carbon Dioxide 32 H (22-30) mmol/L POC Glucose (mg/dL) 103 H (75-99) mg/dL - Imaging and Cardiology Chest x-ray: report reviewed Assessment and Plan Plan: Assessment Acute non-ST elevation CA with elevated troponins Chest pain anginal Post by pass surgery three-vessel Postop anemia expected blood loss Thrombocytopenia expected postsurgical Elevated liver enzymes improving History of hyperlipidemia Sleep apnea BiPAP at home *Family history coronary disease Peripheral neuropathy nondiabetic Plan Continue consultation with cardiology Hopeful discharge soon to rehab
[2019-01-08] MEDS: LISINOPRIL 10 MG TAB PO SCH (12:10)
[2019-01-08] MEDS: FOLIC ACID 1 MG TAB PO SCH (12:10)
--- NOTE | 2019-01-08 15:15 | P.PN ---
Subjective Progress Note Date: 01/08/19 This is a 78-year-old female who is status post coronary bypass grafting surgery 3 using a RIDDLE to the LAD, reverse saphenous vein grafts to the second obtuse marginal and PDA. Patient was seen and examined today on the cardiac unit, overall doing well. Blood pressure 104/50 with heart rate in the 80s, hemoglobin 8.7, magnesium 1.7 today. Anticipating transferred to rehab soon Objective - Vital Signs Vital signs: Vital Signs Temp 98.8 F 01/08/19 08:00 Pulse 88 01/08/19 11:47 Resp 16 01/08/19 11:32 BP 102/58 01/08/19 11:30 Pulse Ox 98 01/08/19 11:35 Intake & Output 01/07/19 01/08/19 01/08/19 18:59 06:59 18:59 Intake Total 720 500 720 Output Total 1230 40 253 Balance -510 460 467 Weight 80.2 kg 74.3 kg Intake: Oral 720 500 720 Output: Chest Tube Drainage 130 40 53 Left Pleural 130 40 53 Urine 1100 Stool 200 Other: Voiding Method Bedside Commode Bedside Commode # Voids 1 2 2 ABP, PAP, CO, CI - Last Documented Arterial Blood Pressure 126/51 Pulmonary Artery Pressure Cardiac Output 4.6 Cardiac Index 2.6 - Exam GENERAL EXAM: Pleasant 78-year-old female patient, pale, currently comfortable in no apparent distress. On 2 L/m per nasal cannula. EYES: Normal reaction of pupils, equal size. NOSE: Clear with pink turbinates. THROAT: No erythema or exudates. NECK: No masses, no JVD. CHEST: Heart hugger in place. Sternum stable. Dressing intact. LUNGS: Equal air entry with crackles in the bilateral posterior bases. Left chest tubes in place. CVS: S1 and S2 normal with no audible murmur, regular rhythm. ABDOMEN: No hepatosplenomegaly, normal bowel sounds, no guarding or rigidity. SPINE: No scoliosis or deformity SKIN: No rashes CENTRAL NERVOUS SYSTEM: No focal deficits, tone is normal in all 4 extremities. EXTREMITIES: There is peripheral edema. No clubbing, no cyanosis. Peripheral pulses are intact. - Labs CBC & Chem 7: 01/08/19 07:21 01/08/19 07:21 Labs: Abnormal Lab Results - Last 24 Hours (Table) 01/07/19 01/07/19 01/07/19 Range/Units 16:27 17:17 20:37 WBC (3.8-10.6) k/uL RBC (3.80-5.40) m/uL Hgb (11.4-16.0) gm/dL Hct (34.0-46.0) % RDW (11.5-15.5) % Sodium (137-145) mmol/L Chloride (98-107) mmol/L Carbon Dioxide (22-30) mmol/L POC Glucose (mg/dL) 211 H 137 H 124 H (75-99) mg/dL 01/08/19 01/08/19 01/08/19 Range/Units 06:04 07:21 07:21 WBC 15.2 H (3.8-10.6) k/uL RBC 2.92 L (3.80-5.40) m/uL Hgb 8.7 L (11.4-16.0) gm/dL Hct 27.5 L (34.0-46.0) % RDW 19.5 H (11.5-15.5) % Sodium 136 L (137-145) mmol/L Chloride 96 L (98-107) mmol/L Carbon Dioxide 32 H (22-30) mmol/L POC Glucose (mg/dL) 103 H (75-99) mg/dL 01/08/19 Range/Units 12:03 WBC (3.8-10.6) k/uL RBC (3.80-5.40) m/uL Hgb (11.4-16.0) gm/dL Hct (34.0-46.0) % RDW (11.5-15.5) % Sodium (137-145) mmol/L Chloride (98-107) mmol/L Carbon Dioxide (22-30) mmol/L POC Glucose (mg/dL) 117 H (75-99) mg/dL Assessment and Plan Plan: Impression: #1 Non-ST segment elevation myocardial infarction with significant triple-vessel disease. Status post coronary artery bypass grafting 3 with a RIDDLE to the LAD, reverse saphenous vein grafts to the OM 2 and PDA. #2 Intubation and mechanical ventilatory support as an expected outcome of surgery, successfully extubated within 6 hours. #3 Hyperlipidemia. #4 Obstructive sleep apnea. #5 Vitamin D deficiency. #6 Gastroesophageal reflux disease. #7 Degenerative joint disease. Plan From cardiology's perspective, we'll recommend to continue the patient on her current medications. Transferred to rehab when cleared by cardiothoracic surgery. DNP note has been reviewed, I agree with a documented findings and plan of care. Patient was seen and examined.
--- NOTE | 2019-01-08 16:47 | P.PN ---
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 POD #9 urgent triple vessel coronary artery bypass grafting using the left internal mammary artery to the left anterior descending artery across a plaque as a patch angioplasty, a reverse greater saphenous vein graft from the aorta to the second obtuse marginal artery, a reverse greater saphenous vein graft from the aorta to the posterior descending artery. Endoscopic harvesting of the bilateral greater saphenous veins, both greater saphenous veins from the groin to just below the knee level. Intraoperative transesophageal echocardiogram and epi-aortic scanning. Intraoperative graft flow measurements using the [employer] system. Intraoperative and postoperative acute blood loss anemia, an expected outcome given hemodilution, cardiopulmonary bypass pump and patient's preoperative anemia. Postoperative thrombocytopenia, an expected outcome given cardiopulmonary bypass pump. Postoperative elevation of her AST and ALT, an unexpected outcome, resolving. The patient is sitting up in bed chair on the 3 S cardiac stepdown unit. She is in no acute distress. She denies any complaints of pain or shortness of breath at this time. The patient continues to work with physical, occupational and cardiac rehab. Left pleural chest tube remains in place and is to waterseal. Draining thin serosanguineous drainage. Grade 140 mL output in the last 24 hours. Demonstrating 750 mL on her incentive spirometry with encouragement. Remains hemodynamically stable and afebrile. Objective - Vital Signs Vital signs: Vital Signs Temp 98.2 F 01/08/19 15:39 Pulse 94 01/08/19 16:00 Resp 16 01/08/19 16:00 BP 99/58 01/08/19 15:39 Pulse Ox 92 L 01/08/19 15:39 Intake & Output 01/07/19 01/08/19 01/08/19 18:59 06:59 18:59 Intake Total 720 500 720 Output Total 1230 40 253 Balance -510 460 467 Weight 80.2 kg 74.3 kg Intake: Oral 720 500 720 Output: Chest Tube Drainage 130 40 53 Left Pleural 130 40 53 Urine 1100 Stool 200 Other: Voiding Method Bedside Commode Bedside Commode # Voids 1 2 2 ABP, PAP, CO, CI - Last Documented Arterial Blood Pressure 126/51 Pulmonary Artery Pressure 26/19 Cardiac Output 4.6 Cardiac Index 2.6 - Constitutional General appearance: Present: cooperative, no acute distress, obese - Respiratory Details: Lung sounds are essentially clear throughout, diminished bilateral bases. Respirations are symmetrical and nonlabored. Oxygen saturation are 94% on 2 L nasal cannula. Achieving 750 mL on her incentive spirometry. Left pleural chest tube remains in place to water seal. Draining thin serosanguineous drainage. No air leak is present. 140 mL output in the last 24 hours. - Cardiovascular Details: Regular rhythm and rate. S1 and S2 present, negative for S3, gallop or murmur. Sternum is stable. Remote telemetry showing normal sinus rhythm heart rate 94. Heart hugger is in place demonstrating appropriate use. Surgical support bra in place. Knee-high DENNY hose and sequential compression devices in place were bilateral lower extremities. Trace edema to her bilateral lower extremity Bobby. - Gastrointestinal Gastrointestinal Comment(s): Abdomen is soft, nontender and nondistended. Active bowel sounds all 4 abdominal quadrants. No guarding or rigidity. No organomegaly. Tolerating oral intake. - Genitourinary Genitourinary Comment(s): Voiding clear yellow urine. - Integumentary Integumentary Comment(s): Skin is warm and dry. No clubbing or cyanosis is present. Midline sternal incision is clean, dry and approximated. No drainage or redness is present. Bilateral lower extremity EVH site clean, dry and approximated. No drainage or redness is present. - Neurologic Neurologic: Present: CNII-XII intact - Musculoskeletal Musculoskeletal: Present: gait normal, generalized weakness, strength equal bilaterally - Psychiatric Psychiatric: Present: A&O x's 3, appropriate affect, intact judgment & insight - Allied health notes Allied health notes reviewed: nursing - Labs CBC & Chem 7: 01/08/19 07:21 01/08/19 07:21 Labs: Abnormal Lab Results - Last 24 Hours (Table) 01/07/19 01/07/19 01/08/19 Range/Units 17:17 20:37 06:04 WBC (3.8-10.6) k/uL RBC (3.80-5.40) m/uL Hgb (11.4-16.0) gm/dL Hct (34.0-46.0) % RDW (11.5-15.5) % Sodium (137-145) mmol/L Chloride (98-107) mmol/L Carbon Dioxide (22-30) mmol/L POC Glucose (mg/dL) 137 H 124 H 103 H (75-99) mg/dL 01/08/19 01/08/19 01/08/19 Range/Units 07:21 07:21 12:03 WBC 15.2 H (3.8-10.6) k/uL RBC 2.92 L (3.80-5.40) m/uL Hgb 8.7 L (11.4-16.0) gm/dL Hct 27.5 L (34.0-46.0) % RDW 19.5 H (11.5-15.5) % Sodium 136 L (137-145) mmol/L Chloride 96 L (98-107) mmol/L Carbon Dioxide 32 H (22-30) mmol/L POC Glucose (mg/dL) 117 H (75-99) mg/dL - Imaging and Cardiology Chest x-ray: report reviewed, image reviewed Assessment and Plan Assessment: 1. Triple-vessel coronary artery disease with left main stenosis, status post urgent triple-vessel coronary artery bypass surgery 2. Non-STEMI 3. Mild to moderate aortic valve regurgitation 4. Preserved left ventricular function with an ejection fraction of 55% 5. Hyperlipidemia 6. Previous tobacco dependence, preoperative FEV1 98% of predicted 7. Obstructive sleep apnea with home CPAP use 8. History of gastric ulcer with partial gastrectomy 9. History of splenectomy 10. Arthritis 11. Family history of premature coronary artery disease 12. Preoperative chronic normocytic, normochromic anemia 13. Intraoperative and postoperative acute blood loss anemia, expected 14. Postoperative thrombocytopenia 15. History of peripheral neuropathy 16. Postoperative elevation of her AST and ALT, resolving Plan: 1. Continue low-dose aspirin, Plavix, BOBBY inhibitor, statin and beta bettye. Will increase beta bettye therapy as tolerated. 2. Continue Lasix 20 mg IV every 12 hours. 3. Wean O2 as tolerated. Encourage incentive spirometry use 10 times every hour while awake. 4. Increase activity as tolerated. Out of bed for all meals PT/OT/cardiac rehab following. 5. Will monitor daily labs and chest x-rays. Electrolyte replacement per protocol. 6. Bronchodilators, CPAP per pulmonology management. 7. Pain control with current medication regimen. 8. Insulin management per primary care service. 9. Keep left pleural chest tube in place. Continue to monitor left pleural chest tube drainage. 10. GI/DVT prophylaxis in place. 11. The importance of continued smoking cessation has been discussed with the patient. 12. Remove left pleural chest tube. 13. Discharge planning in progress. Anticipate discharge to inpatient rehab soon. Dr. Veronica was following. 14. More recommendations to follow based on patient's clinical course. Time with Patient: Greater than 30
[2019-01-08 16:56] LABS: Glucose,Whole Blood 116 mg/dL (75-99)
--- NOTE | 2019-01-08 19:15 | P.PN ---
Subjective Progress Note Date: 01/08/19 Principal diagnosis: Triple-vessel coronary artery disease, status post port coronary artery bypass grafting 3 utilizing a RIDDLE to the LAD, reverse saphenous vein grafts to the se cond obtuse marginal artery and posterior descending artery. The patient is seen today 01/08/2019 in follow-up on the selective care unit. She is currently sitting up in a chair at the bedside. Awake and alert in no acute distress. She is maintaining O2 saturations in the 90s on room air. She's been afebrile. Hemodynamically stable. Chest x-ray reveals left-sided chest tube in place. Normal left apical pneumothorax. Patchy basilar densities. Improved aeration. She is working well with the incentive spirometer. Continued on bronchodilators. Continue on IV Lasix 20 mg every 12 hours. Objective - Vital Signs Vital signs: Vital Signs Temp 98.2 F 01/08/19 15:39 Pulse 94 01/08/19 16:00 Resp 16 01/08/19 16:00 BP 99/58 01/08/19 15:39 Pulse Ox 92 L 01/08/19 15:39 Intake & Output 01/08/19 01/08/19 01/09/19 06:59 18:59 06:59 Intake Total 500 840 Output Total 40 253 Balance 460 587 Weight 74.3 kg Intake: Oral 500 840 Output: Chest Tube Drainage 40 53 Left Pleural 40 53 Stool 200 Other: Voiding Method Bedside Commode # Voids 2 1 ABP, PAP, CO, CI - Last Documented Arterial Blood Pressure 126/51 Pulmonary Artery Pressure 26/19 Cardiac Output 4.6 Cardiac Index 2.6 - Exam GENERAL EXAM: Pleasant 78-year-old female patient, pale, currently comfortable in no apparent distress. On room air. EYES: Normal reaction of pupils, equal size. NOSE: Clear with pink turbinates. THROAT: No erythema or exudates. NECK: No masses, no JVD. CHEST: Heart hugger in place. Sternum stable. Dressing intact. LUNGS: Equal air entry with crackles in the bilateral posterior bases. Left chest tubes in place. CVS: S1 and S2 normal with no audible murmur, regular rhythm. ABDOMEN: No hepatosplenomegaly, normal bowel sounds, no guarding or rigidity. SPINE: No scoliosis or deformity SKIN: No rashes CENTRAL NERVOUS SYSTEM: No focal deficits, tone is normal in all 4 extremities. EXTREMITIES: There is peripheral edema. No clubbing, no cyanosis. Peripheral pulses are intact. - Labs CBC & Chem 7: 01/08/19 07:21 01/08/19 07:21 Labs: Abnormal Lab Results - Last 24 Hours (Table) 01/07/19 01/08/19 01/08/19 Range/Units 20:37 06:04 07:21 WBC 15.2 H (3.8-10.6) k/uL RBC 2.92 L (3.80-5.40) m/uL Hgb 8.7 L (11.4-16.0) gm/dL Hct 27.5 L (34.0-46.0) % RDW 19.5 H (11.5-15.5) % Sodium (137-145) mmol/L Chloride (98-107) mmol/L Carbon Dioxide (22-30) mmol/L POC Glucose (mg/dL) 124 H 103 H (75-99) mg/dL 01/08/19 01/08/19 01/08/19 Range/Units 07:21 12:03 16:44 WBC (3.8-10.6) k/uL RBC (3.80-5.40) m/uL Hgb (11.4-16.0) gm/dL Hct (34.0-46.0) % RDW (11.5-15.5) % Sodium 136 L (137-145) mmol/L Chloride 96 L (98-107) mmol/L Carbon Dioxide 32 H (22-30) mmol/L POC Glucose (mg/dL) 117 H 116 H (75-99) mg/dL Assessment and Plan Assessment: Impression: #1 Non-ST segment elevation myocardial infarction with significant triple-vessel disease. Status post coronary artery bypass grafting 3 with a RIDDLE to the LAD, reverse saphenous vein grafts to the OM 2 and PDA. #2 Intubation and mechanical ventilatory support as an expected outcome of surgery, successfully extubated within 6 hours. #3 Hyperlipidemia. #4 Obstructive sleep apnea. #5 Vitamin D deficiency. #6 Gastroesophageal reflux disease. #7 Degenerative joint disease. Plan: The patient was seen and evaluated by Dr. Enriquez. Chest x-ray and labs were reviewed. Remains on Lasix 20 mg IV push every 12 hours. Maintaining good O2 saturations in the 90s on room air. Encouraged regarding the increased use the incentive spirometer and cough and deep breathing exercises. Continue with bronchodilators. We'll increase her activity as tolerated. We'll continue to f mignon make further recommendations based on her clinical status. I, the cosigning physician, performed a history & physical examination of the patient. Lungs sounds with crackles in the bilateral posterior bases. Maintaining good O2 saturations in the 90s on room air. I discussed the assessment and plan of care with my nurse practitioner, Cherie Zuniga. I attest to the above note as dictated by her.
[2019-01-08 20:13] LABS: Glucose,Whole Blood 129 mg/dL (75-99)
[2019-01-08] MEDS: ATORVASTATIN 40 MG TAB PO SCH (20:44)
[2019-01-08] MEDS: SENNOSIDES-DOCUSATE SODIUM 1 EACH TAB PO SCH (20:45)
[2019-01-09 06:15] LABS: Glucose,Whole Blood 118 mg/dL (75-99)
[2019-01-09] MEDS: INSULIN ASPART (NovoLOG) 100 UNIT/ML VIAL SQ SCH ×2 (06:44→11:46)
[2019-01-09] MEDS: PANTOPRAZOLE 40 MG TABLET PO SCH (06:46)
[2019-01-09] MEDS: FERROUS SULFATE 325 MG TAB PO SCH (06:46)
[2019-01-09] MEDS: ASCORBIC ACID 500 MG TAB PO SCH (06:46)
[2019-01-09 07:49] VITALS: TEMP 98.2
[2019-01-09 07:56] LABS: Calcium 8.9 mg/dL (8.4-10.2); Potassium 4.2 mmol/L (3.5-5.1)
[2019-01-09] MEDS: ASPIRIN 81 MG PO SCH (08:33)
[2019-01-09] MEDS: CLOPIDOGREL 75 MG TAB PO SCH (08:33)
[2019-01-09] MEDS: METOPROLOL TARTRATE 12.5 MG TAB PO SCH (08:33)
[2019-01-09] MEDS: GABAPENTIN 300 MG CAP PO SCH (08:33)
[2019-01-09] MEDS: FUROSEMIDE 10 MG/ML 2 ML VIAL IV SCH (08:33)
[2019-01-09] MEDS: HEPARIN SODIUM,PORCINE 5,000 UNIT/ML 1 ML VIAL SQ SCH (08:33)
[2019-01-09 08:34] LABS: Anisocytosis Moderate; HCT 28.6 % (34.0-46.0); HGB 9.3 gm/dL (11.4-16.0); Hypochromasia Moderate; MCH 30.3 pg (25.0-35.0); MCHC 32.4 g/dL (31.0-37.0); MCV 93.6 fL (80.0-100.0); Macrocytosis Slight; Mean Platelet Volume 9.6; Platelet Count 392 k/uL (150-450); Poikilocytosis Slight; RBC 3.06 m/uL (3.80-5.40); RDW 20.8 % (11.5-15.5)
--- NOTE | 2019-01-09 08:43 | XR ---
EXAMINATION TYPE: XR chest 2V DATE OF EXAM: 01/09/2019 COMPARISON: Prior chest x-ray 01/08/2019 HISTORY: Postop, abnormal chest x-ray, status post chest tube removal TECHNIQUE: Frontal and lateral views of the chest are obtained. FINDINGS: Left-sided chest tube has been removed. Pleural parenchymal changes are similar to prior e xam, there is no sizable pneumothorax. Heart size is stable, patient is post median sternotomy. Posto p changes noted in the upper abdomen. There are overlying cardiac leads. Patient is rotated. Patchy b ibasilar density persists. IMPRESSION: No evident complication status post chest tube removal. Probable basilar atelectasis.
[2019-01-09] MEDS: IPRATROPIUM-ALBUTEROL 3 ML NEB INHALATION SCH ×2 (09:11→11:40)
[2019-01-09 09:27] LABS: Eosinophils # (M) 0.76 k/uL (0-0.7); Lymphocytes # (M) 1.73 k/uL (1.0-4.8); Monocytes # (M) 0.76 k/uL (0-1.0); Myelocytes # (M) 0.11 k/uL (0); Myelocytes % 1 %; Neutrophils # (M) 7.56 k/uL (1.3-7.7); Neutrophils % (M) 70 %; Nucleated Red Blood Cells 12 /100 WBC (0-0); Polychromasia Present; Total Cells Counted 200; WBC 10.8 k/uL (3.8-10.6)
[2019-01-09] MEDS: HYDROcodone/APAP 5-325MG 1 EACH TAB PO PRN (09:39)
[2019-01-09 11:41] LABS: Glucose,Whole Blood 120 mg/dL (75-99)
[2019-01-09 12:14] VITALS: BP 100/59; PULSE 77; RESP 16
[2019-01-09] MEDS: FOLIC ACID 1 MG TAB PO SCH (12:14)
[2019-01-09] MEDS: LISINOPRIL 10 MG TAB PO SCH (12:14)
--- NOTE | 2019-01-09 13:35 | P.PN ---
Subjective Progress Note Date: 01/09/19 This is a 78-year-old female who is status post coronary bypass grafting surgery 3 using a RIDDLE to the LAD, reverse saphenous vein grafts to the second obtuse marginal and PDA. Patient was seen and examined today on the cardiac unit, overall doing well. Blood pressure 104/50 with heart rate in the 80s, hemoglobin 8.7, magnesium 1.7 today. Anticipating transferred to rehab soon 01/09/2019 Patient seen and examined this morning, feels well, hemodynamically stable. Anticipating transferred to rehab. Objective - Vital Signs Vital signs: Vital Signs Temp 98.2 F 01/09/19 07:46 Pulse 77 01/09/19 12:00 Resp 16 01/09/19 12:00 BP 100/59 01/09/19 12:00 Pulse Ox 93 L 01/09/19 12:00 Intake & Output 01/08/19 01/09/19 01/09/19 18:59 06:59 18:59 Intake Total 840 600 180 Output Total 253 100 Balance 587 500 180 Weight 73.3 kg Intake: Oral 840 600 180 Output: Chest Tube Drainage 53 Left Pleural 53 Stool 200 100 Other: Voiding Method Bedside Commode # Voids 1 4 ABP, PAP, CO, CI - Last Documented Arterial Blood Pressure 126/51 Pulmonary Artery Pressure 26/19 Cardiac Output 4.6 Cardiac Index 2.6 - Exam GENERAL EXAM: Pleasant 78-year-old female patient, pale, currently comfortable in no apparent distress. On 2 L/m per nasal cannula. EYES: Normal reaction of pupils, equal size. NOSE: Clear with pink turbinates. THROAT: No erythema or exudates. NECK: No masses, no JVD. CHEST: Heart hugger in place. Sternum stable. Dressing intact. LUNGS: Equal air entry with crackles in the bilateral posterior bases. Left chest tubes in place. CVS: S1 and S2 normal with no audible murmur, regular rhythm. ABDOMEN: No hepatosplenomegaly, normal bowel sounds, no guarding or rigidity. SPINE: No scoliosis or deformity SKIN: No rashes CENTRAL NERVOUS SYSTEM: No focal deficits, tone is normal in all 4 extremities. EXTREMITIES: There is peripheral edema. No clubbing, no cyanosis. Peripheral pulses are intact. - Labs CBC & Chem 7: 01/09/19 06:32 01/09/19 06:32 Labs: Abnormal Lab Results - Last 24 Hours (Table) 01/08/19 01/08/19 01/09/19 Range/Units 16:44 20:11 06:12 WBC (3.8-10.6) k/uL RBC (3.80-5.40) m/uL Hgb (11.4-16.0) gm/dL Hct (34.0-46.0) % RDW (11.5-15.5) % Eosinophils # (Manual) (0-0.7) k/uL Myelocytes # (Manual) (0) k/uL Nucleated RBCs (0-0) /100 WBC Sodium (137-145) mmol/L Chloride (98-107) mmol/L Carbon Dioxide (22-30) mmol/L POC Glucose (mg/dL) 116 H 129 H 118 H (75-99) mg/dL 01/09/19 01/09/19 01/09/19 Range/Units 06:32 06:32 11:38 WBC 10.8 H (3.8-10.6) k/uL RBC 3.06 L (3.80-5.40) m/uL Hgb 9.3 L (11.4-16.0) gm/dL Hct 28.6 L (34.0-46.0) % RDW 20.8 H (11.5-15.5) % Eosinophils # (Manual) 0.76 H (0-0.7) k/uL Myelocytes # (Manual) 0.11 H (0) k/uL Nucleated RBCs 12 H (0-0) /100 WBC Sodium 136 L (137-145) mmol/L Chloride 94 L (98-107) mmol/L Carbon Dioxide 33 H (22-30) mmol/L POC Glucose (mg/dL) 120 H (75-99) mg/dL Assessment and Plan Plan: Impression: #1 Non-ST segment elevation myocardial infarction with significant triple-vessel disease. Status post coronary artery bypass grafting 3 with a RIDDLE to the LAD, reverse saphenous vein grafts to the OM 2 and PDA. #2 Intubation and mechanical ventilatory support as an expected outcome of surgery, successfully extubated within 6 hours. #3 Hyperlipidemia. #4 Obstructive sleep apnea. #5 Vitamin D deficiency. #6 Gastroesophageal reflux disease. #7 Degenerative joint disease. Plan From cardiology's perspective, we'll recommend to continue the patient on her current medications. Transferred to rehab when cleared by cardiothoracic surgery. DNP note has been reviewed, I agree with a documented findings and plan of care. Patient was seen and examined.
--- NOTE | 2019-01-09 14:05 | P.PN ---
Subjective On-call hospitalist covering Dr. Saldana starting today This is a pleasant 78 years old female with past medical history of hyperlipidemia and sleep apnea, she presents with acute non-ST elevation myocardial infarction with elevated troponins. Patient was found to have significant left main coronary artery disease, she underwent coronary artery by pass grafting by cardiothoracic surgery team. Patient is seen today in the intensive care unit, she was comfortable not in chest pain, no dyspnea. No change in urine or bowel habits. She is hemodynamically stable Today patient is doing well with no complaints. No chest pain. No dyspnea. No change in urine or bowel habits. No nausea vomiting. Patient has been followed by several consultants, including cardiothoracic surgery team, pulmonary, cardiac team Patient is physically week and physical therapy evaluation Patient Needs Inpatient Rehab Patient Pending Insurance Approval for Her Discharge Objective - Vital Signs Vital signs: Vital Signs Temp 98.2 F 01/09/19 07:46 Pulse 77 01/09/19 12:00 Resp 16 01/09/19 12:00 BP 100/59 01/09/19 12:00 Pulse Ox 93 L 01/09/19 12:00 Intake & Output 01/08/19 01/09/19 01/09/19 18:59 06:59 18:59 Intake Total 840 600 180 Output Total 253 100 Balance 587 500 180 Weight 73.3 kg Intake: Oral 840 600 180 Output: Chest Tube Drainage 53 Left Pleural 53 Stool 200 100 Other: Voiding Method Bedside Commode # Voids 1 4 ABP, PAP, CO, CI - Last Documented Arterial Blood Pressure 126/51 Pulmonary Artery Pressure 26/19 Cardiac Output 4.6 Cardiac Index 2.6 - Exam GENERAL: The patient is alert and oriented x3, not in any acute distress. Well developed, well nourished. HEENT: Pupils are round and equally reacting to light. EOMI. No scleral icterus. No conjunctival pallor. Normocephalic, atraumatic. No pharyngeal erythema. No thyromegaly. CARDIOVASCULAR: S1 and S2 present. No murmurs, rubs, or gallops. PULMONARY: Chest is clear to auscultation, no wheezing or crackles. ABDOMEN: Soft, nontender, nondistended, normoactive bowel sounds. No palpable organomegaly. MUSCULOSKELETAL: No joint swelling or deformity. EXTREMITIES: No cyanosis, clubbing, or pedal edema. NEUROLOGICAL: Gross neurological examination did not reveal any focal deficits. SKIN: No rashes. - Labs CBC & Chem 7: 01/09/19 06:32 01/09/19 06:32 Labs: Abnormal Lab Results - Last 24 Hours (Table) 01/08/19 01/08/19 01/09/19 Range/Units 16:44 20:11 06:12 WBC (3.8-10.6) k/uL RBC (3.80-5.40) m/uL Hgb (11.4-16.0) gm/dL Hct (34.0-46.0) % RDW (11.5-15.5) % Eosinophils # (Manual) (0-0.7) k/uL Myelocytes # (Manual) (0) k/uL Nucleated RBCs (0-0) /100 WBC Sodium (137-145) mmol/L Chloride (98-107) mmol/L Carbon Dioxide (22-30) mmol/L POC Glucose (mg/dL) 116 H 129 H 118 H (75-99) mg/dL 01/09/19 01/09/19 01/09/19 Range/Units 06:32 06:32 11:38 WBC 10.8 H (3.8-10.6) k/uL RBC 3.06 L (3.80-5.40) m/uL Hgb 9.3 L (11.4-16.0) gm/dL Hct 28.6 L (34.0-46.0) % RDW 20.8 H (11.5-15.5) % Eosinophils # (Manual) 0.76 H (0-0.7) k/uL Myelocytes # (Manual) 0.11 H (0) k/uL Nucleated RBCs 12 H (0-0) /100 WBC Sodium 136 L (137-145) mmol/L Chloride 94 L (98-107) mmol/L Carbon Dioxide 33 H (22-30) mmol/L POC Glucose (mg/dL) 120 H (75-99) mg/dL Assessment and Plan Assessment: Acute non-ST elevated ID with elevated troponin level. Status post CABG Hyperlipidemia Obstructive sleep apnea on CPAP at home Family history of coronary disease Previous history of smoking Peripheral neuropathy nondiabetic history of splenectomy Plan: This is a pleasant 78 years old female who presents for coronary artery disease, she status post CABG. She will continue with amiodarone as per recommendation, she is on aspirin and Plavix. Continue on heparin for DVT prophylaxis. Pain management. Several consultants R following the case including pulmonary, cardi ology and cardiothoracic surgey.Labs and medication were reviewed.. Continue same treatment. Continue with symptomatic treatment. Resume home medication. Monitor lytes and vitals. DVT and GI prophylaxis. Further recommendations of the clinical course of the patient DVT prophylaxis: Subcutaneous heparin GI Prophylaxis: Ppi Patient was instructed to follow up with her PCP and other physicians within one week and as instructed. Patient agrees to keep the appointments with her cardiothoracic surgery on February 06. Patient is pending insurance approval for transfer to rehab
--- NOTE | 2019-01-09 14:09 | P.DS ---
Providers Date of admission: 12/29/18 07:26 Expected date of discharge: 01/09/19 Attending physician: Leilani Pham Consults: 12/27/18 11:21 Consult Physician Urgent Consulting Provider: Car Jeff Consult Reason/Comments: Chest pain, unstable angina Do you want consulting provider notified?: Yes 12/29/18 08:55 Consult Physician Routine Consulting Provider: Danielito Love Consult Reason/Comments: preop cabg Do you want consulting provider notified?: Yes Consult to Anesthesia Routine Consulting Provider: Anesthesia,Services Consult Reason/Comments: Cardiac Surgery Pre-Op 12/29/18 11:01 Consult Physician Routine Consulting Provider: Leilani Pham Consult Reason/Comments: cad Do you want consulting provider notified?: Already Contacted 12/30/18 15:02 Consult Physician Routine Consulting Provider: Ramses Saldana Consult Reason/Comments: med management Do you want consulting provider notified?: Already Contacted 01/05/19 09:45 Consult Physician Routine Consulting Provider: Kennedy Veronica Consult Reason/Comments: IPR placement evaluation Do you want consulting provider notified?: Yes Primary care physician: Ramses Saldana Hospital Course: FINAL DIAGNOSIS: 1. Triple-vessel coronary artery disease with left main disease 2. Non-ST elevation myocardial infarction 3. Mild to moderate aortic valve regurgitation 4. Preserved left ventricular function 5. Hyperlipidemia 6. Previous tobacco dependence with preoperative FEV1 98% of predicted 7. Obstructive sleep apnea with home CPAP use 8. History of gastric ulcer with partial gastrectomy 9. History of splenectomy 10. Arthritis 11. Family history of premature coronary artery disease 12. Preoperative chronic normocytic, normochromic anemia 13. Intraoperative and postoperative acute blood loss anemia 14. Postoperative thrombocytopenia 15. Postoperative transaminitis, resolving PRINCIPAL PROCEDURE: 1. Left heart catheterization 2. Urgent triple coronary artery bypass grafting using the left internal mammary artery to the left anterior descending artery across a plaque as a patch angioplasty, reverse saphenous vein graft from the aorta to the second obtuse marginal artery, reverse saphenous vein graft from the aorta to the posterior descending artery 3. Endoscopic harvesting of the bilateral later saphenous veins, both ureters os veins from the groin to just below the knee level 4. Intraoperative transesophageal echocardiogram and epi-aortic scanning 5. Intraoperative graft flow measurements using the Sampa system HISTORY OF PRESENT ILLNESS: This is a 78-year-old active female patient who recently began following with Dr. Ramses Saldana on an outpatient basis. She presented to [facility] emergency room on December 27 with complaints of chest pain for the prior 2 weeks. She stated that her symptoms were progressively worse over the previous 2 days prompting her to report to the emergency room. She described her pain as if an elephant was sitting on her chest, associated symptoms included diaphoresis and shortness of breath. Her pain would increase with physical activity, and be partially relieved with rest. EMS had applied oxygen and given her nitro, with relief of her pain. She did admit to occasional lower extremity edema. She did have elevation in her troponins and was ruled in for non-STEMI, and was recommended to undergo heart catheterization which demonstrated calcific distal left main stenosis of 80%, heavily calcified left anterior descending artery with proximal LAD stenosis 95%, proximal circumflex stenosis 40-50%, ostial PDA stenosis 80-90%, and ostial PLV stenosis 40-50%. Due to her catheterization results an urgent consultation was placed for Dr. Pham from cardiothoracic surgery. She was recommended to undergo coronary artery bypass graft surgery. The usual perioperative course was discussed in detail with the patient and her family, all risks and benefits were explained, all questions were answered, and consent was obtained to proceed with surgery. The patient was kept inpatient due to the nature of her disease process. HOSPITAL COURSE: The patient was brought to the preoperative area on 12/30/2018, prepared in the usual fashion, and subsequently taken to the operating room where Dr. Pham performed urgent triple coronary artery bypass grafting using the left internal mammary artery to the left anterior descending artery across a plaque as a patch angioplasty, reverse saphenous vein graft from the aorta to the second obtuse marginal artery, reverse saphenous vein graft from the aorta to the posterior descending artery, endoscopic harvesting of the bilateral later saphenous veins, both ureters os veins from the groin to just below the knee level, intraoperative transesophageal echocardiogram and epi-aortic scanning, and intraoperative graft flow measurements using the Sampa system. Upon completion of surgery the patient was transferred to the cardiovascular [facility] care unit where she was recovered, monitored hemodynamically, and where she progressed to cardiac rehabilitation phase 1. She was extubated, all lines, tubes, and drips were discontinued when appropriate, and she was transferred to [facility] cardiac stepdown unit for further monitoring and rehabilitation. She did experience acute blood loss anemia requiring blood transfusion and transaminitis which resolved without intervention. Her oxygen was titrated down, she continued to work with physical and occupational therapy, she was tolerating oral diet, her pain was controlled, and she was ready to be discharged to [facility] inpatient rehab on postoperative day #10. She received written and verbal instruction regarding her medications, activity restrictions, signs and symptoms requiring physician notification, and follow-up appointments. COMPLICATIONS: The patient experienced postoperative acute blood loss anemia, thrombocytopenia, and transaminitis, which were treated accordingly. Patient Condition at Discharge: Stable Plan - Discharge Summary Discharge Rx Participant: No New Discharge Prescriptions: New Aspirin 81 mg PO DAILY chew Ipratropium-Albuterol Nebulize [Duoneb 0.5 mg-3 mg/3 ml Soln] 3 ml INHALATION RT-QID ampul.neb Ipratropium-Albuterol Nebulize [Duoneb 0.5 mg-3 mg/3 ml Soln] 3 ml INHALATION RT-Q2H PRN ampul.neb PRN Reason: Shortness Of Breath Or Wheezing Heparin Sodium,Porcine [Heparin Sodium] 5,000 unit SQ Q8HR vial Ferrous Sulfate [Iron (65 MG Elemental)] 325 mg PO BID-W/MEALS tab Furosemide [Lasix] 20 mg PO DAILY #14 tab Atorvastatin [Lipitor] 40 mg PO HS tab Metoprolol Tartrate [Lopressor] 12.5 mg PO BID tab Magnesium Hydroxide [Milk of Magnesia Concentrate] 2,400 mg PO BID PRN ml PRN Reason: Constipation HYDROcodone/APAP 5-325MG [[place] 5-325] 1 each PO Q6HR PRN tab PRN Reason: Pain INSULIN ASPART (NovoLOG) [NovoLOG (formulary)] 0 unit SQ ACHS vial Clopidogrel [Plavix] 75 mg PO DAILY tab Pantoprazole [Protonix] 40 mg PO AC-BRKFST tablet. Sennosideyahir-Docusate Sodium [Senokot-S] 2 each PO HS tab Ascorbic Acid [Vitamin C] 500 mg PO BID-W/MEALS tab Lisinopril [Zestril] 10 mg PO DAILY@1200 tab Continue Folic Acid 1 mg PO DAILY Cholecalciferol (Vitamin D3) [Vitamin D3] 4,000 unit PO DAILY Vit C/E/Zn/Coppr/Lutein/Zeaxan [Preservision Areds 2 Softgel] 2 cap PO BID Calcium Carbonate/Vitamin D3 [Calcium 500-Vit D3 600 Tablet] 1 tab PO BID Latanoprost [Xalatan 0.005%] 1 drop BOTH EYES HS Gabapentin [Neurontin] 300 mg PO TID Fluorometholone 0.1% Ophth Amy [Fml] 1 drop PO HS Discontinued Ferrous Sulfate [Iron (65 MG Elemental)] 325 mg PO Q48H Omeprazole 40 mg PO DAILY Meloxicam 15 mg PO DAILY Atorvastatin [Lipitor] 40 mg PO DAILY Magnesium Oxide [Mag-Ox] 250 mg PO DAILY Discharge Medication List Calcium Carbonate/Vitamin D3 [Calcium 500-Vit D3 600 Tablet] 1 tab PO BID 12/27/18 [History] Cholecalciferol (Vitamin D3) [Vitamin D3] 4,000 unit PO DAILY 12/27/18 [History] Fluorometholone 0.1% Ophth Amy [Fml] 1 drop PO HS 12/27/18 [History] Folic Acid 1 mg PO DAILY 12/27/18 [History] Gabapentin [Neurontin] 300 mg PO TID 12/27/18 [History] Latanoprost [Xalatan 0.005%] 1 drop BOTH EYES HS 12/27/18 [History] Vit C/E/Zn/Coppr/Lutein/Zeaxan [Preservision Areds 2 Softgel] 2 cap PO BID 12/27/18 [History] Ascorbic Acid [Vitamin C] 500 mg PO BID-W/MEALS tab 01/09/19 [Rx] Aspirin 81 mg PO DAILY chew 01/09/19 [Rx] Atorvastatin [Lipitor] 40 mg PO HS tab 01/09/19 [Rx] Clopidogrel [Plavix] 75 mg PO DAILY tab 01/09/19 [Rx] Ferrous Sulfate [Iron (65 MG Elemental)] 325 mg PO BID-W/MEALS tab 01/09/19 [Rx] Furosemide [Lasix] 20 mg PO DAILY #14 tab 01/09/19 [Rx] HYDROcodone/APAP 5-325MG [[place] 5-325] 1 each PO Q6HR PRN tab 01/09/19 [Rx] Heparin Sodium,Porcine [Heparin Sodium] 5,000 unit SQ Q8HR vial 01/09/19 [Rx] INSULIN ASPART (NovoLOG) [NovoLOG (formulary)] 0 unit SQ ACHS vial 01/09/19 [Rx] Ipratropium-Albuterol Nebulize [Duoneb 0.5 mg-3 mg/3 ml Soln] 3 ml INHALATION RT-Q2H PRN ampul.neb 01/09/19 [Rx] Ipratropium-Albuterol Nebulize [Duoneb 0.5 mg-3 mg/3 ml Soln] 3 ml INHALATION RT-QID ampul.neb 01/09/19 [Rx] Lisinopril [Zestril] 10 mg PO DAILY@1200 tab 01/09/19 [Rx] Magnesium Hydroxide [Milk of Magnesia Concentrate] 2,400 mg PO BID PRN ml 01/09/19 [Rx] Metoprolol Tartrate [Lopressor] 12.5 mg PO BID tab 01/09/19 [Rx] Pantoprazole [Protonix] 40 mg PO AC-BRKFST tablet. 01/09/19 [Rx] Sennosides-Docusate Sodium [Senokot-S] 2 each PO HS tab 01/09/19 [Rx] Follow up Appointment(s)/Referral(s): Leilani Pham MD [STAFF PHYSICIAN] - 02/06/19 10:30 am Danielito Love DO [Doctor of Osteopathic Medicine] - 1 Week (Please call for appointment once discharged from [facility]) Car Jeff MD [STAFF PHYSICIAN] - 1 Week (Please call for appointment once discharged from [facility]) Ramses Saldana MD [Primary Care Provider] - 1 Week (Please call for appointment when discharged from [facility]) Ambulatory/Diagnostic Orders: Complete Blood Count w/diff [LAB.AMB] Time Frame: 3 Days, Location: None Selected Comprehensive Metabolic Panel [LAB.AMB] Time Frame: 3 Days, Location: None Selected Patient Instructions/Handouts: Sternal Precautions (GEN), Coronary Artery Bypass Graft (GEN) Activity/Diet/Wound Care/Special Instructions: CONSULTS AT [facility] INPATIENT REHAB: 1. Dr. Jeff for cardiology 2. Dr. Love for pulmonology DISCHARGE INSTRUCTIONS: 1. No driving for 4 weeks, or until physician gives their ok. 2. The patient should sleep in their own bed, no medical bed needed. 3. Stairs are not an issue. If the bedroom is upstairs, it is advised that the patient go up at night and down in the morning for the first week. Go slowly, using handrail and take 1 step at a time. 4. DENNY hose are to be worn for 30 days or until physician discontinues. 5. Heart hugger is to be worn 100% of the time until physician discontinues.(except when showering) 6. No lifting, pushing, or pulling more than 10 pounds for 12 weeks. The physician will advise of any restriction changes. 7. The patient is expected to continue the prescribed walking program. 8. Continue pain control per as needed orders. 9. Continue with incentive spirometry and splinting/heart hugger until otherwise directed by the physician. 10. Must shower daily using liquid antibacterial soap and a separate white washcloth for each individual incision. 11. Routine sternal incision care. No powders, lotions, ointments on incisions. 12. Please call surgeon/POLICE DISPATCHER for temp greater than 101 F or purulent drainage from incisions. 13. Narcotic medications were discussed with the patient, including the potential for misuse, addiction, and abuse. Opiod Start Talking form was reviewed with the patient. 14. All prescriptions given by surgeon for 30 days. Refills need to be filled through scow hand/primary care physician. 15. A Red armband has been placed on the patient. It should be worn for 30 days post surgery and will be removed by the cardiac surgeons. If an ER visit is necessary, please make sure the number on the Red armband is called. REHAB/HOME HEALTH SERVICES TO PROVIDE: RN SKILLED HOME CARE SERVICES FOR POST-OP SURGICAL PATIENTS WITH THE FOLLOWING: Coronary Artery Bypass Surgery (CABG), Mitral Valve Replacement/Repair ( MVR), Aortic Valve Replacement/Repair (AVR) RN TO CONTINUE EDUCATION FROM ``ROAD TO A HEALTH HEART PATIENT EDUCATION MANUAL (GIVEN TO PATIENT IN THE HOSPITAL) MEDICATION RECONCILIATION WITH EDUCATION NEEDED ON FIRST HOME VISIT EMPHASIZE IMPORTANCE OF WEARING BREAST SUPPORT/HEART HUGGER ENCOURAGE USE OF INCENTIVE SPIROMETER 10 X EVERY HOUR WHILE AWAKE ENCOURAGE UTILIZATION OF LOWER EXTREMITY COMPRESSION STOCKINGS/DENNY HOSE and ELEVATE LEGS ABOVE LEVEL OF HEART WHILE AT REST. ENCOURAGE AMBULATION 3-5x/day INCREASING TOLERATES, WHILE AVOID EXTREMES IN TEMPERATURE FREQUENCY: RN TO OPEN THE PATIENT WITHIN 24 HOURS OF DISCHARGE FROM INPATIENT REHAB WITH TELEHEALTH INSTALLED AT SOC, RN TO VISIT 2-3 X A WEEK FOR 4 WEEKS ESTABLISHED BY PATIENT NEEDS. LABORATORY: CBC, CMP TO BE DRAWN ON THE THIRD DAY AT REHAB, (RAN STAT) FAX RESULTS TO [phone]. TELEHEALTH PARAMETERS: WEIGHT: NOTIFY MD OF WEIGHT GAIN OF 2 LBS IN 24 HOURS OR 5 LBS IN ONE WEEK HR: NOTIFY MD OF HR <55 BPM OR HR>100 BPM BP: NOTIFY MD IF BP <90/55 OR BP>140/100 O2 SAT: NOTIFY MD IF PO2<93% ON ROOM AIR SEND TELEHEALTH REPORT TO INSTRUMENT REPAIRER HELPER AND CARDIOVASCULAR SURGEON THE FIRST WEEK OF CARE AND THEN BI-WEEKLY. PLEASE ADDITIONALLY COMMUNICATE ANY ABNORMALS AND NEW FINDINGS TO THE SURGEONS OFFICE. Discharge Disposition: DC/TRNS INTERMEDIATE CARE FAC
[2019-01-09 15:01] VITALS: BMI 31.5
--- NOTE | 2019-01-09 17:49 | P.PN ---
Subjective Progress Note Date: 01/09/19 Principal diagnosis: Triple-vessel coronary artery disease, status post coronary artery bypass grafting 3, with RIDDLE to LAD, reverse SVG to the OM 2 and PDA The patient is seen today 12/31/2018 in follow-up in the intensive care unit. She is status post non-ST segment elevation myocardial infarction followed by coronary artery bypass grafting utilizing a RIDDLE to the LAD, reverse saphenous vein grafts to the second obtuse marginal artery and posterior descending artery. This is postoperative day #1. She was successfully extubated within 5 hours and 59 minutes. She is currently sitting up at the bedside. She did have some issues with hypotension upon standing. She is status post total 5 units of packed red blood cells. She will be receiving a unit of platelets as well. Current hemoglobin 6.2. Platelet count 50,000. White count 6.2. AST 168. Creatinine 0.70. Potassium 4.5. Magnesium 2.3. She currently has lactated Ringer's at 50 MLS per hour. Insulin at 1 unit per hour. Primacor at 0.2 mg/kg/m. Maintaining O2 saturations in the 90s on 3 L/m per nasal cannula. Chest x-ray reveals minimal basilar atelectasis. She is working with the incentive spirometer. Blood pressure 117/46, PA pressure 39/19, mean 2, CVP 11. Cardiac output 4.2. Cardiac index 2.5. Split mediastinal chest tube output 40 mls, left chest tube 290 ML's. On 01/01/2019 patient seen in follow-up in the intensive care unit, she is resting comfortably in bed, remains complaint today is being very fatigued. Denies any dyspnea, she does have incisional pain. Incentive spirometer effort is 500 mL. Lung sounds are diminished. She is on 4 L of oxygen, pulse ox of 92%, blood pressure is 127/57, PA pressures 43/26, with a CVP of 22, CO/CRI is 3.8 and 2.1 respectively, sinus rhythm on the monitor with a controlled rate. IVs include lactated Ringer's at a rate of 20 ML per hour, Primacor is 0.1 mics per kilo per minute, insulin is at 1 unit per hour, and Levaquin that has been off. Today's chest x-ray has been reviewed, and shows bilateral airspace disease, increased interstitium, low lung volumes, changes most likely related to fluid volume overload, hypoventilatory lungs, bilateral pleural effusions, and associated atelectasis. Today's labs have been reviewed, and showed white blood cell count of 11.2, hemoglobin of 8.0, sodium is 139, potassium is 4.6, chloride is 110, B1 is 21, creatinine 0.67. LFT have trended up since yesterday, with AST up to 397, ALT is 192, and alkaline phosphatase is a 33. Patient is tolerating oral diet. Urine output is low, ranging from 20-25 ML per hour, mediastinal and left pleural chest tubes remain in place and there has been afebrile and a 40 mL out of the left pleural and 190 out of the mediastinal chest tube in last 24 hours of serosanguineous output. On 01/02/2090 patient seen in follow-up in the intensive care unit, she is resting in bed, she remains on high flow oxygen, currently at 9 L, her incentive spirometry effort is very suboptimal, she is pulling only 500 mL. Patient seems down, depressed. She is trying to keep up her oral intake, but appetite is poor, her pulse ox on 9 L is 96%, she is afebrile, she has been off Primacor and levofloxacin since yesterday, her PA pressures at 37/20, with CVP of 16, and cardiac output and index are 3.8 and 1.6 respectively. Urine output remains low, and patient has been in several liters positive fluid balance over the last 48 hours. She is up at least 10 kg since admission. Mediastinal chest tube has been discontinued, and left pleural chest tube remains in place, and there has been 420 mL of out of it in the last 24 hours of thin serosanguineous output. No IV fluids, no drips. Patient will be given a dose of IV Lasix today, her chest x-ray has been reviewed with Dr. Love and showed changes compatible with volume fluid overload, basilar atelectasis On 01/04/2019 patient seen in follow-up in the intensive care unit, she is much more awake and interactive today, in better spirits. FiO2 is on 3 L per nasal cannula with a pulse ox of 93%, IV LR and a rate of 30 ML per hour, and milrinone at 0.2 mics per kilo per minute. Blood pressure is 107/80, PA pressure of 26/18, with CVP of 9, and cardiac output and cardiac index 4.2 and 2.4 respectively. She is in sinus mechanism with a controlled rate, today's chest x-ray has been reviewed by Dr. Love, and still show some changes consistent with fluid volume overload and atelectasis. Clinically patient is feeling and sounding better. Diminished breath sounds at the bases, with scattered crackles. Working on her incentive spirometry. Left pleural chest tube remains in place, and there has been 160 mL of serosanguineous output in the last 24 hours, mediastinal chest tube has been discontinued at 48 hours ago. Jacobson catheter remains in place, and patient is nonoliguric. Already oral diet, today's labs have been reviewed, and showed a white blood cell, 12.9, hemoglobin of 7.4, sodium of 138, potassium is 4.1, chloride is 109, B1 is 22, creatinine 0.70, LFTs are improving, with AST down to 164, ALT is 248, and alkaline phosphatase is 79. On 01/09/2019 patient seen in follow-up on selective care unit, she is awake and alert, oriented 3, she is in no acute distress, vital signs are stable, room air pulse ox 93%. Denies any difficulty breathing, her incisional pain is co ntrolled, no acute events overnight, she is doing well without any acute complaints, no dyspnea, tolerating ambulation. Today's chest x-ray has been reviewed, and shows no evident complications status post chest tube removal, and basilar atelectasis. It is at 10 reviewed, showed a white blood cell, 10.8, hemoglobin of 9.3, sodium of 136, potassium is 4.2, chloride is 94, CO2 is 33, BUN of 14 and creatinine 0.78. She is working on her incentive spirometer, tolerating oral diet. No acute events overnight, patient is going to inpatient rehab today Objective - Vital Signs Vital signs: Vital Signs Temp 98.2 F 01/09/19 07:46 Pulse 77 01/09/19 12:00 Resp 16 01/09/19 12:00 BP 100/59 01/09/19 12:00 Pulse Ox 93 L 01/09/19 12:00 Intake & Output 01/08/19 01/09/19 01/09/19 18:59 06:59 18:59 Intake Total 840 600 180 Output Total 253 100 Balance 587 500 180 Weight 73.3 kg 73.3 kg Intake: Oral 840 600 180 Output: Chest Tube Drainage 53 Left Pleural 53 Stool 200 100 Other: Voiding Method Bedside Commode # Voids 1 4 ABP, PAP, CO, CI - Last Documented Arterial Blood Pressure 126/51 Pulmonary Artery Pressure 26/19 Cardiac Output 4.6 Cardiac Index 2.6 - Exam GENERAL EXAM: Alert, pleasant, 78-year-old female, room air, in no apparent distress. HEAD: Normocephalic/atraumatic. EYES: Normal reaction of pupils, equal size. Conjunctiva pink, sclera white. NOSE: Clear with pink turbinates. THROAT: No erythema or exudates. NECK: No masses, no JVD, no thyroid enlargement, no adenopathy. CHEST: No chest wall deformity. Symmetrical expansion. Mid sternal incision is clean dry and intact, covered with surgical dressing, interval removal of the mediastinal chest tube and left pleural chest tube LUNGS: Equal air entry with diminished breath sounds CVS: Regular rate and rhythm, normal S1 and S2, no gallops, no murmurs, no rubs ABDOMEN: Soft, nontender. No hepatosplenomegaly, normal bowel sounds, no guarding or rigidity. EXTREMITIES: No clubbing, no edema, no cyanosis, 2+ pulses and upper and lower extremities. MUSCULOSKELETAL: Muscle strength and tone normal. SPINE: No scoliosis or deformity SKIN: No rashes CENTRAL NERVOUS SYSTEM: Alert and oriented -3. No focal deficits, tone is normal in all 4 extremities. PSYCHIATRIC: Alert and oriented -3. Appropriate affect. Intact judgment and insight. - Labs CBC & Chem 7: 01/09/19 06:32 01/09/19 06:32 Labs: Abnormal Lab Results - Last 24 Hours (Table) 01/08/19 01/09/19 01/09/19 Range/Units 20:11 06:12 06:32 WBC 10.8 H (3.8-10.6) k/uL RBC 3.06 L (3.80-5.40) m/uL Hgb 9.3 L (11.4-16.0) gm/dL Hct 28.6 L (34.0-46.0) % RDW 20.8 H (11.5-15.5) % Eosinophils # (Manual) 0.76 H (0-0.7) k/uL Myelocytes # (Manual) 0.11 H (0) k/uL Nucleated RBCs 12 H (0-0) /100 WBC Sodium (137-145) mmol/L Chloride (98-107) mmol/L Carbon Dioxide (22-30) mmol/L POC Glucose (mg/dL) 129 H 118 H (75-99) mg/dL 01/09/19 01/09/19 Range/Units 06:32 11:38 WBC (3.8-10.6) k/uL RBC (3.80-5.40) m/uL Hgb (11.4-16.0) gm/dL Hct (34.0-46.0) % RDW (11.5-15.5) % Eosinophils # (Manual) (0-0.7) k/uL Myelocytes # (Manual) (0) k/uL Nucleated RBCs (0-0) /100 WBC Sodium 136 L (137-145) mmol/L Chloride 94 L (98-107) mmol/L Carbon Dioxide 33 H (22-30) mmol/L POC Glucose (mg/dL) 120 H (75-99) mg/dL Assessment and Plan Plan: Assessment: #1 Non-ST segment elevation myocardial infarction with significant triple-vessel disease. Status post coronary artery bypass grafting 3 with a RIDDLE to the LAD, reverse saphenous vein grafts to the OM 2 and PDA, post op day 10 #2. Acute hypoxemic respiratory failure related to fluid volume overload, basilar atelectasis, and pleural effusions, resolved #3 Intubation and mechanical ventilatory support as an expected outcome of surgery, successfully extubated within 6 hours. #4 Hyperlipidemia. #5 Obstructive sleep apnea. #6 Vitamin D deficiency. #7 Gastroesophageal reflux disease. #8 Degenerative joint disease. #9 postop blood loss anemia, an expected outcome of coronary bypass grafting surgery Plan: Patient is doing well, no acute events overnight, no specific complaints, no compressive dyspnea, no pain, she is on room air, tolerating ablation, she been discharged to inpatient rehab today. Today's chest x-ray has been reviewed and showed no pneumothorax, and some basilar atelectasis. Labs have been reviewed. Hemodynamically patient is stable, working on incentive spirometer. Stable for discharge to the inpatient rehab, and we'll follow the patient there. I performed a history & physical examination of the patient and discussed their management with my nurse practitioner, Margaret Miranda. I reviewed the nurse practitioner's note and agree with the documented findings and plan of care. Lung sounds are positive for diminished breath sounds. The findings and the impression was discussed with the patient. I attest to the documentation by the nurse practitioner. Time with Patient: Less than 30
--- NOTE | 2019-01-12 13:37 | CDI ---
Documentation Clarification Form Date: 01/12/2019 12:28:00 PM From: Miri Qureshi Prachi Lock, Scientist [employer] Hours-8:30 am & 5 pm M-F Admit Date: 12/29/2018 7:26:00 AM Patient Name: Oanh Neal Visit Number: [id number] Discharge Date: 01/09/2019 3:18:00 PM ATTENTION: The Clinical Documentation Specialists (CDI) and [facility] Coding Staff appreciate your assistance in clarifying documentation. Please respond to the clarification below the line at the bottom and electronically sign. The CDI & [facility] Coding staff will review the response and follow-up if needed. Please note: Queries are made part of the Legal Health Record. If you have any questions, please contact the author of this message via ITS. Dr. Leilani Pham Heart failure is documented in the PNs. 01/09 C-xray- changes most likely related to fluid overload, hypoventilatory lungs, bilateral pleural effusions and associated atlelectasis. History/Risk Factors: CAD, HTN, S/P CABG Treatment: IV Lasix In your professional opinion, can you please clarify the acuity and type of CHF if known? Systolic Heart Failure: Acute Chronic Acute on Chronic Diastolic Heart Failure: Acute Chronic Acute on Chronic Systolic & Diastolic Heart Failure: Acute Chronic Acute on Chronic Heart Failure Unable to Determine Other, please specify MTDD
== END 2019-01-09 15:18 | DRG 233 ==
LOC: EC 09:06 → 1SOBS 11:21 → 3SCARD 18:01 → OBSVTOIN 12-29 07:26 → 2SICU 12-29 12:46 → 3SCARD 01-07 13:12
PROVIDERS: ADMIT Surgery; ATTEND Surgery
PROC: 5A09557 Assistance with Respiratory Ventilation, Greater than 96 Consecutive Hours, Continuous Positive Airway Pressure (ICD-10-PCS; 2018-12-28)
PROC: 4A023N7 Measurement of Cardiac Sampling and Pressure, Left Heart, Percutaneous Approach (ICD-10-PCS; 2018-12-29)
PROC: B2111ZZ Fluoroscopy of Multiple Coronary Arteries using Low Osmolar Contrast (ICD-10-PCS; 2018-12-29)
PROC: B2151ZZ Fluoroscopy of Left Heart using Low Osmolar Contrast (ICD-10-PCS; 2018-12-29)
PROC: B44HZZZ Ultrasonography of Bilateral Lower Extremity Arteries (ICD-10-PCS; 2018-12-29)
PROC: 021109W Bypass Coronary Artery, Two Arteries from Aorta with Autologous Venous Tissue, Open Approach (ICD-10-PCS; 2018-12-30)
PROC: 06BQ0ZZ Excision of Left Saphenous Vein, Open Approach (ICD-10-PCS; 2018-12-30)
PROC: 06BP0ZZ Excision of Right Saphenous Vein, Open Approach (ICD-10-PCS; 2018-12-30)
PROC: 30243N1 Transfusion of Nonautologous Red Blood Cells into Central Vein, Percutaneous Approach (ICD-10-PCS; 2018-12-30)
PROC: 5A1221Z Performance of Cardiac Output, Continuous (ICD-10-PCS; 2018-12-30)
PROC: 02100Z9 Bypass Coronary Artery, One Artery from Left Internal Mammary, Open Approach (ICD-10-PCS; principal; 2018-12-30 08:15)
PROC: 30243R1 Transfusion of Nonautologous Platelets into Central Vein, Percutaneous Approach (ICD-10-PCS; 2018-12-31)
DX: I21.4 Non-ST elevation (NSTEMI) myocardial infarction (principal); J96.01 Acute respiratory failure with hypoxia; D62 Acute posthemorrhagic anemia; J98.11 Atelectasis; I13.0 Hypertensive heart and chronic kidney disease with heart failure and stage 1 through stage 4 chronic kidney disease, or unspecified chronic kidney disease; I95.9 Hypotension, unspecified; G62.9 Polyneuropathy, unspecified; D69.59 Other secondary thrombocytopenia; I50.9 Heart failure, unspecified; I08.3 Combined rheumatic disorders of mitral, aortic and tricuspid valves; G47.33 Obstructive sleep apnea (adult) (pediatric); E78.5 Hyperlipidemia, unspecified; I25.10 Atherosclerotic heart disease of native coronary artery without angina pectoris; M19.90 Unspecified osteoarthritis, unspecified site; K21.9 Gastro-esophageal reflux disease without esophagitis; E55.9 Vitamin D deficiency, unspecified; D72.829 Elevated white blood cell count, unspecified; R74.0 Nonspecific elevation of levels of transaminase and lactic acid dehydrogenase [LDH]; Z82.49 Family history of ischemic heart disease and other diseases of the circulatory system; Z87.891 Personal history of nicotine dependence; Z79.899 Other long term (current) drug therapy; Z88.8 Allergy status to other drugs, medicaments and biological substances; Z90.81 Acquired absence of spleen; Z87.11 Personal history of peptic ulcer disease; Z90.3 Acquired absence of stomach [part of]
CPT/HCPCS: 36415; 36600; 71045; 71046; 80048; 80053; 80061; 80074; 81001; 82272; 82330; 82805; 83036; 83735; 83880; 84443; 84450; 84460; 84484; 85025; 85027; 85379; 85520; 85610; 85730; 86850; 86891; 86900; 86901; 86920; 87070; 87086; 93005; 93306; 93458; 93880; 93970; 94002; 94150; 94640; 94760; 96365; 96366; 96376; 99291

== ENCOUNTER 2019-01-31 07:40 | Inpatient (IN) | payer MEDICARE ==
--- NOTE | 2019-01-31 07:51 | ED ---
General Adult HPI - General Chief complaint: Shortness of Breath Stated complaint: sob/coughing Time Seen by Provider: 01/31/19 07:43 Source: patient, RN notes reviewed, old records reviewed Mode of arrival: wheelchair Limitations: no limitations - History of Present Illness Initial comments: Patient is a pleasant 78-year-old female presenting to the emergency Department with cough and shortness of breath. Onset of symptoms was last night. Patient is just over 1 month post CABG. Patient did have some yellow productive sputum. No fevers. Patient states symptoms have now resolved with oxygen on. No leg pain or leg swelling. Patient denies any chest discomfort. - Related Data Home Medications Medication Instructions Recorded Confirmed Calcium Carbonate/Vitamin D3 1 tab PO BID 12/27/18 01/31/19 [Calcium 500-Vit D3 600 Tablet] Cholecalciferol (Vitamin D3) 4,000 unit PO DAILY 12/27/18 01/31/19 [Vitamin D3] Fluorometholone 0.1% Ophth Amy 1 drop PO HS 12/27/18 01/31/19 [Fml] Folic Acid 1 mg PO DAILY 12/27/18 01/31/19 Gabapentin [Neurontin] 300 mg PO TID 12/27/18 01/31/19 Latanoprost [Xalatan 0.005%] 1 drop BOTH EYES HS 12/27/18 01/31/19 Vit C/E/Zn/Coppr/Lutein/Zeaxan 2 cap PO BID 12/27/18 01/31/19 [Preservision Areds 2 Softgel] Ferrous Sulfate [Iron (65 MG 325 mg PO Q48H 01/31/19 01/31/19 Elemental)] Lisinopril [Zestril] 10 mg PO DAILY 01/31/19 01/31/19 Ranitidine HCl [Zantac] 150 mg PO DAILY 01/31/19 01/31/19 Previous Rx's Medication Instructions Recorded Ascorbic Acid [Vitamin C] 500 mg PO BID-W/MEALS tab 01/09/19 Aspirin 81 mg PO DAILY chew 01/09/19 Atorvastatin [Lipitor] 40 mg PO HS tab 01/09/19 Clopidogrel [Plavix] 75 mg PO DAILY tab 01/09/19 Furosemide [Lasix] 20 mg PO DAILY #14 tab 01/09/19 Metoprolol Tartrate [Lopressor] 12.5 mg PO BID tab 01/09/19 Allergies Allergy/AdvReac Type Severity Reaction Status Date / Time Milk Containing Products AdvReac Nausea Verified 01/31/19 08:34 pregabalin [From Lyrica] AdvReac Unknown Verified 01/31/19 08:34 Review of Systems ROS Statement: Those systems with pertinent positive or pertinent negative responses have been documented in the HPI. ROS Other: All systems not noted in ROS Statement are negative. Constitutional: Denies: fever Eyes: Denies: eye pain ENT: Denies: ear pain Respiratory: Reports: cough, dyspnea Cardiovascular: Denies: chest pain Endocrine: Denies: fatigue Gastrointestinal: Denies: abdominal pain Genitourinary: Denies: dysuria Musculoskeletal: Denies: back pain Skin: Denies: rash Neurological: Denies: weakness Past Medical History Past Medical History: Hyperlipidemia, Sleep Apnea/CPAP/BIPAP Additional Past Medical History / Comment(s): pt states she has bleeding issues in the past after surgery. History of Any Multi-Drug Resistant Organisms: None Reported Past Surgical History: Back Surgery, Coronary Bypass/CABG Additional Past Surgical History / Comment(s): Bleeding ulcer-took 1/4 of stomach, splenectomy, cornea replacement right eye Past Anesthesia/Blood Transfusion Reactions: No Reported Reaction Past Psychological History: No Psychological Hx Reported Smoking Status: Former smoker Past Alcohol Use History: Rare Past Drug Use History: None Reported - Past Family History Brother(s) Family Medical History: Coronary Artery Disease (CAD), Myocardial Infarction (NV) Additional Family Medical History / Comment(s): all brothers with heart disease, one who of NV @ 53 years old General Exam Limitations: no limitations General appearance: alert, in no apparent distress Head exam: Present: atraumatic Eye exam: Present: normal appearance, PERRL ENT exam: Present: normal oropharynx Neck exam: Present: normal inspection Respiratory exam: Present: normal lung sounds bilaterally. Absent: respiratory distress, wheezes, rales, chest wall tenderness Cardiovascular Exam: Present: regular rate, normal rhythm Expanded Peripheral pulses: 2+: Radial (R), Radial (L), Posterior Tibialis (R), Posterior Tibialis (L) GI/Abdominal exam: Present: soft. Absent: tenderness Extremities exam: Present: normal inspection. Absent: pedal edema, calf tenderness Neurological exam: Present: alert Psychiatric exam: Present: normal affect, normal mood Skin exam: Present: normal color Course Vital Signs 01/31/19 01/31/19 01/31/19 07:43 09:30 10:00 Temperature 98.6 F Pulse Rate 102 H 98 99 Respiratory 18 13 11 L Rate Blood Pressure 120/79 124/78 112/84 O2 Sat by Pulse 98 98 95 Oximetry EKG Findings - EKG Comments: EKG Findings:: Normal sinus rhythm at 98. AZ 170. QRS 72. QT 408. QTC 520. Left axis. Nonspecific T waves. Poor R-wave progression. Medical Decision Making - Medical Decision Making Patient reevaluated and resting comfortably in bed. Patient and family updated on results and plan. Case was discussed in detail with Dr. Keys, covering for Dr. Saldana, who will admit. Case also discussed with Dr. Faulkner, who will consult. Case also discussed with Ashia, practitioner with Dr. friedman, who will also consult. She does recommend some Lasix. - Lab Data Result diagrams: 01/31/19 08:06 01/31/19 08:06 Lab Results 01/31/19 01/31/19 01/31/19 Range/Units 08:06 08:06 08:06 WBC 7.9 (3.8-10.6) k/uL RBC 3.28 L (3.80-5.40) m/uL Hgb 9.5 L (11.4-16.0) gm/dL Hct 30.5 L (34.0-46.0) % MCV 92.9 (80.0-100.0) fL MCH 29.0 (25.0-35.0) pg MCHC 31.2 (31.0-37.0) g/dL RDW 18.5 H (11.5-15.5) % Plt Count 320 (150-450) k/uL Neutrophils % 64 % Lymphocytes % 17 % Monocytes % 8 % Eosinophils % 8 % Basophils % 1 % Neutrophils # 5.1 (1.3-7.7) k/uL Lymphocytes # 1.4 (1.0-4.8) k/uL Monocytes # 0.7 (0-1.0) k/uL Eosinophils # 0.6 (0-0.7) k/uL Basophils # 0.1 (0-0.2) k/uL Hypochromasia Moderate Poikilocytosis Slight Anisocytosis Slight PT 13.0 H (9.0-12.0) sec INR 1.3 H (<1.2) APTT 22.7 (22.0-30.0) sec D-Dimer 6.52 H (<0.60) mg/L FEU Sodium 138 (137-145) mmol/L Potassium 4.0 (3.5-5.1) mmol/L Chloride 102 (98-107) mmol/L Carbon Dioxide 25 (22-30) mmol/L Anion Gap 11 mmol/L BUN 15 (7-17) mg/dL Creatinine 0.58 (0.52-1.04) mg/dL Est GFR (CKD-EPI)AfAm >90 (>60 ml/min/1.73 sqM) Est GFR (CKD-EPI)NonAf 89 (>60 ml/min/1.73 sqM) Glucose 111 H (74-99) mg/dL Calcium 9.6 (8.4-10.2) mg/dL Magnesium 1.9 (1.6-2.3) mg/dL Total Bilirubin 0.8 (0.2-1.3) mg/dL AST 28 (14-36) U/L ALT 11 (9-52) U/L Alkaline Phosphatase 90 (38-126) U/L Troponin I (0.000-0.034) ng/mL NT-Pro-B Natriuret Pep pg/mL Total Protein 7.3 (6.3-8.2) g/dL Albumin 4.2 (3.5-5.0) g/dL 01/31/19 01/31/19 Range/Units 08:06 08:06 WBC (3.8-10.6) k/uL RBC (3.80-5.40) m/uL Hgb (11.4-16.0) gm/dL Hct (34.0-46.0) % MCV (80.0-100.0) fL MCH (25.0-35.0) pg MCHC (31.0-37.0) g/dL RDW (11.5-15.5) % Plt Count (150-450) k/uL Neutrophils % % Lymphocytes % % Monocytes % % Eosinophils % % Basophils % % Neutrophils # (1.3-7.7) k/uL Lymphocytes # (1.0-4.8) k/uL Monocytes # (0-1.0) k/uL Eosinophils # (0-0.7) k/uL Basophils # (0-0.2) k/uL Hypochromasia Poikilocytosis Anisocytosis PT (9.0-12.0) sec INR (<1.2) APTT (22.0-30.0) sec D-Dimer (<0.60) mg/L FEU Sodium (137-145) mmol/L Potassium (3.5-5.1) mmol/L Chloride (98-107) mmol/L Carbon Dioxide (22-30) mmol/L Anion Gap mmol/L BUN (7-17) mg/dL Creatinine (0.52-1.04) mg/dL Est GFR (CKD-EPI)AfAm (>60 ml/min/1.73 sqM) Est GFR (CKD-EPI)NonAf (>60 ml/min/1.73 sqM) Glucose (74-99) mg/dL Calcium (8.4-10.2) mg/dL Magnesium (1.6-2.3) mg/dL Total Bilirubin (0.2-1.3) mg/dL AST (14-36) U/L ALT (9-52) U/L Alkaline Phosphatase (38-126) U/L Troponin I 0.095 H* (0.000-0.034) ng/mL NT-Pro-B Natriuret Pep 9100 pg/mL Total Protein (6.3-8.2) g/dL Albumin (3.5-5.0) g/dL - Radiology Data Radiology results: report reviewed (CT injury of the chest shows small left effusion. Area of pneumonitis right posterior lung base.), image reviewed (X- ray shows left atelectasis) Disposition Clinical Impression: Dyspnea Disposition: ADMITTED IP TO THIS HOSP Is patient prescribed a controlled substance at d/c from ED?: No Referrals: Ramses Saldana MD [Primary Care Provider] - 1-2 days Decision Time: 11:24
[2019-01-31 08:45] LABS: Anisocytosis Slight; Basophils # (A) 0.1 k/uL (0-0.2); Basophils % (A) 1 %; Eosinophils # (A) 0.6 k/uL (0-0.7); Eosinophils % (A) 8 %; HCT 30.5 % (34.0-46.0); HGB 9.5 gm/dL (11.4-16.0); Hypochromasia Moderate; Lymphocytes # (A) 1.4 k/uL (1.0-4.8); Lymphocytes % (A) 17 %; MCHC 31.2 g/dL (31.0-37.0); MCV 92.9 fL (80.0-100.0); Mean Platelet Volume 9.4; Monocytes # (A) 0.7 k/uL (0-1.0); Monocytes % (A) 8 %; Neutrophils # (A) 5.1 k/uL (1.3-7.7); Neutrophils % (A) 64 %; Platelet Count 320 k/uL (150-450); Poikilocytosis Slight; RBC 3.28 m/uL (3.80-5.40); RDW 18.5 % (11.5-15.5); WBC 7.9 k/uL (3.8-10.6)
[2019-01-31 08:54] LABS: ALT 11 U/L (9-52); AST 28 U/L (14-36); Albumin 4.2 g/dL (3.5-5.0); Alkaline Phosphatase 90 U/L (38-126); Anion Gap 11 mmol/L; Blood Urea Nitrogen 15 mg/dL (7-17); Calcium 9.6 mg/dL (8.4-10.2); Carbon Dioxide 25 mmol/L (22-30); Chloride 102 mmol/L (98-107); Glucose 111 mg/dL (74-99); Magnesium 1.9 mg/dL (1.6-2.3); Sodium 138 mmol/L (137-145); Total Bilirubin 0.8 mg/dL (0.2-1.3); Total Protein 7.3 g/dL (6.3-8.2)
--- NOTE | 2019-01-31 09:02 | XR ---
EXAMINATION TYPE: XR chest 2V DATE OF EXAM: 01/31/2019 COMPARISON: 01/09/2019 INDICATION: Difficulty breathing TECHNIQUE: Frontal and lateral views of the chest are obtained. FINDINGS: The heart size is normal. The pulmonary vasculature is normal. There is a linear opacity in the left midlung likely some plate atelectasis. Sternotomy wires are pre sent from prior CABG. Surgical clips are in near the epigastric region. IMPRESSION: 1. Mild plate atelectasis left midlung.
[2019-01-31 09:16] LABS: INR 1.3 (<1.2); Partial Thromboplastin Time 22.7 sec (22.0-30.0)
[2019-01-31 09:18] LABS: D-Dimer 6.52 mg/L FEU (<0.60)
--- NOTE | 2019-01-31 10:41 | CT ---
CT CHEST FOR PULMONARY EMBOLISM. EXAMINATION TYPE: CT angio chest DATE OF EXAM: 01/31/2019 INDICATION: SOB and Coughing CT DLP: 296.4 mGycm, Automated exposure control for dose reduction was used. CONTRAST: Patient injected with 100 ml mL of Isovue 370. COMPARISON: None TECHNIQUE: CT of the chest is performed on a spiral scan at 2 mm thick sections. Study is performed with intravenous contrast timed for evaluation for pulmonary embolism. This will limit additional po rtions of the evaluation. 3-D MIP images reconstructed by the technologist are reviewed on the compu ter in the coronal and sagittal planes. FINDINGS: No persistent filling defects are evident to suggest an acute pulmonary embolism. Portion of the thyroid visualized appears somewhat full with extension towards the suprasternal regio n. Sternotomy is evident with incomplete fusion. No mediastinal or hilar adenopathy enlarged by CT criteria is evident. The ascending aorta diameter at the level of the main pulmonary artery is 3.3 cm. The main pulmonary artery diameter at the bifur cation is 2.1 cm. Some mild right posterior apical thickening is present. Some streak atelectasis suspected at the left base. Small area of pneumonitis within the posterior right lung base measures approximately 0.8 cm. This should be followed. There is a minimal left pleural effusion. Limited CT sections are obtained through the upper abdomen. The left adrenal gland is somewhat full 1 .3 cm. IMPRESSIONS: 1. No acute pulmonary embolism. 2. Small left pleural effusion. 3. Small area of pneumonitis posterior right lung base. This can be followed when the patient is stab le in 3 months.
[2019-01-31] MEDS ORDERED: ASPIRIN 325 MG TAB PO STA (11:24)
[2019-01-31] MEDS ORDERED: FUROSEMIDE 10 MG/ML 4 ML VIAL IV SCH (12:00)
--- NOTE | 2019-01-31 14:38 | P.GSCN ---
History of Present Illness Consult date: 01/31/19 Reason for Consult: Patient known to us, recent CABG Requesting physician: Andrae Ahn History of present illness: This is a 78-year-old active female patient who follows with Dr. Ramses Saldana on an outpatient basis. She has a previous medical history of triple-vessel coronary artery disease with left main disease, recent non-STEMI, status post urgent CABG on 12/30/2018 with perioperative acute blood loss anemia requiring a transfusion, mild to moderate aortic valve regurgitation, preserved left ventricular function, hyperlipidemia, previous tobacco dependence, obstructive sleep apnea with home CPAP use, gastric ulcer with partial gastrectomy, splenectomy, arthritis, and family history of premature coronary artery disease. She had presented to [place] emergency room with complaints of chest pain in December, was ruled in for non-STEMI and taken to the catheterization lab where she was discovered to have triple-vessel coronary artery disease with left main disease. Subsequently she underwent urgent three-vessel CABG, her postoperative course was complicated by acute blood loss requiring transfusion and transaminitis. She did stabilize and was ready to be discharged to [facility] inpatient rehab on postoperative day #10. She was at [facility] for approximately one week, was discharged home and was doing relatively well until a couple of days ago when she began to experience shortness of breath. She presented to [facility] emergency room this morning for evaluation and treatment. Her chest x-ray looks improved from her previous admission, and anemia is better, her transaminitis has resolved. Her d-dimer was elevated and a CT of the chest was completed demonstrating no acute pulmonary embolism, small left pleural effusion. Her BNP was elevated at 9100. She is admitted as an observation patient overnight for IV diuresis with consultations placed for cardiology and cardiothoracic surgery. Review of Systems Review of systems was completed and was negative except as noted in the HPI Past Medical History Past Medical History: Coronary Artery Disease (CAD), Hyperlipidemia, Myocardial Infarction ([place]), Sleep Apnea/CPAP/BIPAP Additional Past Medical History / Comment(s): pt states she has bleeding issues in the past after surgery. History of Any Multi-Drug Resistant Organisms: None Reported Past Surgical History: Back Surgery, Coronary Bypass/CABG Additional Past Surgical History / Comment(s): Bleeding ulcer-took 1/4 of stomach, splenectomy, cornea replacement right eye, urgent three-vessel CABG on 12/30/2018 Past Anesthesia/Blood Transfusion Reactions: No Reported Reaction Past Psychological History: No Psychological Hx Reported Smoking Status: Former smoker Past Alcohol Use History: Rare Past Drug Use History: None Reported - Past Family History Brother(s) Family Medical History: Coronary Artery Disease (CAD), Myocardial Infarction ([place]) Additional Family Medical History / Comment(s): all brothers with heart disease, one who of [place] @ 53 years old Medications and Allergies Home Medications Medication Instructions Recorded Confirmed Type Calcium Carbonate/Vitamin D3 1 tab PO BID 12/27/18 01/31/19 History [Calcium 500-Vit D3 600 Tablet] Cholecalciferol (Vitamin D3) 4,000 unit PO DAILY 12/27/18 01/31/19 History [Vitamin D3] Fluorometholone 0.1% Ophth Amy 1 drop PO HS 12/27/18 01/31/19 History [Fml] Folic Acid 1 mg PO DAILY 12/27/18 01/31/19 History Gabapentin [Neurontin] 300 mg PO TID 12/27/18 01/31/19 History Latanoprost [Xalatan 0.005%] 1 drop BOTH EYES HS 12/27/18 01/31/19 History Vit C/E/Zn/Coppr/Lutein/Zeaxan 2 cap PO BID 12/27/18 01/31/19 History [Preservision Areds 2 Softgel] Ascorbic Acid [Vitamin C] 500 mg PO BID-W/MEALS tab 01/09/19 01/31/19 Rx Aspirin 81 mg PO DAILY chew 01/09/19 01/31/19 Rx Atorvastatin [Lipitor] 40 mg PO HS tab 01/09/19 01/31/19 Rx Clopidogrel [Plavix] 75 mg PO DAILY tab 01/09/19 01/31/19 Rx Furosemide [Lasix] 20 mg PO DAILY #14 tab 01/09/19 01/31/19 Rx Metoprolol Tartrate [Lopressor] 12.5 mg PO BID tab 01/09/19 01/31/19 Rx Ferrous Sulfate [Iron (65 MG 325 mg PO Q48H 01/31/19 01/31/19 History Elemental)] Lisinopril [Zestril] 10 mg PO DAILY 01/31/19 01/31/19 History Ranitidine HCl [Zantac] 150 mg PO DAILY 01/31/19 01/31/19 History Allergies Allergy/AdvReac Type Severity Reaction Status Date / Time Milk Containing Products AdvReac Nausea Verified 01/31/19 08:34 pregabalin [From Lyrica] AdvReac Unknown Verified 01/31/19 08:34 Surgical - Exam Vital Signs Temp Pulse Resp BP Pulse Ox 98.6 F 102 H 18 120/79 98 01/31/19 07:43 01/31/19 07:43 01/31/19 07:43 01/31/19 07:43 01/31/19 07:43 - General well developed, well nourished, no distress, no pain - Eyes PERRL, normal ocular movement - ENT no hearing loss - Neck no masses, no bruits, trachea midline - Respiratory Lungs sounds clear bilaterally but diminished in the bases. Respirations even, nonlabored. Currently on 2 L nasal cannula with oxygen saturation 97%. - Cardiovascular S1, S2 present. Regular rate and rhythm, sinus rhythm on telemetry. Palpable peripheral pulses bilaterally. No edema present. No calf pain or tenderness noted. - Abdomen Abdomen: soft, non tender, bowel sounds - Genitourinary Deferred - Rectum Deferred - Integumentary Skin is warm and dry with evidence of good perfusion. Anterior chest incision and bilateral lower extremity EVH site well approximated, no drainage. - Neurologic normal coordination, normal sensation - Musculoskeletal normal posture - Psychiatric oriented to time, oriented to person, oriented to place, speech is normal, memory intact Results - Labs 01/31/19 08:06 01/31/19 08:06 Abnormal Lab Results - Last 24 Hours (Table) 01/31/19 01/31/19 01/31/19 Range/Units 08:06 08:06 08:06 RBC 3.28 L (3.80-5.40) m/uL Hgb 9.5 L (11.4-16.0) gm/dL Hct 30.5 L (34.0-46.0) % RDW 18.5 H (11.5-15.5) % PT 13.0 H (9.0-12.0) sec INR 1.3 H (<1.2) D-Dimer 6.52 H (<0.60) mg/L FEU Glucose 111 H (74-99) mg/dL Troponin I (0.000-0.034) ng/mL 01/31/19 Range/Units 08:06 RBC (3.80-5.40) m/uL Hgb (11.4-16.0) gm/dL Hct (34.0-46.0) % RDW (11.5-15.5) % PT (9.0-12.0) sec INR (<1.2) D-Dimer (<0.60) mg/L FEU Glucose (74-99) mg/dL Troponin I 0.095 H* (0.000-0.034) ng/mL Diabetes panel 01/31/19 Range/Units 08:06 Sodium 138 (137-145) mmol/L Potassium 4.0 (3.5-5.1) mmol/L Chloride 102 (98-107) mmol/L Carbon Dioxide 25 (22-30) mmol/L BUN 15 (7-17) mg/dL Creatinine 0.58 (0.52-1.04) mg/dL Glucose 111 H (74-99) mg/dL Calcium 9.6 (8.4-10.2) mg/dL AST 28 (14-36) U/L ALT 11 (9-52) U/L Alkaline Phosphatase 90 (38-126) U/L Total Protein 7.3 (6.3-8.2) g/dL Albumin 4.2 (3.5-5.0) g/dL Calcium panel 01/31/19 Range/Units 08:06 Calcium 9.6 (8.4-10.2) mg/dL Albumin 4.2 (3.5-5.0) g/dL Pituitary panel 01/31/19 Range/Units 08:06 Sodium 138 (137-145) mmol/L Potassium 4.0 (3.5-5.1) mmol/L Chloride 102 (98-107) mmol/L Carbon Dioxide 25 (22-30) mmol/L BUN 15 (7-17) mg/dL Creatinine 0.58 (0.52-1.04) mg/dL Glucose 111 H (74-99) mg/dL Calcium 9.6 (8.4-10.2) mg/dL Adrenal panel 01/31/19 Range/Units 08:06 Sodium 138 (137-145) mmol/L Potassium 4.0 (3.5-5.1) mmol/L Chloride 102 (98-107) mmol/L Carbon Dioxide 25 (22-30) mmol/L BUN 15 (7-17) mg/dL Creatinine 0.58 (0.52-1.04) mg/dL Glucose 111 H (74-99) mg/dL Calcium 9.6 (8.4-10.2) mg/dL Total Bilirubin 0.8 (0.2-1.3) mg/dL AST 28 (14-36) U/L ALT 11 (9-52) U/L Alkaline Phosphatase 90 (38-126) U/L Total Protein 7.3 (6.3-8.2) g/dL Albumin 4.2 (3.5-5.0) g/dL - Imaging Chest x-ray: report reviewed, image reviewed CT scan - chest: report reviewed, image reviewed Assessment and Plan Assessment: 1. Shortness of breath 2. History of triple-vessel coronary artery disease with left main disease, non-STEMI, status post urgent three-vessel CABG 3. Hyperlipidemia 4. Previous tobacco dependence 5. Obstructive sleep apnea Plan: The patient was seen and examined at the bedside with Dr. Grant. Chart/diagnostics were reviewed. Her chest x-ray appears much better than it did when she was discharged. She states her shortness of breath has mostly resolved after IV Lasix. We recommend keeping her just overnight for another dose of IV Lasix, then she may be discharge to home from cardiothoracic standpoint with plans already in place for her to follow up with Dr. Pham in the office on Saturday, February 06. Home medications were re-added. Incentive spirometry was ordered and encouraged. Increase activity, ambulate as tolerated. Patient should shower daily. Continued medical management per primary care service. We will continue to follow while she is in the hospital. Time with Patient: Greater than 30
--- NOTE | 2019-01-31 15:43 | P.HPIM ---
History of Present Illness Chief Complaint: Shortness of breath 78-year-old female with a history of recent CABG on 12/27/2018, comes in with above-mentioned complaints. The patient says that she was okay until yesterday when she started having shortness of breath on resting and walking as well. He had to use 2 pillows to sleep and she usually uses only one pillow. He was not having any chest pain except for when she short of breath. She does not complain of any cough, no racing heart, she otherwise does not complain of any abdominal pain, nausea and vomiting, or diarrhea constipation, no tingling numbness of extremities, no itch or rash. ER course-temperature 97.9 pulse 101 respiration 20 blood pressure 122/57 satting 97% on 2 L labwork was initial WBC 7.9 hemoglobin 9.5 platelets 320 d- dimer was 6.52 sodium 1:30 potassium 4.0 B1 15 creatinine 0.58 GFR 89. Troponins were 0.[address] of the chest was done which showed no PE small left-sided pleural effusion small area of pneumonitis in the right lung base suggested follow-up in 3 months for a chest x-ray shows no acute changes. Patient started on IV Lasix and admitted to the hospitalist service for further evaluation and management. Review of Systems All systems: negative Past Medical History Past Medical History: Coronary Artery Disease (CAD), Hyperlipidemia, Myocardial Infarction ([place]), Sleep Apnea/CPAP/BIPAP Additional Past Medical History / Comment(s): pt states she has bleeding issues in the past after surgery. History of Any Multi-Drug Resistant Organisms: None Reported Past Surgical History: Back Surgery, Coronary Bypass/CABG Additional Past Surgical History / Comment(s): Bleeding ulcer-took 1/4 of stomach, splenectomy, cornea replacement right eye, urgent three-vessel CABG on 12/30/2018 Past Anesthesia/Blood Transfusion Reactions: No Reported Reaction Past Psychological History: No Psychological Hx Reported Smoking Status: Former smoker Past Alcohol Use History: Rare Past Drug Use History: None Reported - Past Family History Brother(s) Family Medical History: Coronary Artery Disease (CAD), Myocardial Infarction ([place]) Additional Family Medical History / Comment(s): all brothers with heart disease, one who of [place] @ 53 years old Medications and Allergies Home Medications Medication Instructions Recorded Confirmed Type Calcium Carbonate/Vitamin D3 1 tab PO BID 12/27/18 01/31/19 History [Calcium 500-Vit D3 600 Tablet] Cholecalciferol (Vitamin D3) 4,000 unit PO DAILY 12/27/18 01/31/19 History [Vitamin D3] Fluorometholone 0.1% Ophth Amy 1 drop PO HS 12/27/18 01/31/19 History [Fml] Folic Acid 1 mg PO DAILY 12/27/18 01/31/19 History Gabapentin [Neurontin] 300 mg PO TID 12/27/18 01/31/19 History Latanoprost [Xalatan 0.005%] 1 drop BOTH EYES HS 12/27/18 01/31/19 History Vit C/E/Zn/Coppr/Lutein/Zeaxan 2 cap PO BID 12/27/18 01/31/19 History [Preservision Areds 2 Softgel] Ascorbic Acid [Vitamin C] 500 mg PO BID-W/MEALS tab 01/09/19 01/31/19 Rx Aspirin 81 mg PO DAILY chew 01/09/19 01/31/19 Rx Atorvastatin [Lipitor] 40 mg PO HS tab 01/09/19 01/31/19 Rx Clopidogrel [Plavix] 75 mg PO DAILY tab 01/09/19 01/31/19 Rx Furosemide [Lasix] 20 mg PO DAILY #14 tab 01/09/19 01/31/19 Rx Metoprolol Tartrate [Lopressor] 12.5 mg PO BID tab 01/09/19 01/31/19 Rx Ferrous Sulfate [Iron (65 MG 325 mg PO Q48H 01/31/19 01/31/19 History Elemental)] Lisinopril [Zestril] 10 mg PO DAILY 01/31/19 01/31/19 History Ranitidine HCl [Zantac] 150 mg PO DAILY 01/31/19 01/31/19 History Allergies Allergy/AdvReac Type Severity Reaction Status Date / Time Milk Containing Products AdvReac Nausea Verified 01/31/19 08:34 pregabalin [From Lyrica] AdvReac Unknown Verified 01/31/19 08:34 Physical Exam Vitals: Vital Signs Temp Pulse Pulse Resp BP BP Pulse Ox 01/31/19 13:22 97.9 F 101 H 20 122/57 97 01/31/19 12:30 100 17 115/70 98 01/31/19 12:00 102 H 17 104/64 98 01/31/19 11:30 98 17 110/65 97 01/31/19 11:00 101 H 15 113/63 100 01/31/19 10:30 102 H 8 L 118/70 99 01/31/19 10:00 99 11 L 112/84 95 01/31/19 09:30 98 13 124/78 98 01/31/19 07:43 98.6 F 102 H 18 120/79 98 Intake and Output 01/31/19 01/31/19 01/31/19 06:59 14:59 22:59 Other: Voiding Method Toilet Weight 63.503 kg On exam, alert and oriented x3. HEENT: Conjunctivae normal. eyes normal. NECK: No JVD. No thyroid enlargement. No LNs CARDIOVASCULAR: S1, S2 positive. She has a scar jacob on the chest which is healing well RESPIRATION: Breath sounds diminished in the bases. No rhonchi or crackles. No bronchial breathing. ABDOMEN: Soft, nontender . No guarding. no masses palpable. No ascites, No hepatosplenomegaly.Bowel sounds heard. LEGS: No edema. no swelling NERVOUS SYSTEM: Cranial N 2-12 grossly normal. Moves all 4 limbs. No focal deficits. No sensory deficit. No signs of cerebellar dysfucntion. Skin: no ulcer no rash Results CBC & Chem 7: 01/31/19 08:06 01/31/19 08:06 Labs: Abnormal Lab Results - Last 24 Hours (Table) 01/31/19 01/31/19 01/31/19 Range/Units 08:06 08:06 08:06 RBC 3.28 L (3.80-5.40) m/uL Hgb 9.5 L (11.4-16.0) gm/dL Hct 30.5 L (34.0-46.0) % RDW 18.5 H (11.5-15.5) % PT 13.0 H (9.0-12.0) sec INR 1.3 H (<1.2) D-Dimer 6.52 H (<0.60) mg/L FEU Glucose 111 H (74-99) mg/dL Troponin I (0.000-0.034) ng/mL 01/31/19 Range/Units 08:06 RBC (3.80-5.40) m/uL Hgb (11.4-16.0) gm/dL Hct (34.0-46.0) % RDW (11.5-15.5) % PT (9.0-12.0) sec INR (<1.2) D-Dimer (<0.60) mg/L FEU Glucose (74-99) mg/dL Troponin I 0.095 H* (0.000-0.034) ng/mL Thrombosis Risk Factor Assmnt - Choose All That Apply Any of the Below Risk Factors Present?: Yes Each Factor Represents 1 point: Obesity (BMI >25) Other Risk Factors: Yes Each Risk Factor Represents 3 Points: Age 75 years or older Thrombosis Risk Factor Assessment Total Risk Factor Score: 4 Thrombosis Risk Factor Assessment Level: Moderate Risk Assessment and Plan Assessment: - Acute respiratory failure - Acute CHF exacerbation probably causing above - History of recent CABG - History of CAD - History of hyperlipidemia - History of postoperative anemia hemoglobin 9.5 now - History of sleep apnea Plan - Patient is admitted to [facility] with telemetry - Patient will continue on Lasix 40 mg twice a day for now until patient is seen by cardiology - We'll monitor troponin levels. - We will wait for cardiology recommendation to see the patient needs a repeat echo. Her last echo was done on 12/29/2018 which showed preserved ejection fraction - We'll continue patient's home medications - DVT and GI prophylaxis - Cardio thoracic surgery consulted - We'll order for lab work in the morning - Patient is an observation - Patient was to DO NOT RESUSCITATE Time with Patient: Greater than 30
[2019-01-31] MEDS: GABAPENTIN 300 MG CAP PO SCH ×2 (16:53→20:24)
[2019-01-31] MEDS: HEPARIN SODIUM,PORCINE 5,000 UNIT/ML 1 ML VIAL SQ SCH (16:53)
[2019-01-31] MEDS: FUROSEMIDE 10 MG/ML 4 ML VIAL IV SCH (20:23)
[2019-01-31] MEDS: METOPROLOL TARTRATE 12.5 MG TAB PO SCH (20:24)
[2019-01-31] MEDS: ATORVASTATIN 40 MG TAB PO SCH (20:24)
[2019-01-31] MEDS: LATANOPROST 0.005% OPHTH DROPS 2.5 ML BTL BOTH EYES SCH (20:24)
[2019-01-31] MEDS: FLUOROMETHOLONE 0.1% OPHTH DROPS 5 ML BTL BOTH EYES SCH (20:24)
[2019-01-31] MEDS: VIT A,C & E-LUTEIN-MINERALS 1 EACH TAB PO SCH (20:25)
[2019-01-31] MEDS: CALCIUM CARB-VIT D 500MG-200UN 1 EACH TAB PO SCH (20:38)
[2019-02-01] MEDS: HEPARIN SODIUM,PORCINE 5,000 UNIT/ML 1 ML VIAL SQ SCH ×3 (00:40→17:02)
[2019-02-01 06:13] LABS: Anisocytosis Slight; HCT 29.9 % (34.0-46.0); HGB 9.2 gm/dL (11.4-16.0); Hypochromasia Moderate; MCH 29.3 pg (25.0-35.0); MCHC 30.7 g/dL (31.0-37.0); MCV 95.4 fL (80.0-100.0); Macrocytosis Slight; Mean Platelet Volume 10.2; Platelet Count 321 k/uL (150-450); Poikilocytosis Slight; RBC 3.14 m/uL (3.80-5.40); WBC 8.3 k/uL (3.8-10.6)
[2019-02-01 06:30] LABS: Calcium 10.7 mg/dL (8.4-10.2); Potassium 3.9 mmol/L (3.5-5.1)
[2019-02-01] MEDS: PANTOPRAZOLE 40 MG TABLET PO SCH (06:49)
[2019-02-01] MEDS: FUROSEMIDE 10 MG/ML 4 ML VIAL IV SCH (08:03)
[2019-02-01] MEDS: FOLIC ACID 1 MG TAB PO SCH (08:03)
[2019-02-01] MEDS: METOPROLOL TARTRATE 12.5 MG TAB PO SCH ×2 (08:03→20:00)
[2019-02-01] MEDS: ASPIRIN 325 MG TAB PO SCH (08:03)
[2019-02-01] MEDS: CALCIUM CARB-VIT D 500MG-200UN 1 EACH TAB PO SCH ×2 (08:03→20:00)
[2019-02-01] MEDS: CLOPIDOGREL 75 MG TAB PO SCH (08:03)
[2019-02-01] MEDS: GABAPENTIN 300 MG CAP PO SCH ×3 (08:03→23:56)
[2019-02-01] MEDS: VIT A,C & E-LUTEIN-MINERALS 1 EACH TAB PO SCH ×2 (08:03→20:00)
--- NOTE | 2019-02-01 08:26 | P.PN ---
Subjective Progress Note Date: 02/01/19 Principal diagnosis: Admission for shortness of breath. Previous medical history of triple-vessel coronary artery disease with left main disease and non-STEMI status post urgent three-vessel CABG, hyperlipidemia, previous tobacco dependence, obstructive sleep apnea, gastric ulcer with partial gastrectomy, splenectomy, arthritis, and family history of premature coronary artery disease. The patient is currently sitting up in bed in no acute distress. States her shortness of breath has improved significantly. Denies chest pain. Has ambulated without difficulty. No new complaints. Objective - Vital Signs Vital signs: Vital Signs Temp 98 F 02/01/19 04:00 Pulse 99 02/01/19 04:00 Resp 16 02/01/19 04:00 BP 109/58 02/01/19 04:00 Pulse Ox 99 02/01/19 04:00 Intake & Output 01/31/19 02/01/19 02/01/19 18:59 06:59 18:59 Intake Total 200 Output Total 600 350 300 Balance -600 -150 -300 Weight 63.503 kg 61.2 kg Intake: Oral 200 Output: Urine 600 350 300 Other: Voiding Method Toilet Toilet # Voids 2 - Constitutional General appearance: Present: cooperative, no acute distress - Respiratory Details: Lungs sounds clear bilaterally but diminished in the bases. Respirations even, nonlabored. Was on 2 L nasal cannula with oxygen saturation 99%, on room air oxygen saturation is 92%. Able to achieve 1000 mL on her incentive spirometry. - Cardiovascular Details: S1, S2 present. Regular rate and rhythm, sinus rhythm on telemetry. Palpable peripheral pulses bilaterally. No edema present. No calf pain or tenderness noted. - Gastrointestinal Gastrointestinal Comment(s): Abdomen soft, nontender, nondistended. Active bowel sounds present 4 quadrants. Tolerating diet. - Genitourinary Genitourinary Comment(s): Continues to void clear, yellow urine. - Integumentary Integumentary Comment(s): Skin is warm and dry with evidence of good perfusion. Anterior chest incision and bilateral lower extremity EVH sites well approximated without redness or drainage. - Neurologic Neurologic: Present: CNII-XII intact - Musculoskeletal Musculoskeletal: Present: gait normal, strength equal bilaterally - Psychiatric Psychiatric: Present: A&O x's 3, appropriate affect, intact judgment & insight - Allied health notes Allied health notes reviewed: nursing - Labs CBC & Chem 7: 02/01/19 05:59 02/01/19 05:59 Labs: Abnormal Lab Results - Last 24 Hours (Table) 01/31/19 01/31/19 01/31/19 Range/Units 08:06 08:06 08:06 RBC 3.28 L (3.80-5.40) m/uL Hgb 9.5 L (11.4-16.0) gm/dL Hct 30.5 L (34.0-46.0) % MCHC (31.0-37.0) g/dL RDW 18.5 H (11.5-15.5) % PT 13.0 H (9.0-12.0) sec INR 1.3 H (<1.2) D-Dimer 6.52 H (<0.60) mg/L FEU Chloride (98-107) mmol/L Carbon Dioxide (22-30) mmol/L BUN (7-17) mg/dL Glucose 111 H (74-99) mg/dL Calcium (8.4-10.2) mg/dL Troponin I (0.000-0.034) ng/mL 01/31/19 02/01/19 02/01/19 Range/Units 08:06 05:59 05:59 RBC 3.14 L (3.80-5.40) m/uL Hgb 9.2 L (11.4-16.0) gm/dL Hct 29.9 L (34.0-46.0) % MCHC 30.7 L (31.0-37.0) g/dL RDW 19.0 H (11.5-15.5) % PT (9.0-12.0) sec INR (<1.2) D-Dimer (<0.60) mg/L FEU Chloride 97 L (98-107) mmol/L Carbon Dioxide 35 H (22-30) mmol/L BUN 21 H (7-17) mg/dL Glucose 103 H (74-99) mg/dL Calcium 10.7 H (8.4-10.2) mg/dL Troponin I 0.095 H* (0.000-0.034) ng/mL - Imaging and Cardiology Chest x-ray: image reviewed Assessment and Plan Assessment: 1. Shortness of breath 2. History of triple-vessel coronary artery disease with left main disease, non-STEMI, status post urgent three-vessel CABG 3. Hyperlipidemia 4. Previous tobacco dependence 5. Obstructive sleep apnea Plan: 1. Shortness of breath has improved, recommend another dose of IV Lasix. 2. Encourage incentive spirometry use. 3. Increase activity, ambulate in hallway. 4. Patient should shower daily. 5. From cardiothoracic surgery standpoint the patient may be discharged to home with follow-up scheduled in Dr. Pham's office this Saturday. 6. Medical management per primary care service, they await cardiology recommendations. 7. Will continue to see while hospitalized. Time with Patient: Greater than 30
--- NOTE | 2019-02-01 08:32 | XR ---
EXAMINATION TYPE: XR chest 2V DATE OF EXAM: 02/01/2019 COMPARISON: Prior chest x-ray 01/31/2019 HISTORY: Status post coronary artery bypass graft, abnormal chest x-ray TECHNIQUE: Frontal and lateral views of the chest are obtained. FINDINGS: Pleural parenchymal changes are stable. Patient is post median sternotomy. No pneumothorax . There are overlying cardiac leads. Surgical clips present at the gastroesophageal junction level. IMPRESSION: Satisfactory postoperative chest x-ray. Residual atelectasis and possible pleural reacti on
[2019-02-01] MEDS ORDERED: LISINOPRIL 10 MG TAB PO SCH (09:00)
[2019-02-01 09:06] LABS: Glucose,Whole Blood 222 mg/dL (75-99)
[2019-02-01] MEDS ORDERED: SODIUM CHLORIDE 0.9% 500 ML 250 ML IV ONE ×2 (10:29→11:07)
--- NOTE | 2019-02-01 10:59 | P.CRDCN ---
History of Present Illness Consult date: 02/01/19 Chief complaint: Shortness of breath History of present illness: This is a pleasant 78-year-old female patient with a past medical hist ory significant for coronary artery disease who underwent recently, in December 2018, coronary artery bypass grafting in the setting of acute non-ST elevation myocardial infarction, hypertension, and dyslipidemia, presented to the hospital complaining of shortness of breath. The patient after the surgery went into an extended-care facility for a week. Subsequently she went home. She was in her usual state of health yesterday when she was sleeping and she woke up complaining of shortness of breath. No symptoms of chest pain or chest discomfort. No dizziness or lightheadedness. No heart racing or fluttering. In no syncope. No edema in the lower extremities. When the patient presented to the emergency room she underwent a computed tomography scan which showed no evidence of PE. The chest x-ray showed findings consistent with fluid overload. The BMP came in to be elevated as well. Subsequently the patient was started on Lasix IV. Overnight she diuresed significantly where she lost 2 kg. Earlier this morning, she was walking to her bathroom when she felt dizzy and lightheaded and about to lose her consciousness. At that point the blood pressure was checked and her systolic pressure was about 80s. The patient was receiving Lasix at 40 mg IV 3 times a day and that was decreased to 40 mg IV twice a day. Beside that I am holding her lisinopril at this point. Also she is in process of receiving IV fluids. In December 2018 she presented to the hospital with chest discomfort and she ruled in for acute non-ST patient myocardial infarction. She underwent a heart catheterization which revealed severe triple-vessel coronary artery disease with left main. Subsequently she underwent CABG which was complicated by acute blood loss requiring transfusion. Past Medical History Past Medical History: Coronary Artery Disease (CAD), Hyperlipidemia, Myocardial Infarction ([place]), Sleep Apnea/CPAP/BIPAP Additional Past Medical History / Comment(s): pt states she has bleeding issues in the past after surgery. History of Any Multi-Drug Resistant Organisms: None Reported Past Surgical History: Back Surgery, Coronary Bypass/CABG Additional Past Surgical History / Comment(s): Bleeding ulcer-took 1/4 of stomach, splenectomy, cornea replacement right eye, urgent three-vessel CABG on 12/30/2018 Past Anesthesia/Blood Transfusion Reactions: No Reported Reaction Past Psychological History: No Psychological Hx Reported Smoking Status: Former smoker Past Alcohol Use History: Rare Past Drug Use History: None Reported - Past Family History Brother(s) Family Medical History: Coronary Artery Disease (CAD), Myocardial Infarction ([place]) Additional Family Medical History / Comment(s): all brothers with heart disease, one who of [place] @ 53 years old Medications and Allergies Home Medications Medication Instructions Recorded Confirmed Type Calcium Carbonate/Vitamin D3 1 tab PO BID 12/27/18 01/31/19 History [Calcium 500-Vit D3 600 Tablet] Cholecalciferol (Vitamin D3) 4,000 unit PO DAILY 12/27/18 01/31/19 History [Vitamin D3] Fluorometholone 0.1% Ophth Amy 1 drop PO HS 12/27/18 01/31/19 History [Fml] Folic Acid 1 mg PO DAILY 12/27/18 01/31/19 History Gabapentin [Neurontin] 300 mg PO TID 12/27/18 01/31/19 History Latanoprost [Xalatan 0.005%] 1 drop BOTH EYES HS 12/27/18 01/31/19 History Vit C/E/Zn/Coppr/Lutein/Zeaxan 2 cap PO BID 12/27/18 01/31/19 History [Preservision Areds 2 Softgel] Ascorbic Acid [Vitamin C] 500 mg PO BID-W/MEALS tab 01/09/19 01/31/19 Rx Aspirin 81 mg PO DAILY chew 01/09/19 01/31/19 Rx Atorvastatin [Lipitor] 40 mg PO HS tab 01/09/19 01/31/19 Rx Clopidogrel [Plavix] 75 mg PO DAILY tab 01/09/19 01/31/19 Rx Furosemide [Lasix] 20 mg PO DAILY #14 tab 01/09/19 01/31/19 Rx Metoprolol Tartrate [Lopressor] 12.5 mg PO BID tab 01/09/19 01/31/19 Rx Ferrous Sulfate [Iron (65 MG 325 mg PO Q48H 01/31/19 01/31/19 History Elemental)] Lisinopril [Zestril] 10 mg PO DAILY 01/31/19 01/31/19 History Ranitidine HCl [Zantac] 150 mg PO DAILY 01/31/19 01/31/19 History Allergies Allergy/AdvReac Type Severity Reaction Status Date / Time Milk Containing Products AdvReac Nausea Verified 01/31/19 08:34 pregabalin [From Lyrica] AdvReac Unknown Verified 01/31/19 08:34 Physical Exam Vitals: Vital Signs Temp Pulse Pulse Resp BP BP Pulse Ox 02/01/19 10:46 85 18 72/48 99 02/01/19 10:40 80 20 69/44 99 02/01/19 10:20 80 71/41 94 L 02/01/19 08:00 97.7 F 75 20 112/55 94 L 02/01/19 04:00 98 F 99 16 109/58 99 02/01/19 03:07 20 01/31/19 23:57 98.2 F 98 16 105/58 94 L 01/31/19 20:01 95 01/31/19 20:00 98.4 F 104 H 20 102/60 95 01/31/19 16:00 97.7 F 99 18 101/52 97 01/31/19 13:22 97.9 F 101 H 20 122/57 97 01/31/19 12:30 100 17 115/70 98 01/31/19 12:00 102 H 17 104/64 98 01/31/19 11:30 98 17 110/65 97 01/31/19 11:00 101 H 15 113/63 100 Intake and Output 01/31/19 02/01/19 02/01/19 22:59 06:59 14:59 Intake Total 100 100 Output Total 600 350 800 Balance -500 -250 -800 Intake: Oral 100 100 Output: Urine 600 350 800 Other: Voiding Method Toilet Toilet Toilet # Voids 1 2 Weight 61.2 kg - Constitutional General appearance: no acute distress - Respiratory Respiratory: bilateral: rales - Cardiovascular Rhythm: regular Heart sounds: normal: S1, S2 Results 02/01/19 05:59 02/01/19 05:59 CBC 02/01/19 Range/Units 05:59 WBC 8.3 (3.8-10.6) k/uL RBC 3.14 L (3.80-5.40) m/uL Hgb 9.2 L (11.4-16.0) gm/dL Hct 29.9 L (34.0-46.0) % Plt Count 321 (150-450) k/uL Comprehensive Metabolic Panel 02/01/19 Range/Units 05:59 Sodium 139 (137-145) mmol/L Potassium 3.9 (3.5-5.1) mmol/L Chloride 97 L (98-107) mmol/L Carbon Dioxide 35 H (22-30) mmol/L BUN 21 H (7-17) mg/dL Creatinine 0.75 (0.52-1.04) mg/dL Glucose 103 H (74-99) mg/dL Calcium 10.7 H (8.4-10.2) mg/dL Current Medications Generic Name Dose Route Start Last Admin Trade Name Freq PRN Reason Stop Dose Admin Aspirin 325 mg 02/01/19 09:00 02/01/19 08:03 Aspirin PO 325 mg DAILY MAR Administration Atorvastatin Calcium 40 mg 01/31/19 21:00 01/31/19 20:24 Lipitor PO 40 mg HS MAR Administration Calcium Carbonate 1 each 01/31/19 21:00 02/01/19 08:03 Oscal 500+D PO 1 each BID MAR Administration Clopidogrel Bisulfate 75 mg 02/01/19 09:00 02/01/19 08:03 Plavix PO 75 mg DAILY MAR Administration Fluorometholone 1 drops 01/31/19 21:00 01/31/19 20:24 Fml BOTH EYES 1 drops HS MAR Administration Folic Acid 1 mg 02/01/19 09:00 02/01/19 08:03 Folic Acid PO 1 mg DAILY MAR Administration Furosemide 40 mg 01/31/19 21:00 02/01/19 08:03 Lasix IV 40 mg Q12HR MAR Administration Gabapentin 300 mg 01/31/19 16:00 02/01/19 08:03 Neurontin PO 300 mg TID MAR Administration Heparin Sodium (Porcine) 5,000 unit 01/31/19 16:00 02/01/19 08:03 Heparin SQ 5,000 unit Q8HR MAR Administration Latanoprost 1 drops 01/31/19 21:00 01/31/19 20:24 Xalatan 0.005% BOTH EYES 1 drops HS MAR Administration Metoprolol Tartrate 12.5 mg 01/31/19 21:00 02/01/19 08:03 Lopressor PO 12.5 mg BID MAR Administration Multivitamins/Minerals 1 each 01/31/19 21:00 02/01/19 08:03 Ivite PO 1 each BID MAR Administration Pantoprazole Sodium 40 mg 02/01/19 07:30 02/01/19 06:49 Protonix PO 40 mg [id number] MAR Administration Sodium Chloride 10 ml 01/31/19 21:00 02/01/19 08:09 Saline Flush IV 10 ml BID MAR Administration Intake and Output 01/31/19 02/01/19 02/01/19 22:59 06:59 14:59 Intake Total 100 100 Output Total 600 350 800 Balance -500 -250 -800 Intake: Oral 100 100 Output: Urine 600 350 800 Other: Voiding Method Toilet Toilet Toilet # Voids 1 2 Weight 61.2 kg 02/01/19 05:59 02/01/19 05:59 Assessment and Plan Assessment: Assessment #1 acute exacerbation of congestive heart failure, etiology unknown at this point. #2 CAD and status post CABG #3 low blood pressure #4 multiple comorbid conditions Plan #1 agree in decreasing the dose of Lasix #2 hold the lisinopril at this point #3 agree in giving the patient a bolus of IV fluid #4 obtain an echocardiogram was Doppler #5 continue monitor the kidney function and electrolytes #6 follow-up with the patient Thank you for allowing us participate in the patient's care
[2019-02-01] MEDS ORDERED: SODIUM CHLORIDE 0.9% 500 ML 500 ML IV ONE (11:42)
--- NOTE | 2019-02-01 14:01 | P.PN ---
Subjective 78-year-old female with a history of recent CABG on 12/27/2018, comes in with above-mentioned complaints. The patient says that she was okay until yesterday when she started having shortness of breath on resting and walking as well. He had to use 2 pillows to sleep and she usually uses only one pillow. He was not having any chest pain except for when she short of breath. She does not complain of any cough, no racing heart, she otherwise does not complain of any abdominal pain, nausea and vomiting, or diarrhea constipation, no tingling num bness of extremities, no itch or rash. 02/01/2019 Patient said that her shortness of breath is better No chest pain or racing heart, no cough Objective - Vital Signs Vital signs: Vital Signs Temp 97.5 F L 02/01/19 11:05 Pulse 82 02/01/19 12:20 Resp 18 02/01/19 12:20 BP 83/50 02/01/19 12:20 Pulse Ox 98 02/01/19 12:20 Intake & Output 01/31/19 02/01/19 02/01/19 18:59 06:59 18:59 Intake Total 200 Output Total 600 350 800 Balance -600 -150 -800 Weight 63.503 kg 61.2 kg 61.2 kg Intake: Oral 200 Output: Urine 600 350 800 Other: Voiding Method Toilet Toilet Toilet # Voids 2 - Exam On exam, alert and oriented x3. HEENT: Conjunctivae normal. eyes normal. NECK: No JVD. No thyroid enlargement. No LNs CARDIOVASCULAR: S1, S2 positive. She has a scar jacob on the chest which is healing well RESPIRATION: Breath sounds diminished in the bases. No rhonchi or crackles. No bronchial breathing. ABDOMEN: Soft, nontender . No guarding. no masses palpable. No ascites, No hepatosplenomegaly.Bowel sounds heard. LEGS: No edema. no swelling NERVOUS SYSTEM: Cranial N 2-12 grossly normal. Moves all 4 limbs. No focal deficits. No sensory deficit. No signs of cerebellar dysfucntion. Skin: no ulcer no rash - Labs CBC & Chem 7: 02/01/19 05:59 02/01/19 05:59 Labs: Abnormal Lab Results - Last 24 Hours (Table) 02/01/19 02/01/19 02/01/19 Range/Units 05:59 05:59 09:04 RBC 3.14 L (3.80-5.40) m/uL Hgb 9.2 L (11.4-16.0) gm/dL Hct 29.9 L (34.0-46.0) % MCHC 30.7 L (31.0-37.0) g/dL RDW 19.0 H (11.5-15.5) % Chloride 97 L (98-107) mmol/L Carbon Dioxide 35 H (22-30) mmol/L BUN 21 H (7-17) mg/dL Glucose 103 H (74-99) mg/dL POC Glucose (mg/dL) 222 H (75-99) mg/dL Calcium 10.7 H (8.4-10.2) mg/dL Assessment and Plan Assessment: - Acute respiratory failure - Acute CHF exacerbation probably causing above - History of recent CABG - History of CAD - History of hyperlipidemia - History of postoperative anemia hemoglobin 9.5 now - History of sleep apnea Plan - Patient is admitted to [facility] with telemetry - Patient will continue on Lasix 40 mg twice a day for now until patient is seen by cardiology - We'll monitor troponin levels. - We will wait for cardiology recommendation to see the patient needs a repeat echo. Her last echo was done on 12/29/2018 which showed preserved ejection fraction - We'll continue patient's home medications - DVT and GI prophylaxis - Cardio thoracic surgery consulted - We'll order for lab work in the morning - Patient is an observation - Patient was to DO NOT RESUSCITATE 02/01/2019 Lasix is given today. Her blood pressure dropped down to 70s and 80s. Fluids were given. We'll continue to monitor Cardiology on board for patient Continue rest of the medical care We'll follow up on the patient Time with Patient: Less than 30
[2019-02-01 14:54] LABS: Anisocytosis Slight; HCT 27.6 % (34.0-46.0); HGB 8.7 gm/dL (11.4-16.0); Hypochromasia Marked; MCH 30.1 pg (25.0-35.0); MCHC 31.5 g/dL (31.0-37.0); MCV 95.6 fL (80.0-100.0); Macrocytosis Slight; Mean Platelet Volume 9.2; Platelet Count 329 k/uL (150-450); Poikilocytosis Slight; RBC 2.89 m/uL (3.80-5.40); RDW 18.4 % (11.5-15.5)
--- NOTE | 2019-02-01 15:18 | ECHOF ---
Referral Reason:CHF MEASUREMENTS -------- HEIGHT: 152.4 cm WEIGHT: 61.7 kg BP: RVIDd: 1.8 cm (< 3.3) IVSd: 0.7 cm (0.6 - 1.1) LVIDd: 4.9 cm (3.9 - 5.3) LVPWd: 0.8 cm (0.6 - 1.1) IVSs: 1.1 cm LVIDs: 3.7 cm LVPWs: 1.2 cm LAESV Index (A-L): 30.75 ml/m Ao Diam: 2.7 cm (2.0 - 3.7) AV Cusp: 2.0 cm (1.5 - 2.6) LA Diam: 3.6 cm (2.7 - 3.8) MV EXCURSION: 19.436 mm (> 18.000) MV EF SLOPE: 140 mm/s (70 - 150) EPSS: 2.0 cm MV E Faraz: 1.09 m/s MV DecT: 122 ms MV A Faraz: 0.71 m/s MV E/A Ratio: 1.55 AR PHT: 311 ms RAP: 5.00 mmHg RVSP: 34.01 mmHg FINDINGS -------- Sinus rhythm with extra systolic beats. This was a technically good study. The left ventricular size is normal. There is mild concentric left ventricular hypertrophy. Overa ll left ventricular systolic function is severely impaired with, an EF between 25 - 30 %. Mid anter ior LV wall motion is hypokinetic. Mid inferoseptal LV wall motion is hypokinetic. Mid anterose ptal LV wall motion is hypokinetic. Apical anterior LV wall motion is hypokinetic. Apical later al LV wall motion is hypokinetic. Apical inferior LV wall motion is hypokinetic. Apical septum LV wall motion is hypokinetic. The right ventricle is normal in size. LA is midly dilated 29-33ml/m2. The right atrial size is normal. Aortic valve is trileaflet and is mildly thickened. There is moderate aortic regurgitation. Moderate mitral regurgitation is present. Mild tricuspid regurgitation present. There is no evidence of pulmonary hypertension. The right v entricular systolic pressure, as measured by Doppler, is 34.01mmHg. There is no pulmonic regurgitation present. The aortic root size is normal. Normal inferior vena cava with normal inspiratory collapse consistent with estimated right atrial pre ssure of 5 mmHg. There is no pericardial effusion. CONCLUSIONS -------- 1. Sinus rhythm with extra systolic beats. 2. This was a technically good study. 3. The left ventricular size is normal. 4. There is mild concentric left ventricular hypertrophy. 5. Overall left ventricular systolic function is severely impaired with, an EF between 25 - 30 %. 6. Mid anterior LV wall motion is hypokinetic. 7. The right ventricle is normal in size. 8. LA is midly dilated 29-33ml/m2. 9. The right atrial size is normal. 10. Aortic valve is trileaflet and is mildly thickened. 11. There is moderate aortic regurgitation. 12. Moderate mitral regurgitation is present. 13. Mild tricuspid regurgitation present. 14. There is no evidence of pulmonary hypertension. 15. The right ventricular systolic pressure, as measured by Doppler, is 34.01mmHg. 16. There is no pulmonic regurgitation present. 17. The aortic root size is normal. 18. Normal inferior vena cava with normal inspiratory collapse consistent with estimated right atrial pressure of 5 mmHg. 19. There is no pericardial effusion. LEARNING DISABILITIES TEACHER: Ashia Lo [facility]
[2019-02-01 15:23] LABS: Calcium 10.1 mg/dL (8.4-10.2); Potassium 4.2 mmol/L (3.5-5.1)
[2019-02-01] MEDS: ATORVASTATIN 40 MG TAB PO SCH (20:00)
[2019-02-01] MEDS: FLUOROMETHOLONE 0.1% OPHTH DROPS 5 ML BTL BOTH EYES SCH (20:00)
[2019-02-01] MEDS: LATANOPROST 0.005% OPHTH DROPS 2.5 ML BTL BOTH EYES SCH (20:00)
[2019-02-02] MEDS: HEPARIN SODIUM,PORCINE 5,000 UNIT/ML 1 ML VIAL SQ SCH ×4 (00:10→23:12)
[2019-02-02] MEDS: PANTOPRAZOLE 40 MG TABLET PO SCH (06:32)
[2019-02-02 07:02] LABS: Anisocytosis Slight; HCT 27.7 % (34.0-46.0); HGB 8.7 gm/dL (11.4-16.0); Hypochromasia Moderate; MCHC 31.5 g/dL (31.0-37.0); MCV 95.4 fL (80.0-100.0); Macrocytosis Slight; Mean Platelet Volume 9.8; Platelet Count 324 k/uL (150-450); Poikilocytosis Slight; RDW 18.7 % (11.5-15.5); WBC 10.5 k/uL (3.8-10.6)
[2019-02-02 07:11] LABS: Magnesium 1.9 mg/dL (1.6-2.3)
[2019-02-02] MEDS ORDERED: SENNOSIDES-DOCUSATE SODIUM 1 EACH TAB PO PRN (07:55)
--- NOTE | 2019-02-02 07:59 | P.PN ---
Subjective Progress Note Date: 02/02/19 Principal diagnosis: Admission for shortness of breath, acute systolic heart failure with EF 25-30%. Previous medical history of triple-vessel coronary artery disease with left main disease and non-STEMI status post urgent three-vessel CABG, hyperlipidemia, previous tobacco dependence, obstructive sleep apnea, gastric ulcer with partial gastrectomy, splenectomy, arthritis, and family history of premature coronary artery disease. Presyncopal episode secondary to hypotension The patient is currently sitting up in bed in no acute distress. States her shortness of breath has improved significantly. Denies chest pain. Had an episode of presyncope yesterday with hypotension, thought to be over diuresis. Lisinopril discontinued and Lasix dosage decreased with improvement in blood pressure. No new complaints. Objective - Vital Signs Vital signs: Vital Signs Temp 98.2 F 02/02/19 04:38 Pulse 96 02/02/19 04:38 Resp 16 02/02/19 04:38 BP 96/54 02/02/19 04:38 Pulse Ox 97 02/02/19 04:38 Intake & Output 02/01/19 02/02/19 02/02/19 18:59 06:59 18:59 Intake Total 1237 Output Total 950 200 Balance 287 -200 Weight 61.2 kg 60.5 kg Intake: Intake, IV Titration 1000 Amount Sodium Chloride 0.9% 500 500 ml 250 ml @ 999 mls/hr IV .Q16M ONE Rx#:[id number] Sodium Chloride 0.9% 500 500 ml 500 ml @ 999 mls/hr IV .Q31M ONE Rx#:[id number] Oral 237 Output: Urine 950 200 Other: Voiding Method Toilet Bedpan # Voids 1 - Constitutional General appearance: Present: cooperative, no acute distress - Respiratory Details: Lungs sounds clear bilaterally but diminished in the bases. Respirations even, nonlabored. Currently on room air oxygen saturation is 96%. Able to achieve 1250 mL on her incentive spirometry. - Cardiovascular Details: S1, S2 present. Regular rate and rhythm, sinus rhythm on telemetry. Sternum stable. Palpable peripheral pulses bilaterally. No edema present. No calf pain or tenderness noted. - Gastrointestinal Gastrointestinal Comment(s): Abdomen soft, nontender, nondistended. Active bowel sounds present 4 quadrants. Tolerating diet. - Genitourinary Genitourinary Comment(s): Continues to void clear, yellow urine. - Integumentary Integumentary Comment(s): Skin is warm and dry with evidence of good perfusion. Anterior chest incision and bilateral lower extremity EVH sites well approximated without redness or drainage. - Neurologic Neurologic: Present: CNII-XII intact - Musculoskeletal Musculoskeletal: Present: gait normal, strength equal bilaterally - Psychiatric Psychiatric: Present: A&O x's 3, appropriate affect, intact judgment & insight - Allied health notes Allied health notes reviewed: nursing - Labs CBC & Chem 7: 02/02/19 06:43 02/02/19 06:43 Labs: Abnormal Lab Results - Last 24 Hours (Table) 02/01/19 02/01/19 02/01/19 Range/Units 09:04 14:42 14:42 WBC 11.0 H (3.8-10.6) k/uL RBC 2.89 L (3.80-5.40) m/uL Hgb 8.7 L (11.4-16.0) gm/dL Hct 27.6 L (34.0-46.0) % RDW 18.4 H (11.5-15.5) % Sodium 135 L (137-145) mmol/L Carbon Dioxide (22-30) mmol/L BUN 25 H (7-17) mg/dL Glucose 100 H (74-99) mg/dL POC Glucose (mg/dL) 222 H (75-99) mg/dL 02/02/19 02/02/19 Range/Units 06:43 06:43 WBC (3.8-10.6) k/uL RBC 2.90 L (3.80-5.40) m/uL Hgb 8.7 L (11.4-16.0) gm/dL Hct 27.7 L (34.0-46.0) % RDW 18.7 H (11.5-15.5) % Sodium (137-145) mmol/L Carbon Dioxide 31 H (22-30) mmol/L BUN 26 H (7-17) mg/dL Glucose 102 H (74-99) mg/dL POC Glucose (mg/dL) (75-99) mg/dL Assessment and Plan Assessment: 1. Shortness of breath, acute systolic heart failure with EF 25-30% 2. Presyncopal episode 3. History of triple-vessel coronary artery disease with left main disease, non -STEMI, status post urgent three-vessel CABG 4. Hyperlipidemia 5. Previous tobacco dependence 6. Obstructive sleep apnea Plan: 1. Shortness of breath has improved. Decrease in Lasix secondary to presyncopal episode. 2. Agree with discontinuation of lisinopril for now, will need reinitiation once blood pressure stabilizes. 3. Encourage incentive spirometry use. 4. Increase activity, ambulate in hallway. 5. Patient should shower daily. 6. From cardiothoracic surgery standpoint the patient may be discharged to home once okay with cardiology with follow-up scheduled in Dr. Pham's office this Saturday. 7. Medical management per primary care service, they await cardiology recommendations. 8. Will continue to see while hospitalized. Time with Patient: Greater than 30
[2019-02-02] MEDS: ASPIRIN 325 MG TAB PO SCH (08:20)
[2019-02-02] MEDS: ACETAMINOPHEN TAB 500 MG TAB PO PRN (08:20)
[2019-02-02] MEDS: CLOPIDOGREL 75 MG TAB PO SCH (08:20)
[2019-02-02] MEDS: CALCIUM CARB-VIT D 500MG-200UN 1 EACH TAB PO SCH ×2 (08:20→20:08)
[2019-02-02] MEDS: FOLIC ACID 1 MG TAB PO SCH (08:20)
[2019-02-02] MEDS: VIT A,C & E-LUTEIN-MINERALS 1 EACH TAB PO SCH ×2 (10:16→20:08)
[2019-02-02] MEDS: GABAPENTIN 300 MG CAP PO SCH ×3 (10:16→20:08)
[2019-02-02] MEDS: METOPROLOL TARTRATE 12.5 MG TAB PO SCH ×2 (10:16→20:08)
--- NOTE | 2019-02-02 11:33 | P.PN ---
Subjective Progress Note Date: 02/02/19 Principal diagnosis: CHF secondary to diastolic dysfunction This is a pleasant 78-year-old female patient with a past medical history significant for coronary artery disease who underwent recently, in December 2018, coronary artery bypass grafting in the setting of acute non-ST elevation myocardial infarction, hypertension, and dyslipidemia, presented to the hospital complaining of shortness of breath. The patient after the surgery went into an extended-care facility for a week. Subsequently she went home. She was in her usual state of health yesterday when she was sleeping and she woke up complaining of shortness of breath. No symptoms of chest pain or chest discomfort. No dizziness or lightheadedness. No heart racing or fluttering. In no syncope. No edema in the lower extremities. When the patient presented to the emergency room she underwent a computed tomography scan which showed no evidence of PE. The chest x-ray showed findings consistent with fluid overload. The BMP came in to be elevated as well. Subsequently the patient was started on Lasix IV. Overnight she diuresed significantly where she lost 2 kg. Earlier this morning, she was walking to her bathroom when she felt dizzy and lightheaded and about to lose her consciousness. At that point the blood pressure was checked and her systolic pressure was about 80s. The patient was receiving Lasix at 40 mg IV 3 times a day and that was decreased to 40 mg IV twice a day. Beside that I am holding her lisinopril at this point. Also she is in process of receiving IV fluids. On follow-up with the patient today, 02/02/2019, the patient is feeling better in term of shortness of breath. We had some issue with the low blood pressure yesterday and her pressure this morning seems to be above 100 mmHg systolic. We did decrease the dose of Lasix to 40 mg IV daily and will give her the dose tonight. I recommended keeping the patient one more day and continue monitor the kidney function and electrolytes. Objective - Vital Signs Vital signs: Vital Signs Temp 97.8 F 02/02/19 08:00 Pulse 101 H 02/02/19 08:00 Resp 20 02/02/19 08:00 BP 100/59 02/02/19 10:00 Pulse Ox 99 02/02/19 08:00 Intake & Output 02/01/19 02/02/19 02/02/19 18:59 06:59 18:59 Intake Total 1237 240 Output Total 950 200 400 Balance 287 -200 -160 Weight 61.2 kg 60.5 kg Intake: Intake, IV Titration 1000 Amount Sodium Chloride 0.9% 500 500 ml 250 ml @ 999 mls/hr IV .Q16M ONE Rx#:[id number] Sodium Chloride 0.9% 500 500 ml 500 ml @ 999 mls/hr IV .Q31M ONE Rx#:[id number] Oral 237 240 Output: Urine 950 200 400 Other: Voiding Method Toilet Bedpan # Voids 1 - Constitutional General appearance: Present: no acute distress - Respiratory Respiratory: bilateral: diminished - Cardiovascular Rhythm: regular Heart sounds: normal: S1, S2 - Labs CBC & Chem 7: 02/02/19 06:43 02/02/19 06:43 Labs: Abnormal Lab Results - Last 24 Hours (Table) 02/01/19 02/01/19 02/02/19 Range/Units 14:42 14:42 06:43 WBC 11.0 H (3.8-10.6) k/uL RBC 2.89 L 2.90 L (3.80-5.40) m/uL Hgb 8.7 L 8.7 L (11.4-16.0) gm/dL Hct 27.6 L 27.7 L (34.0-46.0) % RDW 18.4 H 18.7 H (11.5-15.5) % Sodium 135 L (137-145) mmol/L Carbon Dioxide (22-30) mmol/L BUN 25 H (7-17) mg/dL Glucose 100 H (74-99) mg/dL 02/02/19 Range/Units 06:43 WBC (3.8-10.6) k/uL RBC (3.80-5.40) m/uL Hgb (11.4-16.0) gm/dL Hct (34.0-46.0) % RDW (11.5-15.5) % Sodium (137-145) mmol/L Carbon Dioxide 31 H (22-30) mmol/L BUN 26 H (7-17) mg/dL Glucose 102 H (74-99) mg/dL Assessment and Plan Assessment: Assessment #1 acute exacerbation of congestive heart failure, etiology unknown at this poin t. #2 CAD and status post CABG #3 low blood pressure #4 multiple comorbid conditions Plan #1 continue the current dose of Lasix IV #2 continue monitor the kidney function and electrolytes #3 follow-up with the patient Thank you for allowing us participate in the patient's care
[2019-02-02] MEDS: FUROSEMIDE 10 MG/ML 4 ML VIAL IV SCH (20:01)
[2019-02-02] MEDS: LATANOPROST 0.005% OPHTH DROPS 2.5 ML BTL BOTH EYES SCH (20:08)
[2019-02-02] MEDS: FLUOROMETHOLONE 0.1% OPHTH DROPS 5 ML BTL BOTH EYES SCH (20:08)
[2019-02-02] MEDS: ATORVASTATIN 40 MG TAB PO SCH (20:08)
--- NOTE | 2019-02-02 20:38 | P.PN ---
Subjective 78-year-old female with a history of recent CABG on 12/27/2018, comes in with above-mentioned complaints. The patient says that she was okay until yesterday when she started having shortness of breath on resting and walking as well. He had to use 2 pillows to sleep and she usually uses only one pillow. He was not having any chest pain except for when she short of breath. She does not complain of any cough, no racing heart, she otherwise does not complain of any abdominal pain, nausea and vomiting, or diarrhea constipation, no tingling num bness of extremities, no itch or rash. 02/01/2019 Patient said that her shortness of breath is better No chest pain or racing heart, no cough 02/02/19 no sob, bp better today no chest pain, no racing heart. Objective - Vital Signs Vital signs: Vital Signs Temp 98.2 F 02/02/19 12:00 Pulse 84 02/02/19 15:40 Resp 18 02/02/19 15:40 BP 94/55 02/02/19 15:40 Pulse Ox 97 02/02/19 15:40 Intake & Output 02/02/19 02/02/19 02/03/19 06:59 18:59 06:59 Intake Total 720 Output Total 200 800 Balance -200 -80 Weight 60.5 kg Intake: Oral 720 Output: Urine 200 800 Other: Voiding Method Bedpan # Voids 1 - Exam On exam, alert and oriented x3. HEENT: Conjunctivae normal. eyes normal. NECK: No JVD. No thyroid enlargement. No LNs CARDIOVASCULAR: S1, S2 positive. She has a scar jacob on the chest which is healing well RESPIRATION: Breath sounds diminished in the bases. No rhonchi or crackles. No bronchial breathing. ABDOMEN: Soft, nontender . No guarding. no masses palpable. No ascites, No hepatosplenomegaly.Bowel sounds heard. LEGS: No edema. no swelling NERVOUS SYSTEM: Cranial N 2-12 grossly normal. Moves all 4 limbs. No focal deficits. No sensory deficit. No signs of cerebellar dysfucntion. Skin: no ulcer no rash - Labs CBC & Chem 7: 02/02/19 06:43 02/02/19 06:43 Labs: Abnormal Lab Results - Last 24 Hours (Table) 02/02/19 02/02/19 Range/Units 06:43 06:43 RBC 2.90 L (3.80-5.40) m/uL Hgb 8.7 L (11.4-16.0) gm/dL Hct 27.7 L (34.0-46.0) % RDW 18.7 H (11.5-15.5) % Carbon Dioxide 31 H (22-30) mmol/L BUN 26 H (7-17) mg/dL Glucose 102 H (74-99) mg/dL Assessment and Plan Assessment: - Acute respiratory failure - Acute CHF exacerbation probably causing above - History of recent CABG - History of CAD - History of hyperlipidemia - History of postoperative anemia hemoglobin 9.5 now - History of sleep apnea Plan - Patient is admitted to [facility] with telemetry - Patient will continue on Lasix 40 mg twice a day for now until patient is seen by cardiology - We'll monitor troponin levels. - We will wait for cardiology recommendation to see the patient needs a repeat echo. Her last echo was done on 12/29/2018 which showed preserved ejection fraction - We'll continue patient's home medications - DVT and GI prophylaxis - Cardio thoracic surgery consulted - We'll order for lab work in the morning - Patient is an observation - Patient was to DO NOT RESUSCITATE 02/01/2019 Lasix is given today. Her blood pressure dropped down to 70s and 80s. Fluids were given. We'll continue to monitor Cardiology on board for patient Continue rest of the medical care We'll follow up on the patient 02/02/19 - Continue lasix as per cardio recs - continue rest of the medical care - will f/u
[2019-02-03] MEDS: PANTOPRAZOLE 40 MG TABLET PO SCH (06:39)
--- NOTE | 2019-02-03 07:44 | P.PN ---
Subjective Progress Note Date: 02/03/19 Principal diagnosis: Admission for shortness of breath, acute systolic heart failure with EF 25-30%. Previous medical history of triple-vessel coronary artery disease with left main disease and non-STEMI status post urgent three-vessel CABG, hyperlipidemia, previous tobacco dependence, obstructive sleep apnea, gastric ulcer with partial gastrectomy, splenectomy, arthritis, and family history of premature coronary artery disease. Presyncopal episode secondary to hypotension The patient is currently sitting up in bed in no acute distress. States her shortness of breath has improved significantly. Denies chest pain. States he has had no more presyncopal episodes, and feels ready to be discharged home and is hoping for discharge today. No new complaints. Objective - Vital Signs Vital signs: Vital Signs Temp 97.4 F L 02/03/19 04:00 Pulse 85 02/03/19 04:00 Resp 18 02/03/19 04:00 BP 93/50 02/03/19 04:00 Pulse Ox 95 02/03/19 07:31 Intake & Output 02/02/19 02/03/19 02/03/19 18:59 06:59 18:59 Intake Total 720 240 210 Output Total 800 950 Balance -80 -710 210 Weight 64 kg Intake: Oral 720 240 210 Output: Urine 800 950 Other: Voiding Method Toilet # Voids 1 - Constitutional General appearance: Present: cooperative, no acute distress - Respiratory Details: Lungs sounds clear anteriorly. Respirations even, nonlabored. Currently on room air oxygen saturation is 99%. Able to achieve 1250 mL on her incentive spirometry. - Cardiovascular Details: S1, S2 present. Regular rate and rhythm, sinus rhythm on telemetry. Sternum stable. Palpable peripheral pulses bilaterally. No edema present. No calf pain or tenderness noted. - Gastrointestinal Gastrointestinal Comment(s): Abdomen soft, nontender, nondistended. Active bowel sounds present 4 qu adrants. Tolerating diet. - Genitourinary Genitourinary Comment(s): Continues to void clear, yellow urine. - Integumentary Integumentary Comment(s): Skin is warm and dry with evidence of good perfusion. Anterior chest incision and bilateral lower extremity EVH sites well approximated without redness or drainage. - Neurologic Neurologic: Present: CNII-XII intact - Musculoskeletal Musculoskeletal: Present: gait normal - Psychiatric Psychiatric: Present: A&O x's 3, appropriate affect, intact judgment & insight - Allied health notes Allied health notes reviewed: nursing - Labs CBC & Chem 7: 02/02/19 06:43 02/02/19 06:43 Assessment and Plan Assessment: 1. Shortness of breath, acute systolic heart failure with EF 25-30% 2. Presyncopal episode 3. History of triple-vessel coronary artery disease with left main disease, non-STEMI, status post urgent three-vessel CABG 4. Hyperlipidemia 5. Previous tobacco dependence 6. Obstructive sleep apnea Plan: 1. Shortness of breath has improved. Decrease in Lasix secondary to presyncopal episode. 2. Agree with discontinuation of lisinopril. 3. Encourage incentive spirometry use. 4. Increase activity, ambulate in hallway. 5. Patient should shower daily. 6. From cardiothoracic surgery standpoint the patient may be discharged to home once okay with cardiology with follow-up scheduled in Dr. Pham's office this Saturday. 7. Medical management per primary care service. 8. Will continue to see while hospitalized. Time with Patient: Less than 30
[2019-02-03] MEDS: CLOPIDOGREL 75 MG TAB PO SCH (08:56)
[2019-02-03] MEDS: CALCIUM CARB-VIT D 500MG-200UN 1 EACH TAB PO SCH ×2 (08:56→20:00)
[2019-02-03] MEDS: GABAPENTIN 300 MG CAP PO SCH ×3 (08:56→22:42)
[2019-02-03] MEDS: METOPROLOL TARTRATE 12.5 MG TAB PO SCH ×2 (08:56→20:00)
[2019-02-03] MEDS: FOLIC ACID 1 MG TAB PO SCH (08:56)
[2019-02-03] MEDS: VIT A,C & E-LUTEIN-MINERALS 1 EACH TAB PO SCH ×2 (08:56→20:00)
[2019-02-03] MEDS: ASPIRIN 325 MG TAB PO SCH (08:56)
[2019-02-03] MEDS: FUROSEMIDE 10 MG/ML 4 ML VIAL IV SCH (08:57)
[2019-02-03] MEDS: HEPARIN SODIUM,PORCINE 5,000 UNIT/ML 1 ML VIAL SQ SCH ×3 (08:57→22:42)
[2019-02-03] MEDS: ONDANSETRON 4 MG/2 ML VIAL IVP PRN (14:02)
[2019-02-03] MEDS: SPIRONOLACTONE 25 MG TAB PO SCH (15:39)
--- NOTE | 2019-02-03 16:24 | PN ---
PROGRESS NOTE This patient was admitted with symptoms of shortness of breath. The patient had a sudden episode of shortness of breath 3 days ago; did not have any significant chest pain. Patient was found to be in congestive cardiac failure. She is feeling better. Denies any chest pain or shortness of breath. This patient's EKG shows diffuse T-wave inversions in the anterolateral leads, which is unchanged from before. Initial troponin was 0.095. Echocardiogram shows evidence of apical as well as apicoseptal hypokinesia with a moderately impaired left ventricular systolic function. This is new as compared to before. In view of the new wall motion abnormality, EKG changes and congestive cardiac failure, a possibility of the graft closure is considered. This was discussed with the patient. We will continue to treat her for heart failure, and if the patient's condition gets better, we would consider cardiac catheterization to rule out any significant blockage in any of the grafts in the next couple of days. DANNY / JAMES: [id number] /
[2019-02-03] MEDS: ACETAMINOPHEN TAB 500 MG TAB PO PRN (19:48)
[2019-02-03] MEDS: ATORVASTATIN 40 MG TAB PO SCH (20:00)
[2019-02-03] MEDS: FLUOROMETHOLONE 0.1% OPHTH DROPS 5 ML BTL BOTH EYES SCH (20:00)
[2019-02-03] MEDS: LATANOPROST 0.005% OPHTH DROPS 2.5 ML BTL BOTH EYES SCH (20:00)
[2019-02-04 03:41] LABS: Anisocytosis Slight; HCT 26.7 % (34.0-46.0); HGB 8.1 gm/dL (11.4-16.0); Hypochromasia Marked; MCH 29.1 pg (25.0-35.0); MCHC 30.3 g/dL (31.0-37.0); MCV 96.2 fL (80.0-100.0); Macrocytosis Slight; Mean Platelet Volume 9.6; Platelet Count 324 k/uL (150-450); RBC 2.77 m/uL (3.80-5.40); RDW 18.1 % (11.5-15.5); WBC 8.7 k/uL (3.8-10.6)
[2019-02-04 03:57] LABS: Calcium 11.2 mg/dL (8.4-10.2); Potassium 3.9 mmol/L (3.5-5.1)
[2019-02-04] MEDS: PANTOPRAZOLE 40 MG TABLET PO SCH (06:17)
--- NOTE | 2019-02-04 07:34 | P.PN ---
Subjective Progress Note Date: 02/04/19 Principal diagnosis: Admission for shortness of breath, acute systolic heart failure with EF 25-30%. Previous medical history of triple-vessel coronary artery disease with left main disease and non-STEMI status post urgent three-vessel CABG, hyperlipidemia, previous tobacco dependence, obstructive sleep apnea, gastric ulcer with partial gastrectomy, splenectomy, arthritis, and family history of premature coronary artery disease. Presyncopal episode secondary to hypotension The patient is currently sitting up in bed in no acute distress. States her shortness of breath has improved significantly. Denies chest pain. States he has had no more presyncopal episodes. No new complaints. Objective - Vital Signs Vital signs: Vital Signs Temp 98.2 F 02/04/19 03:28 Pulse 85 02/04/19 03:28 Resp 18 02/04/19 03:28 BP 112/63 02/04/19 03:28 Pulse Ox 97 02/04/19 03:28 Intake & Output 02/03/19 02/04/19 02/04/19 18:59 06:59 18:59 Intake Total 210 240 Output Total 1200 Balance -990 240 Weight 61.2 kg Intake: Oral 210 240 Output: Urine 1200 Other: Voiding Method Toilet # Voids 1 - Constitutional General appearance: Present: cooperative, no acute distress - Respiratory Details: Lungs sounds clear. Respirations even, nonlabored. Currently on room air oxygen saturation is 97%. Able to achieve 1250 mL on her incentive spirometry. - Cardiovascular Details: S1, S2 present. Regular rate and rhythm, sinus rhythm on telemetry. Sternum stable. Palpable peripheral pulses bilaterally. No edema present. No calf pain or tenderness noted. - Gastrointestinal Gastrointestinal Comment(s): Abdomen soft, nontender, nondistended. Active bowel sounds present 4 quadrants. Tolerating diet. - Genitourinary Genitourinary Comment(s): Continues to void clear, yellow urine. - Integumentary Integumentary Comment(s): Skin is warm and dry with evidence of good perfusion. Anterior chest incision and bilateral lower extremity EVH sites well approximated without redness or drainage. - Neurologic Neurologic: Present: CNII-XII intact - Musculoskeletal Musculoskeletal: Present: gait normal, strength equal bilaterally - Psychiatric Psychiatric: Present: A&O x's 3, appropriate affect, intact judgment & insight - Allied health notes Allied health notes reviewed: nursing - Labs CBC & Chem 7: 02/04/19 03:10 02/04/19 03:10 Labs: Abnormal Lab Results - Last 24 Hours (Table) 02/03/19 02/03/19 02/04/19 Range/Units 14:49 20:56 03:04 RBC (3.80-5.40) m/uL Hgb (11.4-16.0) gm/dL Hct (34.0-46.0) % MCHC (31.0-37.0) g/dL RDW (11.5-15.5) % Sodium (137-145) mmol/L Chloride (98-107) mmol/L BUN (7-17) mg/dL Glucose (74-99) mg/dL Calcium (8.4-10.2) mg/dL Troponin I 0.995 H* 0.891 H* 1.080 H* (0.000-0.034) ng/mL 02/04/19 02/04/19 Range/Units 03:10 03:10 RBC 2.77 L (3.80-5.40) m/uL Hgb 8.1 L (11.4-16.0) gm/dL Hct 26.7 L (34.0-46.0) % MCHC 30.3 L (31.0-37.0) g/dL RDW 18.1 H (11.5-15.5) % Sodium 135 L (137-145) mmol/L Chloride 97 L (98-107) mmol/L BUN 33 H (7-17) mg/dL Glucose 105 H (74-99) mg/dL Calcium 11.2 H (8.4-10.2) mg/dL Troponin I (0.000-0.034) ng/mL Assessment and Plan Assessment: 1. Shortness of breath, acute systolic heart failure with EF 25-30% 2. Presyncopal episode 3. History of triple-vessel coronary artery disease with left main disease, non-STEMI, status post urgent three-vessel CABG 4. Hyperlipidemia 5. Previous tobacco dependence 6. Obstructive sleep apnea Plan: 1. Due to the decrease in the patient's LV function cardiology plans for possible heart catheterization. 2. Continue medical therapy with aspirin, statin, Plavix, beta bettye, KELVIN inhibitor, Aldactone, Lasix. 3. Encourage incentive spirometry use. 4. Increase activity, ambulate in hallway. 5. Patient should shower daily. 6. From cardiothoracic surgery standpoint the patient may be discharged to home once okay with cardiology. She does have an appointment scheduled with Dr. Pham this Saturday, however if still hospitalized Dr. Pham we will see her here. 7. Medical management per primary care service. 8. Will continue to see while hospitalized. Time with Patient: Greater than 30
--- NOTE | 2019-02-04 07:49 | XR ---
EXAMINATION TYPE: XR chest 2V DATE OF EXAM: 02/04/2019 COMPARISON: Prior chest x-ray 02/01/2019 HISTORY: Congestive heart failure, follow-up TECHNIQUE: Frontal and lateral views of the chest are obtained. FINDINGS: Bandlike area of increased attenuation present in the left midlung is stable. Patient is p ost median sternotomy. Heart size is unchanged. No pneumothorax or pleural effusion. Surgical clips p resent at the gastroesophageal junction. There are coronary artery calcifications. IMPRESSION: Probable atelectasis or scarring
[2019-02-04] MEDS: ONDANSETRON 4 MG/2 ML VIAL IVP PRN (09:35)
--- NOTE | 2019-02-04 10:12 | CDI ---
Date: 02/04/2019 9:53:40 AM From: Marisela Dillon RN, CCDS Admit Date: 02/01/2019 11:34:00 AM Patient Name: Oanh Neal Visit Number: [id number] ATTENTION: The Clinical Documentation Specialists (CDI) and [facility] Coding Staff appreciate your assistance in clarifying documentation. Please respond to the clarification below the line at the bottom and electronically sign. The CDI & [facility] Coding staff will review the response and follow-up if needed. Please note: Queries are made part of the Legal Health Record. If you have any questions, please contact the author of this message via ITS. Dr. Ramses Saldana/Jovanna SAMSON The patient presented with the following respiratory symptoms: SOB and coughing History/Risk Factors: CHF, CABG 1 month ago, bleeding ulcer, spleenectomy Tobacco use: ex smoker Home oxygen: none Clinical Indicators: 01/22 Attending (Dr. Lopez): "Acute Respiratory Failure." Vital signs: Temp 98.6, HR 102, RR 18, B/P 120/79, Spo2 98% ra Pulse oximetry: 95-98% on 2L Nasal cannula, 86 % on room air 02/01 Attending (Dr. Lopez) Lung/Breathing assessment: "RESPIRATION: Breath sounds diminished in the bases. No rhonchi or crackles. No bronchial breathing." Other: No documentation of elevated respiratory rate, accessory muscle use, no decreased saturations Treatment: Breathing TX: none ordered Continuous Pulse ox: per unit protocol O2 maintained at 2L NC entire stay. In your professional opinion, can you please clarify if these findings signify one of the following conditions? Acute Respiratory failure ruled out Acuity Acute Chronic Acute on Chronic Specificity Respiratory Failure (further specify (if known)): With hypercapnia? (pCO2 >50 and pH <7.35) With hypoxia? (pO2 <60 mm Hg or SpO2 <91% on room air) Other Diagnosis, please specify Unable to determine (Last Revision: December 2017) TEJD
--- NOTE | 2019-02-04 10:55 | P.PN ---
Subjective Progress Note Date: 02/03/19 Principal diagnosis: Acute hypoxic respiratory failure Acute CHF exacerbation 78-year-old female with a history of recent CABG on 12/27/2018, comes in with above-mentioned complaints. The patient says that she was okay until yesterday when she started having shortness of breath on resting and walking as well. He had to use 2 pillows to sleep and she usually uses only one pillow. He was not having any chest pain except for when she short of breath. She does not complain of any cough, no racing heart, she otherwise does not complain of any abdominal pain, nausea and vomiting, or diarrhea constipation, no tingling numbness of extremities, no itch or rash. 02/03/2019 Patient was admitted to the hospital due to shortness of breath and appears syncope. Blood pressure medications dose decreased. Patient did improve symptomatically. Otherwise repeat 2-D echocardiogram showed ejection fraction 25-30%. Patient was also having initial troponin level 0.095 and increased up to 0.9. 2-D echocardiogram showed evidence of apical as well as apical septal hypokinesia with a moderately impaired left ventricular systolic function. Cardiology is planning for catheterization if not improved symptomatically. plans of chest pain. no worsening shortness of breath. no nausea vomiting or abdominal pain. no fever no chills. Patient was started on low-dose lisinopril 2.5 mg daily Current medications reviewed. Objective - Vital Signs Vital signs: Vital Signs Temp 98 F 02/03/19 20:00 Pulse 91 02/03/19 20:00 Resp 18 02/03/19 20:00 BP 111/60 02/03/19 20:00 Pulse Ox 95 02/03/19 20:00 Intake & Output 02/03/19 02/03/19 02/04/19 06:59 18:59 06:59 Intake Total 240 210 Output Total 950 1200 Balance -710 -990 Weight 64 kg Intake: Oral 240 210 Output: Urine 950 1200 Other: Voiding Method Toilet Toilet # Voids 1 - Exam PHYSICAL EXAMINATION: Patient is lying in the bed comfortably, no acute distress, awake alert and oriented.. HEENT: Normocephalic. Neck is supple. Pupils reactive. Nostrils clear. Oral cavity is moist. Ears reveal no drainage. Neck reveals no JVD, carotid bruits, or thyromegaly. CHEST EXAMINATION: Trachea is central. Symmetrical expansion. Lung diallo clear to auscultation and percussion. CARDIAC: Normal S1, S2 with no gallops. No murmurs ABDOMEN: Soft. Bowel sounds normal. No organomegaly. No abdominal bruits. Extremities: reveal no edema. No clubbing or cyanosis Neurologically awake, alert, oriented x3 with well-coordinated movements. No focal deficits noted Skin: No rash or skin lesions. Psychiatric: Coperative. Nonsuicidal Musculoskeletal: No joint swelling or deformity. Normal range of motion. - Labs CBC & Chem 7: 02/04/19 03:10 02/04/19 03:10 Labs: Abnormal Lab Results - Last 24 Hours (Table) 02/03/19 Range/Units 14:49 Troponin I 0.995 H* (0.000-0.034) ng/mL Assessment and Plan Assessment: - Acute hypoxic respiratory failure secondary to CHF - Acute CHF exacerbation with reduced ejection fraction 25-30% - The syncopal episode - History of recent CABG - History of CAD - History of hyperlipidemia - History of postoperative anemia hemoglobin 9.5 now - History of sleep apnea Plan - Patient is admitted to [facility] with telemetry -Lasix dose decreased to Lasix 40 mg daily. - We'll monitor troponin levels. - Added lisinopril 2.5 mg daily and Spironolactone. - Cardiology is following and is planning for catheterization due to reduced left ventricular systolic function compared to most recent study. - We'll continue patient's home medications - DVT and GI prophylaxis - CT surgery is following. - Patient was to DO NOT RESUSCITATE Time with Patient: Greater than 30
[2019-02-04] MEDS ORDERED: ALPRAZolam 0.5 MG TAB PO PRN (11:19)
[2019-02-04] MEDS ORDERED: ALPRAZolam 0.25 MG TAB PO PRN (11:19)
[2019-02-04] MEDS ORDERED: ASPIRIN 325 MG TAB PO STA (11:19)
[2019-02-04] MEDS ORDERED: NITROGLYCERIN SL TABS 0.4 MG TAB SUBLINGUAL PRN (11:19)
[2019-02-04] MEDS ORDERED: SODIUM CHLORIDE 0.9% 1,000 ML in EMPTY BAG 1 BAG IV ONE (11:19)
[2019-02-04] MEDS ORDERED: ATORVASTATIN 80 MG TAB PO STA (11:19)
[2019-02-04] MEDS: FUROSEMIDE 10 MG/ML 4 ML VIAL IV SCH (11:37)
[2019-02-04] MEDS: METOPROLOL TARTRATE 12.5 MG TAB PO SCH ×2 (11:37→20:18)
[2019-02-04] MEDS: ASPIRIN 81 MG PO SCH (11:39)
[2019-02-04] MEDS: HEPARIN SODIUM,PORCINE 5,000 UNIT/ML 1 ML VIAL SQ SCH ×2 (11:39→15:55)
[2019-02-04] MEDS: CALCIUM CARB-VIT D 500MG-200UN 1 EACH TAB PO SCH ×2 (11:39→20:18)
[2019-02-04] MEDS: FOLIC ACID 1 MG TAB PO SCH (11:39)
[2019-02-04] MEDS: CLOPIDOGREL 75 MG TAB PO SCH (11:39)
[2019-02-04] MEDS: SPIRONOLACTONE 25 MG TAB PO SCH (11:40)
[2019-02-04] MEDS: GABAPENTIN 300 MG CAP PO SCH ×3 (11:40→20:18)
[2019-02-04] MEDS: LISINOPRIL 2.5 MG TAB PO SCH (11:40)
[2019-02-04] MEDS: VIT A,C & E-LUTEIN-MINERALS 1 EACH TAB PO SCH ×2 (11:41→20:19)
--- NOTE | 2019-02-04 12:13 | P.PN ---
Subjective Patient resting in chair at bedside states some improvement. Has been a very evaluated by cardiac surgeon deferred care to cardiology. Cardiac cath scheduled for tomorrow Objective - Vital Signs Vital signs: Vital Signs Temp 97.7 F 02/04/19 08:40 Pulse 84 02/04/19 10:55 Resp 16 02/04/19 10:55 BP 87/56 02/04/19 10:55 Pulse Ox 100 02/04/19 10:55 Intake & Output 02/03/19 02/04/19 02/04/19 18:59 06:59 18:59 Intake Total 210 240 Output Total 1200 200 Balance -990 240 -200 Weight 61.2 kg Intake: Oral 210 240 Output: Urine 1200 200 Other: Voiding Method Toilet # Voids 1 1 - Constitutional General appearance: Present: mild distress - EENT Eyes: Present: PERRLA Ears: bilateral: normal - Neck Neck: Present: normal ROM - Respiratory Respiratory: bilateral: CTA - Cardiovascular Rhythm: regular - Gastrointestinal General gastrointestinal: Present: soft - Integumentary Integumentary: Present: normal - Neurologic Neurologic: Present: CNII-XII intact - Musculoskeletal Musculoskeletal: Present: generalized weakness - Psychiatric Psychiatric: Present: A&O x's 3, appropriate affect, intact judgment & insight - Labs CBC & Chem 7: 02/04/19 03:10 02/04/19 03:10 Labs: Abnormal Lab Results - Last 24 Hours (Table) 02/03/19 02/03/19 02/04/19 Range/Units 14:49 20:56 03:04 RBC (3.80-5.40) m/uL Hgb (11.4-16.0) gm/dL Hct (34.0-46.0) % MCHC (31.0-37.0) g/dL RDW (11.5-15.5) % Sodium (137-145) mmol/L Chloride (98-107) mmol/L BUN (7-17) mg/dL Glucose (74-99) mg/dL Calcium (8.4-10.2) mg/dL Troponin I 0.995 H* 0.891 H* 1.080 H* (0.000-0.034) ng/mL 02/04/19 02/04/19 Range/Units 03:10 03:10 RBC 2.77 L (3.80-5.40) m/uL Hgb 8.1 L (11.4-16.0) gm/dL Hct 26.7 L (34.0-46.0) % MCHC 30.3 L (31.0-37.0) g/dL RDW 18.1 H (11.5-15.5) % Sodium 135 L (137-145) mmol/L Chloride 97 L (98-107) mmol/L BUN 33 H (7-17) mg/dL Glucose 105 H (74-99) mg/dL Calcium 11.2 H (8.4-10.2) mg/dL Troponin I (0.000-0.034) ng/mL - Imaging and Cardiology Chest x-ray: report reviewed Assessment and Plan Plan: Assessment Acute congestive heart failure systolic dysfunction with EF of 25-30% Presyncopal of episode Respiratory failure acute hypoxic pulse ox 86% secondary to congestive heart failure History of triple-vessel coronary artery disease left main non-STEMI 1 month ago Hyperlipidemia Previous tobacco dependence Sleep apnea Hypotension Plan Continue consultation with cardiology scheduled for cardiac cath tomorrow
[2019-02-04] MEDS: ACETAMINOPHEN TAB 500 MG TAB PO PRN (15:54)
[2019-02-04] MEDS: FLUOROMETHOLONE 0.1% OPHTH DROPS 5 ML BTL BOTH EYES SCH (20:17)
[2019-02-04] MEDS: ATORVASTATIN 40 MG TAB PO SCH (20:18)
[2019-02-04] MEDS: LATANOPROST 0.005% OPHTH DROPS 2.5 ML BTL BOTH EYES SCH (20:18)
--- NOTE | 2019-02-04 21:59 | PN ---
PROGRESS NOTE This patient was admitted with a congestive cardiac failure. Patient is status post recent coronary artery bypass surgery. Patient is feeling better. Denies any orthopnea or PND. Patient is afebrile. Blood pressure is 105/67 mmHg. Heart: S1 and S2 normal. Lungs reveal few basal rales. Chest x-ray shows improvement in the heart failure. Patient's creatinine is 0.88. The patient's troponin had increased up to 1.0. ASSESSMENT AND PLAN: This patient is status post recent coronary artery bypass surgery; rule out any graft closure that has developed. Systolic function has deteriorated. Patient is undergoing cardiac catheterization tomorrow. MMODL / IJN: [id number] /
[2019-02-05] MEDS: HEPARIN SODIUM,PORCINE 5,000 UNIT/ML 1 ML VIAL SQ SCH ×4 (01:00→23:56)
[2019-02-05] MEDS: PANTOPRAZOLE 40 MG TABLET PO SCH (05:27)
[2019-02-05] MEDS: GABAPENTIN 300 MG CAP PO SCH ×3 (05:27→20:05)
[2019-02-05] MEDS: LISINOPRIL 2.5 MG TAB PO SCH (05:27)
[2019-02-05] MEDS: FUROSEMIDE 10 MG/ML 4 ML VIAL IV SCH (05:27)
[2019-02-05] MEDS: CALCIUM CARB-VIT D 500MG-200UN 1 EACH TAB PO SCH ×2 (05:27→20:05)
[2019-02-05] MEDS: VIT A,C & E-LUTEIN-MINERALS 1 EACH TAB PO SCH ×2 (05:27→20:05)
[2019-02-05] MEDS: FOLIC ACID 1 MG TAB PO SCH (05:28)
[2019-02-05] MEDS: CLOPIDOGREL 75 MG TAB PO SCH (05:28)
[2019-02-05] MEDS: METOPROLOL TARTRATE 12.5 MG TAB PO SCH ×2 (05:28→20:07)
[2019-02-05] MEDS: SPIRONOLACTONE 25 MG TAB PO SCH (05:28)
[2019-02-05] MEDS: ASPIRIN 81 MG PO SCH (05:30)
[2019-02-05 06:06] LABS: Glucose,Whole Blood 119 mg/dL (75-99)
--- NOTE | 2019-02-05 09:03 | P.PN ---
Subjective Progress Note Date: 02/05/19 Principal diagnosis: Admission for shortness of breath, acute systolic heart failure with EF 25-30%. History of triple-vessel coronary artery disease with left main disease and non- STEMI status post urgent three-vessel CABGm on 12/30/2018, hyperlipidemia, previous tobacco dependence, obstructive sleep apnea, gastric ulcer with partial gastrectomy, splenectomy, arthritis, and family history of premature coronary artery disease. Presyncopal episode secondary to hypotension. The patient is currently laying in bed on the 3 S. cardiac stepdown unit. She is in no acute distress. Remote telemetry showing normal sinus rhythm heart rate 80. She denies any complaints of further lightheadedness. She reports that her shortness of breath is much improved today, denies any complaints of pain. She is scheduled for a heart catheterization today per the patient. Objective - Vital Signs Vital signs: Vital Signs Temp 97.9 F 02/05/19 07:58 Pulse 80 02/05/19 07:58 Resp 20 02/05/19 07:58 BP 71/42 02/05/19 07:58 Pulse Ox 91 L 02/05/19 07:58 Intake & Output 02/04/19 02/05/19 02/05/19 18:59 06:59 18:59 Intake Total 360 200 Output Total 200 Balance 160 200 Weight 61.7 kg Intake: Intake, IV Titration 120 Amount Sodium Chloride 0.9% 1, 120 000 ml In Empty Bag 1 bag @ 1 ML/KG/HR 61.2 mls/hr IV .[id number] ONE Rx#: [id number] Oral 360 80 Output: Urine 200 Other: Voiding Method Toilet Toilet # Voids 1 1 - Constitutional General appearance: Present: cooperative, no acute distress - Respiratory Details: Lung sounds are essentially clear throughout. Respirations are symmetrical and nonlabored. Oxygen saturation are 95% on room air. She is achieving 1250 mL on her incentive spirometry. - Cardiovascular Details: Regular rhythm and rate. S1 and S2 present, negative for S3, gallop or murmur. Sternum is stable. Remote telemetry showing normal sinus rhythm heart rate 80. No edema present. - Gastrointestinal Gastrointestinal Comment(s): Abdomen is soft, nontender and nondistended. Active bowel sounds all 4 abdominal quadrants. No guarding or rigidity. No organomegaly. - Genitourinary Genitourinary Comment(s): Voiding clear yellow urine. - Integumentary Integumentary Comment(s): Skin is warm and dry. No clubbing or cyanosis is present. Midline sternal incision is clean, dry and approximated. No drainage or redness is present. Bilateral lower extremity EVH sites clean, dry and approximated. No drainage or redness is present. - Neurologic Neurologic: Present: CNII-XII intact - Musculoskeletal Musculoskeletal: Present: gait normal, generalized weakness, strength equal bilaterally - Psychiatric Psychiatric: Present: A&O x's 3, appropriate affect, intact judgment & insight - Allied health notes Allied health notes reviewed: nursing - Labs CBC & Chem 7: 02/04/19 03:10 02/04/19 03:10 Labs: Abnormal Lab Results - Last 24 Hours (Table) 02/05/19 Range/Units 06:01 POC Glucose (mg/dL) 119 H (75-99) mg/dL Assessment and Plan Assessment: 1. Shortness of breath, acute systolic heart failure with EF 25-30% 2. Presyncopal episode 3. History of triple-vessel coronary artery disease with left main disease, non-STEMI, status post urgent three-vessel CABG 4. Hyperlipidemia 5. Previous tobacco dependence 6. Obstructive sleep apnea Plan: 1. Continue medical therapy with aspirin, statin, Plavix, beta bettye, KELVIN inhibitor, Aldactone, Lasix. 2. The patient is scheduled for a heart catheterization to be performed by Dr. Whitten today around 12 noon. 3. Continue to encourage use of her incentive spirometry every hour while awake. 4. Encourage her to increase activity, and to ambulate in hallway as tolerated. Out of bed for all meals. 5. Continue recommended postoperative myocardial revascularization discharge instructions. 6. From cardiothoracic surgery standpoint the patient may be discharged to home once okay with cardiology and primary care service. 7. Continue to reinforce importance of continued smoking cessation. 8. Medical management per primary care service. 8. More recommendations to follow based on patient's clinical course. Time with Patient: Greater than 30
[2019-02-05 10:07] LABS: Calcium 10.1 mg/dL (8.4-10.2); Potassium 4.1 mmol/L (3.5-5.1)
[2019-02-05] MEDS ORDERED: IV FLUID CONTINUATION 1,000 ML IV ONE (12:40)
--- NOTE | 2019-02-05 12:43 | P.PN ---
Subjective Patient awaiting cardiac catheterization. Remains hypotensive with systolic blood pressure elevated to. Patient denies any acute distress at this point Objective - Vital Signs Vital signs: Vital Signs Temp 98.0 F 02/05/19 11:30 Pulse 72 02/05/19 11:30 Resp 20 02/05/19 11:30 BP 82/42 02/05/19 11:30 Pulse Ox 94 L 02/05/19 11:30 Intake & Output 02/04/19 02/05/19 02/05/19 18:59 06:59 18:59 Intake Total 360 200 Output Total 200 Balance 160 200 Weight 61.7 kg Intake: Intake, IV Titration 120 Amount Sodium Chloride 0.9% 1, 120 000 ml In Empty Bag 1 bag @ 1 ML/KG/HR 61.2 mls/hr IV .[id number] ONE Rx#: [id number] Oral 360 80 Output: Urine 200 Other: Voiding Method Toilet Toilet # Voids 1 1 - Constitutional General appearance: Present: average body habitus - EENT Eyes: Present: PERRLA Ears: bilateral: normal - Neck Neck: Present: normal ROM - Respiratory Respiratory: bilateral: CTA - Cardiovascular Rhythm: regular - Gastrointestinal General gastrointestinal: Present: soft - Integumentary Integumentary: Present: normal - Neurologic Neurologic: Present: CNII-XII intact - Musculoskeletal Musculoskeletal: Present: generalized weakness - Psychiatric Psychiatric: Present: A&O x's 3, appropriate affect, intact judgment & insight - Labs CBC & Chem 7: 02/04/19 03:10 02/05/19 08:19 Labs: Abnormal Lab Results - Last 24 Hours (Table) 02/05/19 02/05/19 Range/Units 06:01 08:19 Sodium 136 L (137-145) mmol/L Chloride 96 L (98-107) mmol/L Carbon Dioxide 33 H (22-30) mmol/L BUN 27 H (7-17) mg/dL POC Glucose (mg/dL) 119 H (75-99) mg/dL - Imaging and Cardiology Chest x-ray: report reviewed Assessment and Plan Plan: Assessment Respiratory failure acute hypoxic pulse oximetry 86% secondary to congestive heart failure Acute congestive heart failure ejection fraction 25-30% systolic dysfunction History of triple-vessel coronary artery disease post CABG 1 month Hyperlipidemia Previous tobacco dependence Sleep apnea Hypotension Plan Awaiting cardiac cath today Cardiac surgeon is signed off case Continue consultation with cardiology
[2019-02-05] MEDS ORDERED: fentaNYL (PF) 50 MCG/ML 2 ML AMP IV ONE (12:46)
[2019-02-05] MEDS ORDERED: LIDOCAINE 1% INJ 10MG/ML (20 ML MDV) ONE (12:47)
[2019-02-05] MEDS ORDERED: fentaNYL (PF) 50 MCG/ML 2 ML AMP ONE (12:47)
[2019-02-05] MEDS ORDERED: LIDOCAINE 1% INJ 10MG/ML (20 ML MDV) SQ ONE (12:50)
[2019-02-05] MEDS ORDERED: BIVALIRUDIN BOLUS 250 MG/50 ML IV ONE (13:09)
[2019-02-05] MEDS ORDERED: BIVALIRUDIN 250 MG in SODIUM CHLORIDE 0.9% 50 ML IV ONE (13:10)
[2019-02-05] MEDS ORDERED: MIDAZOLAM (PF) 2 MG/2 ML VIAL IV ONE (13:15)
[2019-02-05] MEDS ORDERED: IOPAMIDOL-370 125ML BTL INJ ONE (13:17)
[2019-02-05] MEDS: NITROGLYCERIN 1000MCG/10ML SYRINGE INTRACORON ONE ×2 (13:24→13:51)
[2019-02-05] MEDS ORDERED: SODIUM CHLORIDE 0.9% 1,000 ML IV ONE (13:40)
[2019-02-05] MEDS ORDERED: IOPAMIDOL-370 100ML BTL INJ ONE ×2 (13:41→13:57)
[2019-02-05] MEDS ORDERED: MAG HYDROX/AL HYDROX/SIMETH 30 ML CUP PO PRN (14:18)
[2019-02-05] MEDS ORDERED: NITROGLYCERIN SL TABS 0.4 MG TAB SUBLINGUAL PRN (14:18)
[2019-02-05] MEDS ORDERED: RX INFO: IV CONTRAST WAS GIVEN 1 EACH MISC MISCELLANE PRN (14:18)
[2019-02-05] MEDS ORDERED: ZOLPIDEM 5 MG TAB PO PRN (14:18)
[2019-02-05] MEDS ORDERED: ATROPINE SULFATE 0.1 MG/ML 10ML SYRINGE IV PRN (14:18)
[2019-02-05] MEDS ORDERED: SODIUM CHLORIDE 0.9% 1,000 ML IV SCH (14:30)
[2019-02-05] MEDS: ACETAMINOPHEN TAB 500 MG TAB PO PRN ×2 (14:33→20:05)
--- NOTE | 2019-02-05 14:45 | PTCA ---
PERCUTANEOUSTRANS CORORONARY ANGIOGRAPHY Ms. Neal is a 78-year-old female who recently underwent coronary bypass grafting, presented with symptoms of congestive heart failure, deterioration of LV and mild troponin elevation. In view of that, she underwent cardiac catheterization was found to have subtotally occluded distal anastomotic site of the RIDDLE to the LAD and recommendations were made regarding angioplasty and stenting of her [place] LAD. The procedures, risks and complication were discussed with the patient who is in full understanding and agreement. PROCEDURE: A 6-Argentine FR4 guiding catheter was introduced into the system. After cannulating the left main, a 0.014 advanced medium weight J-wire was advanced and positioned in the distal left circumflex following that, a 0.014 whisper J-wire was advanced in the LAD and a 2.5 x 12 mm Trek balloon was advanced and one inflation proximally at 10 atmospheres was done. Following that, the balloon was removed and a 2.75 x 15 mm Xience Aditi stent was deployed and post-dilated at 16 atmospheres. Following that, the balloon was removed and attempt to advance a 2.5 x 12 mm Trek balloon were unsuccessful to cross the distal anastomotic site. At that point, the balloon was removed and a 1.5 x 8 mm Trek balloon was advanced and multiple inflations at 10 atmospheres were done. Following that, the 2.5 x 12 mm balloon was advanced and one inflation at 8 atmospheres was done and another inflation in the mid segment was performed at 8 atmospheres. Following that, the balloon was removed and a 2.5 x 12 mm Xience Aditi stent was deployed in the mid segment, postdilated to 16 atmospheres. After removing that balloon, another 2.5 x 12 mm Xience Aditi stent was deployed at the anastomotic site and postdilated at 12 atmospheres. After the last inflation, after appropriate wait, the balloon and the guidewire were withdrawn back in the guiding catheter. Images were obtained and repeated. Those images reveal stable successful stenting. At that point, the guiding catheter, the balloon and the guidewire were removed and a left ventricular end-diastolic pressure was calculated. Following that, catheter and sheath were removed. Hemostasis was obtained with deployment of an Angio-Seal. There was no immediate complication. Patient is returned to her room in stable condition. RESULTS: 1. Successful stenting of the ostium of the left anterior descending artery with reduction of stenosis from 99% to 0%. 2. Successful stenting of the mid LAD with reduction of stenosis from 70% to 0%. 3. Successful stenting of the distal anastomotic site of the LAD with reduction of stenosis from 100% to 0%. There was good flow in the distal vessel with small caliber vessel beyond the stented segment. RECOMMENDATION: Patient will be continued on aspirin, Plavix and statin. The importance of dual antiplatelet treatment was discussed with the patient and depending on her progress, further recommendation will be made. Duration of procedure is 109 minutes. MMODL / IJN: [id number] /
--- NOTE | 2019-02-05 15:18 | CC ---
CARDIAC CATHETERIZATION REPORT Mrs. Neal is a 78-year-old female with a known history of coronary artery disease who presented in December of this year with non ST-segment elevation myocardial infarction, underwent cardiac catheterization, was found to have severe coronary artery disease and underwent coronary artery bypass grafting. She presented with symptoms of acute dyspnea and severe depression of the LV systolic function which is new compared to the last visit with mild elevation of troponin. In view of that and after evaluation by Dr. Larsen, recommendation made regarding cardiac catheterization. The procedure, risks and complications were discussed with the patient who is in full understanding and agreement. PROCEDURE: Patient was brought to the wharf labourer in a fasting semi-sedated state after receiving fentanyl and Benadryl and achieving moderate conscious sedated state. Using Xylocaine anesthesia and Seldinger technique, a 6-Gibraltarian sheath was introduced in the right femoral artery. Selective right and left coronary angiography performed using 6- [place]arian, 4 bend right and left Nellie catheter. Multiple views of the coronary artery including hemiaxial views were obtained. Following that, the 6-Gibraltarian right Nellie catheter was used to cannulate the saphenous vein graft to the obtuse marginal branch and to the right coronary artery. Following that, an JUANITA catheter was used to cannulate the RIDDLE. Images of the grafts were obtained. Following that, angioplasty and stenting was performed. Following that, the 6-Gibraltarian tight pigtail catheter was introduced in the left ventricle and pressures were calculated. Following that, catheter and sheaths were removed. Hemostasis was obtained with deployment of an Angio- Seal. There was no immediate complication. The patient was returned to her room in stable condition. FINDINGS: 1. FLUOROSCOPY: There was severe calcification involving the left main, LAD and left circumflex. 2. LEFT MAIN: This is a short size vessel, bifurcating into left circumflex, left anterior descending artery, left main coronary artery has a 70% stenosis distally. 3. LEFT ANTERIOR DESCENDING ARTERY: This vessel has a 99% stenosis proximally with minimal antegrade flow after the takeoff of the diagonal branch. 4. LEFT CIRCUMFLEX: This is a non nondominant large size vessel, giving rise to a large obtuse marginal branch. The vessel has a 60% to 70% stenosis proximally. There is competitive flow into the obtuse marginal branch through the saphenous vein graft. 5. RIGHT CORONARY ARTERY: This is a large dominant vessel, bifurcating distally into PDA and posterolateral segment and branches. The right coronary artery in the mid segment has a tubular long lesion of 70%-80%. The rest of the vessel has no high- grade stenosis. There is competitive flow through the saphenous vein graft. 6. COLLATERALS: There are collaterals from the right coronary artery to the septal drill press operator helper. 7. RIDDLE TO THE LAD: The distal anastomotic site is subtotally occluded with a 99% stenosis with slow flow into the LAD. 8. SAPHENOUS VEIN GRAFT TO THE OBTUSE MARGINAL BRANCH: The proximal distal anastomotic sites are patent. The flow into the graft is brisk. There is no evidence of obstructive coronary artery disease. 9. SAPHENOUS VEIN GRAFT TO THE RIGHT CORONARY ARTERY: The proximal distal anastomotic sites are patent. The flow into the graft is brisk. There is no evidence of high- grade stenosis. 10.LEFT VENTRICULOGRAM: Left ventriculogram is not performed. 11.HEMODYNAMICS: There was no gradient across the aortic valve. The left ventricular end-diastolic pressure was 24 mmHg. CONCLUSION: 1. Severe triple-vessel disease coronary artery disease. 2. Patent RIDDLE to LAD was subtotally occluded distal anastomotic site. 3. Two patent saphenous vein grafts to the obtuse marginal branch and to the right coronary artery. 4. Mildly elevated left ventricular end-diastolic pressure. RECOMMENDATION: In view of the finding anatomy, I recommend proceeding with angioplasty and stenting of the LAD. The procedures, risks and complication were discussed with the patient who is in full understanding and agreement. MMODL / IJN: [id number] /
[2019-02-05] MEDS: FUROSEMIDE 20 MG TAB PO SCH (16:19)
[2019-02-05] MEDS: FLUOROMETHOLONE 0.1% OPHTH DROPS 5 ML BTL BOTH EYES SCH (20:05)
[2019-02-05] MEDS: ATORVASTATIN 40 MG TAB PO SCH (20:05)
[2019-02-05] MEDS: LATANOPROST 0.005% OPHTH DROPS 2.5 ML BTL BOTH EYES SCH (20:06)
[2019-02-06] MEDS: PANTOPRAZOLE 40 MG TABLET PO SCH (06:37)
[2019-02-06 06:59] LABS: Anisocytosis Slight; Basophils # (A) 0.1 k/uL (0-0.2); Basophils % (A) 1 %; Eosinophils # (A) 0.8 k/uL (0-0.7); Eosinophils % (A) 10 %; HCT 22.2 % (34.0-46.0); Hypochromasia Marked; Lymphocytes # (A) 1.9 k/uL (1.0-4.8); Lymphocytes % (A) 24 %; MCH 30.1 pg (25.0-35.0); MCHC 30.8 g/dL (31.0-37.0); MCV 97.7 fL (80.0-100.0); Macrocytosis Slight; Mean Platelet Volume 9.6; Monocytes # (A) 0.6 k/uL (0-1.0); Monocytes % (A) 7 %; Neutrophils # (A) 4.6 k/uL (1.3-7.7); Neutrophils % (A) 56 %; Platelet Count 296 k/uL (150-450); RBC 2.27 m/uL (3.80-5.40); RDW 18.5 % (11.5-15.5); WBC 8.1 k/uL (3.8-10.6)
[2019-02-06 07:17] LABS: Calcium 8.9 mg/dL (8.4-10.2); Potassium 3.8 mmol/L (3.5-5.1)
[2019-02-06 07:20] LABS: HGB 6.9 gm/dL (11.4-16.0)
[2019-02-06 09:24] LABS: Anisocytosis Slight; HCT 21.6 % (34.0-46.0); Hypochromasia Marked; MCH 30.4 pg (25.0-35.0); MCHC 31.3 g/dL (31.0-37.0); MCV 97.1 fL (80.0-100.0); Macrocytosis Slight; Mean Platelet Volume 9.9; Platelet Count 292 k/uL (150-450); RBC 2.23 m/uL (3.80-5.40); RDW 18.9 % (11.5-15.5); WBC 9.1 k/uL (3.8-10.6)
[2019-02-06 09:28] LABS: HGB 6.8 gm/dL (11.4-16.0)
[2019-02-06] MEDS: GABAPENTIN 300 MG CAP PO SCH ×3 (09:53→20:28)
[2019-02-06] MEDS: VIT A,C & E-LUTEIN-MINERALS 1 EACH TAB PO SCH ×2 (09:53→20:27)
[2019-02-06] MEDS: CALCIUM CARB-VIT D 500MG-200UN 1 EACH TAB PO SCH ×2 (09:53→20:28)
[2019-02-06] MEDS: LISINOPRIL 2.5 MG TAB PO SCH (09:53)
[2019-02-06] MEDS: ASPIRIN 81 MG PO SCH (09:53)
[2019-02-06] MEDS: FUROSEMIDE 20 MG TAB PO SCH ×2 (09:54→16:49)
[2019-02-06] MEDS: METOPROLOL TARTRATE 12.5 MG TAB PO SCH ×2 (09:54→20:30)
[2019-02-06] MEDS: FOLIC ACID 1 MG TAB PO SCH (09:54)
[2019-02-06] MEDS: CLOPIDOGREL 75 MG TAB PO SCH (09:56)
[2019-02-06] MEDS: SPIRONOLACTONE 25 MG TAB PO SCH (09:56)
[2019-02-06] MEDS: HEPARIN SODIUM,PORCINE 5,000 UNIT/ML 1 ML VIAL SQ SCH (11:12)
--- NOTE | 2019-02-06 11:46 | P.PN ---
Subjective Progress Note Date: 02/06/19 Principal diagnosis: Admission for shortness of breath, acute systolic heart failure with EF 25-30%. History of triple-vessel coronary artery disease with left main disease and non- STEMI status post urgent three-vessel CABGm on 12/30/2018, hyperlipidemia, previous tobacco dependence, obstructive sleep apnea, gastric ulcer with partial gastrectomy, splenectomy, arthritis, and family history of premature coronary artery disease. POD #1 selective left and right coronary angiography and successful stenting of the ostial left anterior descending coronary artery, mid left anterior coronary artery and distal anastomotic site of the LAD performed by Dr. Whitten. Presyncopal episode secondary to hypotension. Anemia, expected due to her history of anemia. The patient is sitting up to the bedside chair on the 3 S. cardiac stepdown unit. She is in no acute distress. Remote telemetry showing normal sinus cell name about heart rate 97. She denies any complaints pain, shortness of breath or lightheadedness. Oxygen saturation are 95% on room air, she is achieving 1500 mL on her incentive spirometry. Objective - Vital Signs Vital signs: Vital Signs Temp 98.3 F 02/06/19 07:56 Pulse 97 02/06/19 07:58 Resp 15 02/06/19 07:56 BP 95/51 02/06/19 07:56 Pulse Ox 97 02/06/19 07:56 Intake & Output 02/05/19 02/06/19 02/06/19 18:59 06:59 18:59 Intake Total 1476 550 240 Output Total 825 1000 Balance 651 550 -760 Weight 63.7 kg Intake: IV 676 Intake, IV Titration 800 400 Amount Sodium Chloride 0.9% 1, 800 400 000 ml @ 100 mls/hr IV . Q10H MAR Rx#:[id number] Oral 0 150 240 Output: Urine 825 1000 Other: Voiding Method Toilet Toilet # Voids 1 - Constitutional General appearance: Present: cooperative, no acute distress, obese - Respiratory Details: Lung sounds are essentially clear to her bilateral upper lobes, few scattered crackles to her bilateral bases. Respirations are symmetrical and nonlabored. Oxygen saturation are 95% on room air. Achieving 1500 mL on her incentive spirometry. - Cardiovascular Details: Regular rhythm and rate. S1 and S2 present, negative for S3, gallop or murmur. Remote telemetry showing normal sinus rhythm heart rate 97. No edema present. Sequential compression devices in place to bilateral lower extremities. - Gastrointestinal Gastrointestinal Comment(s): Abdomen is soft, nontender and nondistended. Active bowel sounds to all 4 abdominal quadrants. No guarding or rigidity. No organomegaly. - Genitourinary Genitourinary Comment(s): Voiding clear yellow urine. - Integumentary Integumentary Comment(s): Skin is warm and dry. No clubbing or cyanosis is present. Midline incision is clean, dry and approximated. No drainage or redness is present. Bilateral lower extremity EVH sites are clean, dry and healed. No drainage or redness is present. Right groin heart cath site is soft and nontender to touch. - Neurologic Neurologic: Present: CNII-XII intact - Musculoskeletal Musculoskeletal: Present: gait normal, strength equal bilaterally - Psychiatric Psychiatric: Present: A&O x's 3, appropriate affect, intact judgment & insight - Allied health notes Allied health notes reviewed: nursing - Labs CBC & Chem 7: 02/06/19 08:50 02/06/19 06:36 Labs: Abnormal Lab Results - Last 24 Hours (Table) 02/06/19 02/06/19 02/06/19 Range/Units 06:36 06:36 08:50 RBC 2.27 L 2.23 L (3.80-5.40) m/uL Hgb 6.9 L* 6.8 L* (11.4-16.0) gm/dL Hct 22.2 L 21.6 L (34.0-46.0) % MCHC 30.8 L (31.0-37.0) g/dL RDW 18.5 H 18.9 H (11.5-15.5) % Eosinophils # 0.8 H (0-0.7) k/uL BUN 20 H (7-17) mg/dL Crossmatch 02/06/19 Range/Units 08:50 RBC (3.80-5.40) m/uL Hgb (11.4-16.0) gm/dL Hct (34.0-46.0) % MCHC (31.0-37.0) g/dL RDW (11.5-15.5) % Eosinophils # (0-0.7) k/uL BUN (7-17) mg/dL Crossmatch See Detail Assessment and Plan Assessment: 1. Shortness of breath, acute systolic heart failure with EF 25-30% 2. Presyncopal episode 3. History of triple-vessel coronary artery disease with left main disease, non-STEMI, status post urgent three-vessel CABG 4. Hyperlipidemia 5. Previous tobacco dependence 6. Obstructive sleep apnea Plan: 1. Continue medical therapy with aspirin, statin, Plavix, beta bettye, KELVIN inhibitor, Aldactone, Lasix. 2. Repeat H&H as her hemoglobin this morning is 6.9. 3. Continue to encourage use of her incentive spirometry every hour while awake. 4. Encourage her to increase activity, and to ambulate in hallway as tolerated. Out of bed for all meals. 5. Continue to follow postoperative myocardial revascularization discharge instructions. 6. From cardiothoracic surgery standpoint the patient may be discharged to home once okay with cardiology and primary care service. 7. Continue to reinforce importance of continued smoking cessation. 8. Medical management per primary care service. 8. More recommendations to follow based on patient's clinical course. Time with Patient: Greater than 30
[2019-02-06 15:29] VITALS: BMI 27.4
--- NOTE | 2019-02-06 16:20 | P.PN ---
Subjective Progress Note Date: 02/06/19 This is a pleasant 78-year-old female patient with a past medical history significant for coronary artery disease who underwent recently, in December 2018, coronary artery bypass grafting in the setting of acute non-ST elevation myocardial infarction, hypertension, and dyslipidemia, presented to the hospital complaining of shortness of breath. The patient after the surgery went into an extended-care facility for a week. Subsequently she went home. She was in her usual state of health yesterday when she was sleeping and she woke up complaining of shortness of breath. No symptoms of chest pain or chest discomfort. No dizziness or lightheadedness. No heart racing or fluttering. In no syncope. No edema in the lower extremities. When the patient presented to the emergency room she underwent a computed tomography scan which showed no evidence of PE. The chest x-ray showed findings consistent with fluid overload. The BMP came in to be elevated as well. Subsequently the patient was started on Lasix IV. Overnight she diuresed significantly where she lost 2 kg. Earlier this morning, she was walking to her bathroom when she felt dizzy and lightheaded and about to lose her consciousness. At that point the blood pressure was checked and her systolic pressure was about 80s. The patient was receiving Lasix at 40 mg IV 3 times a day and that was decreased to 40 mg IV twice a day. Beside that I am holding her lisinopril at this point. Also she is in process of receiving IV fluids. 02/06/2019 Patient was taken to the cardiac catheterization lab yesterday where she underw ent successful stenting of the ostium of the LAD with reduction of stenosis from 99% to 0%. Successful stenting of the mid and distal LAD. Overall the patient feels well today, she denies any chest pain, no dizziness, no difficulty in breathing. She does feel quite tired, her blood pressure this morning 85/53, heart rate in the 80s. Hemoglobin this morning 6.9 with a platelet count of 296, sodium 137, potassium 3.8, BUN 20 and creatinine 0.8. She will receive one unit of packed red blood cells today. We will also check with nephrology regarding giving her IVVenofer. Objective - Vital Signs Vital signs: Vital Signs Temp 98.2 F 02/06/19 15:40 Pulse 88 02/06/19 15:40 Resp 18 02/06/19 15:40 BP 85/53 02/06/19 15:40 Pulse Ox 95 02/06/19 15:40 Intake & Output 02/05/19 02/06/19 02/06/19 18:59 06:59 18:59 Intake Total 1476 550 240 Output Total 825 1000 Balance 651 550 -760 Weight 63.7 kg 63.7 kg Intake: IV 676 Intake, IV Titration 800 400 Amount Sodium Chloride 0.9% 1, 800 400 000 ml @ 100 mls/hr IV . Q10H MAR Rx#:[id number] Oral 0 150 240 Blood Product 0 Rc As-3 Unit 0 [id number] Output: Urine 825 1000 Other: Voiding Method Toilet Toilet # Voids 1 - Exam PHYSICAL EXAMINATION: GENERAL: 78-year-old female in no acute distress at the time of my examination HEENT: Head is atraumatic, normocephalic. Pupils equal, round. Sclera a nicteric. Conjunctiva are clear. Mucous membranes of the mouth are moist. Neck is supple. There is no elevated jugular venous pressure. No carotid bruit is heard. HEART EXAMINATION: Heart S1, S2 normal. No murmur or gallop heard. CHEST EXAMINATION: Lungs are clear to auscultation and precussion. No chest wall tenderness is noted on palpation or with deep breathing. ABDOMEN: Soft, nontender. Bowel sounds are heard. No organomegaly noted. EXTREMITIES: 2+ peripheral pulses with no evidence of peripheral edema and no calf tenderness noted. Right groin is soft, no evidence of any hematoma. NEUROLOGIC patient is awake, alert and oriented 3. . - Labs CBC & Chem 7: 02/06/19 08:50 02/06/19 06:36 Labs: Abnormal Lab Results - Last 24 Hours (Table) 02/06/19 02/06/19 02/06/19 Range/Units 06:36 06:36 08:50 RBC 2.27 L 2.23 L (3.80-5.40) m/uL Hgb 6.9 L* 6.8 L* (11.4-16.0) gm/dL Hct 22.2 L 21.6 L (34.0-46.0) % MCHC 30.8 L (31.0-37.0) g/dL RDW 18.5 H 18.9 H (11.5-15.5) % Eosinophils # 0.8 H (0-0.7) k/uL BUN 20 H (7-17) mg/dL Crossmatch 02/06/19 Range/Units 08:50 RBC (3.80-5.40) m/uL Hgb (11.4-16.0) gm/dL Hct (34.0-46.0) % MCHC (31.0-37.0) g/dL RDW (11.5-15.5) % Eosinophils # (0-0.7) k/uL BUN (7-17) mg/dL Crossmatch See Detail Assessment and Plan Plan: Assessment #1 acute exacerbation of congestive heart failure, systolic acute on chronic #2 CAD and status post CABG #3 low blood pressure #4 multiple comorbid condition #5 status post angioplasty and stenting of the LAD #6 anemia Plan She will receive one unit of packed red blood cells today, we'll recheck her labs in the morning tomorrow. We would also recommend patient to get IV iron if okay with nephrology. DNP note has been reviewed, I agree with a documented findings and plan of care. Patient was seen and examined.
--- NOTE | 2019-02-06 19:11 | XR ---
EXAMINATION TYPE: XR chest 2V DATE OF EXAM: 02/06/2019 COMPARISON: 02/04/2019 HISTORY: Heart failure. Short of breath TECHNIQUE: Frontal and lateral views of the chest are obtained. FINDINGS: There is mild blunting of left costophrenic angle. There is coarsening of the lung marking s. There is no gross heart failure. There is linear density left midlung consistent with scarring and atelectasis. There are sternal wires. Heart is enlarged. IMPRESSION: Mild cardiomegaly. Mild pulmonary fibrotic changes. There is increased pleural reaction at the left lung base compared to last exam. No overt heart failure.
[2019-02-06] MEDS: ATORVASTATIN 40 MG TAB PO SCH (20:27)
[2019-02-06] MEDS: LATANOPROST 0.005% OPHTH DROPS 2.5 ML BTL BOTH EYES SCH (20:28)
[2019-02-06] MEDS: FLUOROMETHOLONE 0.1% OPHTH DROPS 5 ML BTL BOTH EYES SCH (20:28)
[2019-02-06 20:34] LABS: Anisocytosis Slight; HCT 25.9 % (34.0-46.0); HGB 8.1 gm/dL (11.4-16.0); Hypochromasia Marked; MCH 29.5 pg (25.0-35.0); MCHC 31.3 g/dL (31.0-37.0); MCV 94.5 fL (80.0-100.0); Macrocytosis Slight; Mean Platelet Volume 9.9; Platelet Count 269 k/uL (150-450); Poikilocytosis Moderate; RBC 2.74 m/uL (3.80-5.40); RDW 19.5 % (11.5-15.5)
[2019-02-06] MEDS: ONDANSETRON 4 MG/2 ML VIAL IVP PRN (23:28)
--- NOTE | 2019-02-07 08:20 | P.PN ---
Subjective this is a pleasant 78 yo F who admitted for acute systolic heart failure and coronary artery disease , status post cardiac cath and stenting of LAD coronary artery , she is on several cardiac medication incluiding small dose of lisinopril and beta bettye, she is also on aspirin and plavix. her heparin was stopped today for drop in hemoglobin. pt is fully awake , lying in bed with no distress, no chest pain , no dyspnea, no abd complaint . pt could walk with no difficulty , she is somewhat weak , hemodynamicaly stable although blood perssure on the low normal side. pt however she has significant drop on hemoglobin from 8.1 down to 6.8 , confirmed twice. pt is receiving one dose of blood transfusion , risks, benefits and alternative are explained for the pt and she verbalized understanding and acceptance and wants to go ahead with the blood transfusion . cardiology and cardiothoracic input is appreciated and both teams agree with the blood transfusion . pt will need gastro-enterologist evaluation Objective - Vital Signs Vital signs: Vital Signs Temp 98.4 F 02/06/19 19:05 Pulse 89 02/06/19 19:05 Resp 18 02/06/19 20:00 BP 94/64 02/06/19 19:05 Pulse Ox 92 L 02/06/19 19:05 Intake & Output 02/06/19 02/06/19 02/07/19 06:59 18:59 06:59 Intake Total 550 772 Output Total 1150 Balance 550 -378 Weight 63.7 kg 63.7 kg Intake: Intake, IV Titration 400 Amount Sodium Chloride 0.9% 1, 400 000 ml @ 100 mls/hr IV . Q10H [facility] Rx#:[id number] Oral 150 462 Blood Product 310 Rc As-3 Unit 310 [id number] Output: Urine 1150 Other: Voiding Method Toilet Toilet Toilet # Voids 1 - Exam GENERAL: The patient is alert and oriented x3, not in any acute distress. obese HEENT: Pupils are round and equally reacting to light. EOMI. No scleral icterus. No conjunctival pallor. Normocephalic, atraumatic. No pharyngeal erythema. No thyromegaly. CARDIOVASCULAR: S1 and S2 present. No murmurs, rubs, or gallops. PULMONARY: Chest is clear to auscultation, no wheezing or crackles. ABDOMEN: Soft, nontender, nondistended, normoactive bowel sounds. No palpable organomegaly. MUSCULOSKELETAL: No joint swelling or deformity. EXTREMITIES: No cyanosis, clubbing, or pedal edema. NEUROLOGICAL: Gross neurological examination did not reveal any focal deficits. SKIN: No rashes. - Labs CBC & Chem 7: 02/06/19 19:15 02/06/19 06:36 Labs: Abnormal Lab Results - Last 24 Hours (Table) 02/06/19 02/06/19 02/06/19 Range/Units 06:36 06:36 08:50 RBC 2.27 L 2.23 L (3.80-5.40) m/uL Hgb 6.9 L* 6.8 L* (11.4-16.0) gm/dL Hct 22.2 L 21.6 L (34.0-46.0) % MCHC 30.8 L (31.0-37.0) g/dL RDW 18.5 H 18.9 H (11.5-15.5) % Eosinophils # 0.8 H (0-0.7) k/uL BUN 20 H (7-17) mg/dL Crossmatch 02/06/19 02/06/19 Range/Units 08:50 19:15 RBC 2.74 L (3.80-5.40) m/uL Hgb 8.1 L (11.4-16.0) gm/dL Hct 25.9 L (34.0-46.0) % MCHC (31.0-37.0) g/dL RDW 19.5 H (11.5-15.5) % Eosinophils # (0-0.7) k/uL BUN (7-17) mg/dL Crossmatch See Detail Assessment and Plan Assessment: acute on chronic systolic heart failure coronary artery disease , status post cardiac cath and stenting of LAD coronary artery possible acute blood loss anemia Plan: this is a pleasant 78 yo F with significant CAD ,status post stent placement . she is on aspirin and plavix and has acute drop in hemoglobin , she is geeting on unit of blood transfusion ,keep monitoring hemoglobin and hematocrit, pt will need gastroenterology evaluation at certain point. and i will increase her pro tonix to 40 mg twice a day cardiology and cardiothoracic team are following the case Continue with the same treatment , continue with symptomatic treatment , resume home medication , monitor lytes and vitals, . GI and DVT prophylaxis , further recommendation based upon pt clinical course and progress DVT prophylaxis heparin was already stopped for drop in hemoglobin GI prophylaxis Ppi Prognosis is guarded
[2019-02-07] MEDS: CLOPIDOGREL 75 MG TAB PO SCH (08:58)
[2019-02-07] MEDS: ASPIRIN 81 MG PO SCH (08:58)
[2019-02-07] MEDS: GABAPENTIN 300 MG CAP PO SCH ×3 (08:58→20:19)
[2019-02-07] MEDS: SPIRONOLACTONE 25 MG TAB PO SCH (08:58)
[2019-02-07] MEDS: FOLIC ACID 1 MG TAB PO SCH (08:59)
[2019-02-07] MEDS: METOPROLOL TARTRATE 12.5 MG TAB PO SCH ×2 (08:59→20:19)
[2019-02-07] MEDS: CALCIUM CARB-VIT D 500MG-200UN 1 EACH TAB PO SCH ×2 (08:59→20:19)
[2019-02-07] MEDS: FUROSEMIDE 20 MG TAB PO SCH ×2 (08:59→15:50)
[2019-02-07] MEDS: LISINOPRIL 2.5 MG TAB PO SCH (08:59)
--- NOTE | 2019-02-07 09:01 | P.PN ---
Subjective Progress Note Date: 02/07/19 Principal diagnosis: Admission for shortness of breath, acute systolic heart failure with EF 25-30%. Previous medical history of triple-vessel coronary artery disease with left main disease and non-STEMI status post urgent three-vessel CABG, hyperlipidemia, previous tobacco dependence, obstructive sleep apnea, gastric ulcer with partial gastrectomy, splenectomy, arthritis, and family history of premature coronary artery disease. Anemia. Presyncopal episode secondary to hypotension POD #2 selective left and right coronary angiography and successful stenting of the ostial LAD, mid LAD, and distal anastomotic site of the LAD performed by Dr. Whitten The patient is currently sitting up in bed in no acute distress eating breakfast. States she feels significantly better. Denies chest pain. No new complaints except that she is anxious to go home. Objective - Vital Signs Vital signs: Vital Signs Temp 98 F 02/07/19 03:40 Pulse 89 02/07/19 03:40 Resp 18 02/07/19 03:40 BP 93/58 02/07/19 03:40 Pulse Ox 95 02/07/19 03:40 Intake & Output 02/06/19 02/07/19 02/07/19 18:59 06:59 18:59 Intake Total 772 40 Output Total 1150 Balance -378 40 Weight 63.7 kg 63.5 kg Intake: Oral 462 40 Blood Product 310 Rc As-3 Unit 310 [id number] Output: Urine 1150 Other: Voiding Method Toilet Toilet - Constitutional General appearance: Present: cooperative, no acute distress - Respiratory Details: Lungs sounds clear anteriorly, crackles present the left base. Respirations even, nonlabored. Currently on room air oxygen saturation is 95%. Able to achieve 1250 mL on her incentive spirometry. - Cardiovascular Details: S1, S2 present. Regular rate and rhythm, sinus rhythm on telemetry. Sternum stable. Palpable peripheral pulses bilaterally. No edema present. No calf pain or tenderness noted. - Gastrointestinal Gastrointestinal Comment(s): Abdomen soft, nontender, nondistended. Active bowel sounds present 4 quadrants. Tolerating diet. - Genitourinary Genitourinary Comment(s): Continues to void clear, yellow urine. - Integumentary Integumentary Comment(s): Skin is warm and dry with evidence of good perfusion. Anterior chest incision and bilateral lower extremity EVH sites well approximated without redness or drainage. - Neurologic Neurologic: Present: CNII-XII intact - Musculoskeletal Musculoskeletal: Present: gait normal, strength equal bilaterally - Psychiatric Psychiatric: Present: A&O x's 3, appropriate affect, intact judgment & insight - Allied health notes Allied health notes reviewed: nursing - Labs CBC & Chem 7: 02/06/19 19:15 02/06/19 06:36 Labs: Abnormal Lab Results - Last 24 Hours (Table) 02/06/19 02/06/19 02/06/19 Range/Units 08:50 08:50 19:15 RBC 2.23 L 2.74 L (3.80-5.40) m/uL Hgb 6.8 L* 8.1 L (11.4-16.0) gm/dL Hct 21.6 L 25.9 L (34.0-46.0) % RDW 18.9 H 19.5 H (11.5-15.5) % Crossmatch See Detail Assessment and Plan Assessment: 1. Shortness of breath, acute systolic heart failure with EF 25-30% 2. Presyncopal episode 3. History of triple-vessel coronary artery disease with left main disease, non-STEMI, status post urgent three-vessel CABG 12/30/2018, status post stenting to the LAD 02/05/2019 4. Hyperlipidemia 5. Previous tobacco dependence 6. Obstructive sleep apnea 7. Anemia Plan: 1. Continue medical therapy with aspirin, statin, Plavix, beta bettye, KELVIN inhibitor, Aldactone, Lasix. 2. Encourage incentive spirometry use. 3. Increase activity, ambulate in hallway. 4. Patient should shower daily. 5. From cardiothoracic surgery standpoint the patient may be discharged to home once okay with cardiology. Continue postoperative CABG lifting restrictions. Patient scheduled to follow-up with Dr. Pham in a month in the office. 6. Continued medical management per primary care service. 7. Will continue to see while hospitalized. Time with Patient: Greater than 30
[2019-02-07] MEDS: PANTOPRAZOLE 40 MG TABLET PO SCH ×3 (09:02→17:21)
[2019-02-07] MEDS: POLYETHYLENE GLYCOL 3350 17 GM POWD.PACK PO SCH (09:09)
[2019-02-07 11:55] LABS: Anisocytosis Slight; Basophils # (A) 0.1 k/uL (0-0.2); Basophils % (A) 1 %; Eosinophils # (A) 0.9 k/uL (0-0.7); Eosinophils % (A) 11 %; HCT 27.4 % (34.0-46.0); HGB 8.8 gm/dL (11.4-16.0); Hypochromasia Marked; Lymphocytes # (A) 1.8 k/uL (1.0-4.8); Lymphocytes % (A) 20 %; MCH 30.2 pg (25.0-35.0); MCV 94.3 fL (80.0-100.0); Macrocytosis Slight; Mean Platelet Volume 9.8; Monocytes # (A) 0.6 k/uL (0-1.0); Monocytes % (A) 6 %; Neutrophils # (A) 5.3 k/uL (1.3-7.7); Neutrophils % (A) 60 %; Platelet Count 299 k/uL (150-450); Poikilocytosis Moderate; RDW 19.6 % (11.5-15.5); WBC 8.8 k/uL (3.8-10.6)
[2019-02-07] MEDS ORDERED: FERROUS SULFATE 325 MG TAB PO SCH (12:30)
[2019-02-07 14:26] LABS: Calcium 9.4 mg/dL (8.4-10.2); Magnesium 1.7 mg/dL (1.6-2.3)
--- NOTE | 2019-02-07 14:47 | P.PN ---
Subjective Progress Note Date: 02/07/19 Admission for shortness of breath, acute systolic heart failure with EF 25-30%. Previous medical history of triple-vessel coronary artery disease with left main disease and non-STEMI status post urgent three-vessel CABG, hyperlipidemia, previous tobacco dependence, obstructive sleep apnea, gastric ulcer with partial gastrectomy, splenectomy, arthritis, and family history of premature coronary artery disease. Anemia. Presyncopal episode secondary to hypotension POD #2 selective left and right coronary angiography and successful stenting of the ostial LAD, mid LAD, and distal anastomotic site of the LAD performed by Dr. Whitten 02/07/2019 Patient is seen and evaluated in room at bedside; she is currently sitting up in bed in no acute distress eating breakfast. States she feels significantly b paul. Denies chest pain. No new complaints except that she is anxious to go home. Vital signs remained stable at temperature of 98, pulse 88, respiration 18 and blood pressure 101/69 Labs are reviewed showing an improvement of hemoglobin from 6.8 yesterday to 8.1 this morning; repeat hemoglobin is not available; we plan to do stat H&H and plan to monitor every 12 hours and possible discharge home if hemoglobin remains above 8.0 Objective - Vital Signs Vital signs: Vital Signs Temp 98.2 F 02/07/19 08:00 Pulse 85 02/07/19 08:00 Resp 18 02/07/19 08:00 BP 93/58 02/07/19 08:00 Pulse Ox 95 02/07/19 08:00 Intake & Output 02/06/19 02/07/19 02/07/19 18:59 06:59 18:59 Intake Total 772 40 Output Total 1150 500 Balance -378 -460 Weight 63.7 kg 63.5 kg Intake: Oral 462 40 Blood Product 310 Rc As-3 Unit 310 [id number] Output: Urine 1150 500 Other: Voiding Method Toilet Toilet Toilet - Exam - Constitutional General appearance: Present: average body habitus, cooperative, no acute distress - EENT Eyes: Present: anicteric sclerae, EOMI, PERRLA, normal appearance ENT: Present: hearing grossly normal, normal oropharynx Ears: bilateral: normal - Neck Neck: Present: normal ROM. Absent: lymphadenopathy, rigidity, thyromegaly Carotids: negative: bruit present Thyroid: bilateral: normal size, negative: enlarged, nodule - Respiratory Respiratory: bilateral: CTA, negative: rales, rhonchi, wheezing - Cardiovascular Rhythm: regular Heart sounds: normal: S1, S2 Abnormal Heart Sounds: Absent: systolic murmur, diastolic murmur - Gastrointestinal General gastrointestinal: Present: normal bowel sounds, soft. Absent: distended, organomegaly, tenderness - Genitourinary Genitourinary Comment(s): deferred - Integumentary Integumentary: Present: normal turgor. Absent: jaundiced, rash, ulcer - Neurologic Neurologic: Present: CNII-XII intact. Absent: focal deficits - Musculoskeletal Musculoskeletal: Present: gait normal, strength equal bilaterally - Psychiatric Psychiatric: Present: A&O x's 3, appropriate affect, intact judgment & insight - Labs CBC & Chem 7: 02/07/19 11:21 02/07/19 11:21 Labs: Abnormal Lab Results - Last 24 Hours (Table) 02/06/19 02/06/19 Range/Units 08:50 19:15 RBC 2.74 L (3.80-5.40) m/uL Hgb 8.1 L (11.4-16.0) gm/dL Hct 25.9 L (34.0-46.0) % RDW 19.5 H (11.5-15.5) % Crossmatch See Detail Assessment and Plan Assessment: 1. Acute systolic heart failure with EF 25-30% - Continue with aspirin, statin, Plavix, beta blockers, KELVIN inhibitor, Aldactone and Lasix 2. Presyncopal episode; resolved. Patient continues to ambulate in the hallway and had shallow without any concerns 3. History of triple-vessel coronary artery disease with left main disease, non-STEMI, status post urgent three-vessel CABG 12/30/2018, status post stenting to the LAD 02/05/2019 - Patient remains on postoperative CABG lifting restrictions; she is scheduled to follow up with Dr. Pham in 1 month 4. Hyperlipidemia; continue with current statin therapy 5. Obstructive sleep apnea 6. Anemia; continue to monitor H&H every 12 hours and possible discharge home in a.m. if hemoglobin remained stable 7. DVT prophylaxis 8. CODE STATUS; DO NOT RESUSCITATE Time with Patient: Greater than 30
--- NOTE | 2019-02-07 15:04 | PN ---
PROGRESS NOTE DATE OF SERVICE: 02/07/2019. HISTORY: This patient is status post stent to the lummi LAD. She is doing better. She is feeling stronger. Her hemoglobin is 8.1. The patient has a history of chronic anemia. Blood pressure is 93/58 mmHg. First and second heart sounds are normal. Lungs are clinically clear to auscultation and percussion. The patient will be the patient can be discharged home and followed by Dr. Whitten as an outpatient. Thank you next patient is Danielito becker this patient was admitted with atrial fibrillation. The patient was given Tambocor. He converted to the normal sinus rhythm. The patient is doing fairly well. Heart rate is 65 per minute, blood pressure is 149/70 mmHg. First and second heart sounds are normal lungs are clinically clear to auscultation and percussion the patient can be discharged home on Tambocor 100 mg b.i.d. 100 mg. The patient can be discharged home on Tambocor 100 mg b.i.d., Lopressor 50 mg b.i.d., and the patient would follow up with Dr. de leon on as an outpatient thank you. MMAZARL / IJN: [id number] /
[2019-02-07] MEDS: LATANOPROST 0.005% OPHTH DROPS 2.5 ML BTL BOTH EYES SCH (20:18)
[2019-02-07] MEDS: FLUOROMETHOLONE 0.1% OPHTH DROPS 5 ML BTL BOTH EYES SCH (20:18)
[2019-02-07] MEDS: VIT A,C & E-LUTEIN-MINERALS 1 EACH TAB PO SCH (20:19)
[2019-02-07] MEDS: ATORVASTATIN 40 MG TAB PO SCH (20:19)
[2019-02-08 01:25] LABS: Anisocytosis Slight; Basophils % (A) 0 %; Eosinophils # (A) 0.9 k/uL (0-0.7); Eosinophils % (A) 13 %; HCT 27.3 % (34.0-46.0); HGB 8.4 gm/dL (11.4-16.0); Hypochromasia Moderate; Lymphocytes # (A) 1.6 k/uL (1.0-4.8); Lymphocytes % (A) 21 %; MCH 28.9 pg (25.0-35.0); MCHC 30.6 g/dL (31.0-37.0); MCV 94.7 fL (80.0-100.0); Macrocytosis Slight; Mean Platelet Volume 9.8; Monocytes # (A) 0.5 k/uL (0-1.0); Monocytes % (A) 7 %; Neutrophils # (A) 4.1 k/uL (1.3-7.7); Neutrophils % (A) 57 %; Platelet Count 272 k/uL (150-450); Poikilocytosis Slight; RBC 2.89 m/uL (3.80-5.40); RDW 18.5 % (11.5-15.5); WBC 7.2 k/uL (3.8-10.6)
[2019-02-08 03:17] VITALS: TEMP 98
[2019-02-08] MEDS: POLYETHYLENE GLYCOL 3350 17 GM POWD.PACK PO SCH (09:01)
[2019-02-08] MEDS: PANTOPRAZOLE 40 MG TABLET PO SCH (09:02)
[2019-02-08] MEDS: FOLIC ACID 1 MG TAB PO SCH (09:02)
[2019-02-08] MEDS: CLOPIDOGREL 75 MG TAB PO SCH (09:02)
[2019-02-08] MEDS: SPIRONOLACTONE 25 MG TAB PO SCH (09:02)
[2019-02-08] MEDS: METOPROLOL TARTRATE 12.5 MG TAB PO SCH (09:02)
[2019-02-08] MEDS: GABAPENTIN 300 MG CAP PO SCH (09:02)
[2019-02-08] MEDS: FUROSEMIDE 20 MG TAB PO SCH (09:02)
[2019-02-08] MEDS: LISINOPRIL 2.5 MG TAB PO SCH (09:02)
[2019-02-08] MEDS: ASPIRIN 81 MG PO SCH (09:02)
[2019-02-08] MEDS: CALCIUM CARB-VIT D 500MG-200UN 1 EACH TAB PO SCH (09:02)
[2019-02-08] MEDS: VIT A,C & E-LUTEIN-MINERALS 1 EACH TAB PO SCH (09:02)
[2019-02-08 09:21] VITALS: RESP 18
--- NOTE | 2019-02-08 11:30 | P.DS ---
Providers Date of admission: 02/01/19 11:34 Expected date of discharge: 02/08/19 Attending physician: Ramses Saldana Consults: 01/31/19 11:24 Consult Physician Routine Consulting Provider: Leilani Pham Consult Reason/Comments: dyspnea Do you want consulting provider notified?: Already Contacted Consult Physician Routine Consulting Provider: Eduard Faulkner Consult Reason/Comments: dyspnea Do you want consulting provider notified?: Already Contacted 02/05/19 14:18 Consult Physician Routine Consulting Provider: [facility] Consult Reason/Comments: Post Interventional patient Do you want consulting provider notified?: Already Contacted Primary care physician: Ramses Saldana Hospital Course: Admission for shortness of breath, acute systolic heart failure with EF 25-30%. Previous medical history of triple-vessel coronary artery disease with left main disease and non-STEMI status post urgent three-vessel CABG, hyperlipidemia, previous tobacco dependence, obstructive sleep apnea, gastric ulcer with partial gastrectomy, splenectomy, arthritis, and family history of premature coronary artery disease. Anemia. Presyncopal episode secondary to hypotension POD #2 selective left and right coronary angiography and successful stenting of the ostial LAD, mid LAD, and distal anastomotic site of the LAD performed by Dr. Whitten 02/07/2019 Patient is seen and evaluated in room at bedside; she is currently sitting up in bed in no acute distress eating breakfast. States she feels significantly better. Denies chest pain. No new complaints except that she is anxious to go home. Vital signs remained stable at temperature of 98, pulse 88, respiration 18 and blood pressure 101/69 Labs are reviewed showing an improvement of hemoglobin from 6.8 yesterday to 8.1 this morning; repeat hemoglobin is not available; we plan to do stat H&H and plan to monitor every 12 hours and possible discharge home if hemoglobin remains above 8.0 02/08/19 Hgb stable above 8; hemodynamically stable. will dc home today Plan - Discharge Summary Discharge Rx Participant: No New Discharge Prescriptions: New Spironolactone [Aldactone] 25 mg PO DAILY #30 tab Ferrous Sulfate [Iron (65 MG Elemental)] 325 mg PO Q48H tab Furosemide [Lasix] 20 mg PO BID@0900,1600 #60 tab Pantoprazole [Protonix] 40 mg PO AC-BID #30 tablet. Lisinopril [Zestril] 2.5 mg PO DAILY #30 tab Continue Folic Acid 1 mg PO DAILY Cholecalciferol (Vitamin D3) [Vitamin D3] 4,000 unit PO DAILY Vit C/E/Zn/Coppr/Lutein/Zeaxan [Preservision Areds 2 Softgel] 2 cap PO BID Calcium Carbonate/Vitamin D3 [Calcium 500-Vit D3 600 Tablet] 1 tab PO BID Latanoprost [Xalatan 0.005%] 1 drop BOTH EYES HS Gabapentin [Neurontin] 300 mg PO TID Fluorometholone 0.1% Ophth Amy [Fml] 1 drop PO HS Aspirin 81 mg PO DAILY chew Atorvastatin [Lipitor] 40 mg PO HS tab Metoprolol Tartrate [Lopressor] 12.5 mg PO BID tab Clopidogrel [Plavix] 75 mg PO DAILY tab Ascorbic Acid [Vitamin C] 500 mg PO BID-W/MEALS tab Ferrous Sulfate [Iron (65 MG Elemental)] 325 mg PO Q48H Ranitidine HCl [Zantac] 150 mg PO DAILY Discontinued Furosemide [Lasix] 20 mg PO DAILY #14 tab Lisinopril [Zestril] 10 mg PO DAILY Discharge Medication List Calcium Carbonate/Vitamin D3 [Calcium 500-Vit D3 600 Tablet] 1 tab PO BID 12/27/18 [History] Cholecalciferol (Vitamin D3) [Vitamin D3] 4,000 unit PO DAILY 12/27/18 [History] Fluorometholone 0.1% Ophth Amy [Fml] 1 drop PO HS 12/27/18 [History] Folic Acid 1 mg PO DAILY 12/27/18 [History] Gabapentin [Neurontin] 300 mg PO TID 12/27/18 [History] Latanoprost [Xalatan 0.005%] 1 drop BOTH EYES HS 12/27/18 [History] Vit C/E/Zn/Coppr/Lutein/Zeaxan [Preservision Areds 2 Softgel] 2 cap PO BID 12/27/18 [History] Ascorbic Acid [Vitamin C] 500 mg PO BID-W/MEALS tab 01/09/19 [Rx] Aspirin 81 mg PO DAILY chew 01/09/19 [Rx] Atorvastatin [Lipitor] 40 mg PO HS tab 01/09/19 [Rx] Clopidogrel [Plavix] 75 mg PO DAILY tab 01/09/19 [Rx] Metoprolol Tartrate [Lopressor] 12.5 mg PO BID tab 01/09/19 [Rx] Ferrous Sulfate [Iron (65 MG Elemental)] 325 mg PO Q48H 01/31/19 [History] Ranitidine HCl [Zantac] 150 mg PO DAILY 01/31/19 [History] Ferrous Sulfate [Iron (65 MG Elemental)] 325 mg PO Q48H tab 02/08/19 [Rx] Furosemide [Lasix] 20 mg PO BID@0900,1600 #60 tab 02/08/19 [Rx] Lisinopril [Zestril] 2.5 mg PO DAILY #30 tab 02/08/19 [Rx] Pantoprazole [Protonix] 40 mg PO AC-BID #30 tablet. 02/08/19 [Rx] Spironolactone [Aldactone] 25 mg PO DAILY #30 tab 02/08/19 [Rx] Follow up Appointment(s)/Referral(s): Ramses Saldana MD [Primary Care Provider] - 02/12/19 9:30 am [facility], [NON-STAFF] - (Call when you get home.) Marcos Correa MD [STAFF PHYSICIAN] - 10 Days (Office will call with your appointment ) Leilani Pham MD [STAFF PHYSICIAN] - 03/06/19 10:00 am Jacque Jeff MD [STAFF PHYSICIAN] - 1 Week (gastro-enterologist , please call to make appointment ) Discharge Disposition: HOME SELF-CARE
--- NOTE | 2019-02-08 11:52 | P.PN ---
Subjective Progress Note Date: 02/08/19 This is a pleasant 78-year-old female patient with a past medical history significant for coronary artery disease who underwent recently, in December 2018, coronary artery bypass grafting in the setting of acute non-ST elevation myocardial infarction, hypertension, and dyslipidemia, presented to the hospital complaining of shortness of breath. The patient after the surgery went into an extended-care facility for a week. Subsequently she went home. She was in her usual state of health yesterday when she was sleeping and she woke up complaining of shortness of breath. No symptoms of chest pain or chest discomfort. No dizziness or lightheadedness. No heart racing or fluttering. In no syncope. No edema in the lower extremities. When the patient presented to the emergency room she underwent a computed tomography scan which showed no evidence of PE. The chest x-ray showed findings consistent with fluid overload. The BMP came in to be elevated as well. Subsequently the patient was started on Lasix IV. Overnight she diuresed significantly where she lost 2 kg. Earlier this morning, she was walking to her bathroom when she felt dizzy and lightheaded and about to lose her consciousness. At that point the blood pressure was checked and her systolic pressure was about 80s. The patient was receiving Lasix at 40 mg IV 3 times a day and that was decreased to 40 mg IV twice a day. Beside that I am holding her lisinopril at this point. Also she is in process of receiving IV fluids. 02/06/2019 Patient was taken to the cardiac catheterization lab yesterday where she underw ent successful stenting of the ostium of the LAD with reduction of stenosis from 99% to 0%. Successful stenting of the mid and distal LAD. Overall the patient feels well today, she denies any chest pain, no dizziness, no difficulty in breathing. She does feel quite tired, her blood pressure this morning 85/53, heart rate in the 80s. Hemoglobin this morning 6.9 with a platelet count of 296, sodium 137, potassium 3.8, BUN 20 and creatinine 0.8. She will receive one unit of packed red blood cells today. We will also check with nephrology regarding giving her IVVenofer. 02/08/2019 Patient seen and examined this morning, sitting up in the chair bedside. Hemodynamically stable. Overall she feels significantly better and is anticipating discharge home today. Hemoglobin today is 8.4. Objective - Vital Signs Vital signs: Vital Signs Temp 98 F 02/08/19 08:00 Pulse 91 02/08/19 08:00 Resp 18 02/08/19 08:00 BP 93/59 02/08/19 08:00 Pulse Ox 90 L 02/08/19 08:00 Intake & Output 02/07/19 02/08/19 02/08/19 18:59 06:59 18:59 Intake Total 120 240 Output Total 500 Balance -380 240 Weight 63.2 kg Intake: Oral 120 240 Output: Urine 500 Other: Voiding Method Toilet Toilet Toilet # Voids 3 3 - Exam PHYSICAL EXAMINATION: GENERAL: 78-year-old female in no acute distress at the time of my examination HEENT: Head is atraumatic, normocephalic. Pupils equal, round. Sclera anicteric. Conjunctiva are clear. Mucous membranes of the mouth are moist. Neck is supple. There is no elevated jugular venous pressure. No carotid bruit is heard. HEART EXAMINATION: Heart S1, S2 normal. No murmur or gallop heard. CHEST EXAMINATION: Lungs are clear to auscultation and precussion. No chest wall tenderness is noted on palpation or with deep breathing. ABDOMEN: Soft, nontender. Bowel sounds are heard. No organomegaly noted. EXTREMITIES: 2+ peripheral pulses with no evidence of peripheral edema and no calf tenderness noted. Right groin is soft, no evidence of any hematoma. NEUROLOGIC patient is awake, alert and oriented 3. . - Labs CBC & Chem 7: 02/07/19 23:16 02/07/19 11:21 Labs: Abnormal Lab Results - Last 24 Hours (Table) 02/07/19 02/07/19 Range/Units 11:21 23:16 RBC 2.90 L 2.89 L (3.80-5.40) m/uL Hgb 8.8 L 8.4 L (11.4-16.0) gm/dL Hct 27.4 L 27.3 L (34.0-46.0) % MCHC 30.6 L (31.0-37.0) g/dL RDW 19.6 H 18.5 H (11.5-15.5) % Eosinophils # 0.9 H 0.9 H (0-0.7) k/uL Assessment and Plan Plan: Assessment #1 acute exacerbation of congestive heart failure, systolic acute on chronic #2 CAD and status post CABG #3 low blood pressure #4 multiple comorbid condition #5 status post angioplasty and stenting of the LAD #6 anemia Plan From cardiology's perspective, patient may be able to be discharged home today. We'll make a follow-up appointment in the office post discharge. DNP note has been reviewed, I agree with a documented findings and plan of care. Patient was seen and examined.
[2019-02-08 12:00] VITALS: BP 86/54; PULSE 85
== END 2019-02-08 13:56 | disposition home or self-care (01) | DRG 246 ==
LOC: EC 07:40 → 3SCARD 11:25 → OBSVTOIN 02-01 11:34
PROVIDERS: ADMIT Family Medicine; ATTEND Family Medicine
PROC: B2131ZZ Fluoroscopy of Multiple Coronary Artery Bypass Grafts using Low Osmolar Contrast (ICD-10-PCS; 2019-02-05 12:39)
PROC: B2111ZZ Fluoroscopy of Multiple Coronary Arteries using Low Osmolar Contrast (ICD-10-PCS; 2019-02-05 12:39)
PROC: 027036Z Dilation of Coronary Artery, One Artery with Three Drug-eluting Intraluminal Devices, Percutaneous Approach (ICD-10-PCS; 2019-02-05 12:39)
PROC: 4A023N7 Measurement of Cardiac Sampling and Pressure, Left Heart, Percutaneous Approach (ICD-10-PCS; 2019-02-05 12:39)
PROC: 30233N1 Transfusion of Nonautologous Red Blood Cells into Peripheral Vein, Percutaneous Approach (ICD-10-PCS; principal; 2019-02-06)
DX: I11.0 Hypertensive heart disease with heart failure (principal); J96.01 Acute respiratory failure with hypoxia; I25.810 Atherosclerosis of coronary artery bypass graft(s) without angina pectoris; D64.9 Anemia, unspecified; E78.5 Hyperlipidemia, unspecified; G47.33 Obstructive sleep apnea (adult) (pediatric); I25.10 Atherosclerotic heart disease of native coronary artery without angina pectoris; I25.2 Old myocardial infarction; I35.1 Nonrheumatic aortic (valve) insufficiency; I48.91 Unspecified atrial fibrillation; I50.43 Acute on chronic combined systolic (congestive) and diastolic (congestive) heart failure; Z66 Do not resuscitate; Z79.02 Long term (current) use of antithrombotics/antiplatelets; Z79.82 Long term (current) use of aspirin; Z79.899 Other long term (current) drug therapy; Z82.49 Family history of ischemic heart disease and other diseases of the circulatory system; Z87.11 Personal history of peptic ulcer disease; Z87.891 Personal history of nicotine dependence; Z90.3 Acquired absence of stomach [part of]; Z90.81 Acquired absence of spleen; Z88.8 Allergy status to other drugs, medicaments and biological substances; Z91.011 Allergy to milk products; Z95.1 Presence of aortocoronary bypass graft; I95.9 Hypotension, unspecified
CPT/HCPCS: 36415; 71046; 71275; 80048; 80053; 83735; 83880; 84484; 85025; 85027; 85379; 85610; 85730; 86850; 86900; 86901; 86920; 93005; 93306; 93459; 94760; 96374; 99285; C1874

== ENCOUNTER → 2019-02-27 | Outpatient (CLI) | payer MEDICARE ==
--- NOTE | 2019-02-27 09:41 | US ---
EXAMINATION TYPE: US duplex aorta DATE OF EXAM: 02/27/2019 COMPARISON: NONE CLINICAL HISTORY: Z13.6 Cardiovascular disorder. screening EXAM MEASUREMENTS: Abdominal Aorta: Proximal: 2.1 x 1.9cm Mid: 1.5 x 1.4cm Distal: 1.5 x 1.5cm Bifurcation: RT: 1.0 x 0.8cm LT: 0.9 x 0.9cm No evidence of AAA within visualized portions. Calcifications noted throughout IMPRESSION: Atherosclerosis of the abdominal aorta without aneurysmal dilatation.
--- NOTE | 2019-02-27 09:48 | BD ---
EXAMINATION TYPE: Axial Bone Density DATE OF EXAM: 02/27/2019 COMPARISON: NONE CLINICAL HISTORY: Age related osteoporosis Height: 61 Weight: 136.9 FRAX RISK QUESTIONS: Alcohol (3 or more units per day): no Family History (Parent hip fracture): no Glucocorticoids (More than 3mos): no (Ex: prednisone, prednisolone, methylprednisolone, dexamethasone, and hydrocortisone). History of Fracture in Adulthood: no Secondary Osteoporosis: 1. Type 1 Diabetes: no 2. Hyperthyroidism: no 3. Menopause before 45: no 4. Malnutrition: no 5. Chronic liver disease: no Rheumatoid Arthritis: no Current Tobacco Use: no RISK FACTORS HISTORY OF: Surgery to Spine/Hip(right/left)/Wrist (right/left): l-4, l-5 laminectomy When: 5 years ago Family History of Osteoporosis: no Active: sometimes- just had open heart surgery Diet low in dairy products/other sources of calcium: yes Postmenopausal woman: age 49 Lost more than 2 inches in height since high school: yes MEDICATIONS: plavix, lisinopril, diuretic, cholesterol med, acid dry wall installer med, had two shots of prolia in 2018 Additional History: EXAM MEASUREMENTS: Bone mineral densitometry was performed using the Belly System. Bone mineral density about the R hip (g/cm2): 0.885 Bone mineral density about the L hip (g/cm2): 1.158 T Score values are as follows: -----R Neck: -1.1 -----L Neck: 0.9 -----R Total: -0.4 -----L Total: 0.6 Bone mineral density : baseline here Bone mineral density about the L Wrist (g/cm2): 0.520 T Score values are as follows: -----Dist. R+U: -2.1 -----Prox. R+U: -2.4 -----Radius total: -2.6 Bone mineral density : baseline IMPRESSION: Osteoporosis (T Score less than -2.5) in regards to the left radius. There is increased fracture risk and therapy is usually indicated based on age. Re-Screen 1-2 years. NOTE: T-SCORE=SD OF THE YOUNG ADULT MEAN.
== END ==
LOC: RADBDWWP 08:32
PROVIDERS: ATTEND Family Medicine
DX: I70.0 Atherosclerosis of aorta (principal); M81.0 Age-related osteoporosis without current pathological fracture
CPT/HCPCS: 77080; 93979

== ENCOUNTER → 2019-05-06 | Outpatient (CLI) | payer MEDICARE ==
[2019-05-06 12:32] LABS: Basophils # (A) 0.1 k/uL (0-0.2); Basophils % (A) 1 %; Eosinophils # (A) 0.5 k/uL (0-0.7); Eosinophils % (A) 7 %; HCT 26.6 % (34.0-46.0); HGB 8.2 gm/dL (11.4-16.0); Hypochromasia Marked; Lymphocytes % (A) 25 %; MCH 28.9 pg (25.0-35.0); MCHC 30.7 g/dL (31.0-37.0); MCV 94.3 fL (80.0-100.0); Mean Platelet Volume 9.3; Monocytes # (A) 0.6 k/uL (0-1.0); Monocytes % (A) 7 %; Neutrophils # (A) 4.6 k/uL (1.3-7.7); Neutrophils % (A) 58 %; Platelet Count 326 k/uL (150-450); RBC 2.82 m/uL (3.80-5.40); RDW 15.7 % (11.5-15.5); WBC 7.9 k/uL (3.8-10.6)
[2019-05-06 13:28] LABS: Large Platelets Present
[2019-05-06 16:04] LABS: Iron Saturation 13.28 (12.00-45.00)
[2019-05-06 16:36] LABS: Folate, Serum >24.0 ng/mL
== END | disposition home or self-care (01) ==
LOC: LABWHC1 11:02
PROVIDERS: ATTEND Physician Assistant
DX: D50.9 Iron deficiency anemia, unspecified (principal)
CPT/HCPCS: 36415; 82728; 82746; 83540; 83550; 85025

== ENCOUNTER 2019-06-10 19:49 | Emergency (ER) | payer MEDICARE ==
[2019-06-10 19:55] VITALS: RESP 18
[2019-06-10] MEDS ORDERED: ONDANSETRON 4 MG/2 ML VIAL IVP STA (20:19)
[2019-06-10] MEDS ORDERED: SODIUM CHLORIDE 0.9% 1,000 ML IV STA (20:19)
--- NOTE | 2019-06-10 20:23 | ED ---
Abdominal Pain HPI - General Chief Complaint: Abdominal Pain Stated Complaint: Abd Pain Time Seen by Provider: 06/10/19 19:51 Source: patient, EMS, RN notes reviewed, old records reviewed Mode of arrival: EMS Limitations: no limitations - History of Present Illness Initial Comments: This is a 78-year-old female the ER for evaluation. Patient has complaints today of nausea, significant diarrheal illness, occasional abdominal pain. She has had history of diarrhea in the past as well as been a little more painful and she's not able to recover from it as quickly as she has the past. She does note some blood after she wipes but no blood in her stool. No active vomiting currently no abdominal pain. Significantly decreased appetite. No recent tra mayelin history no known sick contacts she's been afebrile treated have some sweating earlier today. No medications or no modifying factors for symptoms MD Complaint: abdominal pain (Occasional), other (Mainly complaining of nausea and diarrhea) -: days(s) Location: diffuse Radiation: none Migration to: no migration Severity: moderate Severity scale (1-10): 4 Quality: cramping, aching Consistency: constant Improves With: nothing Worsens With: nothing Associated Symptoms: nausea Treatments Prior to Arrival: other - Related Data Home Medications Medication Instructions Recorded Confirmed Gabapentin [Neurontin] 300 mg PO TID 12/27/18 06/10/19 Ascorbic Acid [Vitamin C] 500 mg PO BID@1130,1600 06/10/19 06/10/19 Citalopram Hydrobromide [CeleXA] 10 mg PO DAILY 06/10/19 06/10/19 Fluticasone Nasal [place] [Flonase 2 spr EA NOSTRIL DAILY 06/10/19 06/10/19 Nasal [place]] Furosemide [Lasix] 20 mg PO DAILY 06/10/19 06/10/19 Metoprolol Tartrate [Lopressor] 12.5 mg PO BID@1130,2100 06/10/19 06/10/19 Pantoprazole [Protonix] 40 mg PO DAILY 06/10/19 06/10/19 Spironolactone [Aldactone] 12.5 mg PO DAILY 06/10/19 06/10/19 Previous Rx's Medication Instructions Recorded Aspirin 81 mg PO DAILY chew 01/09/19 Atorvastatin [Lipitor] 40 mg PO HS tab 05/03/19 Clopidogrel [Plavix] 75 mg PO DAILY tab 01/09/19 Lisinopril [Zestril] 2.5 mg PO DAILY #30 tab 02/08/19 Allergies Allergy/AdvReac Type Severity Reaction Status Date / Time Milk Containing Products AdvReac Nausea Verified 06/10/19 20:25 pregabalin [From Lyrica] AdvReac Unknown Verified 06/10/19 20:25 Review of Systems ROS Statement: Those systems with pertinent positive or pertinent negative responses have been documented in the HPI. ROS Other: All systems not noted in ROS Statement are negative. Past Medical History Past Medical History: Coronary Artery Disease (CAD), Hyperlipidemia, Myocardial Infarction (AR), Sleep Apnea/CPAP/BIPAP Additional Past Medical History / Comment(s): pt states she has bleeding issues in the past after surgery. History of Any Multi-Drug Resistant Organisms: None Reported Past Surgical History: Back Surgery, Coronary Bypass/CABG Additional Past Surgical History / Comment(s): Bleeding ulcer-took 1/4 of stomach, splenectomy, cornea replacement right eye, urgent three-vessel CABG on 12/30/2018 Past Anesthesia/Blood Transfusion Reactions: No Reported Reaction Past Psychological History: No Psychological Hx Reported Smoking Status: Former smoker Past Alcohol Use History: Occasional, Rare Past Drug Use History: None Reported - Past Family History Brother(s) Family Medical History: Coronary Artery Disease (CAD), Myocardial Infarction (AR) Additional Family Medical History / Comment(s): all brothers with heart disease, one who of AR @ 53 years old General Exam Limitations: no limitations General appearance: alert, in no apparent distress Head exam: Present: atraumatic, normocephalic, normal inspection Eye exam: Present: normal appearance, EOMI. Absent: scleral icterus, conjunctival injection, periorbital swelling ENT exam: Present: normal exam, mucous membranes dry Neck exam: Present: normal inspection. Absent: tenderness, meningismus, lymphadenopathy Respiratory exam: Present: normal lung sounds bilaterally. Absent: respiratory distress, wheezes, rales, rhonchi, stridor Cardiovascular Exam: Present: regular rate, normal rhythm, normal heart sounds. Absent: systolic murmur, diastolic murmur, rubs, gallop, clicks GI/Abdominal exam: Present: soft, normal bowel sounds. Absent: distended, tenderness, guarding, rebound, rigid Extremities exam: Present: normal inspection, full ROM, normal capillary refill. Absent: tenderness, pedal edema, joint swelling, calf tenderness Back exam: Present: normal inspection Neurological exam: Present: alert, oriented X3, CN II-XII intact Psychiatric exam: Present: normal affect, normal mood Skin exam: Present: warm, dry, intact, normal color. Absent: rash Course Vital Signs 06/10/19 06/10/19 19:51 21:12 Temperature 98.0 F Pulse Rate 75 83 Respiratory 18 18 Rate Blood Pressure 147/69 138/64 O2 Sat by Pulse 98 95 Oximetry - Reevaluation(s) Reevaluation #1: 06/10/19 20:23 Medical records reviewed Reevaluation #2: 06/10/19 22:45 No active nausea vomiting or diarrhea here in the ER, patient states her symptoms are much improved Medical Decision Making - Medical Decision Making 71 female the ER for evaluation. Patient denying for diarrheal illness nausea. Patient feeling better here in the ER, feeling good for discharge home - Lab Data Result diagrams: 06/10/19 20:39 06/10/19 20:39 Lab Results 06/10/19 06/10/19 06/10/19 Range/Units 20:39 20:39 20:39 WBC 8.9 (3.8-10.6) k/uL RBC 3.34 L (3.80-5.40) m/uL Hgb 8.9 L (11.4-16.0) gm/dL Hct 30.3 L (34.0-46.0) % MCV 90.8 (80.0-100.0) fL MCH 26.7 (25.0-35.0) pg MCHC 29.4 L (31.0-37.0) g/dL RDW 15.2 (11.5-15.5) % Plt Count 294 (150-450) k/uL Neutrophils % 74 % Lymphocytes % 12 % Monocytes % 6 % Eosinophils % 5 % Basophils % 1 % Neutrophils # 6.6 (1.3-7.7) k/uL Lymphocytes # 1.1 (1.0-4.8) k/uL Monocytes # 0.5 (0-1.0) k/uL Eosinophils # 0.4 (0-0.7) k/uL Basophils # 0.1 (0-0.2) k/uL Hypochromasia Moderate Sodium 138 (137-145) mmol/L Potassium 4.1 (3.5-5.1) mmol/L Chloride 104 (98-107) mmol/L Carbon Dioxide 25 (22-30) mmol/L Anion Gap 9 mmol/L BUN 33 H (7-17) mg/dL Creatinine 1.05 H (0.52-1.04) mg/dL Est GFR (CKD-EPI)AfAm 59 (>60 ml/min/1.73 sqM) Est GFR (CKD-EPI)NonAf 51 (>60 ml/min/1.73 sqM) Glucose 102 H (74-99) mg/dL Plasma Lactic Acid Jonathon 0.7 (0.7-2.0) mmol/L Calcium 9.6 (8.4-10.2) mg/dL Phosphorus 3.6 (2.5-4.5) mg/dL Magnesium 2.0 (1.6-2.3) mg/dL Total Bilirubin 0.2 (0.2-1.3) mg/dL AST 24 (14-36) U/L ALT 13 (9-52) U/L Alkaline Phosphatase 68 (38-126) U/L Creatine Kinase 64 (30-135) U/L Total Protein 6.9 (6.3-8.2) g/dL Albumin 4.1 (3.5-5.0) g/dL Amylase 69 (30-110) U/L Lipase 154 (23-300) U/L Urine Color Urine Appearance (Clear) Urine pH (5.0-8.0) Ur Specific Harlan (1.001-1.035) Urine Protein (Negative) Urine Glucose (UA) (Negative) Urine Ketones (Negative) Urine Blood (Negative) Urine Nitrite (Negative) Urine Bilirubin (Negative) Urine Urobilinogen (<2.0) mg/dL Ur Leukocyte Esterase (Negative) Urine RBC (0-5) /hpf Urine WBC (0-5) /hpf Ur Squamous Epith Cells (0-4) /hpf Urine Bacteria (None) /hpf Hyaline Casts (0-2) /lpf 06/10/19 Range/Units 21:10 WBC (3.8-10.6) k/uL RBC (3.80-5.40) m/uL Hgb (11.4-16.0) gm/dL Hct (34.0-46.0) % MCV (80.0-100.0) fL MCH (25.0-35.0) pg MCHC (31.0-37.0) g/dL RDW (11.5-15.5) % Plt Count (150-450) k/uL Neutrophils % % Lymphocytes % % Monocytes % % Eosinophils % % Basophils % % Neutrophils # (1.3-7.7) k/uL Lymphocytes # (1.0-4.8) k/uL Monocytes # (0-1.0) k/uL Eosinophils # (0-0.7) k/uL Basophils # (0-0.2) k/uL Hypochromasia Sodium (137-145) mmol/L Potassium (3.5-5.1) mmol/L Chloride (98-107) mmol/L Carbon Dioxide (22-30) mmol/L Anion Gap mmol/L BUN (7-17) mg/dL Creatinine (0.52-1.04) mg/dL Est GFR (CKD-EPI)AfAm (>60 ml/min/1.73 sqM) Est GFR (CKD-EPI)NonAf (>60 ml/min/1.73 sqM) Glucose (74-99) mg/dL Plasma Lactic Acid Jonathon (0.7-2.0) mmol/L Calcium (8.4-10.2) mg/dL Phosphorus (2.5-4.5) mg/dL Magnesium (1.6-2.3) mg/dL Total Bilirubin (0.2-1.3) mg/dL AST (14-36) U/L ALT (9-52) U/L Alkaline Phosphatase (38-126) U/L Creatine Kinase (30-135) U/L Total Protein (6.3-8.2) g/dL Albumin (3.5-5.0) g/dL Amylase (30-110) U/L Lipase (23-300) U/L Urine Color Light Yellow Urine Appearance Clear (Clear) Urine pH 5.5 (5.0-8.0) Ur Specific Harlan 1.016 (1.001-1.035) Urine Protein Negative (Negative) Urine Glucose (UA) Negative (Negative) Urine Ketones Trace H (Negative) Urine Blood Negative (Negative) Urine Nitrite Negative (Negative) Urine Bilirubin Negative (Negative) Urine Urobilinogen <2.0 (<2.0) mg/dL Ur Leukocyte Esterase Large H (Negative) Urine RBC <1 (0-5) /hpf Urine WBC 11 H (0-5) /hpf Ur Squamous Epith Cells 1 (0-4) /hpf Urine Bacteria Rare H (None) /hpf Hyaline Casts 1 (0-2) /lpf - Radiology Data Radiology results: report reviewed (CT head and pelvis negative for acute disease), image reviewed Disposition Clinical Impression: Abdominal pain, Gastroenteritis Disposition: HOME SELF-CARE Condition: Good Instructions (If sedation given, give patient instructions): Gastroenteritis (ED), Acute Diarrhea (ED) Is patient prescribed a controlled substance at d/c from ED?: No Referrals: Ramses Saldana MD [Primary Care Provider] - 1-2 days
[2019-06-10 21:14] LABS: Basophils # (A) 0.1 k/uL (0-0.2); Basophils % (A) 1 %; Eosinophils # (A) 0.4 k/uL (0-0.7); Eosinophils % (A) 5 %; HCT 30.3 % (34.0-46.0); HGB 8.9 gm/dL (11.4-16.0); Hypochromasia Moderate; Lymphocytes # (A) 1.1 k/uL (1.0-4.8); Lymphocytes % (A) 12 %; MCH 26.7 pg (25.0-35.0); MCHC 29.4 g/dL (31.0-37.0); MCV 90.8 fL (80.0-100.0); Mean Platelet Volume 9.2; Monocytes # (A) 0.5 k/uL (0-1.0); Monocytes % (A) 6 %; Neutrophils # (A) 6.6 k/uL (1.3-7.7); Neutrophils % (A) 74 %; Platelet Count 294 k/uL (150-450); RBC 3.34 m/uL (3.80-5.40); RDW 15.2 % (11.5-15.5); WBC 8.9 k/uL (3.8-10.6)
[2019-06-10 21:27] LABS: Albumin 4.1 g/dL (3.5-5.0); Calcium 9.6 mg/dL (8.4-10.2); Phosphorus 3.6 mg/dL (2.5-4.5); Potassium 4.1 mmol/L (3.5-5.1); Total Bilirubin 0.2 mg/dL (0.2-1.3); Total Protein 6.9 g/dL (6.3-8.2)
[2019-06-10 21:40] LABS: Appearance,Urine Clear (Clear); Bacteria,Urine Rare /hpf; Bilirubin,Urine Negative (Negative); Blood,Urine Negative (Negative); Color,Urine Light Yellow; Glucose,Urine (UA) Negative (Negative); Hyaline Casts,Urine 1 /lpf (0-2); Ketones,Urine Trace (Negative); Leukocyte Esterase,Urine Large (Negative); Nitrite,Urine Negative (Negative); PH, Urine 5.5 (5.0-8.0); Protein,Urine Negative (Negative); RBC,Urine <1 /hpf (0-5); Specific Gravity,Urine 1.016 (1.001-1.035); Squamous Epithelial Cell,Urine 1 /hpf (0-4); Urobilinogen,Urine <2.0 mg/dL (<2.0)
--- NOTE | 2019-06-10 22:33 | CT ---
EXAMINATION TYPE: CT abdomen pelvis w con DATE OF EXAM: 06/10/2019 COMPARISON: None HISTORY: abdominal pain, nausea, diarrhea. CT DLP: 703.7 mGycm Automated exposure control for dose reduction was used. TECHNIQUE: Helical acquisition of images was performed from the lung bases through the pelvis. CONTRAST: Performed without Oral Contrast and with IV Contrast, patient injected with 80cc mL of Isovue 300. FINDINGS: There is minimal linear density in the lingula left upper lobe. Heart is enlarged. There is no pleura l effusion. Liver shows no focal defect. Bile ducts are not dilated. Gallbladder appears normal. Stomach is intac t. There is previous gastric surgery. Spleen is absent. There is no sign of pancreatic mass. There is no adrenal mass. There is 3 cm cortical cyst lower pole left kidney. There is 5 mm calculus medial left kidney. This could be vascular calcification. There is no hydronephrosis. There is no ret roperitoneal adenopathy. Abdominal aorta is atheromatous. Appendix appears normal. Bladder distends s moothly. There is no inguinal hernia. There is no free fluid in the pelvis. Uterus is anteverted. The re is multilevel spondylotic changes in the lumbar spine with disc space narrowing and vacuum disc. T here is no compression fracture. Bony pelvis is intact. There is some relative spinal stenosis at L3- 4 due to facet arthropathy. There is some laminectomy defect in the lower lumbar spine. There is no mesenteric edema. There is no ascites or free air. There is no sign of a bowel obstructio n. IMPRESSION: NO SIGN OF ACUTE ABDOMEN AND PELVIS. MINIMAL LINGULA ATELECTASIS. CARDIOMEGALY.
[2019-06-10] MEDS ORDERED: ONDANSETRON 4 MG ODT STARTER PACK 2 TAB BTL PO STA (22:48)
[2019-06-10 23:06] VITALS: BP 122/62; PULSE 81; TEMP 98.2
== END 2019-06-10 23:08 | disposition home or self-care (01) ==
LOC: EC 19:49
DX: K52.9 Noninfective gastroenteritis and colitis, unspecified (principal); I25.10 Atherosclerotic heart disease of native coronary artery without angina pectoris; I25.2 Old myocardial infarction; G47.30 Sleep apnea, unspecified; Z87.891 Personal history of nicotine dependence; Z88.8 Allergy status to other drugs, medicaments and biological substances; Z91.011 Allergy to milk products; Z79.51 Long term (current) use of inhaled steroids; Z79.899 Other long term (current) drug therapy; Z95.1 Presence of aortocoronary bypass graft; Z90.81 Acquired absence of spleen; Z98.890 Other specified postprocedural states; Z99.89 Dependence on other enabling machines and devices
CPT/HCPCS: 36415; 80053; 82150; 82550; 83605; 83690; 83735; 84100; 85025; 81001; 87040; 87086; 74177; 99285; 96374; 96361; J2405; S0119; Q9967

== ENCOUNTER → 2019-09-04 | Outpatient (CLI) | payer MEDICARE ==
--- NOTE | 2019-09-04 13:19 | MM ---
Reason for exam: screening (asymptomatic). Last mammogram was performed 1 year ago. History: Patient is postmenopausal. Physical Findings: A clinical breast exam by your physician is recommended on an annual basis and results should be correlated with mammographic findings. MG Screening Mammo w CAD Bilateral CC and MLO view(s) were taken. Prior study comparison: September 04, 2018, mammogram. August 13, 2017, mammogram. The breast tissue is extremely dense which could obscure a lesion on mammography. There are benign appearing round calcifications bilaterally. There is no discrete abnormality. ASSESSMENT: Benign, BI-RAD 2 RECOMMENDATION: Routine screening mammogram of both breasts in 1 year.
== END | disposition home or self-care (01) ==
LOC: RADMAMWWP 12:24
PROVIDERS: ATTEND Family Medicine
DX: Z12.31 Encounter for screening mammogram for malignant neoplasm of breast (principal)
CPT/HCPCS: 77067

== ENCOUNTER 2020-05-23 06:06 | Day surgery (SDC) | payer MEDICARE ==
[2020-05-19 09:41] VITALS: BMI 26.9
[~2020-05-23 06:06] MED LIST: ALPRAZolam 0.25 MG TAB PO PRN; ALPRAZolam 0.5 MG TAB PO PRN; ASPIRIN 325 MG TAB PO STA; ATORVASTATIN 80 MG TAB PO STA; NITROGLYCERIN SL TABS 0.4 MG TAB SUBLINGUAL PRN; SODIUM CHLORIDE 0.9% 1,000 ML in EMPTY BAG 1 BAG IV ONE
[2020-05-23 06:47] VITALS: RESP 16
[2020-05-23] MEDS ORDERED: LIDOCAINE 1% INJ 10MG/ML (20 ML MDV) ONE (07:22)
[2020-05-23] MEDS ORDERED: fentaNYL (PF) 50 MCG/ML 2 ML AMP ONE (07:22)
[2020-05-23] MEDS ORDERED: fentaNYL (PF) 50 MCG/ML 2 ML AMP IV ONE (07:55)
[2020-05-23] MEDS ORDERED: LIDOCAINE 1% INJ 10MG/ML (20 ML MDV) SQ ONE (08:01)
[2020-05-23] MEDS ORDERED: HEPARIN SODIUM 1,000 UN/ML (10ML VL) ONE (08:16)
[2020-05-23] MEDS: HEPARIN SODIUM 1,000 UN/ML (10ML VL) IV ONE ×2 (08:17→08:26)
[2020-05-23] MEDS ORDERED: NITROGLYCERIN 1000MCG/10ML SYRINGE INTRACORON ONE (08:22)
[2020-05-23] MEDS ORDERED: CLOPIDOGREL 75 MG TAB ONE (08:27)
[2020-05-23] MEDS ORDERED: CLOPIDOGREL 75 MG TAB PO ONE (08:29)
[2020-05-23] MEDS ORDERED: IOPAMIDOL-370 125ML BTL INJ ONE (08:34)
[2020-05-23] MEDS ORDERED: IOPAMIDOL-370 100ML BTL INJ ONE (08:47)
[2020-05-23] MEDS ORDERED: RX INFO: IV CONTRAST WAS GIVEN 1 EACH MISC MISCELLANE PRN (09:02)
[2020-05-23] MEDS ORDERED: SODIUM CHLORIDE 0.9% 1,000 ML IV SCH (09:15)
[2020-05-23] MEDS ORDERED: SPIRONOLACTONE 25 MG TAB PO STA (12:33)
[2020-05-23] MEDS ORDERED: FUROSEMIDE 20 MG TAB PO STA (12:33)
--- NOTE | 2020-05-23 14:55 | CC ---
CARDIAC CATHETERIZATION REPORT CARDIAC CATHETERIZATION PROCEDURE NOTE: Ms. Neal is a 79-year-old female with a known history of coronary artery disease, status post coronary artery bypass grafting and an anterior wall myocardial infarction shortly after, underwent stenting of her LAD proximally in the mid segment. She recently had a myocardial perfusion imaging that revealed evidence of stress- induced ischemia involving the anterolateral wall of moderate size. The patient is scheduled to undergo orthopedic surgery. In view of that, recommendation made regarding cardiac catheterization. The procedures, risks, and complication were discussed with the patient who is in full understanding and agreement. PROCEDURE: Patient was brought to maintenance shop laborer in a fasting semi-sedated state after receiving fentanyl and Benadryl and achieving moderate conscious sedated state. Using Xylocaine anesthesia and Seldinger technique, a 6-Georgian sheath was introduced in the right femoral artery. Selective right and left coronary angiography performed using 6-Georgian 4 bend right and left Nellie catheter, multiple views of the coronary artery including hemiaxial views obtained. Following that the right Nellie catheter was used to cannulate the saphenous vein graft to the obtuse marginal branch, to the right coronary artery and RIDDLE to LAD. Images of the grafts were obtained. Following that, a 6- Georgian tight pigtail catheter was introduced in the left ventricle and pressures were calculated. Following that, catheter removed, images were reviewed. FINDINGS: 1. FLUOROSCOPY: There was calcification involving the left anterior descending artery, left main and the proximal left circumflex. 2. LEFT MAIN: This is a short-sized vessel bifurcating into left circumflex, left anterior descending artery, left main coronary artery distally has a 40% to 50% stenosis. The rest of the vessel has no high-grade stenosis. 3. LEFT ANTERIOR DESCENDING ARTERY: This is a large-sized vessel reaching toward the apex with a wraparound apex segment giving rise distally to 3 diagonal branches. The third one is the largest in caliber, the stented segment in the proximal left anterior descending artery is patent. There is evidence of eccentric 67% stenosis proximally. The rest of the vessel has intimal disease without any evidence of high-grade stenosis. The second stented segment is patent with no significant in- stent restenosis. 4. LEFT CIRCUMFLEX: This is a nondominant vessel, giving rise to a large obtuse marginal branch. The ostium of the left circumflex has an 80% to 90% stenosis. There is competitive flow in the obtuse marginal branch. 5. RIGHT CORONARY ARTERY: This is a dominant vessel, bifurcating distally into PDA and posterolateral segment and branches, has diffuse intimal disease in mid segment of 70% to 80% with competitive flow in the distal vessel. 6. SAPHENOUS VEIN GRAFT TO THE RIGHT CORONARY ARTERY: The proximal distal anastomotic sites are patent. The flow into the PDA and PLV is brisk. There is no evidence of high-grade stenosis. 7. SAPHENOUS VEIN GRAFT TO THE OBTUSE MARGINAL BRANCH: The proximal distal anastomotic sites are patent. There is brisk flow into the obtuse marginal branch with retrograde flow into the first obtuse marginal branch. 8. RIDDLE to LAD: This vessel is atretic with no significant antegrade flow. 9. LEFT VENTRICULOGRAM: Left ventriculogram was not performed. 10.HEMODYNAMICS: There was no gradient across the aortic valve. The left ventricular end-diastolic pressure was 12-16 mmHg. CONCLUSION: 1. Moderate to significant disease in the proximal segment of the LAD and distal left main. 2. Significant disease in the circumflex and the right coronary artery. 3. Patent saphenous vein graft to the obtuse marginal branch. 4. Patent saphenous vein graft to the right coronary artery. 5. Atretic RIDDLE to the LAD. RECOMMENDATION: In view of finding anatomy, I recommend proceeding with a physiological measurement of the LAD lesion and depending on that, further recommendation will be made. The procedures, risks, and complications were discussed with the patient who is in full understanding and agreement. MMODL / IJN: [id number] / ALEX
--- NOTE | 2020-05-23 15:02 | LTR ---
DATE OF SERVICE: 05/23/2020 RE: Oanh Neal Dear Dr. Saldana; I had the pleasure to perform cardiac catheterization and coronary angioplasty and stenting on Mrs. Neal at [facility] on May 23, 2020 and a full copy of the procedure note will be forwarded to you. In brief, she was found to have borderline significant lesion in the proximal LAD and distal left main that was hemodynamically significant by IFR and subsequently underwent stenting of that vessel. I am hopeful that this procedure will stabilize her status and thank you again for allowing me to participate in this patient's personal care. Please feel free to call for any questions. Sincere yours, MD LARISSA JadeL / FABYN: [id number] /
--- NOTE | 2020-05-23 15:02 | PTCA ---
PERCUTANEOUSTRANS CORORONARY ANGIOGRAPHY ANGIOPLASTY PROCEDURES NOTE ON AND IFR MEASUREMENT: Mrs. Neal is a 79-year-old female with a known history of coronary artery disease who had a significant inducible ischemia involving the anterior wall on the myocardial perfusion imaging. In view of that, she underwent cardiac catheterization, was found to have an eccentric 67% stenosis in the proximal LAD. In view of that, recommendation made regarding physiological measurement, subsequently angioplasty if needed. The procedures, risks, and complication were discussed with the patient who is in full understanding and agreement. PROCEDURE: A 6-Georgian FR4 guiding catheter introduced into the system after cannulating the left main, a Doppler flow wire was introduced into the LAD and positioned in the mid segment. Subsequently, IFR was measured at 0.75. At that point, a 2.75 x 12 mm NC Trek balloon was advanced, one inflation was done. Following that, the balloon was removed and a 3.0 x 15 mm Xience Aditi stent was deployed, post-dilated at 16 atmospheres. After removing the balloon, a 3.5 x 12 mm NC Trek balloon was advanced and one inflation at 14 atmospheres was done. After the last inflation, after appropriate wait, the balloon and the guidewire were withdrawn back in the guiding catheter. Images were obtained and repeated. Those images reveal stable successful stenting. At that point, the guiding catheter, the balloon and the guidewire were removed. The sheath was removed, hemostasis was obtained with deployment of an Angio- Seal. There was no immediate complication. Patient is returned to her room in stable condition. Of note, the patient had chest discomfort and EKG changes with the inflation that resulted in the procedure. She received a total of 7000 units of intravenous heparin. Her ACT was monitored. RESULTS: Successful stenting of the distal left main and proximal left anterior descending artery with reduction of stenosis from 60%-70% to 0% with positive pre IFR. RECOMMENDATION: Patient will be continued on aspirin, Plavix and statin. The importance of dual antiplatelet treatment were discussed with the patient and her family and they are in full understanding and agreement. Duration of sedation is 46 minutes. MMAZARL / IJN: [id number] /
[2020-05-23] MEDS: traMADol 50 MG TAB PO PRN (16:21)
[2020-05-23] MEDS: ATORVASTATIN 40 MG TAB PO SCH ×2 (20:34→20:43)
[2020-05-23] MEDS: METOPROLOL TARTRATE 12.5 MG TAB PO SCH ×2 (20:34→20:43)
[2020-05-23] MEDS ORDERED: LATANOPROST 0.005% OPHTH DROPS 2.5 ML BTL RIGHT EYE SCH (21:00)
[2020-05-23] MEDS ORDERED: FLUOROMETHOLONE 0.1% OPHTH DROPS 5 ML BTL RIGHT EYE SCH (21:00)
[2020-05-24] MEDS: traMADol 50 MG TAB PO PRN (03:18)
[2020-05-24] MEDS: CALCIUM CARBONATE 500 MG CHEWABLE PO SCH ×2 (07:45→07:51)
[2020-05-24] MEDS ORDERED: METOPROLOL TARTRATE 12.5 MG TAB PO STA (07:59)
[2020-05-24 08:03] VITALS: BP 105/64; PULSE 64; TEMP 97.7
[2020-05-24 08:29] LABS: Calcium 9.5 mg/dL (8.4-10.2); Potassium 4.2 mmol/L (3.5-5.1)
[2020-05-24] MEDS ORDERED: FOLIC ACID 1 MG TAB PO SCH (09:00)
[2020-05-24] MEDS ORDERED: FLUTICASONE 50MCG/SPRAY NASAL 16GM EA NOSTRIL SCH (09:00)
[2020-05-24] MEDS ORDERED: ASPIRIN 81 MG PO SCH (09:00)
[2020-05-24] MEDS ORDERED: VIT A,C & E-LUTEIN-MINERALS 1 EACH TAB PO SCH (09:00)
[2020-05-24] MEDS ORDERED: CITALOPRAM HYDROBROMIDE 10 MG TAB PO SCH (09:00)
[2020-05-24] MEDS ORDERED: CLOPIDOGREL 75 MG TAB PO SCH (09:00)
[2020-05-24] MEDS ORDERED: EZETIMIBE 10 MG TAB PO SCH (09:00)
[2020-05-24] MEDS ORDERED: PANTOPRAZOLE 40 MG TABLET PO SCH (09:00)
--- NOTE | 2020-05-24 09:19 | PN ---
PROGRESS NOTE Mrs. Neal is a 79-year-old female with known history of coronary artery disease who recently underwent a myocardial perfusion imaging, revealed an evidence of inducible ischemia involving anterior wall. She underwent cardiac catheterization, was found to have an atretic RIDDLE to the LAD, patent saphenous vein graft to the OM and to the right coronary artery with borderline significant lesion in the distal left main and proximal LAD. She had a positive IFR and underwent stenting of that vessel. She is doing well this morning. She denies any chest pain, her breathing is stable. She denies any dizziness or palpitation. She denies any nausea. She continued to be in sinus mechanism. She continued to be on aspirin once a day, Lipitor 40 mg daily, Plavix 75 mg daily, Celexa 10 mg daily, Zetia 10 mg daily, furosemide 20 mg daily, lisinopril 2.5 mg daily, metoprolol tartrate 12.5 mg twice a day, spironolactone 25 mg daily. PHYSICAL EXAMINATION: Blood pressure 105/60 with a heart rate in the 60s. LUNGS: Clear, regular rate and rhythm. HEART: S1, S2. No S3 with a systolic murmur, no diastolic murmur. ABDOMEN: Soft, nontender. EXTREMITIES: No edema. IMPRESSION: 1. Status post stenting of the LAD and the distal left main. 2. Status post coronary artery bypass grafting. 3. Hypertension. 4. Hyperlipidemia. RECOMMENDATION: Patient will be discharged home today and followed as an outpatient. MMODL / IJN: [id number] /
[2020-05-24] MEDS ORDERED: SPIRONOLACTONE 25 MG TAB PO SCH (11:00)
== END 2020-05-24 09:50 | disposition home or self-care (01) ==
LOC: CATHCVL 06:06 → 3SCARD 11:50 → 3NCARDOBS 20:00 → CATHCVL 05-24 09:50
PROVIDERS: ATTEND Internal Medicine Interventional Cardiology
DX: I25.10 Atherosclerotic heart disease of native coronary artery without angina pectoris (principal); I25.84 Coronary atherosclerosis due to calcified coronary lesion; I25.5 Ischemic cardiomyopathy; I10 Essential (primary) hypertension; E78.2 Mixed hyperlipidemia; R94.39 Abnormal result of other cardiovascular function study; Z87.891 Personal history of nicotine dependence; Z95.5 Presence of coronary angioplasty implant and graft; Z95.1 Presence of aortocoronary bypass graft; Z82.49 Family history of ischemic heart disease and other diseases of the circulatory system; Z79.02 Long term (current) use of antithrombotics/antiplatelets; Z79.82 Long term (current) use of aspirin; Z79.899 Other long term (current) drug therapy; Z88.8 Allergy status to other drugs, medicaments and biological substances
CPT/HCPCS: 93571; 93459; 85347; 80048; 84132; C9600; C1760; C1887; C1725 ×2; C1894 ×2; C1769 ×2; C1874; J2001; J3010; J1644; Q9967 ×2

== ENCOUNTER → 2020-11-09 | Outpatient (CLI) | payer MEDICARE ==
--- NOTE | 2020-11-11 11:51 | MM ---
Reason for exam: screening (asymptomatic). Last mammogram was performed 1 year and 2 months ago. History: Patient is postmenopausal. Physical Findings: A clinical breast exam by your physician is recommended on an annual basis and results should be correlated with mammographic findings. MG 3D Screening Mammo W/Cad Bilateral CC and MLO view(s) were taken. Prior study comparison: September 04, 2019, bilateral MG screening mammo w CAD. September 04, 2018, mammogram. The breast tissue is heterogeneously dense. This may lower the sensitivity of mammography. Right upper outer quadrant focal asymmetry is more defined. Questionable subtle distortion anterior lateral left CC view. ASSESSMENT: Incomplete: need additional imaging evaluation, BI-RAD 0 RECOMMENDATION: Special view mammogram of both breasts. (3D) If lesion persists on supplemental views, image directed ultrasound is recommended. [facility] will attempt to contact patient to return for supplemental views and ultrasound if indicated.
== END ==
LOC: RADMAMWWP 09:47
PROVIDERS: ATTEND Family Medicine
DX: Z12.31 Encounter for screening mammogram for malignant neoplasm of breast (principal); Z78.0 Asymptomatic menopausal state
CPT/HCPCS: 77063; 77067

== ENCOUNTER → 2020-11-16 | Outpatient (CLI) | payer MEDICARE ==
[2020-11-16 08:24] LABS: Basophils # (A) 0.1 k/uL (0-0.2); Basophils % (A) 2 %; Eosinophils # (A) 0.9 k/uL (0-0.7); Eosinophils % (A) 15 %; HCT 31.8 % (34.0-46.0); HGB 10.4 gm/dL (11.4-16.0); Hypochromasia Slight; Lymphocytes # (A) 1.4 k/uL (1.0-4.8); Lymphocytes % (A) 24 %; MCH 32.2 pg (25.0-35.0); MCHC 32.7 g/dL (31.0-37.0); MCV 98.3 fL (80.0-100.0); Macrocytosis Slight; Mean Platelet Volume 9.6; Monocytes # (A) 0.5 k/uL (0-1.0); Monocytes % (A) 9 %; Neutrophils # (A) 2.7 k/uL (1.3-7.7); Platelet Count 357 k/uL (150-450); RBC 3.24 m/uL (3.80-5.40); RDW 15.8 % (11.5-15.5); WBC 5.8 k/uL (3.8-10.6)
[2020-11-16 08:42] LABS: Potassium 5.5 mmol/L (3.5-5.1)
== END | disposition home or self-care (01) ==
LOC: LABPAT 07:15
PROVIDERS: ATTEND Orthopaedic Surgery
DX: Z01.812 Encounter for preprocedural laboratory examination (principal); M16.12 Unilateral primary osteoarthritis, left hip
CPT/HCPCS: 36415; 80051; 85025; 87070

== ENCOUNTER → 2020-11-25 | Outpatient (CLI) | payer MEDICARE | END | disposition home or self-care (01) | CPT/HCPCS: 86850; 86900; 86901 ==

== ENCOUNTER 2020-12-05 08:23 | Observation (INO) | payer MEDICARE ==
[2020-11-30 11:00] VITALS: BMI 27.1
--- NOTE | 2020-12-04 13:01 | HP ---
HISTORY AND PHYSICAL REASON FOR ADMISSION: Surgery is scheduled for 12/05/2020 HISTORY OF PRESENT ILLNESS: Oanh Neal is a 80-year-old patient seen with symptomatic left hip osteoarthritis. After having treatment options discussed with her, she elected to proceed with direct anterior left total hip arthroplasty. Consent regarding the procedure was obtained. Cardiac clearance was provided by Dr. Whitten and medical clearance by Dr. Saldana. PAST MEDICAL HISTORY: Coronary artery disease. PAST SURGICAL HISTORY: Laminectomy, coronary artery bypass surgery with stents. MEDICATIONS: Lipitor, lisinopril, metoprolol, Plavix, Protonix, tramadol, vitamins. ALLERGIES: NONE. SOCIAL HISTORY: She denies current tobacco use. PHYSICAL EXAMINATION: Evaluation of the left hip: There is very limited range of motion with severe pain. She has diffuse tenderness about the hip girdle. Straight leg raise is negative. Impingement sign is positive. Distal neurovascular exam is intact. RADIOGRAPHS: Left hip radiographs reveal severe osteoarthritic changes. IMPRESSION: 1. Left hip osteoarthritis. 2. Hypertension. 3. Hyperlipidemia. 4. Coronary artery disease. PLAN: Direct anterior left total hip arthroplasty. Surgery is 12/05/2020. MMODL / IJN: [id number] /
[~2020-12-05 08:23] MED LIST changes: +ACETAMINOPHEN TAB 500 MG TAB PO PRN; -ALPRAZolam 0.25 MG TAB PO PRN; -ALPRAZolam 0.5 MG TAB PO PRN; -ASPIRIN 325 MG TAB PO STA; -ATORVASTATIN 80 MG TAB PO STA; +DEXAMETHASONE SOD PHOSPHATE 4 MG/ML 1 ML VIAL IV ONE; +HYDROmorphone 0.5 MG/0.5 ML SYRINGE IVP PRN; +MELOXICAM 7.5 MG TAB PO PRN; +MIDAZOLAM 2 MG/2 ML VIAL IV PRN; -NITROGLYCERIN SL TABS 0.4 MG TAB SUBLINGUAL PRN; +ONDANSETRON 4 MG/2 ML VIAL IVP ONE; -SODIUM CHLORIDE 0.9% 1,000 ML in EMPTY BAG 1 BAG IV ONE; +TRANEXAMIC ACID 1,000 MG in SODIUM CHLORIDE 0.9% 100 ML IVPB PRN; +fentaNYL (PF) 50 MCG/ML 2 ML AMP IV PRN
[2020-12-05] MEDS: LACTATED RINGERS 1,000 ML IV SCH (08:51)
[2020-12-05] MEDS ORDERED: fentaNYL (PF) 50 MCG/ML 2 ML AMP ONE (10:08)
[2020-12-05] MEDS ORDERED: MIDAZOLAM 2 MG/2 ML VIAL ONE (10:08)
[2020-12-05] MEDS ORDERED: PHENYLEPHRINE-0.9% NACL SYG 1,000 MCG/10 ML SYRINGE ONE (10:08)
[2020-12-05] MEDS ORDERED: diphenhydrAMINE 50 MG/ML 1 ML VIAL ONE (10:08)
[2020-12-05] MEDS ORDERED: SODIUM CHLORIDE 0.9% 100 ML BAG ONE (10:08)
[2020-12-05] MEDS ORDERED: ePHEDrine SULFATE/0.9% NACL/PF 50 MG/5 ML SYRINGE IV ONE (10:08)
[2020-12-05] MEDS ORDERED: TRANEXAMIC ACID 1,000 MG/10 ML VIAL ONE (10:08)
[2020-12-05] MEDS ORDERED: PROPOFOL 10 MG/ML 20 ML VIAL IV ONE (10:08)
[2020-12-05] MEDS ORDERED: ceFAZolin 1,000 MG in SODIUM CHLORIDE 0.9% 1,000 ML IRRIGATION ONE (10:44)
[2020-12-05] MEDS: ROPIVACAINE/EPI/CLONIDINE/KET 50 ML SYRINGE MISCELLANE PRN ×2 (10:45→11:21)
[2020-12-05] MEDS ORDERED: LACTATED RINGERS 1,000 ML IV ONE ×2 (11:35→12:10)
--- NOTE | 2020-12-05 11:51 | FL ---
Fluoroscopy HISTORY: Left total hip replacement 22 seconds fluoroscopy time supplied to the referring clinician. 1 intraoperative C-arm images docum ent the procedure. See dictated report from orthopedic surgery.
--- NOTE | 2020-12-05 11:52 | XR ---
Limited left hip HISTORY: Left hip total hip replacement Single frontal view of the left hip, intraoperative image documents the procedure.
[2020-12-05] MEDS ORDERED: HYDROcodone/APAP 5-325MG 1 EACH TAB PO PRN (12:00)
[2020-12-05] MEDS ORDERED: HYDROmorphone 0.5 MG/0.5 ML SYRINGE IVP PRN ×2 (12:00)
[2020-12-05] MEDS ORDERED: NALOXONE 0.4 MG/ML 1 ML VIAL IV PRN (12:00)
[2020-12-05] MEDS ORDERED: ONDANSETRON 4 MG/2 ML VIAL IVP PRN (12:00)
--- NOTE | 2020-12-05 12:01 | P.OP ---
Date of Procedure: 12/05/20 Preoperative Diagnosis: Left hip osteoarthritis Postoperative Diagnosis: Left hip osteoarthritis Procedure(s) Performed: Direct anterior left total hip arthroplasty Implants: 1. Depuy Corail KA size 10 with collar press-fit femoral stem 2. Depuy pinnacle multi hole 52 mm press-fit acetabular shell 3. Depuy pinnacle polyethylene acetabular liner neutral 36 mm ID 52 mm OD 4. Biolox delta ceramic femoral head +1.5 36 mm Anesthesia: local, spinal Surgeon: Brigido Doll [place] Cook #1: Von Wood Estimated Blood Loss (ml): 800 Pathology: other (Femoral head) Condition: stable Disposition: PACU Indications for Procedure: 80-year-old patient seen with symptomatic left hip osteoarthritis. After treatment options were discussed, she elected to proceed with total hip arthroplasty. Operative Findings: See description of procedure Description of Procedure: The patient was taken to the operative suite. Patient underwent a spinal anesthetic by the department of anesthesia. Patient was then transferred to the [place] table. Patient was given preoperative IV antibiotics and TXA. Both lower extremities were placed in standard leg spars. The hip was then prepped and draped in the normal sterile orthopedic fashion. A standard anterior incision was made beginning 3 cm lateral and 1 cm distal to the ASIS extending 10 cm. Dissection was then carried down through the subcutaneous soft tissues down to the fascia overlying the tensor fascia micky. An incision was now made through the fascia. Careful dissection was taken down exposing the tensor fascia micky muscle. A Cobra retractor was now placed along the medial femoral neck and a second one along the lateral femoral neck. The venous circumflex vessels were now identified, cauterized and clipped. We identified the anterior hip capsule. An incision was made through the hip capsule along the lateral border. I performed a partial anterior capsulectomy. Retractors were now placed around the femoral neck itself. A femoral neck cut was now made with a sagittal saw. It was completed with an osteotome at the lateral neck area. The femoral head was now removed without difficulty. The extremity was now rotated to 45 of external rotation. It was locked in position. Residual labrum was now debrided out. Serial reaming was performed of the acetabulum while Von SAMSON assisted holding an anterior retractor for exposure. Once we reached the appropriate size and a trial was position and fit nicely. The appropriate size was now chosen opened and made available. It was introduced into the acetabulum without difficulty. The C-arm/fluoroscopy was now brought into the operative field. We made sure we had a true AP pelvic view. We now under direct C- arm/fluoroscopy introduced into the acetabular component with appropriate version and inclination. I held the cup in appropriate position well Von SAMSON used a mallet to seat the acetabular component. I noted the component now to be well seated and stable. Acetabular cup introduce her was removed. The C-arm was pulled back. An appropriate liner was introduced and clicked into position. It was felt to be stable. At this point retractors were removed. The extremity was now placed into 120 external rotation with no traction. The leg was now dropped to the ground and adducted. Appropriate retractors were now positioned along the proximal femur. We also placed our femoral look into position. Additional capsular releasing was performed to gain access to the proximal femur. We now used a box osteotome. A canal finder was now utilized. Serial broaching was now performed with the assistance of Von SAMSON tapping the broaches down with a mallet while held the broach in appropriate rotation and position. This was done until we reached the appropriate size with good overall rotational stability. Appropriate calcar planing was performed. A trial head/neck was placed into position. The hip was now reduced. The C- arm/fluoroscopy was brought back into the operative field. I obtained an AP pelvis showing adequate positioning of leg lengths and good positioning of the trial components The C-arm/fluoroscopy was pulled back. Retractors were repositioned and the hip was dislocated. The leg was again taken down to the ground and adducted. Appropriate retractors were repositioned as well as the femoral hook. All trial components were removed. The femoral implant was opened along with the femoral head. The femoral implant was introduced on the appropriate handle into our pre-broached area. I held the component position well Von SAMSON used a mallet to seat the femoral component. The femoral component was now noted to be well seated and stable.. The femoral head was introduced with good positioning and fixation noted. Retractors were now removed. The hip was now reduced. There appeared be good positioning of the hip confirmed on intraoperative fluoroscopy. Spot films were obtained to document this. A second gram of TXA was given. The deep and superficial soft tissues were infiltrated with local analgesic. Bipolar cautery had been utilized intermittently through the procedure for hemostasis. The wound was irrigated copiously with pulse lavage mechanical irrigation. I did note some diffuse bleeding. I used additional cautery. I also used Surgicel powder to assist with hemostasis. The fascia was repaired with Vicryl suture. The subcutaneous soft tissues were repaired in layers with Vicryl suture. The skin was approximated with pernio/Dermabond. Sterile dressings were applied. Patient was then awakened, transferred to a bed and taken to recovery in stable condition. Von SAMSON assisted with the complex procedure.
[2020-12-05] MEDS: HYDROmorphone 1 MG/ML 1 ML SYRINGE IVP ONE ×3 (12:43→16:15)
[2020-12-05] MEDS: SODIUM CHLORIDE 0.9% 1,000 ML IV SCH ×3 (14:13→16:56)
[2020-12-05 14:49] LABS: Basophils # (A) 0.1 k/uL (0-0.2); Basophils % (A) 0 %; Eosinophils # (A) 0.1 k/uL (0-0.7); Eosinophils % (A) 1 %; HCT 22.4 % (34.0-46.0); Hypochromasia Slight; Lymphocytes % (A) 6 %; MCH 32.4 pg (25.0-35.0); MCHC 33.3 g/dL (31.0-37.0); MCV 97.3 fL (80.0-100.0); Mean Platelet Volume 9.5; Monocytes # (A) 0.4 k/uL (0-1.0); Monocytes % (A) 2 %; Neutrophils # (A) 15.1 k/uL (1.3-7.7); Neutrophils % (A) 91 %; Platelet Count 276 k/uL (150-450); RBC 2.31 m/uL (3.80-5.40); RDW 15.8 % (11.5-15.5); WBC 16.6 k/uL (3.8-10.6)
[2020-12-05 15:08] LABS: HGB 7.5 gm/dL (11.4-16.0)
[2020-12-05] MEDS ORDERED: NITROGLYCERIN SL TABS 0.4 MG TAB SUBLINGUAL PRN (19:03)
[2020-12-05] MEDS ORDERED: NON FORMULARY DRUG (Acetaminophen/Diphenhydramine [Tylenol Pm 500-25mg] 1 EACH Tablet) PO PRN (19:05)
[2020-12-05] MEDS ORDERED: ACETAMINOPHEN TAB 500 MG TAB PO PRN (20:00)
[2020-12-05] MEDS ORDERED: diphenhydrAMINE 25 MG CAP PO PRN (20:01)
[2020-12-05] MEDS: METOPROLOL TARTRATE 12.5 MG TAB PO SCH (21:06)
[2020-12-05] MEDS: CALCIUM CARBONATE 500 MG CHEWABLE PO SCH (21:36)
[2020-12-05] MEDS: ASPIRIN 81 MG PO SCH (21:36)
[2020-12-05] MEDS: PANTOPRAZOLE 40 MG/10 ML VIAL IVP SCH (21:36)
[2020-12-05] MEDS: ATORVASTATIN 40 MG TAB PO SCH (21:36)
[2020-12-05] MEDS: SENNOSIDES-DOCUSATE SODIUM 1 EACH TAB PO SCH (21:36)
[2020-12-05] MEDS: LATANOPROST 0.005% OPHTH DROPS 2.5 ML BTL RIGHT EYE SCH (21:37)
[2020-12-05] MEDS: FLUOROMETHOLONE 0.1% OPHTH DROPS 5 ML BTL RIGHT EYE SCH (21:37)
[2020-12-05] MEDS: VIT A,C & E-LUTEIN-MINERALS 1 EACH TAB PO SCH (21:39)
--- NOTE | 2020-12-05 22:22 | CONS ---
CONSULTATION I am covering for Dr. Ramses Saldana. REASON FOR CONSULTATION: Advice regarding anemia and other multiple medical issues, requested by Dr. Doll. HISTORY OF PRESENT ILLNESS: This 80-year-old woman with a past medical history of multiple medical problems, including CAD, GERD, hypertension, hyperlipidemia, history of myocardial infarction, sleep apnea, history of back surgery, CAD, CABG, stent, being followed by Dr. Ramses Saldana in the outpatient setting, underwent a direct anterior left total hip arthroplasty by Dr. Doll. Postoperatively the patient is having some mild hypotension with blood pressure 97/50. Hemoglobin is 7.2. A unit of transfusion was arranged and the patient has been transferred to the postoperative unit at this time. There is no history of any fever, rigor or chills. No history of headache, loss of consciousness, seizures. No history of chest pain, palpitation at this time. There is no history of any active bleeding, either. The patient apparently had some anemia about 5 years ago which was treated conservatively, according to her. PAST MEDICAL HISTORY: History of CAD, history of GERD, hypertension, history of myocardial infarction, DJD, history of CAD, CABG, stent. HOME MEDICATIONS: Home medications are multiple, including Ultram, Aldactone, Zestril, latanoprost, Lasix, folic acid, Flonase, fluorometholone, iron sulfate, Zetia, vitamin D3, aspirin vitamin C, Plavix, calcium, Tylenol, Protonix, Nitrostat, Celexa, Lipitor, Lopressor. ALLERGIES: CODEINE, MILK-CONTAINING PRODUCTS, LYRICA. FAMILY HISTORY: History of CAD and myocardial infarction in the family. SOCIAL HISTORY: Previous history of smoking. Occasional alcohol intake. REVIEW OF SYSTEMS: ENT: No diminished hearing. No diminished vision. CARDIOVASCULAR SYSTEM: No angina, palpitations. Otherwise as mentioned earlier. RESPIRATORY SYSTEM: No cough, hemoptysis. GI: As mentioned earlier. : No dysuria or retention. NERVOUS SYSTEM: No numbness, weakness. ALLERGY/IMMUNOLOGY: No asthma, hayfever. MUSCULOSKELETAL: As mentioned earlier. HEMATOLOGY/ONCOLOGY: As mentioned earlier. ENDOCRINE: No history of diabetes, hypothyroidism. CONSTITUTIONAL: As mentioned earlier. DERMATOLOGY: Negative. RHEUMATOLOGY: Negative. PSYCHIATRY: As mentioned earlier. PHYSICAL EXAMINATION: Patient alert and oriented x3. Pulse 74, blood pressure 100/55, respirations 16, temperature normal, pulse ox 96% on 2 L. HEENT: Conjunctivae pale. Oral mucosa moist. NECK: No jugular venous distention. No carotid bruit. No lymph node enlargement. CARDIOVASCULAR SYSTEM: S1, S2 muffled. No S3. No S4. RESPIRATORY SYSTEM: Breath sounds diminished at the bases. No rhonchi. No crackles. ABDOMEN: Soft, non-tender. No mass palpable. LEGS: Status post hip surgery. NERVOUS SYSTEM: Higher functions as mentioned earlier. Moves all 4 limbs. No focal motor or sensory deficit. LYMPHATICS: No lymph node palpable in neck, axillae or groin. SKIN: No ulcer, rash, bleeding. JOINTS: No active deforming arthropathy. LABS: WBC 16.6, hemoglobin 7.5. ASSESSMENT: 1. Status post left hip arthroplasty. 2. Anemia; acute on chronic anemia. 3. Increased white count. 4. History of coronary artery disease. 5. Gastroesophageal reflux disease. 6. Hypertension. 7. Hyperlipidemia. 8. History of previous anemia. 9. History of myocardial infarction. 10.History of degenerative joint disease. 11.History of sleep apnea. 12.History of macular degeneration. 13.History of sleep apnea, on CPAP. 14.History of back surgery. 15.History of coronary artery disease, coronary artery bypass grafting, stent. 16.History of bleeding ulcer with gastrectomy. 17.History of splenectomy. 18.History of depression. 19.Remote history of nicotine dependence. 20.FULL CODE. RECOMMENDATIONS AND DISCUSSION: In this 80-year-old woman who presented with multiple complex medical issues, at this time I recommend to continue current medications, continue symptomatic treatment. I recommend resuming the home medications and monitor hemoglobin very closely. Otherwise, proton pump inhibitors. DVT prophylaxis. Will follow the patient closely. Patient may be asked to follow up with Dr. Saldana after discharge. The patient might require further workup after discharge as an outpatient. We will follow the patient closely with you. Thank you, Dr. Doll, for letting us participate in the care of this patient. MMODL / FABYN: [id number] /
[2020-12-05] MEDS: HYDROmorphone 0.2 MG/1 ML SYRINGE IVP PRN (22:55)
[2020-12-06] MEDS: LACTATED RINGERS 1,000 ML IV SCH (01:29)
[2020-12-06] MEDS: SODIUM CHLORIDE 0.9% 1,000 ML IV SCH ×2 (02:10→14:30)
[2020-12-06] MEDS: HYDROmorphone 0.2 MG/1 ML SYRINGE IVP PRN ×3 (02:12→12:49)
[2020-12-06] MEDS: ENOXAPARIN 40 MG/0.4 ML SYRINGE SQ SCH (02:12)
[2020-12-06] MEDS ORDERED: FERROUS SULFATE 325 MG TAB PO SCH (09:00)
[2020-12-06 09:39] LABS: HCT 27.3 % (37.2-46.3); HGB 8.7 g/dL (12.0-15.0); MCH 30.2 pg (27.0-32.0); MCHC 31.9 g/dL (32.0-37.0); MCV 94.8 fL (80.0-97.0); Mean Platelet Volume 12.9 fL (9.5-12.2); Platelet Count 213 X 10*3/uL (140-440); RBC 2.88 X 10*6/uL (4.10-5.20); WBC 11.11 X 10*3/uL (4.50-10.00)
[2020-12-06] MEDS: FLUTICASONE 50MCG/SPRAY NASAL 16GM EA NOSTRIL SCH (09:49)
[2020-12-06] MEDS: CLOPIDOGREL 75 MG TAB PO SCH (09:51)
[2020-12-06] MEDS: SPIRONOLACTONE 25 MG TAB PO SCH (09:52)
[2020-12-06] MEDS: FOLIC ACID 1 MG TAB PO SCH (09:53)
[2020-12-06] MEDS: METOPROLOL TARTRATE 12.5 MG TAB PO SCH ×2 (09:53→20:50)
[2020-12-06] MEDS: CHOLECALCIFEROL 25 MCG (1000 IU) TABLET PO SCH (09:55)
[2020-12-06] MEDS: CALCIUM CARBONATE 500 MG CHEWABLE PO SCH ×3 (09:55→20:54)
[2020-12-06] MEDS: VIT A,C & E-LUTEIN-MINERALS 1 EACH TAB PO SCH ×2 (09:56→20:56)
[2020-12-06] MEDS: ASCORBIC ACID 500 MG TAB PO SCH (09:57)
[2020-12-06] MEDS: EZETIMIBE 10 MG TAB PO SCH (09:58)
[2020-12-06] MEDS: CITALOPRAM HYDROBROMIDE 10 MG TAB PO SCH (09:58)
[2020-12-06 09:59] LABS: African American GFR (CKD) 55.3 (60.0-200.0); Anion Gap 7.3 mmol/L (4.00-12.00); BUN/Creat Ratio 22.73 Ratio (12.00-20.00); Carbon Dioxide 23.7 mmol/L (21.6-31.8); Non-African American GFR(CKD) 47.7 (60.0-200.0)
[2020-12-06] MEDS: PANTOPRAZOLE 40 MG/10 ML VIAL IVP SCH ×2 (09:59→20:49)
[2020-12-06 11:41] LABS: Basophils # (A) 0.03 X 10*3/uL (0.00-0.10); Basophils % (A) 0.3 %; Eosinophils # (A) 0.11 X 10*3/uL (0.04-0.35); Lymphocytes # (A) 2.26 X 10*3/uL (0.90-5.00); Lymphocytes % (A) 20.3 %; Monocytes # (A) 1.99 X 10*3/uL (0.20-1.00); Monocytes % (A) 17.9 %; Neutrophils # (A) 6.68 X 10*3/uL (1.80-7.70); Neutrophils % (A) 60.1 %
--- NOTE | 2020-12-06 12:33 | P.PN ---
Subjective Progress Note Date: 12/06/20 Principal diagnosis: Left total hip arthroplasty Upon entering room patient was lying in bed semirecumbent comfortably. Patient rates pain as 4 out of 10. Patient says physical therapy had been there this morning. Patient has not had bowel movement yet. Patient has passed gas. Objective - Vital Signs Vital signs: Vital Signs Temp 98.6 F 12/06/20 08:00 Pulse 83 12/06/20 08:00 Resp 24 12/06/20 08:00 BP 105/56 12/06/20 08:00 Pulse Ox 97 12/06/20 08:00 Intake & Output 12/05/20 12/06/20 12/06/20 18:59 06:59 18:59 Intake Total 3301 860 Output Total 800 600 Balance 2501 260 Weight 63.4 kg Intake: IV 3301 Oral 240 Blood Product 0 620 Rc As-1 Unit 310 [id number] Rc As-1 Unit 0 310 [id number] Output: Urine 600 Estimated Blood Loss 800 Other: Voiding Method Toilet # Voids 2 - Exam : Incision is clean, dry, and intact. The silver foam tape is in good condition. There is minimal soft tissue swelling and ecchymosis surrounding the medial and lateral aspects of the incision. Calf is soft, no tenderness with palpation. Plantar flexion, dorsiflexion, EHL, FHL are intact. Sensory exam to light touch throughout the extremity is intact, dorsal pedis pulses 2+. - Labs CBC & Chem 7: 12/06/20 06:08 12/06/20 06:08 Labs: Abnormal Lab Results - Last 24 Hours (Table) 11/25/20 12/05/20 12/06/20 Range/Units 08:40 14:38 06:08 WBC 16.6 H 11.11 H (3.8-10.6) k/uL RBC 2.31 L 2.88 L (3.80-5.40) m/uL Hgb 7.5 L D 8.7 L (11.4-16.0) gm/dL Hct 22.4 L 27.3 L (34.0-46.0) % MCHC 31.9 L (32.0-37.0) g/dL RDW 15.8 H 19.0 H (11.5-15.5) % MPV 12.9 H (9.5-12.2) fL Absolute Nucleated RBC 0.18 H (0.00-0.00) X 10*3/uL Neutrophils # 15.1 H (1.3-7.7) k/uL NRBC/100 WBC Diff 1.6 H (0.0-0.0) /100 WBCS Est GFR (CKD-EPI)AfAm (60.0-200.0) Est GFR (CKD-EPI)NonAf (60.0-200.0) BUN/Creatinine Ratio (12.00-20.00) Ratio Glucose (70-110) mg/dL Crossmatch See Detail 12/06/20 Range/Units 06:08 WBC (3.8-10.6) k/uL RBC (3.80-5.40) m/uL Hgb (11.4-16.0) gm/dL Hct (34.0-46.0) % MCHC (32.0-37.0) g/dL RDW (11.5-15.5) % MPV (9.5-12.2) fL Absolute Nucleated RBC (0.00-0.00) X 10*3/uL Neutrophils # (1.3-7.7) k/uL NRBC/100 WBC Diff (0.0-0.0) /100 WBCS Est GFR (CKD-EPI)AfAm 55.3 L (60.0-200.0) Est GFR (CKD-EPI)NonAf 47.7 L (60.0-200.0) BUN/Creatinine Ratio 22.73 H (12.00-20.00) Ratio Glucose 131 H (70-110) mg/dL Crossmatch Assessment and Plan Assessment: Postoperative day 1 Status post left total hip arthroplasty Plan: Plan: 1. Continue with medical management. 2. Pain management - continue [place] for pain 3. Low hemoglobin - hemoglobin at 8.7 today. Will continue to monitor 4. Continue with physical therapy, including gait/stair training. 5. Take stool softeners as needed for constipation 6. Continue use of incentive spirometer 7. Discharge planning. 8. Anticipated discharge tomorrow, 12/07/2020 Time with Patient: Less than 30
[2020-12-06 14:41] LABS: Appearance,Urine Clear (Clear); Bacteria,Urine Rare /hpf; Bilirubin,Urine Negative (Negative); Blood,Urine Negative (Negative); Color,Urine Light Yellow; Glucose,Urine (UA) Negative (Negative); Ketones,Urine Negative (Negative); Leukocyte Esterase,Urine Small (Negative); Mucus,Urine Rare /hpf; Nitrite,Urine Negative (Negative); PH, Urine 5.5 (5.0-8.0); Protein,Urine Negative (Negative); RBC,Urine 1 /hpf (0-5); Specific Gravity,Urine 1.009 (1.001-1.035); Urobilinogen,Urine <2.0 mg/dL (<2.0); WBC,Urine 4 /hpf (0-5)
[2020-12-06] MEDS ORDERED: FUROSEMIDE 20 MG TAB PO SCH (16:00)
[2020-12-06] MEDS: HYDROcodone/APAP 5-325MG 1 EACH TAB PO PRN ×2 (16:12→20:51)
--- NOTE | 2020-12-06 17:12 | PN ---
PROGRESS NOTE DATE OF SERVICE: 12/06/2020 This 80-year-old woman who was admitted after left hip arthroplasty also has a history of chronic anemia. The patient has received transfusion. No chest pain. No palpitations. No fever. The patient has some pain. Orthopedic Surgery is following the patient closely. PHYSICAL EXAMINATION: Alert and oriented x3. The pulse is 80, blood pressure 111/63, respirations 16, temperature 99.2, pulse ox 94% on room air. HEENT: Conjunctivae normal. NECK: No jugular venous distention. CARDIOVASCULAR SYSTEM: S1, S2 muffled. RESPIRATORY SYSTEM: Breath sounds diminished at the bases. Scattered rhonchi. ABDOMEN: Soft. LEGS: Status post hip arthroplasty. LABS: WBC 11.2, hemoglobin is 8.7. Other labs are noted. Glucose 131. UA noted. ASSESSMENT: 1. Status post left hip arthroplasty. 2. Anemia, acute on chronic anemia, status post transfusion. 3. Increased white count. 4. History of coronary artery disease. 5. Gastroesophageal reflux disease. 6. Hypertension. 7. Hyperlipidemia. 8. History of previous anemia. 9. History of myocardial infarction. 10.History of degenerative joint disease. 11.History of sleep apnea. 12.History of macular degeneration. 13.History of sleep apnea, on CPAP. 14.History of back surgery. 15.Coronary artery disease, coronary artery bypass grafting, stent. 16.History of bleeding ulcer and gastrectomy. 17.History of splenectomy. 18.History of depression. 19.Remote history of nicotine dependence. 20.FULL CODE. RECOMMENDATIONS AND DISCUSSION: I recommend to continue current medications, continue with the monitoring, symptomatic treatment. Monitor CBC closely. Otherwise, recommend outpatient followup and workup. Continue with the proton pump inhibitors. Further recommendations to follow. DVT prophylaxis. MMODL / IJN: [id number] /
[2020-12-06 20:34] VITALS: RESP 16
[2020-12-06] MEDS: FLUOROMETHOLONE 0.1% OPHTH DROPS 5 ML BTL RIGHT EYE SCH (20:49)
[2020-12-06] MEDS: LATANOPROST 0.005% OPHTH DROPS 2.5 ML BTL RIGHT EYE SCH (20:49)
[2020-12-06] MEDS: SENNOSIDES-DOCUSATE SODIUM 1 EACH TAB PO SCH (20:50)
[2020-12-06] MEDS: ASPIRIN 81 MG PO SCH (20:50)
[2020-12-06] MEDS: ATORVASTATIN 40 MG TAB PO SCH (20:54)
[2020-12-07] MEDS: SODIUM CHLORIDE 0.9% 1,000 ML IV SCH (02:43)
[2020-12-07] MEDS: HYDROcodone/APAP 5-325MG 1 EACH TAB PO PRN (03:20)
[2020-12-07] MEDS: ENOXAPARIN 40 MG/0.4 ML SYRINGE SQ SCH (03:20)
[2020-12-07] MEDS: LACTATED RINGERS 1,000 ML IV SCH (07:12)
[2020-12-07 07:44] VITALS: BP 96/57; PULSE 64; TEMP 98
[2020-12-07 09:06] LABS: Basophils # (A) 0.05 X 10*3/uL (0.00-0.10); Basophils % (A) 0.6 %; Eosinophils # (A) 0.53 X 10*3/uL (0.04-0.35); Eosinophils % (A) 6.3 %; HCT 25.3 % (37.2-46.3); Lymphocytes # (A) 1.63 X 10*3/uL (0.90-5.00); Lymphocytes % (A) 19.2 %; MCH 29.7 pg (27.0-32.0); MCHC 31.6 g/dL (32.0-37.0); MCV 94.1 fL (80.0-97.0); Mean Platelet Volume 12.8 fL (9.5-12.2); Monocytes # (A) 1.78 X 10*3/uL (0.20-1.00); Neutrophils # (A) 4.44 X 10*3/uL (1.80-7.70); Neutrophils % (A) 52.4 %; Platelet Count 203 X 10*3/uL (140-440); RBC 2.69 X 10*6/uL (4.10-5.20); RDW 19.1 % (11.5-14.5); WBC 8.47 X 10*3/uL (4.50-10.00)
--- NOTE | 2020-12-07 10:03 | P.PN ---
Subjective Progress Note Date: 12/07/20 Principal diagnosis: Left total hip arthroplasty Upon entering room patient was sitting up in chair alert and oriented. Patient denies any weakness fatigue. Patient says she walked down the thorne this morning and was given and a plus from staff. She says she has seen a manager regulatory before and normally takes iron orally every other day. Patient says she has minimal pain to left hip and leg Objective - Vital Signs Vital signs: Vital Signs Temp 98.0 F 12/07/20 07:43 Pulse 64 12/07/20 07:43 Resp 16 12/07/20 07:43 BP 96/57 12/07/20 07:43 Pulse Ox 95 12/07/20 07:43 Intake & Output 12/06/20 12/07/20 12/07/20 18:59 06:59 18:59 Output Total 600 Balance -600 Output: Urine 600 Other: Voiding Method Toilet Toilet # Voids 1 - Exam : Incision is clean, dry, and intact. The silver foam tape is in good condition. There is minimal soft tissue swelling and ecchymosis surrounding the medial and lateral aspects of the incision. Calf is soft, no tenderness with palpation. Plantar flexion, dorsiflexion, EHL, FHL are intact. Sensory exam to light touch throughout the extremity is intact, dorsal pedis pulses 2+. - Labs CBC & Chem 7: 12/07/20 05:20 12/06/20 06:08 Labs: Abnormal Lab Results - Last 24 Hours (Table) 12/06/20 12/06/20 12/06/20 Range/Units 06:08 06:08 13:15 RBC (4.10-5.20) X 10*6/uL Hgb (12.0-15.0) g/dL Hct (37.2-46.3) % MCHC (32.0-37.0) g/dL RDW (11.5-14.5) % MPV (9.5-12.2) fL Absolute Nucleated RBC (0.00-0.00) X 10*3/uL Monocytes # 1.99 H (0.20-1.00) X 10*3/uL Eosinophils # (0.04-0.35) X 10*3/uL NRBC/100 WBC Diff (0.0-0.0) /100 WBCS Est GFR (CKD-EPI)AfAm 55.3 L (60.0-200.0) Est GFR (CKD-EPI)NonAf 47.7 L (60.0-200.0) BUN/Creatinine Ratio 22.73 H (12.00-20.00) Ratio Glucose 131 H (70-110) mg/dL Ur Leukocyte Esterase Small H (Negative) Urine Bacteria Rare H (None) /hpf Urine Mucus Rare H (None) /hpf 12/07/20 Range/Units 05:20 RBC 2.69 L (4.10-5.20) X 10*6/uL Hgb 8.0 L (12.0-15.0) g/dL Hct 25.3 L (37.2-46.3) % MCHC 31.6 L (32.0-37.0) g/dL RDW 19.1 H (11.5-14.5) % MPV 12.8 H (9.5-12.2) fL Absolute Nucleated RBC 0.11 H (0.00-0.00) X 10*3/uL Monocytes # 1.78 H (0.20-1.00) X 10*3/uL Eosinophils # 0.53 H (0.04-0.35) X 10*3/uL NRBC/100 WBC Diff 1.3 H (0.0-0.0) /100 WBCS Est GFR (CKD-EPI)AfAm (60.0-200.0) Est GFR (CKD-EPI)NonAf (60.0-200.0) BUN/Creatinine Ratio (12.00-20.00) Ratio Glucose (70-110) mg/dL Ur Leukocyte Esterase (Negative) Urine Bacteria (None) /hpf Urine Mucus (None) /hpf Assessment and Plan Assessment: Postoperative day 1 Status post left total hip arthroplasty Plan: Plan: 1. Continue with medical management. 2. Pain management - continue [place] for pain 3. Low hemoglobin - hemoglobin at 8.0 today. Patient nonsymptomatic Will continue to monitor 4. Continue with physical therapy, including gait/stair training. 5. DVT prophylaxis - resume regular medications, Plavix and aspirin 6. Take stool softeners as needed for constipation 7. Continue use of incentive spirometer 8. Discharge planning. 9. Anticipated discharge today, 12/07/2020 Time with Patient: Less than 30
--- NOTE | 2020-12-07 10:07 | P.DS ---
Providers Date of admission: 12/05/2020 Expected date of discharge: 12/07/20 Attending physician: Brigido Doll Consults: 12/05/20 12:00 Consult Physician Routine Consulting Provider: Ramses Saldana Consult Reason/Comments: Medical management Do you want consulting provider notified?: Yes Primary care physician: Ramses Saldana Hospital Course: Date of admission: 12/05/2020 Date of discharge: 12/07/2020 Admission diagnosis: Left total hip arthroplasty Discharge diagnosis: Same Attending physician: Dr. Doll Surgical procedures: Left total hip arthroplasty Brief history: Patient is a 80-year-old female with a history of progressive primary left hip osteoarthritis. At this point patient has failed conservative treatment measures and has opted to proceed with a elective and left total hip arthroplasty. Hospital course: Details of patient's surgery can be found in operative report. Patient tolerated the procedure well and was subsequently transported to orthopedic floor. Patient's orthopeidc and medical care was provided daily. Patient had daily laboratory tests performed for evaluation of overall blood counts. Blood counts on 12/05/2020 were hemoglobin 7.5. 2 units of blood were given. Hemoglobin on 12/06/2020 was 8.7. Hemoglobin on 12/07/2020 was 8.0. Patient has not been displaying any symptoms of fatigue or weakness Patient had daily physical therapy to include strengthening range of motion as well as education with walker ambulation. Patient was treated with Lovenox for their postoperative DVT prophylaxis during their inpatient stay. Patient was noted to have a relatively uneventful postoperative course. Patient reported satisfactory pain control with oral pain medications by postoperative day 2. Patient showed satisfactory progress with physical therapy. Patient moved steadily through the program and had no difficulty meeting the goals by postoperative day 2. Given patient's otherwise satisfactory course and having met physical therapy goals, plan is to discharge patient home on postoperative day 2. Discharge condition/disposition: Patient will be discharged home in stable co ndition. Discharge medications: Instructions are given on resumption of patient's normal daily medications per primary care recommendation, in addition patient will be prescribed Wyarno 5 mg/325 mg; Colace 100 mg. Continue with regular Plavix and aspirin Discharge instructions: 1. Wound care and infection precautions, keep incision dry and covered while showering, no lotions, creams, moisturizers. No soaking, tubs, pools, hottubs. Do not scrub over the incision. 2. Weight-bear as tolerated with walker / cane until follow-up. 3. Ice and elevate when necessary. Do not exceed 20 minutes per hour with ice pack. 4. Utilize compression sleeve until seen at first follow up appointment. 5. Visiting nursing care. 6. Home physical therapy. 7. Pain meds and anticoagulants per prescription. 8. Pain medication has potential to cause constipation. Increase oral fluid and fiber intake. Contact primary care provider if you have not had a bowel movement within 48 hours after discharge 9. No anti-inflammatory medication until discussed at first post operative visit, this including Motrin, Aleve, Mobic, Diclofenac. 10. Follow up in office at 2 weeks postop with Kennedy Cortes PA-C / Von Wood PA-C 11. Follow up with your primary care doctor 7-10 days after discharge. 12. Contact [facility] with any questions, . Keep silver foam dressing covered with plastic bag or Saran wrap while showering for the first 7-10 days. Silver foam dressing may be removed after 7-10 days. Assessment: Left total hip arthroplasty Patient Condition at Discharge: Good Plan - Discharge Summary Discharge Rx Participant: No New Discharge Prescriptions: New Docusate [Colace] 100 mg PO DAILY #30 capsule HYDROcodone/APAP 5-325MG [Wyarno 5-325] 1 tab PO Q6HR PRN #36 tab PRN Reason: Pain No Action Atorvastatin [Lipitor] 40 mg PO HS tab Ascorbic Acid [Vitamin C] 500 mg PO DAILY Spironolactone [Aldactone] 25 mg PO DAILY Furosemide [Lasix] 20 mg PO DAILY@1600 Pantoprazole [Protonix] 40 mg PO DAILY Fluticasone Nasal [place] [Flonase Nasal [place]] 2 spr EA NOSTRIL DAILY Citalopram Hydrobromide [CeleXA] 10 mg PO DAILY Latanoprost/Pf [Latanoprost 0.005% Eye Drop] 1 drop RIGHT EYE HS Fluorometholone 0.1% Ophth Amy [Fml] 1 drops RIGHT EYE HS traMADol HCL [Ultram] 50 mg PO BID PRN PRN Reason: Pain Ezetimibe [Zetia] 10 mg PO DAILY Vit C/E/Zn/Coppr/Lutein/Zeaxan [Preservision Areds 2 Softgel] 1 cap PO BID Folic Acid 0.4 mg PO DAILY Cholecalciferol [Vitamin D3 (25 Mcg = 1000 Iu)] 1,000 unit PO DAILY Ferrous Sulfate [Iron (65 MG Elemental)] 325 mg PO Q48H Calcium Carbonate [Calcium] 600 mg PO DAILY lisinopriL [Zestril] 2.5 mg PO HS Nitroglycerin Sl Tabs [Nitrostat] 0.4 mg SUBLINGUAL Q5M PRN #25 tab PRN Reason: Chest Pain Clopidogrel [Plavix] 75 mg PO DAILY #90 tab Acetaminophen Tab [Tylenol] 325 mg PO BID PRN PRN Reason: Pain Aspirin 81 mg PO HS Calcium Carbonate [Calcium] 600 mg PO BID Metoprolol Tartrate [Lopressor] 12.5 mg PO BID Acetaminophen/Diphenhydramine [Tylenol PM 500-25mg] 1 tab PO HS PRN PRN Reason: Insomnia Discharge Medication List Atorvastatin [Lipitor] 40 mg PO HS tab 01/09/19 [Rx] Ascorbic Acid [Vitamin C] 500 mg PO DAILY 06/10/19 [History] Citalopram Hydrobromide [CeleXA] 10 mg PO DAILY 06/10/19 [History] Fluticasone Nasal [place] [Flonase Nasal [place]] 2 spr EA NOSTRIL DAILY 06/10/19 [History] Furosemide [Lasix] 20 mg PO DAILY@1600 06/10/19 [History] Pantoprazole [Protonix] 40 mg PO DAILY 06/10/19 [History] Spironolactone [Aldactone] 25 mg PO DAILY 06/10/19 [History] Calcium Carbonate [Calcium] 600 mg PO DAILY 05/19/20 [History] Cholecalciferol [Vitamin D3 (25 Mcg = 1000 Iu)] 1,000 unit PO DAILY 05/19/20 [History] Ezetimibe [Zetia] 10 mg PO DAILY 05/19/20 [History] Ferrous Sulfate [Iron (65 MG Elemental)] 325 mg PO Q48H 05/19/20 [History] Fluorometholone 0.1% Ophth Amy [Fml] 1 drops RIGHT EYE HS 05/19/20 [History] Folic Acid 0.4 mg PO DAILY 05/19/20 [History] Latanoprost/Pf [Latanoprost 0.005% Eye Drop] 1 drop RIGHT EYE HS 05/19/20 [History] Vit C/E/Zn/Coppr/Lutein/Zeaxan [Preservision Areds 2 Softgel] 1 cap PO BID 05/19/20 [History] lisinopriL [Zestril] 2.5 mg PO HS 05/19/20 [History] traMADol HCL [Ultram] 50 mg PO BID PRN 05/19/20 [History] Clopidogrel [Plavix] 75 mg PO DAILY #90 tab 05/24/20 [Rx] Nitroglycerin Sl Tabs [Nitrostat] 0.4 mg SUBLINGUAL Q5M PRN #25 tab 05/24/20 [Rx] Acetaminophen Tab [Tylenol] 325 mg PO BID PRN 11/30/20 [History] Acetaminophen/Diphenhydramine [Tylenol PM 500-25mg] 1 tab PO HS PRN 11/30/20 [History] Aspirin 81 mg PO HS 11/30/20 [History] Calcium Carbonate [Calcium] 600 mg PO BID 11/30/20 [History] Metoprolol Tartrate [Lopressor] 12.5 mg PO BID 11/30/20 [History] Docusate [Colace] 100 mg PO DAILY #30 capsule 12/06/20 [Rx] HYDROcodone/APAP 5-325MG [Wyarno 5-325] 1 tab PO Q6HR PRN #36 tab 12/06/20 [Rx] Follow up Appointment(s)/Referral(s): Ramses Saldana MD [Primary Care Provider] - 12/14/20 9:20 am Thiago Cortes PAC [PHYSICIAN [employer]IMAL [employer]USB[employer]Y TE[employer]ER] - 12/23/20 1:50 pm [facility] Visiting Nurse, [NON-STAFF] - ([facility] will call you to set up your first visit. First visit should be on 12/07/20.) Patient Instructions/Handouts: How to Use an Incentive Spirometer (DC), Anterior Hip Replacement (DC) Activity/Diet/Wound Care/Special Instructions: Orthopedic Discharge Instructions: 1. Wound care and infection precautions, [keep incision dry and covered while showering], no lotions, creams, moisturizers. No soaking, pools, hot tubs. Do not scrub over incision. 2. Weight-bear [as tolerated] with walker / cane until follow-up. 3. Ice and elevate when necessary. Do not exceed 20 minutes per hour with ice pack. 4. Utilize compression sleeve until seen at first follow up appointment. 5. Pain meds and anticoagulants per prescription. 6. Pain medication has potential to cause constipation. Increase oral fluid and fiber intake. Contact primary care provider if you have not had a bowel movement within 48 hours after discharge. 7. No anti-inflammatory medication until discussed at first post operative visit, this including Motrin, Aleve, Mobic, Diclofenac. 8. Follow up in office at 2 weeks postop with Kennedy Cortes PA-C / Von Wood PA-C 9. Follow up with your primary care doctor 7-10 days after discharge. 10. Contact [facility] with any questions, . Keep silver foam dressing covered with saran wrap or plastic bag while showering for first 7-10 days. After 7-10 days silver foam dressing may be removed Discharge Disposition: HOME WITH HOME HEALTH SERVICES
[2020-12-07] MEDS: CLOPIDOGREL 75 MG TAB PO SCH (10:20)
[2020-12-07] MEDS: EZETIMIBE 10 MG TAB PO SCH (10:20)
[2020-12-07] MEDS: CALCIUM CARBONATE 500 MG CHEWABLE PO SCH ×2 (10:20→10:22)
[2020-12-07] MEDS: SPIRONOLACTONE 25 MG TAB PO SCH (10:20)
[2020-12-07] MEDS: CHOLECALCIFEROL 25 MCG (1000 IU) TABLET PO SCH (10:20)
[2020-12-07] MEDS: ASCORBIC ACID 500 MG TAB PO SCH (10:20)
[2020-12-07] MEDS: METOPROLOL TARTRATE 12.5 MG TAB PO SCH (10:21)
[2020-12-07] MEDS: FOLIC ACID 1 MG TAB PO SCH (10:21)
[2020-12-07] MEDS: CITALOPRAM HYDROBROMIDE 10 MG TAB PO SCH (10:21)
[2020-12-07] MEDS: VIT A,C & E-LUTEIN-MINERALS 1 EACH TAB PO SCH (10:22)
[2020-12-07] MEDS: FLUTICASONE 50MCG/SPRAY NASAL 16GM EA NOSTRIL SCH (10:22)
[2020-12-07] MEDS: PANTOPRAZOLE 40 MG/10 ML VIAL IVP SCH (10:28)
--- NOTE | 2020-12-07 21:21 | PN ---
PROGRESS NOTE DATE OF SERVICE: 12/07/2020 This 80-year-old woman was admitted after left hip arthroplasty, improving significantly. No chest pain. No palpitations. Patient has anemia, with a history of chronic anemia also. No chest pain. No palpitations. No fever. PHYSICAL EXAMINATION: Alert and oriented x3. Pulse 80. Blood pressure 108/80, respiration 20, temperature normal. HEENT: Conjunctivae normal. NECK: No JVD. CARDIOVASCULAR: S1, S2 muffled. RESPIRATION: Breath sounds diminished in the bases. No rhonchi. No crackles. ABDOMEN: Soft, nontender. LEGS status post arthroplasty. NERVOUS SYSTEM: No focal deficits. LABS: Hemoglobin 8. Other labs are noted. ASSESSMENT: 1. Status post left hip arthroplasty. 2. Anemia, acute on chronic anemia. 3. Increased WBC. 4. History of coronary artery disease. 5. History of gastroesophageal reflux disease. 6. Hypertension. 7. Hyperlipidemia. 8. History of previous anemia. 9. History of myocardial infarction. 10.History of degenerative joint disease. 11.Obstructive sleep apnea. 12.History of macular degeneration. 13.History of sleep apnea on CPAP. 14.History of back surgery. 15.History of coronary artery disease, coronary artery bypass grafting, stent. 16.History of bleeding ulcer with gastrectomy. 17.History of splenectomy. 18.History of depression. 19.Remote history of nicotine dependence. 20.FULL CODE. RECOMMENDATIONS AND DISCUSSION: I recommend to continue current medications, continue symptomatic treatment. Otherwise at this time I recommend followup labs CBC, BMP with Dr. Saldana. Resume the home medications. Further recommendations to follow. MMODL / IJN: [id number] /
== END 2020-12-07 12:54 | disposition home health service (06) ==
LOC: OR 08:23 → 4SSUR 17:36 → OR 12-06 13:25 → 4SSUR 12-07 02:44
PROVIDERS: ADMIT Orthopaedic Surgery; ATTEND Orthopaedic Surgery
DX: M16.12 Unilateral primary osteoarthritis, left hip (principal); G60.9 Hereditary and idiopathic neuropathy, unspecified; D64.9 Anemia, unspecified; D72.829 Elevated white blood cell count, unspecified; I10 Essential (primary) hypertension; E78.5 Hyperlipidemia, unspecified; I95.9 Hypotension, unspecified; I25.10 Atherosclerotic heart disease of native coronary artery without angina pectoris; I25.2 Old myocardial infarction; H35.30 Unspecified macular degeneration; K21.9 Gastro-esophageal reflux disease without esophagitis; M19.90 Unspecified osteoarthritis, unspecified site; G47.33 Obstructive sleep apnea (adult) (pediatric); F32.9 Major depressive disorder, single episode, unspecified; Z88.5 Allergy status to narcotic agent; Z91.011 Allergy to milk products; Z99.89 Dependence on other enabling machines and devices; Z79.899 Other long term (current) drug therapy; Z79.891 Long term (current) use of opiate analgesic; Z79.82 Long term (current) use of aspirin; Z90.81 Acquired absence of spleen; Z95.1 Presence of aortocoronary bypass graft; Z95.5 Presence of coronary angioplasty implant and graft; Z87.891 Personal history of nicotine dependence; Z82.49 Family history of ischemic heart disease and other diseases of the circulatory system; Z87.19 Personal history of other diseases of the digestive system
CPT/HCPCS: 27130; 97116; 97110; 97161; 97535; 97165; 80048; 84132; 85025 ×3; 86920; 81001; 88300; 73501; 36430; G0378 ×2; C1776; P9016; J2250; J1200; J1100; J0690 ×4; J2405; J1650 ×2; J3010; J1170 ×3; J2370; J2704; C9113 ×3; 86850; 86900; 86901

== ENCOUNTER → 2021-01-09 | Outpatient (CLI) | payer MEDICARE ==
--- NOTE | 2021-01-10 09:41 | MM ---
Reason for exam: additional evaluation requested from abnormal screening. Last mammogram was performed 2 months ago. History: Patient is postmenopausal. Physical Findings: Nurse did not find any significant physical abnormalities on exam. MG 3D Work Up W/Cad NAI Bilateral CC and MLO view(s) were taken. Prior study comparison: November 09, 2020, bilateral MG 3d screening mammo w/cad. September 04, 2019, bilateral MG screening mammo w CAD. The breast tissue is heterogeneously dense. This may lower the sensitivity of mammography. Benign appearing bilateral calcifications. There is chronic nodularity in the right breast. No significant new findings when compared with previous films. These results were verbally communicated with the patient and result sheet given to the patient on 01/09/21. ASSESSMENT: Benign, BI-RAD 2 RECOMMENDATION: Follow-up diagnostic mammogram of both breasts in 6 months.
== END | disposition home or self-care (01) ==
LOC: RADMAMWWP 14:07
PROVIDERS: ATTEND Family Medicine
DX: N63.10 Unspecified lump in the right breast, unspecified quadrant (principal); R92.2 Inconclusive mammogram
CPT/HCPCS: 77066; G0279; 77062

== ENCOUNTER → 2021-02-24 | Outpatient (CLI) | payer MEDICARE ==
[2021-02-24 12:53] LABS: African American GFR (CKD) 55.3 (60.0-200.0); Albumin 4.4 g/dL (3.80-4.90); Albumin/Globulin Ratio 1.91 (1.60-3.17); Anion Gap 8.5 mmol/L (4.00-12.00); BUN/Creat Ratio 27.27 Ratio (12.00-20.00); Calcium 9.5 mg/dL (8.7-10.3); Carbon Dioxide 29.5 mmol/L (21.6-31.8); Chol/HDL Ratio 2.08; Globulin 2.3 g/dL (1.6-3.3); LDL Cholesterol,Calculated 66.8 mg/dL (0.0-131.0); Non-African American GFR(CKD) 47.7 (60.0-200.0); Potassium 5.1 mmol/L (3.5-5.5); Total Bilirubin 0.6 mg/dL (0.3-1.2); Total Protein 6.7 g/dL (6.2-8.2); VLDL Calculation 14.2 mg/dL (5.00-40.00)
== END | disposition home or self-care (01) ==
LOC: LABWHC1 07:46
PROVIDERS: ATTEND Internal Medicine Interventional Cardiology
DX: E78.2 Mixed hyperlipidemia (principal)
CPT/HCPCS: 36415; 80053; 80061

== ENCOUNTER → 2021-06-14 | Outpatient (CLI) | payer MEDICARE ==
[2021-06-14 11:09] LABS: Basophils # (A) 0.09 X 10*3/uL (0.00-0.10); Basophils % (A) 1.2 %; Eosinophils % (A) 6.6 %; HCT 27.7 % (37.2-46.3); HGB 8.6 g/dL (12.0-15.0); Lymphocytes # (A) 1.43 X 10*3/uL (0.90-5.00); MCH 28.6 pg (27.0-32.0); Mean Platelet Volume 12.3 fL (9.5-12.2); Monocytes # (A) 0.87 X 10*3/uL (0.20-1.00); Monocytes % (A) 11.6 %; Neutrophils # (A) 4.62 X 10*3/uL (1.80-7.70); Neutrophils % (A) 61.5 %; Platelet Count 417 X 10*3/uL (140-440); RBC 3.01 X 10*6/uL (4.10-5.20); RDW 16.1 % (11.5-14.5); WBC 7.52 X 10*3/uL (4.50-10.00)
[2021-06-14 21:19] LABS: % Iron Saturation 4.51 (12.00-45.00); African American GFR (CKD) 44.8 (60.0-200.0); Albumin 4.6 g/dL (3.8-4.9); Albumin/Globulin Ratio 2.03 (1.60-3.17); Anion Gap 11.6 mmol/L (4.00-12.00); BUN/Creat Ratio 25.5 Ratio (12.00-20.00); Blood Urea Nitrogen 33.4 mg/dL (9.0-27.0); Calcium 9.7 mg/dL (8.7-10.3); Carbon Dioxide 26.9 mmol/L (21.6-31.8); Chol/HDL Ratio 2.2 Ratio; Ferritin 33.6 ng/mL (10.0-291.0); Globulin 2.2 g/dL (1.6-3.3); HDL Cholesterol 72.7 mg/dL (40.00-60.00); LDL Cholesterol,Calculated 73.6 mg/dL (0.0-131.0); Non-African American GFR(CKD) 38.6 (60.0-200.0); Potassium 4.8 mmol/L (3.5-5.5); Total Bilirubin 0.3 mg/dL (0.30-1.20); Total Protein 6.8 g/dL (6.2-8.2); Triglycerides 68.4 mg/dL (0.00-149.00); VLDL Calculation 13.68 mg/dL (5.00-40.00)
== END | disposition home or self-care (01) ==
LOC: LABWHC1 08:20
PROVIDERS: ATTEND Internal Medicine Interventional Cardiology
DX: D64.9 Anemia, unspecified (principal); E78.2 Mixed hyperlipidemia
CPT/HCPCS: 36415; 80053; 80061; 82728; 83540; 83550; 85025